=== PATIENT | female | born 1960 | race African-American/Black ===

== ENCOUNTER 2020-02-04 10:54 | Outpatient (CLI) | payer OTHER, SELFPAY ==
--- NOTE | ~2020-02-04 | XR_ITS ---
EXAMINATION: XR lumbar spine 2-3V, XR sacroiliac joints min 3V EXAM DATE: 02/04/2020 11:22 INDICATION: Left lower quadrant pain. TECHNIQUE: Lumber spine frontal, lateral, lateral L5-S1 projections for interpretation. Additional o blique projections of the sacroiliac joints. Frontal projection sacroiliac joints. Comparison is made to prior examination from 08/08/2010. FINDINGS: There is left hip arthroplasty and there are cholecystectomy clips. Moderate to severe dis c disease L5-S1. There is mild to moderate disc disease L3-4 and L4-5, mild upper lumbar and lower th oracic disc disease. There is moderate to severe lumbar facet arthropathy. There is 2-3 mm anterolist hesis L3 on L4. Sacrum, sacroiliac joints, sacral arcuate lines are intact. There is mild to moderate primary osteoarthritis. There is mild bilateral hip primary osteoarthritis. IMPRESSION: 1. Moderate to severe lumbar arthropathy and L5-S1 disc disease. 2. 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 Reviewed, dictated and finalized at location A. IMPRESSION: 1. Moderate to severe lumbar arthropathy and L5-S1 disc disease. 2. 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
[2020-02-04 11:27] LABS: Add Urine Microscopic? YES; Appearance Urine Clear (Clear); Bacteria Urine Trace /hpf; Bilirubin Urine Negative (Negative); Blood Urine 1+ (Negative); Color Urine Straw (Yellow); Glucose Urine UA Negative (Negative); Ketones Urine Negative (Negative); Leukocyte Esterase Ur Negative LEU/UL (Negative); Nitrate Urine Negative (Negative); Protein Urine Negative (Negative); Specific Grav Ur 1.011 (1.001-1.035); Squamous Epithelial Cell Urine Moderate /hpf (Few); Urobilinogen Urine Negative mg/dL (<2.0); WBC Urine 0-3 /hpf
== END 2020-02-04 10:55 | disposition home or self-care (01) ==
PROVIDERS: PCP Family Medicine Sports Medicine; Visit Provider Surgery
DX: R10.32 Left lower quadrant pain (principal); M12.88 Other specific arthropathies, not elsewhere classified, other specified site; M47.898 Other spondylosis, sacral and sacrococcygeal region
CPT/HCPCS: 72100; 72202; 81001

== ENCOUNTER 2022-01-14 11:19 | Outpatient (CLI) | payer OTHER, SELFPAY ==
--- NOTE | ~2022-01-14 | MM_ITS ---
EXAMINATION: MM screening jose luis BI w dg HISTORY: Screening mammogram TECHNIQUE: Craniocaudal and mediolateral oblique 3-D tomosynthesis images were obtained and synthetic 2-D images were generated. CAD analysis was submitted and interpreted. COMPARISON: 10/11/2018 diagnostic left mammogram and limited left breast ultrasound 09/12/2018, 12/28/2016 bilateral screening mammogram examinations BREAST PARENCHYMAL COMPOSITION: There are scattered areas of fibroglandular density. FINDINGS: There is no evidence of suspicious mass, calcification, or architectural distortion to sugg est malignancy in either breast. There has been no suspicious interval change. IMPRESSION: 1. No mammographic evidence of malignancy. 2. Recommend routine screening mammography in one year. BI-RADS Category 1: Negative Reviewed, dictated and finalized at location A.
== END 2022-01-14 11:20 | disposition home or self-care (01) ==
PROVIDERS: PCP Family Medicine Sports Medicine; Visit Provider Family Medicine Sports Medicine
DX: Z12.31 Encounter for screening mammogram for malignant neoplasm of breast (principal)
CPT/HCPCS: 77063; 77067

== ENCOUNTER 2022-02-09 21:24 | Emergency (ER) | payer OTHER, SELFPAY ==
--- NOTE | ~2022-02-09 | XR_ITS ---
EXAMINATION: XR chest 2V DATE: 02/09/2022 23:39 INDICATION: Cough TECHNIQUE: PA and lateral views of the chest are obtained. COMPARISON: 07/20/2017 FINDINGS: The lungs are free of acute opacities. There is no pleural effusion or pneumothorax. The ca rdiomediastinal silhouette is normal. There is mild thoracic spondylosis. Suture anchors are noted in the humeral heads. Surgical clips in the right upper quadrant are likely from prior cholecystectomy. IMPRESSION: 1. No acute cardiopulmonary abnormality. Reviewed, dictated and finalized at location A.
[2022-02-09 21:29] VITALS: BP 163/71; PULSE 89; RESP 18; TEMP 36.7; O2SAT 100
[2022-02-09 23:00] VITALS: BP 136/72; PULSE 100; PULSE 88; RESP 14; O2SAT 97
--- NOTE | 2022-02-09 23:08 | ED.GENADULT ---
HPI - General Adult General Chief complaint: Weakness Stated complaint: cough heavy chest bodyaches Time Seen by Provider: 02/09/22 22:33 Source: patient Mode of arrival: ambulatory Limitations: no limitations History of Present Illness HPI narrative: Patient is a 62-year-old female who presents the ED with report of flu-like symptoms. Patient reports she began feeling unwell on Sunday night. She reports having a persistent cough, diarrhea, muscle aches, chills, sweats, congestion, rhinorrhea, headache. She has had rib pain and abdominal pain associated with coughing. Denies any documented fever, nausea, vomiting. No blood in the stool. Patient states she just feels weak overall. She reports having occasional stress incontinence with coughing, but denies dysuria or hematuria. Patient is vaccinated for flu and COVID. Related Data Home Medications Medication Instructions Recorded Confirmed calcium carbonate 600 mg calcium 600 mg PO DAILY 08/01/19 (1,500 mg) tablet albuterol sulfate 90 mcg/actuation 2 puff INHALATION Q4H PRN gm 08/14/19 aerosol inhaler aspirin 81 mg tablet,delayed 81 mg PO DAILY 08/14/19 release dicyclomine 10 mg capsule 20 mg PO BID cap 08/14/19 fluticasone propionate 230 2 puff INHALATION Q12H 08/14/19 mcg-salmeterol 21 mcg/actuation HFA inhaler omeprazole 20 mg capsule,delayed 20 mg PO DAILY 08/14/19 release pravastatin 10 mg tablet 10 mg PO DAILY 08/14/19 biotin 800 mcg tablet 800 mcg PO DAILY 02/04/20 omega-3 900 mg-dha 360 mg-epa 455 cap PO 02/04/20 mg-fish oil 1,000 mg capsule Allergies Allergy/AdvReac Type Severity Reaction Status Date / Time No Known Allergies Allergy Unknown Verified 02/04/20 09:47 Review of Systems Review of Systems: CONSTITUTIONAL: Reports chills, sweats. Denies fever. ENT: Reports rhinorrhea, congestion. CARDIOVASCULAR: Denies chest pain. RESPIRATORY: Reports cough. Denies dyspnea. GASTROINTESTINAL: Reports abdominal pain associated with coughing, diarrhea. Denies nausea, vomiting, rectal bleeding. GENITOURINARY: Reports stress incontinence. Denies dysuria or hematuria. MUSCULOSKELETAL: Reports diffuse myalgias, rib pain associated w/ coughing. NEUROLOGIC: Reports headache, weakness. All systems reviewed & are unremarkable except as noted in HPI and below PMFSH Past Medical History Medical History Anemia Chronic depression Renal and ureteric calculus UTI (urinary tract infection) Yeast vaginitis Surgical History Surgical History History of bilateral carpal tunnel release both in 2007 History of colonoscopy 2016 2019 History of endoscopy 2014 History of hysterectomy total 2005 History of laparoscopic cholecystectomy 2011 History of left hip replacement 2019 History of rotator cuff surgery right in 2016 left in 2014 Family History Family History (Updated 04/08/19 @ 13:26 by DOCTOR UNKNOWN) Father Family history of diabetes mellitus in first degree relative Diabetes mellitus Family history of cardiovascular disease Family history of Alzheimer's disease Family history of congestive heart failure Family history of heart disease in male family member before age 55 Hypertension Family history of elevated blood lipids Family history of coronary artery disease Sibling Diabetes mellitus Family history of cardiovascular disease Hypertension Family history of malignant neoplasm of cervix Family history of malignant neoplasm of ovary Mother Hypertension Family history of cardiovascular disease Family history of malignant neoplasm of cervix Family history of glaucoma Grandparent Diabetes mellitus Family history of cardiovascular disease, Onset Age: 82 Other Cerebrovascular accident Family history of arthritis Family history of gout Family history of malignant neoplasm
[2022-02-09] MEDS: KETOROLAC 30 MG/ML VIAL (*BKC) IV PUSH (23:25)
[2022-02-09] MEDS: SODIUM CHLORIDE 0.9% IV 1,000 ML 999 ML IV CONT (23:25)
[2022-02-09 23:34] LABS: Basophils Percent Auto 0.5 % (0.2-1.2); Eosinophils Percent Auto 0.5 % (0-4.4); Hematocrit 38.7 % (37.0-47.0); Immature Granulocyte Absolute 0.02 K/mm3 (0.00-0.031); Immature Granulocyte Percent A 0.3 % (0-0.5); Lymphocytes Absolute Auto 1.78 K/mm3 (0.9-3.2); Lymphocytes Percent Auto 30.1 % (18.3-44.2); Mean Corpuscular Hemoglobin 26.7 pg (26-34); Mean Corpuscular Volume 86.2 fl (80-100); Mean Platelet Volume 9.5 fl (7.4-10.4); Monocytes Absolute Auto 0.8 K/mm3 (0.1-0.6); Monocytes Percent Auto 13.9 % (2.6-8.5); Neutrophils Absolute Auto 3.2 K/mm3 (1.3-6.7); Neutrophils Percent Auto 54.7 % (45.5-73.1); Platelet Count Result 220 k/mm3 (150-375); Red Blood Count 4.49 M/mm3 (4.2-5.4); Red Cell Distribution Width 15.9 % (11.5-14.5); White Blood Count 5.9 K/mm3 (4.5-10.0)
[2022-02-09 23:36] LABS: Appearance Urine Clear (Clear); Bilirubin Urine Negative (Negative); Blood Urine 1+ (Negative); Color Urine Yellow (Yellow); Glucose Urine UA Negative (Negative); Ketones Urine Negative (Negative); Leukocyte Esterase Ur Negative LEU/UL (Negative); Nitrate Urine Negative (Negative); Protein Urine Negative (Negative); Specific Grav Ur >= 1.030 (1.001-1.035); Urobilinogen Urine 0.2 mg/dL (<2.0); pH Urine 5.5 (5.0-9.0)
[2022-02-09 23:39] LABS: Alanine Aminotransferase 58 U/L (6-35); Alkaline Phosphatase 84 U/L (38-126); Anion Gap 4 mmol/L (8-16); Aspartate Amino Transferase 71 U/L (14-36); Bilirubin,Total 0.2 mg/dL (0.2-1.3); Blood Urea Nitrogen 12 mg/dL (7-17); Calcium 8.8 mg/dL (8.4-10.2); Carbon Dioxide 31 mmol/L (22-30); Chloride 102 mmol/L (98-107); Estimated CRCL calculation 56 ml/min; Estimated Glomerular Filt Rate > 60; Glucose 126 mg/dL (65-110); Mucus Urine Rare /lpf; Potassium 4.2 mmol/L (3.4-5.0); Sodium 137 mmol/L (137-145); Squamous Epithelial Cell Urine Few /hpf (Few); WBC Urine 0-3 /hpf
[2022-02-09 23:44] LABS: Add Urine Microscopic? YES
[2022-02-10 00:07] LABS: Influenza A QL RT-PCR Negative (Negative); Influenza B QL RT-PCR Negative (Negative); SARS-CoV-2 RNA PCR Positive
--- NOTE | 2022-02-10 00:27 | PC.NURSE ---
Updated pt. family leann at [phone]. requesting to be called for updates
[2022-02-10 00:42] VITALS: BP 138/76; PULSE 89; RESP 18; O2SAT 98; O2SAT 99
[2022-02-10 00:43] VITALS: O2SAT 97
== END 2022-02-10 00:44 | disposition home or self-care (01) ==
PROVIDERS: Physician Assistant; Emergency Provider Emergency Medicine; PCP Family Medicine Sports Medicine
DX: U07.1 COVID-19 (principal)
CPT/HCPCS: 36415; 71046; 80053; 81001; 85025; 87502; 96361; 96374; 99284; C9803; J1885; J7030; U0003; U0005

== ENCOUNTER 2022-12-18 13:53 | Outpatient (CLI) | payer BC, SELFPAY ==
--- NOTE | ~2022-12-18 | XR_ITS ---
XR chest 2V DATE: 12/18/2022 14:11 INDICATION: Shortness of breath TECHNIQUE: 2 views COMPARISON: 02/09/2022 2 view chest FINDINGS: Normal heart size. No hilar or mediastinal enlargement. No pulmonary infiltrate or consolid ation, pleural effusion or pulmonary vascular congestion or pneumothorax. Degenerative spurring of the thoracic and lumbar spine. [place] devices are noted at both humeral head s. Status post cholecystectomy. IMPRESSION: No active cardiopulmonary disease or significant change since 02/09/2022 Reviewed, dictated and finalized at location B. IMPRESSION: No active cardiopulmonary disease or significant change since 2021
== END 2022-12-18 13:54 | disposition home or self-care (01) ==
PROVIDERS: PCP Family Medicine Sports Medicine; Visit Provider Physician Assistant
DX: R06.02 Shortness of breath (principal)
CPT/HCPCS: 71046

== ENCOUNTER 2023-01-09 08:36 | Outpatient (CLI) | payer BC, SELFPAY ==
--- NOTE | 2023-01-09 | ECHO_ITS ---
Patient Info Name: Little Sarmiento Age: 63 years : 1960 Gender: Female Ht: 65 in Wt: 228 lbs BSA: 2.23 m2 HR: 81 bpm BP: 160 / 85 mmHg Heart Rhythm: Sinus Rhythm Technical Quality: Good Exam Date: 01/09/2023 9:09 AM Exam Location: [facility] Patient Status: Outpatient Admit Date: 01/09/2023 Staff Ordering Physician: Sagrario, John GONZALEZ Delivery Table Feeder: Soniya Cintron RDCS Attending Provider: Sagrario, John GONZALEZ Referring Physician: Sagrario HERNANDEZ; Exam Type: CA echo doppler color flow Study Info Indications R06.02 - Shortness of breath Complete two-dimensional, color flow and Doppler transthoracic echocardiogram is performed. Summary 1. Complete two-dimensional, color flow and Doppler transthoracic echocardiogram is performed. 2. Left ventricular chamber dimension is normal. 3. Left ventricular systolic function is normal, estimated at 65-70%. 4. There is mildly increased left ventricular wall thickness. 5. The left ventricular diastolic function is grade I diastolic dysfunction. 6. Right ventricular systolic function is normal. 7. There is trace mitral valve regurgitation. 8. There is trace tricuspid valve regurgitation. Left Ventricle Left ventricular chamber dimension is normal. Left ventricular systolic function is normal, estimated at 65-70%. There is mildly increased left ventricular wall thickness. The left ventricular diastolic function is grade I diastolic dysfunction. Global longitudinal strain is abnormal at -17 %. Right Ventricle Right ventricular chamber dimension is normal. Right ventricular systolic function is normal. Left Atria Left atrial chamber dimension is normal. Right Atria Right atrial chamber dimension is normal. Atrial Septum Intact interatrial septum visualized by color flow imaging. Aortic Valve The aortic valve is trileaflet. There is no aortic valve stenosis. There is no aortic valve regurgitation. Pulmonic Valve The pulmonic valve is not well visualized. Mitral Valve The mitral valve has normal leaflets. There is no mitral valve stenosis. There is trace mitral valve regurgitation. Tricuspid Valve There is no significant tricuspid valve stenosis. There is trace tricuspid valve regurgitation. Pericardium/Pleural There is trivial pericardial effusion. Aorta The aortic root size at the sinus of Valsalva is normal. Left Ventricular Outflow Tract Name Value Normal LVOT 2D LVOT Diameter 1.9 cm LVOT Doppler LVOT Peak Gradient 5 mmHg LVOT Mean Gradient 3 mmHg LVOT VTI 25 cm LVOT VTI/AV VTI Ratio 0.9 LVOT Stroke Volume 71 ml LVOT CO 5.4 l/min LVOT CI 2.4 l/min/m2 Pulmonic Valve Name Value Normal RVOT Doppler ----
--- NOTE | 2023-01-09 14:06 | WPDPFTINT ---
PFT Procedure Performed PFT Procedure Performed Plethysmography (Lung Vol) Diffusing Cap (DLCO) Flow Vol Loop Spirometry w/o Bronchodil PFT Interpretation DOS: 01/09/2023 REQUESTING: LISA Quiros REASON FOR TESTING: Shortness of breath PULMONARY FUNCTION TESTS Results are reliable and reproducible. Spirometry: FEV1 is 1.26 L, 57% predicted, mildly decreased. FVC is 1.61 L, 58%, mildly decreased. FEV1/FVC ratio is 79%, normal. No bronchodilator was administered. Lung volumes: Total lung capacity is 3.29 L, 72%, mildly reduced. Residual volume is 1.68 L, 88%, normal. RV/TLC is 51%, increased. Airway resistance is 2.2 cmH20/L/sec, 127%, normal. Diffusion: DLCO 15.8, 72%, normal. DLCO/VA is 5.66, 129%, normal. Flow volume loop: Flow volume loop is consistent with a restrictive impairment. IMPRESSION: This spirometry shows a normal FEV1/FVC ratio with mild decrease in the FEV1 and FVC which may reflect elevated body mass index. There is mild restriction evidence by the decreased total lung capacity. Air trapping is present which is new. Diffusion is normal. Compared to a prior study 08/20/2019, values are similar. Spirometry was the same although no bronchodilator was given on this test. Total lung capacity was 77% now 72% predicted. Air trapping is present with an increased RV/TLC ratio. Diffusion is similar. Oly Pierre MD
== END 2023-01-09 08:37 | disposition home or self-care (01) ==
PROVIDERS: PCP Family Medicine Sports Medicine; Visit Provider Physician Assistant
DX: R06.02 Shortness of breath (principal)
CPT/HCPCS: 93306; 94375; 94726; 94729

== ENCOUNTER 2023-01-25 11:47 | Emergency (ER) | payer BC, SELFPAY ==
[2023-01-25] VITALS (39 sets, daily range): BP systolic 131–160; BP diastolic 65–92; PULSE 73–96; RESP 14–26; TEMP 36.8; O2SAT 97–100
--- NOTE | ~2023-01-25 | XR_ITS ---
EXAMINATION: XR chest 2V DATE: 01/25/2023 13:20 INDICATION: Shortness of breath TECHNIQUE: PA and lateral views of the chest are obtained. COMPARISON: 12/18/2022 FINDINGS: The lungs are free of acute opacities. No pleural effusion or pneumothorax. The cardiomedia stinal silhouette is normal. There are bridging osteophytes at multiple levels in the spine, consiste nt with diffuse idiopathic skeletal hyperostosis (DISH). Suture anchors are noted in the humeral head s. Surgical clips in the right upper quadrant are likely from prior cholecystectomy. IMPRESSION: 1. No acute cardiopulmonary abnormality. Reviewed, dictated and finalized at location L.
--- NOTE | 2023-01-25 11:56 | ECG_ITS ---
Measurements Intervals [place] Rate: 73 P: 54 NE: 160 QRS: 63 QRSD: 83 T: 86 QT: 382 QTc: 422 Interpretive Statements SINUS RHYTHM WITH SINUS ARRHYTHMIA POSSIBLE LEFT ATRIAL ENLARGEMENT [-0.1mV P WAVE IN V1/V2] NONSPECIFIC T-WAVE ABNORMALITY NO PREVIOUS ECG AVAILABLE FOR COMPARISON Electronically Signed On 01-25-2023 12:06:35 CDT by Mitali Waller M.D.
[2023-01-25 12:15] LABS: Basophils Percent Auto 0.6 % (0.2-1.2); Eosinophils Absolute Auto 0.2 K/mm3 (0-0.3); Eosinophils Percent Auto 4.1 % (0-4.4); Hematocrit 38.5 % (37.0-47.0); Hemoglobin 12.1 g/dL (12.0-15.0); Immature Granulocyte Absolute 0.01 K/mm3 (0.00-0.031); Immature Granulocyte Percent A 0.2 % (0-0.5); Lymphocytes Absolute Auto 1.88 K/mm3 (0.9-3.2); Mean Corpuscular HGB Conc 31.4 g/dl (32-36); Mean Corpuscular Hemoglobin 26.1 pg (26-34); Mean Corpuscular Volume 83.2 fl (80-100); Mean Platelet Volume 9.6 fl (7.4-10.4); Monocytes Absolute Auto 0.5 K/mm3 (0.1-0.6); Monocytes Percent Auto 10.6 % (2.6-8.5); Neutrophils Absolute Auto 2.2 K/mm3 (1.3-6.7); Neutrophils Percent Auto 45.5 % (45.5-73.1); Platelet Count Result 265 k/mm3 (150-375); Red Blood Count 4.63 M/mm3 (4.2-5.4); Red Cell Distribution Width 16.8 % (11.5-14.5); White Blood Count 4.8 K/mm3 (4.5-10.0)
[2023-01-25 12:24] LABS: Alanine Aminotransferase 43 U/L (6-35); Albumin Level 4.1 g/dL (3.5-5.1); Alkaline Phosphatase 102 U/L (38-126); Anion Gap 6 mmol/L (8-16); Aspartate Amino Transferase 45 U/L (14-36); Bilirubin,Total 0.5 mg/dL (0.2-1.3); Blood Urea Nitrogen 10 mg/dL (7-17); Calcium 8.7 mg/dL (8.4-10.2); Carbon Dioxide 29 mmol/L (22-30); Chloride 104 mmol/L (98-107); Estimated CRCL calculation 69 ml/min; Estimated Glomerular Filt Rate > 60; Glucose 119 mg/dL (65-110); Lipase 71 U/L (23-300); Sodium 139 mmol/L (137-145)
[2023-01-25 12:28] LABS: Prothrombin Time 13.1 Seconds (11.1-14.7)
[2023-01-25 12:29] LABS: Partial Thromboplastin Time 29.4 SECONDS (22.3-36.8)
[2023-01-25 12:34] LABS: NT Pro B Type Natriuretic Pept < 20 pg/mL (19.9-100)
[2023-01-25 12:36] LABS: Troponin I < 0.012 ng/mL (0.000-0.034)
--- NOTE | 2023-01-25 14:56 | ED.SOB ---
HPI - SOB/Dyspnea General Chief Complaint: Shortness of Breath/Dyspnea Stated Complaint: sob Time Seen by Provider: 01/25/23 13:33 History of Present Illness HPI Narrative: Patient is a 63-year-old female with a history of rheumatoid arthritis presenting with chest pain. Patient states that she has been having dyspnea and intermittent cough for the last several weeks. States that her rn progressive care and her PCP are currently working this up. States that for the last days she has had left-sided chest pain that is worse with movements. She called her PCP who advised that she come into the ER. She states that the muscles on the left side of her neck and left chest feel tight. She denies worsening of her dyspnea. No fevers or chills, headache, numbness or weakness, palpitations, lightheadedness, abdominal pain, nausea or vomiting, diarrhea, dysuria, leg swelling Related Data Home Medications Medication Instructions Recorded Confirmed calcium carbonate 600 mg calcium 600 mg PO DAILY 08/01/19 (1,500 mg) tablet (Calcium) albuterol sulfate 90 mcg/actuation 2 puff inhalation Q4H PRN 08/14/19 aerosol inhaler (ProAir HFA) aspirin 81 mg tablet,delayed 81 mg PO DAILY 08/14/19 release (Adult Low Dose Aspirin) dicyclomine 10 mg capsule 20 mg PO BID 08/14/19 fluticasone propionate 230 2 puff inhalation Q12H 08/14/19 mcg-salmeterol 21 mcg/actuation HFA inhaler (Advair HFA) omeprazole 20 mg capsule,delayed 20 mg PO DAILY 08/14/19 release pravastatin 10 mg tablet 10 mg PO DAILY 08/14/19 biotin 800 mcg tablet 800 mcg PO DAILY 02/04/20 omega-3 900 mg-dha 360 mg-epa 455 cap PO 02/04/20 mg-fish oil 1,000 mg capsule (Fish Oil) Allergies Allergy/AdvReac Type Severity Reaction Status Date / Time No Known Allergies Allergy Unknown Verified 01/25/23 13:05 Review of Systems Review of Systems: All systems reviewed & are unremarkable except as noted in HPI and below PMFSH Past Medical History Medical History Anemia Chronic depression Renal and ureteric calculus UTI (urinary tract infection) Yeast vaginitis Surgical History Surgical History History of bilateral carpal tunnel release both in 2008 History of colonoscopy 2016 2019 History of endoscopy 2015 History of hysterectomy total 2006 History of laparoscopic cholecystectomy 2012 History of left hip replacement 2019 History of rotator cuff surgery right in 2016 left in 2015 Family History Family History Father Family history of diabetes mellitus in first degree relative Diabetes mellitus Family history of cardiovascular disease Family history of Alzheimer's disease Family history of congestive heart failure Family history of heart disease in male family member before age 55 Hypertension Family history of elevated blood lipids Family history of coronary artery disease Sibling Diabetes mellitus Family history of cardiovascular disease Hypertension Family history of malignant neoplasm of cervix Family history of malignant neoplasm of ovary Mother Hypertension Family history of cardiovascular disease Family history of malignant neoplasm of cervix Family history of glaucoma Grandparent Diabetes mellitus Family history of cardiovascular disease, Onset Age: 82 Other Cerebrovascular accident Family history of arthritis Family history of gout Family history of malignant neoplasm Social History Social History Smoking status: Never smoker Alcohol intake: current Occupation/Education: occupation 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 HEAD: Normocephalic, atraumatic.
[2023-01-25] MEDS: SODIUM CHLORIDE 0.9% IV 1,000 ML 999 ML IV CONT (15:14)
[2023-01-25] MEDS: KETOROLAC 15 MG/ML VIAL (*BKC) IV PUSH (15:16)
[2023-01-25] MEDS: methocarbamoL 500 MG TABLET PO (15:16)
[2023-01-25 15:31] LABS: Troponin I 0.012 ng/mL (0.000-0.034)
[2023-01-25 19:32] LABS: Troponin I < 0.012 ng/mL (0.000-0.034)
== END 2023-01-25 20:07 | disposition home or self-care (01) ==
PROVIDERS: Emergency Medicine; Emergency Provider Emergency Medicine; PCP Family Medicine Sports Medicine
DX: R07.89 Other chest pain (principal); R05.9 Cough, unspecified; R06.00 Dyspnea, unspecified; M06.9 Rheumatoid arthritis, unspecified; Z86.2 Personal history of diseases of the blood and blood-forming organs and certain disorders involving the immune mechanism; Z87.442 Personal history of urinary calculi; Z87.440 Personal history of urinary (tract) infections; Z90.710 Acquired absence of both cervix and uterus; Z96.642 Presence of left artificial hip joint; R94.31 Abnormal electrocardiogram [ECG] [EKG]
CPT/HCPCS: 36415; 71046; 80053; 83690; 83880; 84484; 85025; 85610; 85730; 93005; 96365; 96375; 99284; A9270; J0131; J1885; J7030

== ENCOUNTER 2023-07-10 10:25 | Outpatient (CLI) | payer BC, SELFPAY ==
--- NOTE | ~2023-07-10 | MM_ITS ---
EXAMINATION: MM screening jose luis BI w dg HISTORY: Screening mammogram TECHNIQUE: Craniocaudal and mediolateral oblique 3-D tomosynthesis images were obtained and synthetic 2-D images were generated. CAD analysis was submitted and interpreted. COMPARISON: 01/14/2022 bilateral screening mammogram 10/11/2018 diagnostic left mammogram and limited left breast ultrasound 09/12/2018 bilateral screening mammogram BREAST PARENCHYMAL COMPOSITION: There are scattered areas of fibroglandular density. FINDINGS: There is no evidence of suspicious mass, calcification, or architectural distortion to sugg est malignancy in either breast. There has been no suspicious interval change. IMPRESSION: 1. No mammographic evidence of malignancy. 2. Recommend routine screening mammography in one year. BI-RADS Category 1: Negative Reviewed, dictated and finalized at location A.
== END 2023-07-10 10:26 | disposition home or self-care (01) ==
PROVIDERS: PCP Family Medicine Sports Medicine; Visit Provider Family Medicine Sports Medicine
DX: Z12.31 Encounter for screening mammogram for malignant neoplasm of breast (principal)
CPT/HCPCS: 77063; 77067

== ENCOUNTER 2024-07-14 10:12 | Outpatient (CLI) | payer BC, MEDICAID, SELFPAY ==
--- NOTE | ~2024-07-14 | MM_ITS ---
EXAMINATION: MM screening jose luis BI w dg HISTORY: Screening TECHNIQUE: Craniocaudal and mediolateral oblique 3-D tomosynthesis images were obtained and synthetic 2-D images were generated. CAD analysis was submitted and interpreted. COMPARISON: Comparison to multiple prior studies sequentially, with oldest reviewed study dated 06/18. BREAST PARENCHYMAL COMPOSITION: Not dense: There are scattered areas of fibroglandular density. FINDINGS: There is no evidence of suspicious mass, calcification, or architectural distortion to sugg est malignancy in either breast. There has been no suspicious interval change. IMPRESSION: 1. No mammographic evidence of malignancy. 2. Recommend routine screening mammography in one year. BI-RADS Category 1: Negative Reviewed, dictated and finalized at location B.
== END 2024-07-14 10:13 | disposition home or self-care (01) ==
LOC: ANHIMG 10:16
PROVIDERS: PCP Internal Medicine; Visit Provider Internal Medicine
DX: Z12.31 Encounter for screening mammogram for malignant neoplasm of breast (principal)
CPT/HCPCS: 77063; 77067

== ENCOUNTER 2024-08-17 00:19 | Emergency (ER) | payer BC, MEDICAID, SELFPAY ==
[2024-08-17 00:32] VITALS: BP 156/66; PULSE 86; RESP 20; TEMP 36.7; O2SAT 100
--- NOTE | 2024-08-17 00:47 | PC.NURSE ---
pt visitor approached triage desk stating patient was gushing blood everywhere . uponn assessment patient was bleeding around nasal clamp. this rn replaced nasal clamp and continued to hold pressure. pt continued to have excessive thin bleeding around nasal clamp.
--- NOTE | 2024-08-17 02:09 | ED_ITS ---
HPI - General Adult General Chief complaint: Epistaxis Stated complaint: epitaxis Time Seen by Provider: 08/17/24 00:59 History of Present Illness HPI narrative: patient is a 64-year-old female presents emergency department with chief complaint of epistaxis patient reports that started having bruising from her nose this evening probably from both the hospital but worse on the right. Patient reports he is not on any blood thinners reports she has had problems with nosebleeds in the past Related Data Home Medications Medication Instructions Recorded Confirmed calcium carbonate (Calcium 600) 600 mg PO DAILY 08/01/19 albuterol sulfate 90 mcg/actuation 2 puff inhalation Q4H PRN 08/14/19 aerosol inhaler (ProAir HFA) aspirin 81 mg tablet,delayed 81 mg PO DAILY 08/14/19 release (Adult Low Dose Aspirin) dicyclomine 10 mg capsule 20 mg PO BID 08/14/19 fluticasone propionate 230 2 puff inhalation Q12H 08/14/19 mcg-salmeterol 21 mcg/actuation HFA inhaler (Advair HFA) omeprazole 20 mg capsule,delayed 20 mg PO DAILY 08/14/19 release pravastatin 10 mg tablet 10 mg PO DAILY 08/14/19 biotin 800 mcg tablet 800 mcg PO DAILY 02/04/20 omega-3 900 mg-dha 360 mg-epa 455 cap PO 02/04/20 mg-fish oil 1,000 mg capsule (Fish Oil) Allergies Allergy/AdvReac Type Severity Reaction Status Date / Time No Known Allergies Allergy Unknown Verified 01/25/23 13:05 Review of Systems Review of Systems: A 10 system review of systems was completed on the patient and is negative except for what is stated in the HPI. Nursing and ancillary documentation was reviewed. [facility], LAT[facility] Past Medical History Medical History Anemia Chronic depression Renal and ureteric calculus UTI (urinary tract infection) Yeast vaginitis Surgical History Surgical History History of bilateral carpal tunnel release both in 2007 History of colonoscopy 2016 2019 History of endoscopy 2014 History of hysterectomy total 2006 History of laparoscopic cholecystectomy 2011 History of left hip replacement 2019 History of rotator cuff surgery right in 2016 left in 2014 Family History Family History Father Family history of diabetes mellitus in first degree relative Diabetes mellitus Family history of cardiovascular disease Family history of Alzheimer's disease Family history of congestive heart failure Family history of heart disease in male family member before age 55 Hypertension Family history of elevated blood lipids Family history of coronary artery disease Sibling Diabetes mellitus Family history of cardiovascular disease Hypertension Family history of malignant neoplasm of cervix Family history of malignant neoplasm of ovary Mother Hypertension Family history of cardiovascular disease Family history of malignant neoplasm of cervix Family history of glaucoma Grandparent Diabetes mellitus Family history of cardiovascular disease, Onset Age: 82 Other Cerebrovascular accident Family history of arthritis Family history of gout Family history of malignant neoplasm Social History Social History Smoking status: Never smoker Alcohol intake: current Occupation/Education: occupation 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 HEAD: Normocephalic, atraumatic. EYES: PERRLA and EOMI. ENT: Nares clear, no rhinorrhea or epistaxis. Mucous membranes moist. active bleeding from the right nostril NECK: Supple. CHEST: Clear to auscultation. No respiratory distress. HEART: Regular rate and rhythm. No murmur heard. Normal peripheral pulses. ABDOMEN: Soft, nontender, nondistended, normal active bowel sounds. EXTREMITIES: Normal range of motion. No edema. SKIN: Warm, dry, no rash. NEURO: No focal deficits. Alert and oriented x3. PSYCH: Normal mood and affect. Course Vital Signs Vital signs: Vital Signs Temperature 36.7 C 08/17/24 00:32 Pulse Rate 86 08/17/24 00:32 Respiratory Rate 20 08/17/24 00:32 Blood Pressure 156/66 H 08/17/24 00:32 Pulse Oximetry 100 08/17/24 00:32 Temperature 36.7 C 08/17/24 00:32 Pulse Rate 86 08/17/24 00:32 Respiratory Rate 20 08/17/24 00:32 Blood Pressure 156/66 H 08/17/24 00:32 Pulse Oximetry 100 08/17/24 00:32 Procedures Epistaxis Control right: Epistaxis Control Date: 08/17/24 Epistaxis Control Time: 02:10 Time Out Performed: Yes Nose Prepped With: lidocaine Direct Inspection: yes Clots Removed by: blowing nose Cautery Used: none Device Inserted: hemostatic balloon Device Size: 75 Patient Tolerated Procedure: well Medical Decision Making MDM Narrative Medical decision making narrative: Differential diagnosis includes epistaxis, electrolyte abnormality, anemia The patient's epistaxis was controlled using a Rapid rhino. Blood work showed nose is significant abnormality. Patient discharged home to follow-up with ENT patient had the packing removed and 48 hours Vital Signs Vital Signs: Vital Signs Temperature 36.7 C 08/17/24 00:32 Pulse Rate 86 08/17/24 00:32 Respiratory Rate 20 08/17/24 00:32 Blood Pressure 156/66 H 08/17/24 00:32 Pulse Oximetry 100 08/17/24 00:32 Temperature 36.7 C 08/17/24 00:32 Pulse Rate 86 08/17/24 00:32 Respiratory Rate 20 08/17/24 00:32 Blood Pressure 156/66 H 08/17/24 00:32 Pulse Oximetry 100 08/17/24 00:32 Lab Data 08/17/24 03:12 08/17/24 03:12 Labs: Lab Results 08/17/24 Range/Units 03:12 WBC 8.6 (4.5-10.0) K/mm3 RBC 3.90 L (4.2-5.4) M/mm3 Hgb 10.7 L (12.0-15.0) g/dL Hct 33.0 L (37.0-47.0) % MCV 84.6 (80-100) fl MCH 27.4 (26-34) pg MCHC 32.4 (32-36) g/dl RDW 15.2 H (11.5-14.5) % Plt Count 231 (150-375) k/mm3 MPV 9.6 (7.4-10.4) fl Immature Gran % (Auto) 0.2 (0-0.5) % Neut % (Auto) 61.6 (45.5-73.1) % Lymph % (Auto) 27.7 (18.3-44.2) % Day % (Auto) 8.3 (2.6-8.5) % Eos % (Auto) 1.8 (0-4.4) % Baso % (Auto) 0.4 (0.2-1.2) % Lymph # (Auto) 2.37 (0.9-3.2) K/mm3 Day # (Auto) 0.7 H (0.1-0.6) K/mm3 Eos # (Auto) 0.2 (0-0.3) K/mm3 Baso # (Auto) 0.0 (0.0-0.1) K/mm3 Abs Immat Gran (auto) 0.02 (0.00-0.031) K/mm3 Absolute Neuts (auto) 5.3 (1.3-6.7) K/mm3 Absolute Nucleated RBC 0.000 (0.0-0.012) K/mm3 Nucleated RBC % 0.0 (0.0-0.2) % PT 14.0 (11.1-14.7) Seconds INR 1.0 APTT 32.4 (22.3-36.8) Seconds Sodium 136 L (137-145) mmol/L Potassium 3.6 (3.4-5.0) mmol/L Chloride 100 (98-107) mmol/L Carbon Dioxide 29 (22-30) mmol/L Anion Gap 7 (4-12) mmol/L BUN 21 H D (7-17) mg/dL Creatinine 0.80 (0.7-1.0) mg/dL Estim Creat Clear Calc 74 ml/min Estimated GFR > 60 (59 - ) Glucose 167 H (65-110) mg/dL Calcium 9.2 (8.4-10.2) mg/dL Total Bilirubin 0.6 (0.2-1.3) mg/dL AST 42 H (14-36) U/L ALT 37 H (6-35) U/L Alkaline Phosphatase 96 (38-126) U/L Total Protein 7.0 (6.3-8.2) g/dL Albumin 3.9 (3.5-5.1) g/dL Discharge Plan Discharge Clinical Impression: Epistaxis Patient Disposition: Home, Self-Care Condition: Stable Instructions: Antibiotic Form, Nosebleed (ED) Additional Instructions: Please follow-up with ENT or be re-evaluated in the emergency department for by her primary care provider in 48 hours you will need to have the packing removed Prescriptions: No Action biotin 800 mcg tablet 800 mcg PO DAILY Fish Oil 900 mg-360 mg- 455 mg-1,000 mg capsule PO benzonatate 200 mg capsule 200 mg PO TID PRN (Reason: cough) Qty: 20 0RF methocarbamol 750 mg tablet 750 mg PO QID Qty: 20 0RF benzonatate 100 mg capsule 100 mg PO TID PRN (Reason: cough) Qty: 20 0RF calcium carbonate [Calcium 600] 600 mg calcium (1,500 mg) tablet 600 mg PO DAILY omeprazole 20 mg capsule,delayed release(DR/EC) 20 mg PO DAILY dicyclomine 10 mg capsule 20 mg PO BID pravastatin 10 mg tablet 10 mg PO DAILY aspirin [Adult Low Dose Aspirin] 81 mg tablet,delayed release (DR/EC) 81 mg PO DAILY Advair HFA 230-21 mcg/actuation HFA aerosol inhaler 2 puff INHALATION Q12H albuterol sulfate [ProAir HFA] 90 mcg/actuation HFA aerosol inhaler 2 puff INHALATION Q4H PRN gabapentin 300 mg capsule 300 mg PO DAILY Qty: 30 11RF amlodipine-benazepril 5-10 mg capsule 1 cap PO DAILY Qty: 30 3RF Rx Instructions: pt must have an appointment for further refills 10/20/20 cholecalciferol (vitamin D3) 1,250 mcg (50,000 unit) capsule See Rx Instructions .ROUTE .COMPLEX Qty: 4 3RF Dose Instruction: TAKE 1 CAPSULE BY MOUTH WEEKLY Rx Instructions: TAKE 1 CAPSULE BY MOUTH WEEKLY Follow-up/Referrals: Leonardo,MD Christo [Primary Care Provider] - Lavelle Worthy MD [Physician] - Time of Disposition: 04:06
[2024-08-17 03:22] LABS: Basophils Percent Auto 0.4 % (0.2-1.2); Eosinophils Absolute Auto 0.2 K/mm3 (0-0.3); Eosinophils Percent Auto 1.8 % (0-4.4); Hemoglobin 10.7 g/dL (12.0-15.0); Immature Granulocyte Absolute 0.02 K/mm3 (0.00-0.031); Immature Granulocyte Percent A 0.2 % (0-0.5); Lymphocytes Absolute Auto 2.37 K/mm3 (0.9-3.2); Lymphocytes Percent Auto 27.7 % (18.3-44.2); Mean Corpuscular HGB Conc 32.4 g/dl (32-36); Mean Corpuscular Hemoglobin 27.4 pg (26-34); Mean Corpuscular Volume 84.6 fl (80-100); Mean Platelet Volume 9.6 fl (7.4-10.4); Monocytes Absolute Auto 0.7 K/mm3 (0.1-0.6); Monocytes Percent Auto 8.3 % (2.6-8.5); Neutrophils Absolute Auto 5.3 K/mm3 (1.3-6.7); Neutrophils Percent Auto 61.6 % (45.5-73.1); Platelet Count Result 231 k/mm3 (150-375); Red Cell Distribution Width 15.2 % (11.5-14.5); White Blood Count 8.6 K/mm3 (4.5-10.0)
[2024-08-17 03:32] LABS: Alanine Aminotransferase 37 U/L (6-35); Albumin Level 3.9 g/dL (3.5-5.1); Alkaline Phosphatase 96 U/L (38-126); Anion Gap 7 mmol/L (4-12); Aspartate Amino Transferase 42 U/L (14-36); Bilirubin,Total 0.6 mg/dL (0.2-1.3); Blood Urea Nitrogen 21 mg/dL (7-17); Calcium 9.2 mg/dL (8.4-10.2); Carbon Dioxide 29 mmol/L (22-30); Chloride 100 mmol/L (98-107); Estimated CRCL calculation 74 ml/min; Estimated Glomerular Filt Rate > 60; Glucose 167 mg/dL (65-110); Potassium 3.6 mmol/L (3.4-5.0); Sodium 136 mmol/L (137-145)
[2024-08-17 03:37] LABS: Partial Thromboplastin Time 32.4 Seconds (22.3-36.8)
== END 2024-08-17 04:10 | disposition home or self-care (01) ==
PROVIDERS: Emergency Provider Emergency Medicine; PCP Internal Medicine
DX: R04.0 Epistaxis (principal)
CPT/HCPCS: 30901; 36415; 80053; 85025; 85610; 85730; 99283; J2004

== ENCOUNTER 2024-08-24 13:25 | Emergency (ER) | payer BC, MEDICAID, SELFPAY ==
[2024-08-24] VITALS (7 sets, daily range): BP systolic 125–176; BP diastolic 55–91; PULSE 88–102; RESP 14–21; TEMP 36.4; O2SAT 95–100
[2024-08-24] MEDS: HYDROcodone/acetaminophen (*CRX) 5-325 MG TABLET 1 TAB PO (15:21)
--- NOTE | 2024-08-24 15:51 | PC.NURSE ---
Bleeding has increased from L. nare since rhino rocket placed. Bleeding from R. nare has decreased, but still continues to drip blood through rhino rocket. MD notified. See MAR for additional interventions.
[2024-08-24] MEDS: TRANEXAMIC ACID 1,000MG/ISO100 1,000 MG/100 ML BAG 200 MG IVPB (15:58)
--- NOTE | 2024-08-24 17:15 | ED.EPISTAXIS ---
HPI - Epistaxis General Chief complaint: Epistaxis <Paul Mcduffie MD - Last Filed: 08/24/24 18:58> Stated complaint: nose bleed <Paul Mcduffie MD - Last Filed: 08/24/24 18:58> Time Seen by Provider: 08/24/24 13:38 <Paul Mcduffie MD - Last Filed: 08/24/24 18:58> History of Present Illness HPI Narrative: 64-year-old female presenting to the emergency department for epistaxis. She previously had epistaxis and was seen here in the emergency department several days prior. She was discharged home after treatment here and sent to an nuclear instructor on outpatient basis. Patient's saw this provider who performed several outpatient procedures during a visit and her bleeding had stopped and she was sent home. The took the packing out and bleeding stopped on the . Patient presents to the emergency room today with bleeding out of her right naris. Does not take any blood thinner medications aside from a baby aspirin. She endorses a minor headache. She is able to tolerate his secretions and does feel some blood in the back of her throat but no endorse nauseousness or vomiting. For this she was otherwise in her normal state of health and denies any injuries and does endorse that she had a remote history of a surgery through her nasal passages to remove a potential pituitary mass but this was in the remote past not recent. She is denying any fever or chills. No chest pain or difficulty in breathing. <Reza La MD - Last Filed: 08/25/24 08:29> Related Data Home medications: Home Medications Medication Instructions Recorded Confirmed calcium carbonate (Calcium 600) 600 mg PO DAILY 08/01/19 albuterol sulfate 90 mcg/actuation 2 puff inhalation Q4H PRN 08/14/19 aerosol inhaler (ProAir HFA) aspirin 81 mg tablet,delayed 81 mg PO DAILY 08/14/19 release (Adult Low Dose Aspirin) dicyclomine 10 mg capsule 20 mg PO BID 08/14/19 fluticasone propionate 230 2 puff inhalation Q12H 08/14/19 mcg-salmeterol 21 mcg/actuation HFA inhaler (Advair HFA) omeprazole 20 mg capsule,delayed 20 mg PO DAILY 11/14/19 release pravastatin 10 mg tablet 10 mg PO DAILY 08/14/19 biotin 800 mcg tablet 800 mcg PO DAILY 02/04/20 omega-3 900 mg-dha 360 mg-epa 455 cap PO 02/04/20 mg-fish oil 1,000 mg capsule (Fish Oil) <Paul Mcduffie MD - Last Filed: 08/24/24 18:58> Allergies/adverse reactions: Allergies Allergy/AdvReac Type Severity Reaction Status Date / Time No Known Allergies Allergy Unknown Verified 08/24/24 13:26 <Paul Mcduffie MD - Last Filed: 08/24/24 18:58> Review of Systems Review of Systems: As reviewed above in HPI <Reza La MD - Last Filed: 08/25/24 08:29> All systems reviewed & are unremarkable except as noted in HPI and below <Paul Mcduffie MD - Last Filed: 08/24/24 18:58> Constitutional: Constitutional: Reports no additional constitutional complaints <Paul Mcduffie MD - Last Filed: 08/24/24 18:58> Eyes: Eyes: Reports no additional eye complaints <Paul Mcduffie MD - Last Filed: 08/24/24 18:58> ENT: Reports as per HPI <Paul Mcduffie MD - Last Filed: 08/24/24 18:58> Cardiovascular: Cardiovascular: Reports no additional cardiovascular complaints <Paul Mcduffie MD - Last Filed: 08/24/24 18:58> Respiratory: Respiratory: Reports no additional respiratory complaints <Paul Mcduffie MD - Last Filed: 08/24/24 18:58> Musculoskeletal: Musculoskeletal: Reports no additional musculoskeletal complaints <Paul Mcduffie MD - Last Filed: 08/24/24 18:58> Psychiatric: Psychiatric: Reports no additional psychiatric complaints <Paul Mcduffie MD - Last Filed: 08/24/24 18:58> Hematologic/Lymphatic: Hematologic/Lymphatic: Reports no additional hematologic/lymphatic complaints <Paul Mcduffie MD - Last Filed: 08/24/24 18:58> Allergic/Immunologic: Allergic/Immunologic: Reports no additional allergic/immunologic complaints <Paul Mcduffie MD - Last Filed: 08/24/24 18:58> PMFSH Past Medical History Medical History: Medical History Anemia Chronic depression Renal and ureteric calculus UTI (urinary tract infection) Yeast vaginitis <Paul Mcduffie MD - Last Filed: 08/24/24 18:58> Surgical History Surgical History: Surgical History History of bilateral carpal tunnel release both in 2007 History of colonoscopy 2016 2019 History of endoscopy 2014 History of hysterectomy total 2006 History of laparoscopic cholecystectomy 2012 History of left hip replacement 2019 History of rotator cuff surgery right in 2016 left in 2014 <Paul Mcduffie MD - Last Filed: 08/24/24 18:58> Family History Family History: Family History Father Family history of diabetes mellitus in first degree relative Diabetes mellitus Family history of cardiovascular disease Family history of Alzheimer's disease Family history of congestive heart failure Family history of heart disease in male family member before age 55 Hypertension Family history of elevated blood lipids Family history of coronary artery disease Sibling Diabetes mellitus Family history of cardiovascular disease Hypertension Family history of malignant neoplasm of cervix Family history of malignant neoplasm of ovary Mother Hypertension Family history of cardiovascular disease Family history of malignant neoplasm of cervix Family history of glaucoma Grandparent Diabetes mellitus Family history of cardiovascular disease, Onset Age: 82 Other Cerebrovascular accident Family history of arthritis Family history of gout Family history of malignant neoplasm <Paul Mcduffie MD - Last Filed: 08/24/24 18:58> Social History Social History: Social History Smoking status: Never smoker Alcohol intake: current Occupation/Education: occupation 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 HEAD: Normocephalic, atraumatic. EYES: PERRLA and EOMI. ENT:bleeding from both nares more so on the right . NECK: Supple. CHEST: Clear to auscultation. No respiratory distress. HEART: Regular rate and rhythm. No murmur heard. Normal peripheral pulses. ABDOMEN: Soft, nontender, nondistended, normal active bowel sounds. EXTREMITIES: Normal range of motion. No edema. SKIN: Warm, dry, no rash. NEURO: No focal deficits. Alert and oriented x3. PSYCH: Normal mood and affect. <Paul Mcduffie MD - Last Filed: 08/24/24 18:58> GENERAL: [Well-appearing, well-nourished, and in no acute distress.] HEAD: [Normocephalic, atraumatic.] EYES: [PERRLA and EOMI.] ENT: epistaxis visualized of the right naris, active bleeding with difficult to visualize source, bleeding also seen in the posterior oropharynx but scant droplets and some visualized muscles axis coming of the posterior left naris likely secondary to the right-sided bleeding. NECK: Supple. CHEST: [Clear to auscultation. No respiratory distress.] HEART: [Regular rate and rhythm]. No murmur heard. [Normal peripheral pulses.] ABDOMEN: [Soft, nondistended], [nontender], [No rigidity or guarding] EXTREMITIES: Normal range of motion. [No edema.] SKIN: Warm, dry, no rash. NEURO: [No focal deficits]. Alert and oriented [x3.] PSYCH: [Normal mood and affect.] <Reza La MD - Last Filed: 08/25/24 08:29> Course Course Emergency Course: patient continued to bleed from the right nares he I did place 5.5 rapid rhino on the right , bleed has much slowed down and has mild bleeding on the left , i did give her a 1 grm of TXA . she still has mild bleeding , family wants her to be transferred to [place] , i did discuss with Dr Filipe Mauricio will see the pt.in the ED , i discuss with Dr. Rachna ADRIAN at [facility] will accept however will not transfer at this time as they are in [place] . I did inform the pt and her family , they would like to wait till the beds are open <Paul Mcduffie MD - Last Filed: 08/24/24 18:58> Vital Signs Vital signs: Vital Signs Temperature 36.4 C L 08/24/24 13:26 Pulse Rate 96 08/24/24 13:26 Respiratory Rate 15 08/24/24 13:26 Blood Pressure 140/55 L 08/24/24 13:26 Pulse Oximetry 98 08/24/24 13:26 Oxygen Delivery Room Air 08/24/24 13:26 Temperature 36.4 C L 08/24/24 13:26 Pulse Rate 96 08/24/24 23:41 Respiratory Rate 21 H 08/24/24 23:41 Blood Pressure 125/91 H 08/24/24 23:12 Pulse Oximetry 100 08/24/24 23:41 Oxygen Delivery Room Air 08/24/24 13:26 <Paul Mcduffie MD - Last Filed: 08/24/24 18:58> Vital Signs Temperature 36.4 C L 08/24/24 13:26 Pulse Rate 96 08/24/24 13:26 Respiratory Rate 15 08/24/24 13:26 Blood Pressure 140/55 L 08/24/24 13:26 Pulse Oximetry 98 08/24/24 13:26 Oxygen Delivery Room Air 08/24/24 13:26 Temperature 36.4 C L 08/24/24 13:26 Pulse Rate 96 08/24/24 23:41 Respiratory Rate 21 H 08/24/24 23:41 Blood Pressure 125/91 H 08/24/24 23:12 Pulse Oximetry 100 08/24/24 23:41 Oxygen Delivery Room Air 08/24/24 13:26 <Reza La MD - Last Filed: 08/25/24 08:29> Procedures Epistaxis Control bilateral: Epistaxis Control Date: 08/24/24 <Reza La MD - Last Filed: 08/25/24 08:29> Epistaxis Control Time: 21:30 <Reza La MD - Last Filed: 08/25/24 08:29> Time Out Performed: Yes <Reza La MD - Last Filed: 08/25/24 08:29> Nose Prepped With: oxymetazoline <Reza La MD - Last Filed: 08/25/24 08:29> Direct Inspection: yes and posterior source indentified <Reza La MD - Last Filed: 08/25/24 08:29> Clots Removed by: blowing nose and suction <Reza La MD - Last Filed: 08/25/24:29> Cautery Used: silver nitrate <Reza La MD - Last Filed: 08/25/24 08:29> Device Inserted: hemostatic balloon <Reza La MD - Last Filed: 08/25/24:29> Device Size: 7 <Reza La MD - Last Filed: 08/25/24 08:29> Patient Tolerated Procedure: well <Reza La MD - Last Filed: 08/25/24:29> Complications: continued epistaxis (slowed to minor bleeding) <Reza La MD - Last Filed: 08/25/24 08:29> Epistaxis Control Narrative: patient was provided 50 mcg of fentanyl and 1 mg of intravenous Versed for both its anxiolysis and pain control well with the procedure was performed. Right anterior rhino rocket was removed successfully and her nasal passages were cleared after blowing her nose several times with passage of thick red clots and some active oozing of blood. TXA he has used to soak a 7.5 cm posterior rhino rocket in place successfully into the right naris. Bleeding at the right naris slowed to a stop but started bleeding and of the left naris and down the throat. A 2nd 7.5 cm posterior rhino rocket was placed successfully into the left naris at this time with bleeding being controlled into a small trickle. Patient tolerated the procedure well and was still feeling some droplets of blood down her throat but was able to tolerate breathing through her mouth. She was on telemetry monitoring at this time and did not have any kind of Pablo dysrhythmias or issues with oxygenation she is saturating 100% at this time. <Reza La MD - Last Filed: 08/25/24 08:29> MDM - Epistaxis MDM Narrative Medical decision making narrative: 64-year-old female presenting for epistaxis. She was seen by the previous ER provider and received several therapies including an anterior rhino rocket into the right naris after failing treatment with Afrin and silver cauterization. She had a 5.5 cm rhino rocket into the right naris which did slow the bleeding down. Initial plan by previous provider was to transfer her to a facility like [facility] for ENT evaluation. [facility] ER is currently on code [place] and not able to accept transfer at this time. Patient was signed out to me at shift change at 7:00 p.m. pending bed availability as patient's family and patient wanted her transferred to [facility]. I went and re-evaluated the patient at the start of my shift and she had persistent bleeding around the right naris despite the rhino rocket in place and starting to bleed out of her left naris and down her posterior oropharynx. I spoke to them about plan of care going forward and need to replace her anterior nasal packing with posterior nasal packings and to get her transferred to facility where the nose and throat potential interventional Radiology came lives with her ongoing bleeding. I ordered IV and laboratory studies at this time including coagulation panel, CBC and hemoglobin, CMP and type and screens. Patient remained hemodynamically stable here in the emergency department. Ultimately family was agreeable to trying transfer to a different facility. [facility] in the [facility] was contacted for transfer at this time wall I was preparing supplies and additional your nose and throat instruments for the posterior packing that is warranted at this time. patient was provided 50 mcg of fentanyl and 1 mg of intravenous Versed for both its anxiolysis and pain control well with the procedure was performed. Right anterior rhino rocket was removed successfully and her nasal passages were cleared after blowing her nose several times with passage of thick red clots and some active oozing of blood. TXA he has used to soak a 7.5 cm posterior rhino rocket in place successfully into the right naris. Bleeding at the right naris slowed to a stop but started bleeding and of the left naris and down the throat. A 2nd 7.5 cm posterior rhino rocket was placed successfully into the left naris at this time with bleeding being controlled into a small trickle. Patient tolerated the procedure well and was still feeling some droplets of blood down her throat but was able to tolerate breathing through her mouth. She was on telemetry monitoring at this time and did not have any kind of Pablo dysrhythmias or issues with oxygenation she is saturating 100% at this time. I did have discussions about potential need for intubation based on her continued oozing of blood down the throat but she is currently tolerating her secretions, saturating well on room air and mentating appropriately without any emergent need for airway protection given the slowed bleeding. She still has some oozing of blood around the right naris posterior packing. I spoke to the transfer center and patient was accepted as a direct admission to the [facility] to a step-down unit with your nose and throat on consult. I discussed the case with Dr. Quintana over the phone who accepted the patient as the hospitalist. Patient and family were made aware of the transfer to [facility] and [facility] ambulance rig was arranged. I discussed with both the hospitalist at the receiving facility as well as the ambulance crew regarding airway monitoring and decided to hold off on intubation given her improved bleeding and her exam and vitals at this time. Her laboratory studies started to return and she does have a new anemia and has lost significant amounts of blood compared to her baseline hemoglobin of 12 she is currently at 8.7. Platelets within normal limits in coagulation studies unremarkable. Patient has been transported to outside facility successfully at this time without further intervention here. <Reza La MD - Last Filed: 08/25/24 08:29> Differential Diagnosis Differential diagnosis: Likely nasal bone fracture, anterior epistaxis and posterior epistaxis <Reza La MD - Last Filed: 08/25/24 08:29> Medical Records Attestation: I reviewed the patient's medical records. <Reza La MD - Last Filed: 08/25/24 08:29> Lab Data Attestation: I reviewed the patient's lab results. <Reza La MD - Last Filed: 08/25/24 08:29> Result diagrams: 08/24/24 21:40 08/24/24 21:40 <Paul Mcduffie MD - Last Filed: 08/24/24 18:58> Labs: Lab Results 08/24/24 Range/Units 21:40 WBC 9.2 (4.5-10.0) K/mm3 RBC 3.20 L (4.2-5.4) M/mm3 Hgb 8.7 L (12.0-15.0) g/dL Hct 27.4 L (37.0-47.0) % MCV 85.6 (80-100) fl MCH 27.2 (26-34) pg MCHC 31.8 L (32-36) g/dl RDW 15.5 H (11.5-14.5) % Plt Count 294 (150-375) k/mm3 MPV 9.4 (7.4-10.4) fl Immature Gran % (Auto) 0.3 (0-0.5) % Neut % (Auto) 70.8 (45.5-73.1) % Lymph % (Auto) 21.6 (18.3-44.2) % [place] % (Auto) 6.3 (2.6-8.5) % Eos % (Auto) 0.7 (0-4.4) % Baso % (Auto) 0.3 (0.2-1.2) % Lymph # (Auto) 1.99 (0.9-3.2) K/mm3 [place] # (Auto) 0.6 (0.1-0.6) K/mm3 Eos # (Auto) 0.1 (0-0.3) K/mm3 Baso # (Auto) 0.0 (0.0-0.1) K/mm3 Abs Immat Gran (auto) 0.03 (0.00-0.031) K/mm3 Absolute Neuts (auto) 6.5 (1.3-6.7) K/mm3 Absolute Nucleated RBC 0.000 (0.0-0.012) K/mm3 Nucleated RBC % 0.0 (0.0-0.2) % PT 14.6 (11.1-14.7) Seconds INR 1.1 APTT 28.3 (22.3-36.8) Seconds Sodium 139 (137-145) mmol/L Potassium 4.1 (3.4-5.0) mmol/L Chloride 104 (98-107) mmol/L Carbon Dioxide 30 (22-30) mmol/L Anion Gap 5 (4-12) mmol/L BUN 22 H (7-17) mg/dL Creatinine 0.90 (0.7-1.0) mg/dL Estim Creat Clear Calc 66 ml/min Estimated GFR > 60 (59 - ) Glucose 132 H (65-110) mg/dL Calcium 8.7 (8.4-10.2) mg/dL Total Bilirubin 0.7 (0.2-1.3) mg/dL AST 42 H (14-36) U/L ALT 37 H (6-35) U/L Alkaline Phosphatase 90 (38-126) U/L Total Protein 7.0 (6.3-8.2) g/dL Albumin 3.9 (3.5-5.1) g/dL Blood Type O Positive Antibody Screen Negative <Paul Mcduffie MD - Last Filed: 08/24/24 18:58> Lab Results 08/24/24 Range/Units 21:40 WBC 9.2 (4.5-10.0) K/mm3 RBC 3.20 L (4.2-5.4) M/mm3 Hgb 8.7 L (12.0-15.0) g/dL Hct 27.4 L (37.0-47.0) % MCV 85.6 (80-100) fl MCH 27.2 (26-34) pg MCHC 31.8 L (32-36) g/dl RDW 15.5 H (11.5-14.5) % Plt Count 294 (150-375) k/mm3 MPV 9.4 (7.4-10.4) fl Immature Gran % (Auto) 0.3 (0-0.5) % Neut % (Auto) 70.8 (45.5-73.1) % Lymph % (Auto) 21.6 (18.3-44.2) % [place] % (Auto) 6.3 (2.6-8.5) % Eos % (Auto) 0.7 (0-4.4) % Baso % (Auto) 0.3 (0.2-1.2) % Lymph # (Auto) 1.99 (0.9-3.2) K/mm3 [place] # (Auto) 0.6 (0.1-0.6) K/mm3 Eos # (Auto) 0.1 (0-0.3) K/mm3 Baso # (Auto) 0.0 (0.0-0.1) K/mm3 Abs Immat Gran (auto) 0.03 (0.00-0.031) K/mm3 Absolute Neuts (auto) 6.5 (1.3-6.7) K/mm3 Absolute Nucleated RBC 0.000 (0.0-0.012) K/mm3 Nucleated RBC % 0.0 (0.0-0.2) % PT 14.6 (11.1-14.7) Seconds INR 1.1 APTT 28.3 (22.3-36.8) Seconds Sodium 139 (137-145) mmol/L Potassium 4.1 (3.4-5.0) mmol/L Chloride 104 (98-107) mmol/L Carbon Dioxide 30 (22-30) mmol/L Anion Gap 5 (4-12) mmol/L BUN 22 H (7-17) mg/dL Creatinine 0.90 (0.7-1.0) mg/dL Estim Creat Clear Calc 66 ml/min Estimated GFR > 60 (59 - ) Glucose 132 H (65-110) mg/dL Calcium 8.7 (8.4-10.2) mg/dL Total Bilirubin 0.7 (0.2-1.3) mg/dL AST 42 H (14-36) U/L ALT 37 H (6-35) U/L Alkaline Phosphatase 90 (38-126) U/L Total Protein 7.0 (6.3-8.2) g/dL Albumin 3.9 (3.5-5.1) g/dL Blood Type O Positive Antibody Screen Negative <Reza La MD - Last Filed: 08/25/24 08:29> Critical Care Time Critical Care Time Critical Care Time: Yes <Reza La MD - Last Filed: 08/25/24 08:29> Total Critical Care Time: 60 <Reza La MD - Last Filed: 08/25/24 08:29> Discharge Plan Discharge Clinical Impression: Acute posterior epistaxis, Severe epistaxis, ABLA (acute blood loss anemia) <Paul Mcduffie MD - Last Filed: 08/24/24 18:58> Patient Disposition: Acute Care Hospital <Paul Mcduffie MD - Last Filed: 08/24/24 18:58> Condition: Serious <Palu Mcduffie MD - Last Filed: 08/24/24 18:58> Prescriptions: No Action biotin 800 mcg tablet 800 mcg PO DAILY Fish Oil 900 mg-360 mg- 455 mg-1,000 mg capsule PO benzonatate 200 mg capsule 200 mg PO TID PRN (Reason: cough) Qty: 20 0RF methocarbamol 750 mg tablet 750 mg PO QID Qty: 20 0RF benzonatate 100 mg capsule 100 mg PO TID PRN (Reason: cough) Qty: 20 0RF calcium carbonate [Calcium 600] 600 mg calcium (1,500 mg) tablet 600 mg PO DAILY omeprazole 20 mg capsule,delayed release(DR/EC) 20 mg PO DAILY dicyclomine 10 mg capsule 20 mg PO BID pravastatin 10 mg tablet 10 mg PO DAILY aspirin [Adult Low Dose Aspirin] 81 mg tablet,delayed release (DR/EC) 81 mg PO DAILY Advair HFA 230-21 mcg/actuation HFA aerosol inhaler 2 puff INHALATION Q12H albuterol sulfate [ProAir HFA] 90 mcg/actuation HFA aerosol inhaler 2 puff INHALATION Q4H PRN gabapentin 300 mg capsule 300 mg PO DAILY Qty: 30 11RF amlodipine-benazepril 5-10 mg capsule 1 cap PO DAILY Qty: 30 3RF Rx Instructions: pt must have an appointment for further refills 10/20/20 cholecalciferol (vitamin D3) 1,250 mcg (50,000 unit) capsule See Rx Instructions .ROUTE .COMPLEX Qty: 4 3RF Dose Instruction: TAKE 1 CAPSULE BY MOUTH WEEKLY Rx Instructions: TAKE 1 CAPSULE BY MOUTH WEEKLY <Paul Mcduffie MD - Last Filed: 08/24/24 18:58> Follow-up/Referrals: Leonardo,MD Christo [Primary Care Provider] - <Paul Mcduffie MD - Last Filed: 08/24/24 18:58> Time of Disposition: 23:41 <Paul Mcduffie MD - Last Filed: 08/24/24 18:58> 23:41 <Reza La MD - Last Filed: 08/25/24 08:29>
--- NOTE | 2024-08-24 20:55 | PC.NURSE ---
Pt. states that she is willing to go to any facility with ENT. Dr. Taina agee. Small amount of bleeding from bilateral nares with 5.[address] in R[address] nare.
[2024-08-24] MEDS: fentaNYL CITRATE INJ (*CRX) 100 MCG/2 ML VIAL 50 MCG IV PUSH (21:18)
[2024-08-24] MEDS: MIDAZOLAM HCL (*CRX) 2 MG/2 ML VIAL 1 MG IV PUSH (21:19)
--- NOTE | 2024-08-24 21:30 | PC.NURSE ---
Dr. Her removed rhinorocket from right nare. Rhinorockets reapplied by in right and left nare. Bleeding controlled in L. nare and minimal bleeding from R. nare at this time. Pt. instructed to spit as needed. Pt. maintaining oral airway with no difficulty at this time.
[2024-08-24 21:48] LABS: Basophils Percent Auto 0.3 % (0.2-1.2); Eosinophils Absolute Auto 0.1 K/mm3 (0-0.3); Eosinophils Percent Auto 0.7 % (0-4.4); Hematocrit 27.4 % (37.0-47.0); Hemoglobin 8.7 g/dL (12.0-15.0); Immature Granulocyte Absolute 0.03 K/mm3 (0.00-0.031); Immature Granulocyte Percent A 0.3 % (0-0.5); Lymphocytes Absolute Auto 1.99 K/mm3 (0.9-3.2); Lymphocytes Percent Auto 21.6 % (18.3-44.2); Mean Corpuscular HGB Conc 31.8 g/dl (32-36); Mean Corpuscular Hemoglobin 27.2 pg (26-34); Mean Corpuscular Volume 85.6 fl (80-100); Mean Platelet Volume 9.4 fl (7.4-10.4); Monocytes Absolute Auto 0.6 K/mm3 (0.1-0.6); Monocytes Percent Auto 6.3 % (2.6-8.5); Neutrophils Absolute Auto 6.5 K/mm3 (1.3-6.7); Neutrophils Percent Auto 70.8 % (45.5-73.1); Platelet Count Result 294 k/mm3 (150-375); Red Cell Distribution Width 15.5 % (11.5-14.5); White Blood Count 9.2 K/mm3 (4.5-10.0)
[2024-08-24 22:02] LABS: INR 1.1; Prothrombin Time 14.6 Seconds (11.1-14.7)
[2024-08-24 22:03] LABS: Partial Thromboplastin Time 28.3 Seconds (22.3-36.8)
[2024-08-24 22:04] LABS: Alanine Aminotransferase 37 U/L (6-35); Albumin Level 3.9 g/dL (3.5-5.1); Alkaline Phosphatase 90 U/L (38-126); Anion Gap 5 mmol/L (4-12); Aspartate Amino Transferase 42 U/L (14-36); Bilirubin,Total 0.7 mg/dL (0.2-1.3); Blood Urea Nitrogen 22 mg/dL (7-17); Calcium 8.7 mg/dL (8.4-10.2); Carbon Dioxide 30 mmol/L (22-30); Chloride 104 mmol/L (98-107); Estimated CRCL calculation 66 ml/min; Estimated Glomerular Filt Rate > 60; Glucose 132 mg/dL (65-110); Potassium 4.1 mmol/L (3.4-5.0); Sodium 139 mmol/L (137-145)
--- NOTE | 2024-08-24 22:20 | PC.NURSE ---
Report called to PRANAV Funez at [facility]. All questions answered at this time.
--- NOTE | 2024-08-24 23:30 | PC.NURSE ---
this rn assumed care of patient. this rn took patient report from PRANAV Turpin
== END 2024-08-24 23:43 | disposition short-term general hospital (02) ==
PROVIDERS: Student in an Organized Health Care Education/Training Program; Emergency Provider Family Medicine; PCP Internal Medicine
DX: R04.0 Epistaxis (principal); D62 Acute posthemorrhagic anemia; D64.9 Anemia, unspecified; Z96.642 Presence of left artificial hip joint; Z87.440 Personal history of urinary (tract) infections; Z90.710 Acquired absence of both cervix and uterus; Z90.49 Acquired absence of other specified parts of digestive tract; Z79.82 Long term (current) use of aspirin
CPT/HCPCS: 30905; 36415; 80053; 85025; 85610; 85730; 86850; 86900; 86901; 96365; 96375; 99285; A9270; J2250; J3010

== ENCOUNTER 2025-03-12 15:29 | Outpatient (CLI) | payer MEDICARE, MEDICAID, SELFPAY ==
[2025-03-12 15:46] LABS: Basophils Percent Auto 0.4 % (0.2-1.2); Eosinophils Absolute Auto 0.2 K/mm3 (0-0.3); Eosinophils Percent Auto 4.2 % (0-4.4); Hematocrit 36.9 % (37.0-47.0); Hemoglobin 11.5 g/dL (12.0-15.0); Immature Granulocyte Absolute 0.01 K/mm3 (0.00-0.031); Immature Granulocyte Percent A 0.2 % (0-0.5); Lymphocytes Absolute Auto 2.36 K/mm3 (0.9-3.2); Lymphocytes Percent Auto 43.5 % (18.3-44.2); Mean Corpuscular HGB Conc 31.2 g/dl (32-36); Mean Corpuscular Hemoglobin 25.8 pg (26-34); Mean Corpuscular Volume 82.7 fl (80-100); Mean Platelet Volume 8.7 fl (7.4-10.4); Monocytes Absolute Auto 0.5 K/mm3 (0.1-0.6); Monocytes Percent Auto 8.7 % (2.6-8.5); Neutrophils Absolute Auto 2.3 K/mm3 (1.3-6.7); Platelet Count Result 255 k/mm3 (150-375); Red Blood Count 4.46 M/mm3 (4.2-5.4); Red Cell Distribution Width 18.5 % (11.5-14.5); White Blood Count 5.4 K/mm3 (4.5-10.0)
--- OUTSIDE RECORDS SUMMARY | 2025-03-12 15:54 | XMS_ITS | Clinical Summary ---
Author Organization [facility] Address [address] [place] [address] Phone Care Team Providers Care Collections Attorney Name Role Phone Christo Patterson MD Primary Care Provider Allergies No known active allergies Medications aspirin (ECOTRIN EC) 81 mg Tablet, Delayed Release (E.C.) Take 81 mg by mouth daily. Active amLODIPine-isaiah zepril (LOTREL) 5-10 mg capsule Take 1 Capsule by mouth daily. Active albuterol sulfate HFA 90 mcg/actuation aerosol inhaler INHALE 2 PUFFS BY MOUTH EVERY 4 HOURS NEEDED FOR ASTHMA 2 Active atorvastatin (LIPITOR) 40 mg tablet Take 1 Tablet by mouth daily. Active DULoxetine (CYMBALTA) 30 mg Capsule, Delayed Release(E.C.) Take 30 mg by mouth daily. 4 Active calcium as CARBONATE (CALTRATE) 1,500 mg (600 mg elemental) Tablet Take 1 Tablet by mouth daily. Active cetirizine (ZyrTEC) 10 mg tablet Take 10 mg by mouth daily. Active cholecalciferol 1,250 mcg (50,000 unit) Capsule Take 50,000 Units by mouth every 7 days. Active Biotin 800 mcg Tablet Take 1 Tablet by mouth daily. Active ferrous sulfate 325 mg (65 mg iron) tablet Take 325 mg by mouth every other day. Active folic acid (FOLVITE) 1 mg tablet Take 1 mg by mouth daily. Active gabapentin (NEURONTIN) 300 mg capsule Take 300 mg by mouth 2 times daily. 3 Active golimumab (Simponi) 50 mg/0.5 mL injection Inject 0.5 mL every 2 months by subcutaneous route. Active magnesium OXIDE 250 mg magnesium Tablet Take 500 mg by mouth. 3 Active omeprazole (PriLOSEC) 20 mg Capsule, Delayed Release(E.C.) Take 20 mg by mouth daily. 2 Active sulfaSALAzine (AZULFIDINE EN-TAB) 500 mg Tablet, Delayed Release (E.C.) Take 500 mg by mouth. Active vitamin E, dl, acetate, 90 mg (200 unit) Capsule Take 400 Units by mouth daily. Active omega-3 fatty acids-fish oil 300-1,000 mg Capsule Take 950 mg by mouth daily. Active fluticasone furoate-vilante roL (BREO ELLIPTA) 100-25 mcg/dose Disk with Device INHALE 1 PUFF BY MOUTH DAILY FAST BREATH INHALE QUICKLY AND DEEPLY 3 Active pyridoxine (VITAMIN B6) 100 mg Tablet Take 50 mg by mouth daily. Active Active Problems Problem Noted Date Diagnosed Date Gastroesophageal reflux disease without esophagi tis 08/26/2024 Polyarthritis 08/26/2024 Acute posterior epistaxis 08/25/2024 Acute blood loss anemia 08/25/2024 Benign hypertension 08/25/2024 Hypercholesterolemia 08/25/2024 Mild intermittent asthma without complication Encounters Date Type Department Care Team Description 03/12/2025 3:00 PM CDT Office Visit [facility] [address] [place] [address] [address] [place] [address] Joselo Keller MD Chronic anemia (Primary Dx) from Last 3 Months Family History Medical History Relation Name Comments Heart Disease Brother 1 Diabetes Brother 2 Heart Disease Brother 2 Heart Disease Father Hypertension Father Cancer - Other Mother Diabetes Sister 1 Heart Disease Sister 1 Diabetes Sister 2 Heart Disease Sister 2 Diabetes Sister 3 Heart Disease Sister 3 No Known Problems Sister 4 Relation Name Status Comments Brother 1 Alive Brother 2 Alive Father Mother Alive Sister 1 Sister 2 Alive Sister 3 Alive Sister 4 Alive Social History Tobacco Use Types Packs/Day Years Used Date Smoking Tobacco: Never Smokeless Tobacco: Never Tobacco Cessation:Counseling Given: Not Answered Alcohol Use Standard Drinks/Week Comments Yes 0 (1 standard drink = 0.6 oz pur e alcohol) socially Feeling Safe Answer Date Recorded Are you in a relationship wi th someone who hurts you emotionally and/or physically? No 08/25/2024 Food Insecurity Answer Date Recorded Patient needs follow up regardin 02/01/2025 Transportation Needs Answer Date Record ed Patient needs follow up regardin 02/01/2025 Housing Stability Answer Date Recorded Social/Environmental Concerns No concerns Utility Needs Answer Date Recorded Patient needs follow up regardin 02/01/2025 Comments Unknown Sex and Gender Information Value Date Recorded Sex Assigned at Not on file Legal Sex Female 3:44 PM CDT Gender Identity Not on file Sexual Orientation Not on file Last Filed Vital Signs Vital Sign Reading Time Taken Comments Blood Pressure 135/72 03/12/2025 2:58 PM CDT Pulse 76 03/12/2025 2:54 PM CDT Temperature 36.5 C (97.7 F) 03/12/2025 2:54 PM CDT Respiratory Rate 15 03/12/2025 2:54 PM CDT Oxygen Saturation 95% 03/12/2025 2:54 PM CDT Inhaled Oxygen Concentration - - Weight 104.7 kg (230 lb 12.8 oz) 03/12/2025 2:54 PM CDT Height 162.6 cm (5' 4) 03/12/2025 2:54 PM CDT Body Mass Index 39.62 03/12/2025 2:54 PM CDT Plan of Treatment Upcoming Encounters Date Type Department Care Team (Late st Contact Info) Description 03/26/2025 4:30 PM CDT Telephone Check Up [facility] - Jorge [address] [facility] [address] [place] [address] Joselo Keller MD [address] [facility] [address] [place] [address] Health Maintenance Due Date Last Done Comments DIABETES ANNUAL FOOT EXAM 01/10/1980 DIABETES ANNUAL RETINAL EXAM 01/10/1980 DIABETES MICROALBUMIN ANNUAL SCREEN 01/10/1980 LDL CHOLESTEROL ANNUAL 01/10/1980 DTAP/TDAP/TD VACCINES (1 - Tdap) 1981 ZOSTER VACCINE (1 of 2) 1981 FIT-DNA Q 3 years 2007 FIT/FOBT Q 1 year 2007 Flex Sig/CT Colonography Q 5 years 2007 BREAST CANCER SCREENING 12/19/2013 12/19/2012 RSV VACCINE (60+ or ) (1 - Risk 60-74 years 1-dose series) 2022 DIABETES HBA1C Q 6 MONTHS 01/18/2022 07/20/2021 COVID-19 Vaccine (4 - 2023-2 5 season) 2024 08/05/2021, 11/30/2020, 11/02/2020 [place] Preventative Visit/Annual Wellness Visit 10/01/2024 COLORECTAL SCREENING 03/27/2027 03/27/2017 Colorectal Cancer Screening 03/27/2027 INFLUENZA VACCINE Completed 07/23/2024, , 07/11/2020, Additional history exists Insurance [place] Directives For more information, please contact: [phone] * Full Code (Latest Code Status on File) Date Activated Date Inactivated Comments 08/25/2024 2:00 AM 08/27/2024 7:33 PM Care Teams Collections Attorney Relationship Specialty Start Date End Date Christo Patterson MD [address] [address] PCP - General Internal Medicine 08/25/24
--- OUTSIDE RECORDS SUMMARY | 2025-03-12 15:54 | XMS_ITS ---
Author Organization [facility] Address [address] [place] [address] [place] [address] Care Team Providers Care Wearing Apparel Folder Name Role Phone MD ISABELLE, GRISEL Primary Care Provider U lori WhitleyamberCristi yip Unavailable [phone] REASON FOR VISIT Left > Right Low Back Pain, Right = Left Lower Extremity Pain MEDICATIONS Medication SIG (Take, Route, Frequency, Duration) Notes Start Date End Date Status Hydroxychloroquine Sulfate 200 MG as directed Oral Active Vitamin D3 1.25 MG (14447 UT) 1 capsule Oral Once a day [...] HCl 10 MG TAKE 1 TABLET BY [facility] EVERY DAY Oral for 30 Active Neurontin [...] for 30 day(s) Active Cholecalciferol 1.25 MG (23949 UT) 1 capsule Orally Once a day [...] Location Date Provider Diagnosis [facility] [address] [place] [id number] 08/04/2024 Cristi Cecilia Sacroiliitis, not elsewhere classified [...] discharged home in good condition with a feedmobile driver. X-ray time: 17 seconds Progress Notes [...] patient's typical axial low back pain. Silver's, Hartsdale's and Gaenslen's are positive on the left. [...]
--- OUTSIDE RECORDS SUMMARY | 2025-03-12 15:54 | XMS_ITS | Encounter Summary ---
Author Organization [facility] Address [address] [place] [address] Care Team Providers Care Relays Draftsperson Name Role Phone Christo Patterson MD Primary Care Provider Reason for Visit * Reason Comments Establish Care Encounter Details Date Type Department Care Team (Late st Contact Info) Description 03/12/2025 3:00 PM CDT Office Visit [facility] Oncology and Hematology - Jorge [address] [facility] [address] [place] [address] Joselo Keller MD [address] [facility] [address] [place] [address] Chronic anemia (Primary Dx) Social History Tobacco Use Types Packs/Day Years [...] on file Sexual Orientation Not on file documented as of this encounter Last Filed Vital Signs Vital Sign Reading [...] Mass Index 39.62 03/12/2025 2:54 PM CDT documented in this encounter Progress Notes * Joselo Keller MD - 03/12/2025 3:27 PM CDT Hematology-oncology consult Note Requesting Physician Christo Patterson MD Primary Care Physician Christo Patterson MD Problem list Patient Active Problem List Diagnosis Code Acute posterior epistaxis R04.0 Acute blood loss anemia D62 Benign hypertension I10 Hypercholesterolemia E78.00 Mild intermittent asthma without complication J45.20 Gastroesophageal reflux disease without esophagitis K21.9 Polyarthritis M13.0 Previous TREATMENT ? Measurable Disease ? Reason for Visit Little Sarmiento is a 65 y.o. female who was referred for consultation for chronic anemia. History of present illness This is a pleasant 65-year-old -[place] female with history of rheumatoid arthritis, hyperlipidemia, hypertension and elevated liver enzymes referred to me for anemia for at least more than 1year duration. She has been complaining of tiredness and fatigue. She has been getting intermittentnosebleed on almost every 6-month basis and last nosebleed was in August of last year. She complain of intermittent lightheadedness and dizziness. Denies any melena hematochezia. Denies any hematuria. Her last colonoscopy was in November 2019 that showed hemorrhoids and diverticulosis. She is scheduled to have EGD done in May of this year. She has been complaining of arthritis pretty much in all the joints. Denies being a vegetarian. Denies having any stomach surgeries in the past. She is having some neuropathy especially in the legs. She is taking oral iron 65 mg every other day basis. Denies any other new complaints. Past Medical History Past Medical History: Diagnosis Date Asthma Depression Hyperlipidemia Hypertension Seizure disorder (CMS/HCC) Stroke (CMS/HCC) Surgical History Past Surgical History: Procedure Laterality Date HX CARPAL TUNNEL RELEASE Right 2007 HX CARPAL TUNNEL RELEASE Left 2007 HX CATARACT REMOVAL HX CHOLECYSTECTOMY HX HIP REPLACEMENT 2019 HX HYSTERECTOMY HX PITUITARY SURGERY Tumor removed 1981 HX ROTATOR CUFF REPAIR Left 2019 HX ROTATOR CUFF REPAIR Right 2016 LITHOTRIPSY 2019 Medications Current Outpatient Medications Medication Sig Dispense Refill gabapentin (NEURONTIN) 300 mg capsule Take 300 mg by mouth 2 times daily. magnesium OXIDE 250 mg magnesium Tablet Take 500 mg by mouth. omeprazole (PriLOSEC) 20 mg Capsule, Delayed Release(E.C.) Take 20 mg by mouth daily. fluticasone furoate-vilanteroL (BREO ELLIPTA) 100-25 mcg/dose Disk with Device INHALE 1 PUFF BY MOUTH DAILY FAST BREATH INHALE QUICKLY AND DEEPLY pyridoxine (VITAMIN B6) 100 mg Tablet Take 50 mg by mouth daily. calcium as CARBONATE (CALTRATE) 1,500 mg (600 mg elemental) Tablet Take 1 Tablet by mouth daily. cetirizine (ZyrTEC) 10 mg tablet Take 10 mg by mouth daily. cholecalciferol 1,250 mcg (50,000 unit) Capsule Take 50,000 Units by mouth every 7 days. Biotin 800 mcg Tablet Take 1 Tablet by mouth daily. ferrous sulfate 325 mg (65 mg iron) tablet Take 325 mg by mouth every other day. folic acid (FOLVITE) 1 mg tablet Take 1 mg by mouth daily. golimumab (Simponi) 50 mg/0.5 mL injection Inject 0.5 mL every 2 months by subcutaneous route. sulfaSALAzine (AZULFIDINE EN-TAB) 500 mg Tablet, Delayed Release (E.C.) Take 500 mg by mouth. vitamin E, dl, acetate, 90 mg (200 unit) Capsule Take 400 Units by mouth daily. omega-3 fatty acids-fish oil 300-1,000 mg Capsule Take 950 mg by mouth daily. aspirin (ECOTRIN EC) 81 mg Tablet, Delayed Release (E.C.) Take 81 mg by mouth daily. amLODIPine-benazepril (LOTREL) 5-10 mg capsule Take 1 Capsule by mouth daily. albuterol sulfate HFA 90 mcg/actuation aerosol inhaler INHALE 2 PUFFS BY MOUTH EVERY 4 HOURS NEEDED FOR ASTHMA atorvastatin (LIPITOR) 40 mg tablet Take 1 Tablet by mouth daily. DULoxetine (CYMBALTA) 30 mg Capsule, Delayed Release(E.C.) Take 30 mg by mouth daily. No current facility-administered medications for this visit. Allergies No Known Allergies Immunizations: Immunization History Administered Date(s) Administered (SPIKEVAX) (12 YRS UP PRIMARY SERIES) COVID-19 VACCINE - MRNA-1273(PF) 100 MCG/0.5 ML IM SUSP 11/02/2020, 11/30/2020, 08/05/2021 Family History Family History Problem Relation Name Age of Onset Heart Disease Father Hypertension Father Cancer - Other Mother Heart Disease Brother Heart Disease Brother Diabetes Brother Heart Disease Sister Diabetes Sister Heart Disease Sister Diabetes Sister Heart Disease Sister Diabetes Sister No Known Problems Sister Social History Social History Tobacco Use Smoking status: Never Smokeless tobacco: Never Substance Use Topics Alcohol use: Yes Comment: socially Review of Systems Constitutional: Patient did not mention fever; no night sweats; no anorexia; no weight loss; complain of tiredness and fatigue NEENT: Patient did not mention headache; no change in vision; no change in hearing; no sore throat;no dysphagia Respiratory: Patient did not mention shortness of breath; no pleuritic chest pain; no cough; no hemoptysis Cardiac: Patient did not mention cardiac-like chest pain; no palpitations; no orthopnea; no PND; noDOE Breasts: Patient did not mention tenderness; no masses GI: Patient did not mention abdominal pain; no nausea; no vomiting; no diarrhea; no hematochezia; no melena : Patient did not mention dysuria; no frequency; no hesitancy; no hematuria COMPUTER SYSTEMS SECURITY ANALYST: Musculosketetal: Patient did not mention bone pain; no arthralgia; no joint swelling; no myalgia; Skin: Patient did not mention pruritis; no rash; no petechiae; no ecchymoses Endocrine: Patient did not mention polydipsia; no polyuria; no unusual weight gain Neuro: Patient did not mention headache; no change in vision; no sensory changes; no muscle weakness; no confusion; no seizures Psych: Patient did not mention anxiety; no depression; Physical Exam Vitals: As per nursing note Constitutional: Well developed, well nourished, no acute distress, non-toxic appearance Teeth and gum. No signs of infection or swelling. Eyes: PERRL, conjunctiva normal HEENT: Atraumatic, external ears normal, nose normal, oropharynx moist, no pharyngeal exudates. no sinus tenderness Neck- normal range of motion, no tenderness, supple Respiratory: No respiratory distress, normal breath sounds, no rales, no wheezing Cardiovascular: Normal rate, normal rhythm, no murmurs, no gallops, no rubs GI: Soft, nondistended, normal bowel sounds, nontender, no splenomegaly, no hepatomegaly, no mass, no rebound, no guarding : No costovertebral angle tenderness Musculoskeletal: No edema, no tenderness, no deformities. Back- no tenderness Integument: Well hydrated, no rash, Digits and nails inspection normal Lymphatic: No lymphadenopathy noted Neurologic: Alert & oriented x 3, CN 2-12 normal, normal motor function, normal sensory function, no focal deficits noted Psychiatric: Speech and behavior appropriate ? labs No results found for this or any previous visit (from the past 24 hours). Labs from August 2024 showed creatinine 0.9 WBC 9.2 hemoglobin 8.7 MCV 85.6 platelet 294,070% neutrophils 21% lymphocytes Pathology ? Imaging & Other Studies Performance Status? Assessment / Plan: ? Normocytic anemia. Patient is a 65-year-old obese -[place] female with history of rheumatoid arthritis, hyperlipidemia, hypertension and elevated liver enzymes referred to me for anemia. She has been complaining of tiredness and fatigue. Denies any melena hematochezia. She has intermittent nosebleed and the last nosebleed was about 6 months ago. She is taking oral iron 65 mg every other day basis. I will order the comprehensive workup for anemia that will include CBC with differential, CMP, iron profile, soluble transferrin receptor, vitamin B12 level, methylmalonic acid level and CBC. She will continue oral iron but we will increase to 65 mg on a daily basis. I will contact her in 1 week to discuss the labs and further recommendations. No need for bone marrow biopsy testing. Patient is scheduled to see gastroenterology and will have EGD done on May 2025. I have answered all the questions to patient satisfaction. Rheumatoid arthritis. Patient is on sulfasalazine and Simponi Aria. Peripheral neuropathy. She is on gabapentin. Hypertension. Patient is on Lotrel. Hyperlipidemia. Patient is on Lipitor. Thank you very much for allowing me to participate in Little Sarmiento's evaluation and management. Please feel free to contact if I can be of any further assistance in your patient???s care requiring hematology or oncology evaluation. Sincerely, ? ? Joselo Keller M.D. cell TOBACCO COUNSELING She is not a tobacco/nicotine user. Joselo Keller MD ,03/12/2025 3:27 PM ? Total time spent 60 minutes, two third of the total time spent counseling patient [id number]. CC:?Christo Patterson MD documented in this encounter Plan of Treatment Upcoming Encounters Date Type Department Care Team (Late st Contact Info) Description 03/26/2025 4:30 PM CDT Telephone Check Up [facility] Oncology and Hematology - [place] [address] [place] [address] [address] Joselo Keller MD [address] [facility] [address] [place] [address] Scheduled Orders Name Type Priority Associated Diagnoses Orde r Schedule CBC WITH DIFFERENTIAL Lab Stat Chronic anemia Expected: 03/12/2025, Expires: 03/12/2026 COMPREHENSIVE METABOLIC PANEL Lab Stat Chronic anemia Expected: 03/12/2025, Expires: 03/12/2026 FERRITIN Lab Routine Chronic anemia Expected: 03/12/2025, Expires: 03/12/2026 IRON, TIBC, AND PERCENT SATURATION Lab Routine Chronic anemia Expected: 03/12/2025, Expires: 03/12/2026 LACTATE DEHYDROGENASE Lab Routine Chronic anemia Expected: 03/12/2025, Expires: 03/12/2026 METHYLMALONIC ACID Lab Routine Chronic anemia Expected: 03/12/2025, Expires: 03/12/2026 TRANSFERRIN RECEPTOR TFR SOLUBLE Lab Routine Chronic anemia Expected: 03/12/2025, Expires: 03/12/2026 VITAMIN B12 AND FOLATE Lab Routine Chronic anemia Expected: 03/12/2025, Expires: 03/12/2026 documented as of this encounter Visit Diagnoses Diagnosis Chronic anemia- Primary Anemia, unspecified documented in this encounter Care Teams Relays Draftsperson Relationship Specialty Start Date End Date Christo Patterson MD [address] [place] [address] PCP - General Internal Medicine 08/25/24 documented as of this encounter
--- OUTSIDE RECORDS SUMMARY | 2025-03-12 15:54 | XMS_ITS | Clinical Summary ---
Author Organization [facility] Address [address] [place] [address] Care Team Providers Care Hog Cutter Name Role Phone Adryan Martinez Taina DO Unavailable [phone] Christo Patterson MD Primary Care Provider Allergies No known active allergies Medications Aspirin 81 MG Tablet Take 81 mg by mouth daily. Active amLODIPine-benaz epril (LOTREL) 5-10 MG Capsule Take 1 Cap by mouth daily. Active gabapentin (NEURONTIN) 300 MG Capsule Take 300 mg by mouth 3 times daily. Active albuterol 108 (90 Base) MCG/ACT Aerosol Solution albuterol sulfate HFA 90 mcg/actuation aerosol inhaler Active Calcium Carbonate 1500 (600 Ca) MG Tablet 9 Active Cay[place]-3 Fatty Acids (FISH OIL PO) Take by mouth. Activ e Cholecalciferol (VITAMIN D3 PO) Take 50,000 Capsules by mouth. Active FOLIC ACID PO Take by mouth. A ctive BIOTIN FORTE PO Take by mouth. Active methotrexate 2.5 MG Tablet TAKE 8 TABLETS BY MOUTH ONCE A WEEKY 1 Active omeprazole (PriLOSEC) 20 MG CAPSULE DELAYED RELEASEIndicatio ns:Gastroesophag eal reflux disease without esophagitis Take 1 Capsule by mouth 2 times daily. 180 Capsule 1 2 Active Active Problems Problem Noted Date Diagnosed Date NAFLD (nonalcoholic fatty liver disease) 021 Diverticulosis 07/14/2021 Gastroesophageal reflux disease without esophagi tis 07/13/2020 Irritable bowel syndrome wit h both constipation and diarrhea 07/13/2020 Immunizations Immunization Administration Dates Next Due Covid-19, Mrna, Lnp-s, PF, 1 00 mcg/0.5 mL Dose (Moderna) 11/30/2020,11/02/2020 Hepatitis B Vaccine 03/27/2001,11/27/2000,2000 Influenza Vaccine 07/04/2016 Influenza Vaccine greater than 3 yrs 06/16/2016, 06/09/2015 Influenza Vaccine, Quadrivalent, PF 07/11/2020,1 Influenza, Injectable, Mdck,quadrivalent,with Preservative 07/18/2019 Influenza, Seasonal, Injectable, Undefined 06/16,06/09/2015,07/15/2014 Family History Medical History Relation Name Comments Diabetes Father Heart Disease Father High Cholesterol Father Hypertension Father Diabetes Maternal Grandfather High Cholesterol Mother Hypertension Mother Diabetes Sister Heart Disease Sister High Cholesterol Sister Hypertension Sister Relation Name Status Comments Father Alive Maternal Grandfather Mother Alive Sister Alive Social History Tobacco Use Types Packs/Day Years Used Date Smoking Tobacco: Never Smokeless Tobacco: Never Tobacco Cessation:Counseling Given: No Alcohol Use Standard Drinks/Week Comments Yes 2 (1 standard drink = 0.6 oz pur e alcohol) 2 glasses on sunday Sexually Active Control Partners Comments Not Currently Comments No Sex and Gender Information Value Date Recorded Sex Assigned at Not on file Legal Sex Female 10:44 PM CDT Gender Identity Not on file Sexual Orientation Not on file 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 Not on file Not on file Not on file Last Filed Vital Signs Vital Sign Reading Time Taken Comments Blood Pressure 134/72 07/14/2021 8:21 AM CDT Pulse 80 07/14/2021 8:21 AM CDT Temperature 36.3 C (97.3 F) 07/14/2021 8:21 AM CDT Respiratory Rate 20 07/14/2021 8:21 AM CDT Oxygen Saturation 99% 07/14/2021 8:21 AM CDT Inhaled Oxygen Concentration - - Weight 99.3 kg (219 lb) 07/14/2021 8:21 AM CDT Height 165.1 cm (5' 5) 07/14/2021 8:21 AM CDT Body Mass Index 36.44 07/14/2021 8:21 AM CDT Plan of Treatment Health Maintenance Due Date Last Done Comments Hepatitis C Virus (HCV) Screening 1962 Mammogram 1962 TdaP Immunization 1962 Zoster Immunization (1 of 2) 1981 Cologuard 2007 Immunochemical Fecal Occult Blood 2007 Pneumococcal Immunization (50+ years) (1 of 1 - PCV) 01/10/2012 Respiratory Syncytial Virus (RSV) Immunization (Adult) (1 - Risk 60-74 years 1-dose series) 2022 SARS-COV-2 Immunization ( - season) 2024 08/05/2021, 11/30/2020, 11/02/2020 Influenza Immunization (Season Ended) 2025 07/20/2021, 07/11/2020, 07/10/2020, Additional history exists Colonoscopy 03/27/2027 03/27/2017 Colorectal Cancer Screening 03/27/2027 Hepatitis B Immunization Completed 001, 11/27/2000, 10/30/2000 Human Papillomavirus (HPV) Immunization Aged Out No longer eligible based on patient's age to complete this topic Meningococcal Immunization (ACWY) Aged Out No longer eligible based on patient's age to complete this topic Rotavirus Immunization Aged Out No lo nger eligible based on patient's age to complete this topic Insurance [employer] [place]ICAID [place] Care Teams Hog Cutter Relationship Specialty Start Date End Date Christo Patterson MD [address] [place] [address] PCP - General Internal Medicine 07/30/24 Adryan Martinez DO Gastroenterology 12/08/15
--- OUTSIDE RECORDS SUMMARY | 2025-03-12 15:54 | XMS_ITS | Patient Health Record ---
Author Organization [facility] Address [address] [facility] [address] [place] [address] Care Team Providers Care Wastewater Analyst Name Role Phone Chadwick Schwartz MD Primary Care Provider UnavailSteve Vieira Unavailable [phone] Yesy Dillard Unavailable [phone] Allergies No Known Allergies Reason For Referral No Information Medications Medication SIG (Take, Route, Frequency, Duration) Notes Start Date End Date Status Albuterol Active sulfaSALAzine Active Omeprazole 20 MG 1 capsule 30 minutes before morning meal Orally daily for 90 days 01/02/2022 Active Golimumab Active OTC/Vitamins Vit D3, Calcium, ASA, Methow 3, Folic Acid, Biotin, Vit E, Magnesium Active amLODIPine Besylate Active Gabapentin Active Social History Tobacco Use: Social History Observation Description Date Details (start date - stop date) Never Smoker NA - NA Tobacco Use/Smoking Question Answer Notes Are you a nonsmoker Section Notes: 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, 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, 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, 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, 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 It is of note she was diagnosed with h. pylori 11/2021 and treated with erradication. Her last EGD was in 2014 however no report is available for review today. She has some associated nausea without vomiting but denies weight loss or fevers. Differentials include gastritis, PUD, food or medication intolerance, and others. Problem 527670853 GERD (gastroesophagea l reflux disease) (K21.9) Active confirmed Problem 771725964 Family history of colon cancer (Z80.0) Active confirmed This is in patient's father. Problem 998419542 History of colon polyps (Z86.010) Active confirmed Last colono scopy in 11/2019 revealed diverticulosis and hemorrhoids. It recommended to repeat in 2024. Patient lacks alarm symptoms. Problem 051200104 Diverticulosis (K57.90) Active confirmed She was found t o have sigmoid diverticulosis on her last colonoscopy. She is asymptomatic with negative exam findings today. She continues to use Metamucil. Problem 3744282 Diverticulosis large intestine w/o perforation or abscess w/bleeding (K57.31) Active confirmed Problem 470220163 Nonalcoholic fatty liver disease (K76.0) Active confirmed Found on ultrasound in 11/2021. Liver enzymes mildly elevated. Discussed diet, exercise and weight loss. Problem 775055735 H. pylori infection (A04.8) Active confirmed Patient was found to be H. pylori positive on labs. She was treated with Biaxin, amoxicillin and pantoprazole with a mild improvement. We discussed continuing omeprazole at a higher dose. We will check for eradication Problem 351397871 Malabsorption (K90.9) Active confirmed Problem 936477204 Alternating constipation and diarrhea (R19.8) Active confirmed Problem 10644883 Esophageal dysphagia (R13.19) Active confirmed She reports intermittent esophageal dysphagia with gradual worsening in the last three months. Exacerbated with consumption of dense meats. Described as stuck feeling in lower esophagus. This occurs on a weekly basis. She has had some regurgitation of food items but denies weight loss. Her last EGD she reports was in 2014. Differentials include esophageal stricture avoiding or web, peptic esophagitis, eosinophilic esophagitis, esophageal motility disorder, achalasia, and others. Vital Signs Height 64 in 04/10/2024 Weight 231 lbs 04/10/2024 BMI 39.65 kg/m2 04/10/2024 Encounters Encounter Location Date Provider Diagnosis [facility] [place] [address] 04/10/2024 Yesy Dillard GERD (gastroesophage al reflux disease) K21.9 ; Alternating constipation and diarrhea R19.8 and History of colon polyps Z86.010 [facility] [address] [facility] [place] [address] 03/21/2024 Steve Sol [facility] [address] [facility] [place] [address] 04/10/2024 Steve Sol Assessments Encounter Date Diagnosis (ICD Code) Assessment Notes Treatment Notes Treatment Clinical Notes Section Notes 04/10/2024 GERD (gastroesophage al reflux disease) (ICD-10 - K21.9) GERD: Her upper endoscopy last year showed nonsevere esophagitis in the lower third of the esophagus, 1 benign-appearing intrinsic mild stenosis at the GE junction, which was dilated, and patchy moderately erythematous mucosa without bleeding in the gastric antrum. Biopsies were negative. Her reflux has been generally well-controlled on omeprazole 20 mg daily. ALTERNATING CONSTIPATION AND DIARRHEA: Her bowel movements fluctuate between constipation and diarrhea depending on what she eats. She typically is able to move her bowels daily, but often times her stools are hard and she has to strain. She takes MiraLAX as needed. She is status postcholecystectomy and will sometimes experience diarrhea immediately after eating. HISTORY OF COLON POLYPS: Her last colonoscopy in November 2019 revealed diverticulosis and hemorrhoids. She has a history of polyps and was advised to follow-up in 5 years. 04/10/2024 Alternating constipation and diarrhea (ICD-10 - R19.8) GERD: Her upper endoscopy last year showed nonsevere esophagitis in the lower third of the esophagus, 1 benign-appearing intrinsic mild stenosis at the GE junction, which was dilated, and patchy moderately erythematous mucosa without bleeding in the gastric antrum. Biopsies were negative. Her reflux has been generally well-controlled on omeprazole 20 mg daily. ALTERNATING CONSTIPATION AND DIARRHEA: Her bowel movements fluctuate between constipation and diarrhea depending on what she eats. She typically is able to move her bowels daily, but often times her stools are hard and she has to strain. She takes MiraLAX as needed. She is status postcholecystectomy and will sometimes experience diarrhea immediately after eating. HISTORY OF COLON POLYPS: Her last colonoscopy in November 2019 revealed diverticulosis and hemorrhoids. She has a history of polyps and was advised to follow-up in 5 years. 04/10/2024 History of colon polyps (ICD-10 - Z86.010) GERD: Her upper endoscopy last year showed nonsevere esophagitis in the lower third of the esophagus, 1 benign-appearing intrinsic mild stenosis at the GE junction, which was dilated, and patchy moderately erythematous mucosa without bleeding in the gastric antrum. Biopsies were negative. Her reflux has been generally well-controlled on omeprazole 20 mg daily. ALTERNATING CONSTIPATION AND DIARRHEA: Her bowel movements fluctuate between constipation and diarrhea depending on what she eats. She typically is able to move her bowels daily, but often times her stools are hard and she has to strain. She takes MiraLAX as needed. She is status postcholecystectomy and will sometimes experience diarrhea immediately after eating. HISTORY OF COLON POLYPS: Her last colonoscopy in November 2019 revealed diverticulosis and hemorrhoids. She has a history of polyps and was advised to follow-up in 5 years. 04/10/2024 Other After my visit with Ms. Sarmiento, I recommend the followin. She will continue omeprazole 20 mg daily for management of GERD. 2. She was encouraged to start Metamucil daily to help with bowel regularity. She may adjust the dose as needed. She may use MiraLAX as needed for constipation. 3. She is aware she will be due for colonoscopy in November 2024. 4. She will continue to get routine labs drawn by her PCP. 5. She will follow-up in the office in 1 year. GERD: Her upper endoscopy last year showed nonsevere esophagitis in the lower third of the esophagus, 1 benign-appearing intrinsic mild stenosis at the GE junction, which was dilated, and patchy moderately erythematous mucosa without bleeding in the gastric antrum. Biopsies were negative. Her reflux has been generally well-controlled on omeprazole 20 mg daily. ALTERNATING CONSTIPATION AND DIARRHEA: Her bowel movements fluctuate between constipation and diarrhea depending on what she eats. She typically is able to move her bowels daily, but often times her stools are hard and she has to strain. She takes MiraLAX as needed. She is status postcholecystectomy and will sometimes experience diarrhea immediately after eating. HISTORY OF COLON POLYPS: Her last colonoscopy in November 2019 revealed diverticulosis and hemorrhoids. She has a history of polyps and was advised to follow-up in 5 years. Plan Of Treatment Pending Test Test Name Order Date Upper Endoscopy 10/03/2022 Colonoscopy 11/21/2019 Insurance Providers Payer Name Payer Address Payer Phone Subscriber Number Group Number Insured Name Patient Relationship to Insured Coverage Start Date Coverage End Date Blue Access PPO E2 [address] [place] [address] [id number] Little Sarmiento Self - patient is the insured Medical (General) History Medical History History ICD Code GERD Colon Polyps Hemorrhoids Diverticulitis Esophageal Obstruction Ulcers H Pylori Nonalcoholic Fatty Liver Disease Anemia Hypertension Sleep Apnea Hyperlipidemia Osteoarthritis Vitamin D Deficiency Nephrolithiasis Meningococcal Meningitis Surgical History Surgery Date(Month/Year) Endoscopy:Non severe reflux esophagitis.Benign appearing esophageal stenosis.Erythematous mucosa in the gastric antrum.Otherwise normal exam. 11/2022 Colonoscopy:Examined portion of ileum was normal.Diverticulosis in the sigmoid colon.Hemorrhoids. 11/2019 Cholecystectomy 12/2011 Cystoscopy, stent placement, laser litho tripsy 08/2019 Total hip replacement, left 03/2019 Hysterectomy 05/2006 Pituitary tumor removed 1981 Bilateral Rotator Cuff Carpal tunnel release x2 Hospitalization History Reason Date(Month/Year) Pituitary Tumor 1987 Meningitis 1970 Nose bleed Stomach pain Shortness of breath
--- OUTSIDE RECORDS SUMMARY | 2025-03-12 15:54 | XMS_ITS ---
Author Organization [facility] [employer] Address [address] [place] [address] Dr. Phan [address] [place] [address] Care Team Providers Care Bed Machine Operator Name Role Phone Chadwick Schwartz MD Primary Care Provider UnavailSteve Vieira Unavailable [phone] Any Bui Unavailable [phone] REASON FOR VISIT Annual f/u Encounters Encounter Location Date Provider Diagnosis [facility] [address] [place] [address] Dr. Phan [address] [place] [address] 02/08/2024 Any Bui Plan Of Treatment No Information Progress Notes * Little SARMIENTO EDOB:1959 (65 yo F)Acc No.[id number]:02/08/2024 Patient: Zack MEYERaine Janet Provider: MAXIM Culver :1960 A ge:64 Y S ex:Female Date:02/08/2024 Address:[facility] [address] [place], [place] [id number] Pcp:Chadwick Schwartz MD Subjective: * Chief Complaints: * 1 . Annual f/u. * Medical History: Objective: * Vitals: Assessment: Plan: * Treatment: * Images: * Electronic signature of MAXIM Thurston on 03/12/2025 at 02:52 PM CDT Sign off status: Pending * Provider: MAXIM Culver Date: 0 02/08/2024 Generated for Macy jacome/Ernestine/Maryitting on: 0 03/12/2025 02:52 PM CDT
--- OUTSIDE RECORDS SUMMARY | 2025-03-12 15:54 | XMS_ITS | Encounter Summary ---
Author Organization [facility] Address [address] [place] [address] Phone Care Team Providers Care Fusing Machine Feeder Name Role Phone Gal Decker MD Unavailable Jennifer Angel Unavailable [phone] Ethan Graves MD Unavailable [phone] Clem Ramos MD Unavailable [phone] Wilber Patterson MD Primary Care Provide r Encounter Details Date Type Department Care Team (Latest Contact Info) Description 03/06/2025 Results Follow-Up [facility] [address] [place] [address] John Zabala PA [address] [place] [address] Erythrocyte sedimentation rate, CRP (acute phase), Comprehensive metabolic panel, Additional followed-up results: 6 Social History Tobacco Use Types Packs/Day Years Used Date Smoking Tobacco: Never Smokeless Tobacco: Never Alcohol Use Standard Drinks/Week Comments Yes 5 (1 standard drink = 0.6 oz pur e alcohol) AUDIT-C Answer Date Recorded Q1: How often do you have a drink containing alc ohol? 2-4 times a month 07/20/2021 Q2: How many drinks containi ng alcohol do you have on a typical day when you are drinking? 1 or 2 07/20/2021 Q3: How often do you have si x or more drinks on one occasion? Less than monthly 07/20/2021 Personal Safety Answer Date Recorded Have you ever been in or are you currently in a harmful physical or emotional relationship or is someone making you feel afraid or unsafe? Denies 10/02/2024 Comments No Sex and Gender Information Value Date Recorded Sex Assigned at Not on file Legal Sex Female 12:27 AM CAR CHASER Gender Identity Not on file Sexual Orientation Not on file documented as of this encounter Plan of Treatment Not on file documented as of this encounter Visit Diagnoses Not on filedocumented in this encounter Care Teams Fusing Machine Feeder Relationship Specialty Start Date End Date Wilber Patterson MD [address] [place] [address] PCP - General Internal Medicine 06/16/24 Gal Decker MD [address] [facility] [address] [place] [address] Referring Physician Neurology 03/23/21 Jennifer Angel PA [address] [place] [address] Physician Hemp Fiber Taker Off Physician Hemp Fiber Taker Off 03/01/22 Ethan Graves MD [address] [place] [address] Consulting Physician Rheumatology 08/31/23 Clem Ramos MD [address] [place] [address] Referring Physician General Surgery 09/12/23 documented as of this encounter
--- OUTSIDE RECORDS SUMMARY | 2025-03-12 15:54 | XMS_ITS | Clinical Summary ---
Author Organization [facility] [address] Address [address] [place] [address] Care Team Providers Care Checker Cashier Name Role Phone Gal West MD Unavailable Jennifer Angel Unavailable Ethan Graves MD Unavailable [phone] Clem Ramos MD Unavailable [phone] Wilber Patterson MD Primary Care Provide r Allergies No known active allergies Medications omeprazole (PriLOSEC) 20 mg capsule take 1 capsule by oral route every day 30 minutes to 1 hour before a meal 0 0 6 Active calcium carbonate (CALCIUM 600) 1,500 mg (600 mg of elemental calcium) tabletIndicati ons:Hypocalcem ia Prevention,Ost eoporosis Take 1 tablet (1,500 mg total) by mouth daily 30 tablet 3 9 Active cholecalcifero l (VITAMIN D-3) 50,000 unit capsule TK 1 C PO ONCE WEEKLY 0 Active aspirin (Aspirin Low Dose) 81 mg enteric coated tablet Take 1 tablet (81 mg total) by mouth daily Active omega-3 fatty acids-fish oil 300-1,000 mg capsule Take 950 mg by mouth daily Active biotin 800 mcg tablet Take 1 tablet by mouth daily Active vitamin E (vitamin E) 200 unit capsule Take 2 capsules (400 Units total) by mouth daily Active acidophilus-pe ctin, citrus 100 million cell-10 mg capsule Take 1 capsule by mouth daily Active folic acid (FOLVITE) 1 mg tablet TAKE 1 TABLET(1 MG) BY MOUTH DAILY 30 tablet 11 2 Active cetirizine (ZyrTEC) 10 mg tablet Take 1 tablet (10 mg total) by mouth daily Active fluticasone furoate-vilant Taylor (Breo Ellipta) 100-25 mcg/dose diskus inhaler INHALE 1 PUFF BY MOUTH DAILY FAST BREATH INHALE QUICKLY AND DEEPLY Inhalation for 30 3 Active amLODIPine (NORVASC) 5 mg tablet daily Active albuterol HFA (PROVENTIL HFA,VENTOLIN HFA,PROAIR HFA) 90 mcg/actuation inhaler 3 Active atorvastatin (LIPITOR) 40 mg tablet Take 1 tablet (40 mg total) by mouth daily 4 Active magnesium oxide (MAG-OX) 250 mg (150.8 mg elemental) tablet mg, tablet(s), 0 3 Active ferrous sulfate 325 mg (65 mg of elemental iron) tabletIndicati ons:Iron Deficiency Anemia Take 1 tablet (325 mg total) by mouth every other day 90 tablet 5 Active golimumab (Simponi) 50 mg/0.5 mL syringe Inject 0.5 mL every 2 months by subcutaneous route. Active gabapentin (NEURONTIN) 300 mg capsule Take 2 capsules (600 mg total) by mouth 2 (two) times a day 120 capsule [address] (CYMBALTA) 30 mg capsuleIndicat ions:Neuropath ic Pain Take 1 capsule (30 mg total) by mouth daily 30 capsule 11 5 026 Active sulfaSALAzine EN (AZULFIDINE EN) 500 mg EC tablet TAKE 3 TABLETS BY MOUTH TWICE DAILY 180 tablet 5 Active sulfaSALAzine EN (AZULFIDINE EN) 500 mg EC tablet TAKE 3 TABLETS BY MOUTH TWICE DAILY 180 tablet 5 025 Discontin ued(Reord er) Active Problems Problem Noted Date Diagnosed Date Syncope and collapse 10/02/2024 Polyarthritis 08/26/2024 Acute blood loss anemia 08/25/2024 Mild intermittent asthma without complication Acute posterior epistaxis 08/25/2024 Abnormal electrocardiogram 07/16/2024 Carpal tunnel syndrome 07/16/2024 Malignant neoplasm 07/16/2024 Palpitations 07/16/2024 Gastro-esophageal reflux disease without esophag itis 07/16/2024 Elevated liver enzymes 06/27/2024 Hyperbilirubinemia 06/27/2024 Hyperlipidemia 06/27/2024 Bilateral cataracts 06/11/2024 Gastroesophageal reflux disease without esophagi tis 06/11/2024 Low serum vitamin B12 06/11/2024 Neuropathy 06/11/2024 Rheumatoid arthritis 06/11/2024 Chronic pain 06/10/2024 Benign hypertension 06/10/2024 Rib pain 05/08/2024 Assessment & Plan (06/05/2024 2:44 PM CDT): Left rib x-ray 05/26/2024: WNL Pain and tenderness over the left flank /left lower ribcage discussed at last visit has improved. Minimal complaints today. Assessment & Plan (05/08/2024 12:28 PM CDT): Primary complaint at today's visit is pain and tenderness over the left flank/left lower ribcage with tenderness to palpation on exam. No recent injury and/or fall. Suspect likely muscle strain. Recommended physical therapy. Given order for rib x-ray to proceed with if symptoms persist or worsen. No urinary symptoms. Paresthesia 04/11/2024 Assessment & Plan (04/11/2024 12:40 PM CDT): At today's visit, has been some paresthesias in the left hand in an ulnar nerve distribution. It is certainly possible that her small fiber neuropathy is contributing to this. With that said, recommended a trial of an ulnar nerve brace at night. LLQ pain 07/13/2022 Assessment & Plan (09/07/2022 11:38 AM HOUSING MANAGER): Continues to have chronic left lower quadrant discomfort. She did present to the ER after last visit with extensive workup that was unrevealing, including CT abdomen, per her report. Denies constipation, diarrhea, melena, hematochezia. Was advised to follow up with GI, which she has yet to schedule. I did rediscuss this with her today. Assessment & Plan (07/13/2022 10:24 AM CDT): Has has fairly significant left lower quadrant pain today with significant tenderness palpation with guarding. Had previous colonoscopy and notes a history of diverticulitis was previously on antibiotics for this. Denies any blood and or dark tarry stools. Denies constipation and/or diarrhea. Will send to the emergency department for further evaluation. Seen with Dr. Crisostomo. Dizziness 06/09/2022 Assessment & Plan (07/13/2022 10:21 AM CDT): Continues to report sensation of dizziness and feeling that she will pass out if she is up walking around - this will occur randomly. She will sit down and after several minutes the symptoms resolve. Has not had a recent cardiac stress test. This could be an autonomic dysfunction issue given her small fiber neuropathy. Gabapentin reduced to 100 mg q.p.m. with no significant change. Would also recommend discussing with Dr. West - may consider reducing gabapentin or switching to lyrica. Have discussed potential discuss with PCP about a cardiac workup. Did have recent sleep study. Assessment & Plan (06/09/2022 9:11 AM CDT): Reports sensations of dizziness/warmth and feeling that she will pass out if she is up walking around - this will occur randomly. She will sit down and after several minutes the symptoms resolve. Has not had a recent cardiac stress test nor discussed current symptoms with her PCP. This could be an autonomic dysfunction issue given her small fiber neuropathy. Would suggest discussing more with PCP for possible cardiac work up. Would also recommend discussing with Dr. West - may consider reducing gabapentin or switching to lyrica. Seen with Dr. Crisostomo. Abdominal pain 12/02/2021 Assessment & Plan (12/30/2021 10:28 AM CDT): Is scheduled to complete antibiotics today for H pylori infection and is scheduled to see GI on Sunday of next week. Has noted improvement in her abdominal complaints, although do persist to a degree. Assessment & Plan (12/02/2021 11:01 AM HOUSING MANAGER): At today's visit, describes pain in the left lower quadrant and right lower quadrant with radiation of pain into the lower thoracic region. Pain worsened with bending over. Denies any concerning symptoms diarrhea, constipation, melena, hematochezia, nausea, vomiting. Has mild tenderness to palpation over the right upper quadrant, right lower quadrant, left lower quadrant without guarding and/or rebound tenderness. It is noted that she also has rather diffuse tenderness on exam. At this time, suspect more likely musculoskeletal issue. Nonetheless, she does follow with GI and have recommended follow-up with her GI. Has had previous colonoscopy. Fibromyalgia 12/02/2021 Assessment & Plan (03/05/2025 9:34 AM CDT): Continue to suspect that several factors are contributing to her chronic pain complaints, including degenerative arthritis, spondyloarthritis, small fiber neuropathy, fibromyalgia. Is currently on gabapentin 200 mg b.i.d. Encourage routine exercise, including [employer] today. Could still consider switching gabapentin to Lyrica. On Cymbalta 30 mg daily. Encourage routine exercise, including [employer]. Previous dizziness on higher gabapenting doses. Assessment & Plan (09/05/2024 4:09 PM HOUSING MANAGER): Continue to suspect that several factors are contributing to her chronic pain complaints, including degenerative arthritis, spondyloarthritis, small fiber neuropathy, fibromyalgia. Is currently on gabapentin 200 mg b.i.d. Encourage routine exercise, including [employer] today. Could still consider switching gabapentin to Lyrica. On Cymbalta 30 mg daily. Encourage routine exercise, including [employer]. Will monitor at present given mild arthralgias/myalgias. Assessment & Plan (06/05/2024 2:42 PM CDT): Continue to suspect that several factors are contributing to her chronic pain complaints, including degenerative arthritis, spondyloarthritis, small fiber neuropathy, fibromyalgia. Is currently on gabapentin 200 mg b.i.d. Encourage routine exercise, including [employer] today. May still consider switching gabapentin to Lyrica and/or addition of Cymbalta. Primary complaint today is fatigue, which I suspect that fibromyalgia contributes to. Encourage routine exercise, including [employer]. Will monitor at present given mild arthralgias/myalgias. Assessment & Plan (05/08/2024 12:26 PM CDT): Continue to suspect that several factors are contributing to her chronic pain complaints, including degenerative arthritis, spondyloarthritis, small fiber neuropathy, fibromyalgia. Is currently on gabapentin 200 mg b.i.d. Encourage routine exercise, including [employer] today. Could consider switching gabapentin to Lyrica and/or addition of Cymbalta. Primary complaint today is fatigue, which I suspect that fibromyalgia contributes to. Encourage routine exercise, including [employer]. Will check thyroid studies. Assessment & Plan (04/11/2024 12:39 PM CDT): Continue to suspect that several factors are contributing to her chronic pain complaints, including degenerative arthritis, spondyloarthritis, small fiber neuropathy, fibromyalgia. Is currently on gabapentin 200 mg b.i.d. Encourage routine exercise, including [employer] today. Could consider switching gabapentin to Lyrica and/or addition of Cymbalta. Avoiding multiple medication changes. Assessment & Plan (01/11/2024 1:44 PM CDT): Continue to suspect that several factors are contributing to her chronic pain complaints, including degenerative arthritis, spondyloarthritis, small fiber neuropathy, fibromyalgia. Is currently on gabapentin 200 mg b.i.d.. Does continue to experience dizziness. Recommended discussing with Neurology, as likely will need to decrease or stop gabapentin at this point. Encourage routine exercise, including [employer] today. Could consider switching gabapentin to Lyrica and/or addition of Cymbalta, if joint symptoms exacerbate. Assessment & Plan (11/30/2023 1:41 PM HOUSING MANAGER): Continue to suspect that several factors are contributing to her chronic pain complaints, including degenerative arthritis, spondyloarthritis, small fiber neuropathy, fibromyalgia. Is currently on gabapentin 200 mg b.i.d.. Dizziness improved with reducing the dose. Encourage routine exercise, including [employer] today. Could consider switching gabapentin to Lyrica and/or addition of Cymbalta. Avoiding multiple medication changes at one time. Assessment & Plan (10/02/2023 4:10 PM HOUSING MANAGER): Continue to suspect that several factors are contributing to her chronic pain complaints, including degenerative arthritis, spondyloarthritis, small fiber neuropathy, fibromyalgia. Is currently on gabapentin 200 mg b.i.d. dizziness improve with reducing the dose. Encourage routine exercise, including [employer] today. Could consider switching gabapentin to Lyrica and or addition of Cymbalta Assessment & Plan (08/20/2023 2:07 PM HOUSING MANAGER): Continue to suspect that several factors are contributing to her chronic pain complaints, including degenerative arthritis, spondyloarthritis, small fiber neuropathy, fibromyalgia. Is currently on gabapentin 200 mg b.i.d. dizziness improve with reducing the dose. Encourage routine exercise, including [employer] today. Assessment & Plan (07/05/2023 2:59 PM CDT): Continue to suspect that several factors are contributing to her chronic pain complaints, including degenerative arthritis, spondyloarthritis, small fiber neuropathy, fibromyalgia. Is currently on gabapentin 200 mg b.i.d. .. Has experienced dizziness. Recommend reducing/stopping, although she is to discuss with neuromuscular also. Encourage routine exercise, including [employer] today. Assessment & Plan (06/07/2023 3:25 PM CDT): Continue to suspect that several factors are contributing to her chronic pain complaints, including degenerative arthritis, spondyloarthritis, small fiber neuropathy, fibromyalgia. Is currently on gabapentin 200 mg b.i.d. and tolerating this fairly well. Had previous side effects with higher gabapentin dose. Encourage routine exercise, including [employer] today. Assessment & Plan (03/08/2023 1:41 PM CDT): Continue to suspect that several factors are contributing to her chronic pain complaints, including degenerative arthritis, spondyloarthritis, small fiber neuropathy, fibromyalgia. Saw Dr. West on 12/18/2021 and he recommended increasing gabapentin to 300 mg b.i.d. at that visit. This was eventually reduced back to 100 mg q.p.m. due to side effects, including dizziness. Is currently on gabapentin 200 mg b.i.d. and tolerating this fairly well. She defers further increase gabapentin due to concerns for side effects. Encourage routine exercise, including [employer] today. Assessment & Plan (12/07/2022 12:48 PM HOUSING MANAGER): Do suspect that several factors are contributing to her chronic pain complaints, including degenerative arthritis, spondyloarthritis, small fiber neuropathy, fibromyalgia. Saw Dr. West on 12/18/2021 and he recommended increasing gabapentin to 300 mg b.i.d. at that visit. This was eventually reduced back to 100 mg q.p.m. due to side effects, including dizziness. Is currently on gabapentin 200 mg b.i.d. and tolerating this fairly well. She defers further increase gabapentin due to concerns for side effects. Encourage routine exercise, including [employer] today. Assessment & Plan (09/07/2022 11:37 AM HOUSING MANAGER): Stable from last visit. Do suspect that several factors are contributing to her chronic pain complaints, including degenerative arthritis, spondyloarthritis, small fiber neuropathy, fibromyalgia. Saw Dr. West on 12/18/2021 and he recommended increasing gabapentin to 300 mg b.i.d. at that visit. This was eventually reduced back to 100 mg q.p.m. due to side effects, including dizziness. Could consider increasing if the symptoms resolved. Will continue gabapentin 100 mg q.p.m.. Assessment & Plan (07/13/2022 10:22 AM CDT): Generalized pain complaints with several fibromyalgia tender points on exam today. Do suspect that several factors are contributing to her chronic pain complaints, including degenerative arthritis, spondyloarthritis, small fiber neuropathy, fibromyalgia. Saw Dr. West on 12/18/2021 and he recommended increasing gabapentin to 300 mg b.i.d. at that visit. This was eventually reduced back to 100 mg q.p.m. due to symptoms discussed above. Could consider increasing if the symptoms resolved Assessment & Plan (05/25/2022 4:18 PM CDT): Generalized pain complaints with several fibromyalgia tender points on exam today. Do suspect that several factors are contributing to her chronic pain complaints, including degenerative arthritis, spondyloarthritis, small fiber neuropathy, fibromyalgia. Saw Dr. West on 12/18/2021 and he recommended increasing gabapentin to 300 mg b.i.d. at that visit. This was eventually reduced back to 300 mg q.p.m. due to symptoms discussed above. Could consider increasing if the symptoms resolved Assessment & Plan (04/21/2022 3:07 PM CDT): Generalized pain complaints with several fibromyalgia tender points on exam today. Do suspect that several factors are contributing to her chronic pain complaints, including degenerative arthritis, spondyloarthritis, small fiber neuropathy, fibromyalgia. Saw Dr. West on 12/18/2021 and he recommended increasing gabapentin to 300 mg b.i.d. at that visit. She increased nahed 01/2022 and remains on 300mg BID at this time without any significant benefit. Assessment & Plan (02/28/2022 2:13 PM CDT): Has generalized pain complaints with several fibromyalgia tender points on exam today. Do suspect that several factors are contributing to her chronic pain complaints, including degenerative arthritis, spondyloarthritis, small fiber neuropathy, fibromyalgia. Saw Dr. West on 12/18/2021 and he recommended increasing gabapentin to 300 mg b.i.d. at that visit. She has remained on 300 mg once daily due to confusion with dosing. Will increase gabapentin to 300 mg b.i.d. at this time. Assessment & Plan (12/30/2021 10:25 AM CDT): Has rather diffuse pain complaints, including fibromyalgia tender points on exam. I do suspect that there are several factors contributing to her chronic pain complaints, including degenerative arthritis, spondyloarthritis, small fiber neuropathy, as well as possible fibromyalgia. She did see Dr. West neuro, this Sunday and he did increased nahed to 300 mg bid Assessment & Plan (12/02/2021 12:37 PM HOUSING MANAGER): Has rather diffuse pain complaints, including fibromyalgia tender points on exam. I do suspect that there are several factors contributing to her chronic pain complaints, including degenerative arthritis, spondyloarthritis, small fiber neuropathy, as well as possible fibromyalgia. Will begin gabapentin 100 mg q.p.m. to see if this can offer benefit. Discussed potential side effects of the medication, including but not limited to somnolence, dizziness. Small fiber neuropathy 09/19/2021 Assessment & Plan (03/05/2025 9:33 AM CDT): Follows with venkata Ruiz. Suspect that this is contributing to her numbness and tingling in the bilateral hands. 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 Reduced gabapentin from 300 mg b.i.d. to 200 mg b.i.d. with previous improvement in her dizziness symptoms. Will continue gabapentin 200 mg b.i.d.. Will avoid further increase on gabapentin given previous side effects discussed. Assessment & Plan (09/05/2024 4:07 PM HOUSING MANAGER): Follows with venkata Ruiz. Suspect that this is contributing to her numbness and tingling in the bilateral hands. 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 Reduced gabapentin from 300 mg b.i.d. to 200 mg b.i.d. with previous improvement in her dizziness symptoms. Will continue gabapentin 200 mg b.i.d.. Will avoid further increase on gabapentin given previous side effects discussed Assessment & Plan (06/05/2024 2:41 PM CDT): Follows with venkata Ruiz. Suspect that this is contributing to her numbness and tingling in the bilateral hands. 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 Reduced gabapentin from 300 mg b.i.d. to 200 mg b.i.d. with previous improvement in her dizziness symptoms. Will continue gabapentin 200 mg b.i.d.. Will avoid further increase on gabapentin given previous side effects discussed Assessment & Plan (05/08/2024 12:25 PM CDT): Follows with venkata Ruiz. Suspect that this is contributing to her numbness and tingling in the bilateral hands. 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 Reduced gabapentin from 300 mg b.i.d. to 200 mg b.i.d. with previous improvement in her dizziness symptoms. Will continue gabapentin 200 mg b.i.d.. Assessment & Plan (04/11/2024 12:38 PM CDT): Follows with venkata Ruiz. Suspect that this is contributing to her numbness and tingling in the bilateral hands. 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 Reduced gabapentin from 300 mg b.i.d. to 200 mg b.i.d. with previous improvement in her dizziness symptoms. Assessment & Plan (01/11/2024 1:45 PM CDT): Follows with venkata Ruiz. Suspect that this is contributing to her numbness and tingling in the bilateral hands. 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 Reduced gabapentin from 300 mg b.i.d. to 200 mg b.i.d. with previous improvement in her dizziness symptoms. Unfortunately, at today's visit, she continues to note dizziness symptoms. Have recommended discussion with Neurology about further decrease and/or stopping gabapentin. Assessment & Plan (11/30/2023 1:42 PM HOUSING MANAGER): Follows with venkata Ruiz. Suspect that this is contributing to her numbness and tingling in the bilateral hands. 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 Reduced gabapentin from 300 mg b.i.d. to 200 mg b.i.d. with improvement in her dizziness symptoms. Have previously recommended follow up with Neurology given persistent symptoms. Assessment & Plan (10/02/2023 4:10 PM HOUSING MANAGER): Follows with venkata Ruiz. Suspect that this is contributing to her numbness and tingling in the bilateral hands. 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 Reduced gabapentin from 300 mg b.i.d. to 200 mg b.i.d. since last visit with improvement in her dizziness symptoms. Have recommended follow up with Neurology given persistent symptoms. Assessment & Plan (08/20/2023 2:06 PM HOUSING MANAGER): Follows with venkata Ruiz. Suspect that this is contributing to her numbness and tingling in the bilateral hands. 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 Reduced gabapentin from 300 mg b.i.d. to 200 mg b.i.d. since last visit with improvement in her dizziness symptoms. Recommended discussion and follow-up with Neurology Assessment & Plan (07/05/2023 2:56 PM CDT): Follows with venkata Ruiz. Since last visit, her gabapentin was increased from 200 mg b.i.d. to 300 mg b.i.d.. Unfortunately, she has recently experienced dizziness symptoms, which I suspect gabapentin may be contributing to. She did self reduced gabapentin to 200 mg b.i.d. several days ago, although symptoms do persist. Recommended discussing with neuromuscular about reducing gabapentin further and/or stopping. Suspect that this is contributing to her numbness and tingling in the bilateral hands. 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 Assessment & Plan (06/07/2023 3:26 PM CDT): Follows with venkata Ruiz. On nahed 200 mg bid. Reduced dose from 300 mg b.i.d. due to side effects. Suspect that this is contributing to her numbness and tingling in the bilateral hands. 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 Is scheduled to follow up with venkata Ruiz, next week. Assessment & Plan (03/08/2023 1:40 PM CDT): Follows with venkata Ruiz. On nahed 200 mg bid. Reduced dose from 300 mg b.i.d. due to side effects. Suspect that this is contributing to her numbness and tingling in the bilateral hands. 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 Recommended follow up with venkata Ruiz. Assessment & Plan (12/07/2022 12:51 PM HOUSING MANAGER): Follows with venkata Ruiz. On nahed 200 mg bid. Reduced dose from 300 mg b.i.d. due to side effects. Assessment & Plan (09/07/2022 11:37 AM HOUSING MANAGER): Follows with venkata Ruiz. On nahed 100 mg qpm. Reduced dose from 300 mg b.i.d. due to side effects. Assessment & Plan (07/13/2022 10:24 AM CDT): Follows with venkata Ruiz. On nahed 100 mg qpm. Reduced dose from 300 mg b.i.d. due to symptoms discussed above. Consider increasing in the future if symptoms resolved Assessment & Plan (05/25/2022 4:16 PM CDT): Follows with venkata Ruiz. On nahed 300 mg qpm. Reduced dose from 300 mg b.i.d. due to symptoms discussed above. Consider increasing in the future if symptoms resolved Assessment & Plan (04/21/2022 3:08 PM CDT): Follows with venkata Ruiz. On nahed 300 mg BID. Assessment & Plan (02/28/2022 2:17 PM CDT): Follows with evnkata Ruiz. On nahed 300 mg daily. Was advised to increase to 300 mg bid at her most recent visit with Dr. West, although has not proceeded with this. Have recommended increasing nahed to 300 bid at this time. Long-term use of high-risk medication 09/09/2021 Assessment & Plan (03/05/2025 9:34 AM CDT): Negative QuantiFERON 07/2021 Negative hepatitis panel 11/2020 Will check few additional labs for pcp Assessment & Plan (06/05/2024 2:41 PM CDT): Negative QuantiFERON 07/2021 Negative hepatitis panel 11/2020 Assessment & Plan (04/11/2024 12:38 PM CDT): Negative QuantiFERON 07/2021 Negative hepatitis panel 11/2020 Assessment & Plan (10/02/2023 4:10 PM HOUSING MANAGER): Negative QuantiFERON 07/2021 Negative hepatitis panel 11/2020 Assessment & Plan (08/20/2023 2:06 PM HOUSING MANAGER): Negative QuantiFERON 07/2021 Negative hepatitis panel 11/2020 Assessment & Plan (07/05/2023 2:58 PM CDT): Negative QuantiFERON 07/2021 Negative hepatitis panel 11/2020 Assessment & Plan (03/08/2023 1:40 PM CDT): Negative QuantiFERON 07/2021 Negative hepatitis panel 11/2020 Assessment & Plan (12/07/2022 12:48 PM HOUSING MANAGER): Negative QuantiFERON 07/2021 Negative hepatitis panel 11/2020 Assessment & Plan (09/07/2022 11:36 AM HOUSING MANAGER): Negative QuantiFERON 07/2021 Negative hepatitis panel 11/2020 Assessment & Plan (07/13/2022 10:22 AM CDT): Negative QuantiFERON 07/2021 Negative hepatitis panel 11/2020 Assessment & Plan (05/25/2022 4:17 PM CDT): Negative QuantiFERON 07/2021 Negative hepatitis panel 11/2020 Assessment & Plan (04/21/2022 3:07 PM CDT): Negative QuantiFERON 07/2021 Negative hepatitis panel 11/2020 Assessment & Plan (02/28/2022 2:14 PM CDT): Negative QuantiFERON 07/2021 Negative hepatitis panel 11/2020 Assessment & Plan (12/30/2021 10:25 AM CDT): Negative QuantiFERON 07/2021 Negative hepatitis panel 11/2020 Assessment & Plan (12/02/2021 10:58 AM HOUSING MANAGER): Negative QuantiFERON 07/2021 Negative hepatitis panel 11/2020 Assessment & Plan (10/21/2021 9:41 AM HOUSING MANAGER): Negative QuantiFERON 07/2021 Negative hepatitis panel 11/2020 Assessment & Plan (09/09/2021 11:24 AM HOUSING MANAGER): Negative QuantiFERON 07/2021 Negative hepatitis panel 11/2020 Chest heaviness 07/19/2021 Thyroid nodule 07/19/2021 NAFLD (nonalcoholic fatty liver disease) 021 Overview (09/13/2023): Right upper quadrant ultrasound 09/06/2023: Hepatic steatosis and hepatomegaly Diverticulosis 07/14/2021 Capsulitis of metatarsophalangeal (MTP) joint of right foot 05/13/2021 Pain in right foot 05/13/2021 Fatigue 03/22/2021 Assessment & Plan (03/05/2025 9:34 AM CDT): Suspect fibromyalgia contributing to her chronic fatigue. She is a snorer. Had sleep study 2+ years prior. Has a CPAP, although does not use this. Encouraged use of CPAP machine. Encourage routine exercise. Assessment & Plan (06/05/2024 2:43 PM CDT): Suspect fibromyalgia contributing to her chronic fatigue. She is a snorer. Had sleep study 2+ years prior. Has a CPAP, although does not use this. Encouraged use of CPAP machine. Encourage routine exercise. Assessment & Plan (05/08/2024 12:26 PM CDT): Suspect fibromyalgia contributing to her chronic fatigue. She is a snorer. Have previously discussed sleep study. Will check thyroid studies. Encourage routine exercise. Assessment & Plan (03/22/2021 12:38 PM CDT): This is a primary complaint today. She is a snorer. Recommended further discussion about potential sleep study with PCP. Recommended minimum 8 hours sleep per night. Will check thyroid studies. Greater trochanteric pain syndrome of left lower extremity 01/20/2021 Assessment & Plan (02/22/2021 3:12 PM CDT): Continues to note persistent pain over the left IT bands greater trochanter. Has begun PT with mild improvement in symptoms. Will continue physical therapy at this time. Assessment & Plan (01/20/2021 12:56 PM CDT): Primary complaint today is significant sharp pains over the left greater trochanter/IT band. Given exercise sheet today and will refer to PT. Muscle cramps 01/20/2021 Assessment & Plan (06/09/2022 8:35 AM CDT): Moderate muscle cramps affecting her lower extremities, occurring mostly in the evenings but can occur during the day. Thighs and posterior calf muscle beds feel contracted on exam with slight ttp of the left calf. There is a 1cm difference between L and R calves. Discussed reduction of soda intake, increase water to 70-80oz daily and include electrolytes. Encouraged routine muscle massages, stretching and heat application. Will avoid muscle relaxers at this time given her dizziness/lightheaded complaints. Assessment & Plan (12/30/2021 10:27 AM CDT): Negative myositis. Prior recent labs 07/2021 revealed CK of 636 and aldolase WNL. Recheck CK 12/28/[address] West revealed elevated CK at 4:40 a.m. Strength testing 5/5 UE/LE on exam. Suspect that her weakness may be coming from her chronic lower back pain. EMG per Dr. Goncalves was negative. She notes she did have skin biopsy displaying evidence for small fiber neuropathy. Continue to follow with Dr. West neuro. Was started on magnesium this week. Assessment & Plan (12/02/2021 12:34 PM HOUSING MANAGER): Negative myositis. Most recent labs 07/2021 revealed CK of 636 and aldolase WNL. Strength testing 5/5 UE/LE on exam. Suspect that her weakness is likely coming from her chronic lower back pain. With that said, given her persistent CK elevations, she has been evaluated by Dr. West neuromuscular. EMG per Dr. Goncalves was negative. She notes she did have skin biopsy displaying evidence for small fiber neuropathy. Assessment & Plan (10/21/2021 9:44 AM HOUSING MANAGER): Negative myositis. Most recent labs 07/2021 revealed CK of 636 and aldolase WNL. Strength testing 5/5 UE/LE on exam. Suspect that her weakness is likely coming from her chronic lower back pain. With that said, given her persistent CK elevations, she has been evaluated by Dr. West neuromuscular. EMG per Dr. Goncalves was negative. She notes she did have skin biopsy displaying evidence for small fiber neuropathy. Assessment & Plan (09/09/2021 11:22 AM HOUSING MANAGER): Negative myositis. Most recent labs 03/09/2021 revealed CK of 636 and aldolase WNL. Strength testing 5/5 UE/LE on exam. Suspect that her weakness is likely coming from her chronic lower back pain. With that said, given her persistent CK elevations, she has been evaluated by Dr. West neuromuscular. He is scheduling for EMG to evaluate her neuropathic symptoms further. Per his office visit note that was reviewed, does not appear to be concerned regarding her elevated CK given prior negative myositis panel and normal aldolase. Assessment & Plan (07/27/2021 8:48 PM CDT): Prior labs 01/2021 revealed CK 536 and 03/2020: Revealed CK of 491. Negative myositis. Most recent labs 03/09/2021 revealed CK of 671 and aldolase WNL. Strength testing revealed 3/5 R hip flexion, 1/5 L hip flexion; 3/5 marleny knee extension/flexion. Suspect that her weakness is likely coming from her chronic lower back pain. With that said, given her persistent CK elevations, we did recommend further evaluation with Dr. West neuromuscular, with appointment scheduled for 08/28. Assessment & Plan (06/22/2021 12:55 PM CDT): Prior labs 01/2021 revealed CK 536 and 03/2020: Revealed CK of 491. Aldolase WNL. Negative myositis. Strength testing revealed 3/5 R hip flexion, 1/5 L hip flexion; 3/5 marleny knee extension/flexion. Suspect that her weakness is likely coming from her chronic lower back pain. With that said, given her persistent CK elevations, we did recommend further evaluation with Dr. West neuromuscular, with appointment scheduled for 08/29. Assessment & Plan (03/22/2021 12:35 PM CDT): Most recent labs 01/2021 revealed CK at 536, aldolase wnl. Negative Myositis. A primary complaint continues to be muscle cramps in the bilateral legs. Strength testing revealed 3/5 R hip flexion, 1/5 L hip flexion; 3/5 marleny knee extension/flexion. Given her elevated ck along with reduced strength, will refer to Dr. West. I do suspect that her weakness may be coming from her chronic lower back pain. It is noted that americans are more likely to have higher CK levels. Assessment & Plan (02/22/2021 3:13 PM CDT): Most recent labs 12/2220 displayed CK 521, follow Daryl WNL, magnesium WNL. Continues to note intermittent muscle cramps of the bilateral lower extremities. Denies significant muscle weakness. 5/5 strength upper/lower extremity on exam. Will recheck muscle enzymes and myositis panel. Depending on workup, could consider referral to Dr. west, neuromuscular. Assessment & Plan (01/20/2021 12:57 PM CDT): Notes intermittent muscle cramps of the bilateral lower extremities. Discussed increased fluids, potassium/magnesium. 5/5 strength UE/LE on exam. Will check muscle enzymes. Numbness and tingling in both hands 01/20/2021 Assessment & Plan (07/05/2023 2:58 PM CDT): Continues to note intermittent numbness and tingling in the right hand. No benefit with wrist bracing at night. She has had prior bilateral carpal tunnel release surgery. Had recent EMG that was unrevealing. Had skin biopsy that was consistent with small fiber neuropathy, per her report. Continue to follow with Dr. West, neuromuscular. Recommended discussion with neuromuscular about reducing gabapentin given her recent dizziness Assessment & Plan (06/07/2023 3:25 PM CDT): Continues to note intermittent numbness and tingling in the right hand. No benefit with wrist bracing at night. She has had prior bilateral carpal tunnel release surgery. Had recent EMG that was unrevealing. Had skin biopsy that was consistent with small fiber neuropathy, per her report. She is scheduled to follow up with neuromuscular next week Assessment & Plan (03/08/2023 1:40 PM CDT): Continues to note intermittent numbness and tingling in the right hand. No benefit with wrist bracing at night. She has had prior bilateral carpal tunnel release surgery. Had recent EMG that was unrevealing. Had skin biopsy that was consistent with small fiber neuropathy, per her report. Recommended follow-up with Neurology. Assessment & Plan (12/07/2022 12:50 PM HOUSING MANAGER): Continues to note intermittent numbness and tingling in the right hand. No benefit with wrist bracing at night. She has had prior bilateral carpal tunnel release surgery. Had recent EMG that was unrevealing. Had skin biopsy that was consistent with small fiber neuropathy, per her report. Recommended cock-up wrist splint and follow-up with Neurology. Assessment & Plan (10/21/2021 9:44 AM HOUSING MANAGER): Continues to note intermittent numbness and tingling in the right hand. No benefit with wrist bracing at night. She has had prior bilateral carpal tunnel release surgery. Had recent EMG that was unrevealing. Had skin biopsy that was consistent with small fiber neuropathy, per her report. Assessment & Plan (09/09/2021 11:23 AM HOUSING MANAGER): Continues to note intermittent numbness and tingling in the right hand. No benefit with wrist bracing at night. She has had prior bilateral carpal tunnel release surgery. Recommended fu with hand ortho given her persistent paresthesias. Dr. West, neuromuscular, is evaluating her paresthesias symptoms further, as is scheduled for EMG. Assessment & Plan (07/27/2021 8:49 PM CDT): Continues to note intermittent numbness and tingling in the right hand. No benefit with wrist bracing at night. She has had prior bilateral carpal tunnel release surgery. Recommended fu with hand ortho given her persistent paresthesias. Assessment & Plan (06/22/2021 12:53 PM CDT): Continues to note intermittent numbness and tingling in the right hand. We did again discuss wrist bracing at night, which has offered some benefit. She has had prior bilateral carpal tunnel release surgery. Consider follow-up with Hand Ortho if symptoms persist. Assessment & Plan (03/22/2021 12:38 PM CDT): Intermittent numbness and tingling in the right hand. Prior bilateral CTS. Again, recommended wrist bracing. Assessment & Plan (01/20/2021 12:57 PM CDT): Intermittent numbness and tingling in the right hand. Prior bilateral CTS. Discussed wrist bracing. SOB (shortness of breath) 01/20/2021 Overview (03/08/2023): TTE 2023: Left ventricular ejection fraction 5-70%. Mildly increased left ventricular wall thickness. Grade 1 diastolic left ventricular dysfunction. Trace mitral and tricuspid regurgitation PFT 2023: FEV1 57% predicted, FVC 58% predicted, FEV1/FVC 79% normal; TLC 72% mildly reduced; DLCO 129% normal - normal Chest x-ray 12/18/2022: Degenerative spurring of the thoracic and lumbar spine. Encourage devices noted a both humeral heads. Status post cholecystectomy. No acute cardiopulmonary disease or change from 02/09/2022 Assessment & Plan (06/05/2024 2:41 PM CDT): TTE 2023: Left ventricular ejection fraction 5-70%. Mildly increased left ventricular wall thickness. Grade 1 diastolic left ventricular dysfunction. Trace mitral and tricuspid regurgitation PFT 2023: FEV1 57% predicted, FVC 58% predicted, FEV1/FVC 79% normal; TLC 72% mildly reduced; DLCO 129% normal - normal Chest x-ray 12/18/2022: Degenerative spurring of the thoracic and lumbar spine. Status post cholecystectomy. No acute cardiopulmonary disease or change from 02/09/2022 Has history of asthma and continues to follow with PCP and pulmonology Assessment & Plan (05/08/2024 12:25 PM CDT): TTE 2023: Left ventricular ejection fraction 5-70%. Mildly increased left ventricular wall thickness. Grade 1 diastolic left ventricular dysfunction. Trace mitral and tricuspid regurgitation PFT 2023: FEV1 57% predicted, FVC 58% predicted, FEV1/FVC 79% normal; TLC 72% mildly reduced; DLCO 129% normal - normal Chest x-ray 12/18/2022: Degenerative spurring of the thoracic and lumbar spine. Status post cholecystectomy. No acute cardiopulmonary disease or change from 02/09/2022 Has history of asthma and continues to follow with PCP and pulmonology Assessment & Plan (04/11/2024 12:37 PM CDT): TTE 2023: Left ventricular ejection fraction 5-70%. Mildly increased left ventricular wall thickness. Grade 1 diastolic left ventricular dysfunction. Trace mitral and tricuspid regurgitation PFT 2023: FEV1 57% predicted, FVC 58% predicted, FEV1/FVC 79% normal; TLC 72% mildly reduced; DLCO 129% normal - normal Chest x-ray 12/18/2022: Degenerative spurring of the thoracic and lumbar spine. Status post cholecystectomy. No acute cardiopulmonary disease or change from 02/09/2022 Has history of asthma and continues to follow with PCP and pulmonology Assessment & Plan (10/02/2023 4:10 PM HOUSING MANAGER): TTE 2023: Left ventricular ejection fraction 5-70%. Mildly increased left ventricular wall thickness. Grade 1 diastolic left ventricular dysfunction. Trace mitral and tricuspid regurgitation PFT 2023: FEV1 57% predicted, FVC 58% predicted, FEV1/FVC 79% normal; TLC 72% mildly reduced; DLCO 129% normal - normal Chest x-ray 12/18/2022: Degenerative spurring of the thoracic and lumbar spine. Status post cholecystectomy. No acute cardiopulmonary disease or change from 02/09/2022 Has history of asthma, so continue to follow with PCP and pulmonology Assessment & Plan (08/20/2023 2:06 PM HOUSING MANAGER): TTE 2023: Left ventricular ejection fraction 5-70%. Mildly increased left ventricular wall thickness. Grade 1 diastolic left ventricular dysfunction. Trace mitral and tricuspid regurgitation PFT 2023: FEV1 57% predicted, FVC 58% predicted, FEV1/FVC 79% normal; TLC 72% mildly reduced; DLCO 129% normal - normal Chest x-ray 12/18/2022: Degenerative spurring of the thoracic and lumbar spine. Status post cholecystectomy. No acute cardiopulmonary disease or change from 02/09/2022 Shortness of breath symptoms remains improved. Has history of asthma, so continue to follow with PCP and pulmonology Assessment & Plan (07/05/2023 2:55 PM CDT): TTE 2023: Left ventricular ejection fraction 5-70%. Mildly increased left ventricular wall thickness. Grade 1 diastolic left ventricular dysfunction. Trace mitral and tricuspid regurgitation PFT 2023: FEV1 57% predicted, FVC 58% predicted, FEV1/FVC 79% normal; TLC 72% mildly reduced; DLCO 129% normal - normal Chest x-ray 12/18/2022: Degenerative spurring of the thoracic and lumbar spine. Status post cholecystectomy. No acute cardiopulmonary disease or change from 02/09/2022 Shortness breath symptoms remains improved, although does persist Has history of asthma, so continue to follow with PCP and pulmonology Assessment & Plan (06/07/2023 3:24 PM CDT): TTE 2023: Left ventricular ejection fraction 5-70%. Mildly increased left ventricular wall thickness. Grade 1 diastolic left ventricular dysfunction. Trace mitral and tricuspid regurgitation PFT 2023: FEV1 57% predicted, FVC 58% predicted, FEV1/FVC 79% normal; TLC 72% mildly reduced; DLCO 129% normal - normal Chest x-ray 12/18/2022: Degenerative spurring of the thoracic and lumbar spine. Status post cholecystectomy. No acute cardiopulmonary disease or change from 02/09/2022 Shortness breath symptoms are improved from last visit. Has history of asthma, so would recommend follow-up with PCP and/or pulmonology, if symptoms worsened again. Assessment & Plan (03/08/2023 1:59 PM CDT): TTE 2023: Left ventricular ejection fraction 5-70%. Mildly increased left ventricular wall thickness. Grade 1 diastolic left ventricular dysfunction. Trace mitral and tricuspid regurgitation PFT 2023: FEV1 57% predicted, FVC 58% predicted, FEV1/FVC 79% normal; TLC 72% mildly reduced; DLCO 129% normal - normal Chest x-ray 12/18/2022: Degenerative spurring of the thoracic and lumbar spine. Encourage devices noted a both humeral heads. Status post cholecystectomy. No acute cardiopulmonary disease or change from 02/09/2022 Will track down chest x-ray results. Shortness breath symptoms are improved from last visit. Has history of asthma, so would recommend follow-up with PCP and/or pulmonology, if symptoms worsened again. Assessment & Plan (12/07/2022 12:51 PM HOUSING MANAGER): History of asthma. Given worsened shortness of breath, obtain chest x-ray, PFT, TTE. Consider pulmonary evaluation, if symptoms persist. Assessment & Plan (01/20/2021 12:58 PM CDT): History of asthma. Recommended follow-up with [facility]. Osteoarthritis of multiple joints 12/16/2020 Assessment & Plan (03/05/2025 9:32 AM CDT): Hx of OA that is contributing to her chronic pain complaints. Have recommended OTC Voltaren gel applied to the affected knees p.r.n.. She has previously completed physical therapy for the knees. Received ultrasound-guided left knee intra- articular steroid injection on 11/2023 with significant benefit. Do suspect that osteoarthritis contributing to some of her chronic residual pain complaints. Assessment & Plan (09/05/2024 4:08 PM HOUSING MANAGER): Hx of OA that is contributing to her chronic pain complaints. Have recommended OTC Voltaren gel applied to the affected knees p.r.n.. She has previously completed physical therapy for the knees. Received ultrasound-guided left knee intra- articular steroid injection on 11/2023 with significant benefit. Discussed repeat left knee intra-articular steroid injection, which was amenable to. Placed order for this. Discussed risks and benefits of the injection. Assessment & Plan (06/05/2024 2:41 PM CDT): Hx of OA that is contributing to her chronic pain complaints. Have recommended OTC Voltaren gel applied to the affected knees p.r.n.. She has previously completed physical therapy for the knees. Received ultrasound-guided left knee intra- articular steroid injection on 11/2023. No significant knee complaints at today's visit. Assessment & Plan (05/08/2024 12:24 PM CDT): Hx of OA that is contributing to her chronic pain complaints. Have recommended OTC Voltaren gel applied to the affected knees p.r.n.. She has previously completed physical therapy for the knees. Received ultrasound-guided left knee intra- articular steroid injection on 11/2023. No significant knee complaints at today's visit. Assessment & Plan (04/11/2024 12:37 PM CDT): Hx of OA that is contributing to her chronic pain complaints. Have recommended OTC Voltaren gel applied to the affected knees p.r.n.. She has previously completed physical therapy for the knees. Received ultrasound-guided left knee intra- articular steroid injection after last visit on 11/2023. Assessment & Plan (01/11/2024 1:43 PM CDT): Hx of OA that is contributing to her chronic pain complaints. Have recommended OTC Voltaren gel applied to the affected knees p.r.n.. She has previously completed physical therapy for the knees. Received ultrasound-guided left knee intra- articular steroid injection after last visit on 11/2023. Assessment & Plan (11/30/2023 1:41 PM HOUSING MANAGER): Hx of OA that is contributing to her chronic pain complaints. Have recommended OTC Voltaren gel applied to the affected knees p.r.n.. Primary complaint today is chronic left knee pain. Will obtain updated imaging in order an ultrasound-guided left knee intra-articular steroid injection. Discussed risks and benefits of the injection. She has previously completed physical therapy for the knees and defers at this time. Assessment & Plan (10/02/2023 4:11 PM HOUSING MANAGER): Hx of OA that is contributing to her chronic pain complaints. Have recommended OTC Voltaren gel applied to the affected knees p.r.n. Assessment & Plan (08/20/2023 2:05 PM HOUSING MANAGER): Hx of OA that is contributing to her chronic pain complaints. Have recommended OTC Voltaren gel applied to the affected knees p.r.n. Assessment & Plan (07/05/2023 2:54 PM CDT): Hx of OA that is contributing to her chronic pain complaints. Have recommended OTC Voltaren gel applied to the affected knees p.r.n. Assessment & Plan (06/07/2023 3:14 PM CDT): Hx of OA that is contributing to her chronic pain complaints. Have recommended OTC Voltaren gel applied to the affected knees p.r.n. Assessment & Plan (03/08/2023 1:39 PM CDT): Hx of OA that is contributing to her chronic pain complaints. Have recommended OTC Voltaren gel applied to the affected knees p.r.n. Assessment & Plan (12/07/2022 12:47 PM HOUSING MANAGER): Hx of OA that is contributing to her chronic pain complaints. Have recommended OTC Voltaren gel applied to the affected knees p.r.n. Assessment & Plan (09/07/2022 11:36 AM HOUSING MANAGER): Hx of OA that is contributing to her chronic pain complaints. Have recommended OTC Voltaren gel applied to the affected knees p.r.n. Assessment & Plan (07/13/2022 10:20 AM CDT): Hx of OA that is contributing to her chronic pain complaints. Assessment & Plan (05/25/2022 4:16 PM CDT): Hx of OA that is contributing to her chronic pain complaints. Assessment & Plan (04/21/2022 3:03 PM CDT): Hx of OA that is contributing to her chronic pain complaints. Assessment & Plan (02/28/2022 2:11 PM CDT): Do suspect that osteoarthritis is contributing to her chronic pain complaints., as discussed above. Assessment & Plan (12/30/2021 10:24 AM CDT): Do suspect that osteoarthritis is contributing to her chronic pain complaints. Assessment & Plan (12/02/2021 10:57 AM HOUSING MANAGER): Do suspect that osteoarthritis is contributing to her chronic pain complaints, which is most notable in her lower back. Assessment & Plan (10/21/2021 9:41 AM HOUSING MANAGER): Do suspect that osteoarthritis is contributing to her chronic pain complaints. Previously noted that she was scheduled to see Podiatry to discuss feet complaints further. Assessment & Plan (09/09/2021 11:19 AM HOUSING MANAGER): Do suspect that osteoarthritis is contributing to her chronic pain complaints. She is scheduling to see Podiatry to discuss feet complaints further. Assessment & Plan (07/27/2021 8:45 PM CDT): Osteoarthritis is likely contributing to her chronic pain complaints. Do think that she would benefit from follow up with Podiatry given her feet complaints. Assessment & Plan (06/22/2021 12:51 PM CDT): Do suspect that osteoarthritis is contributing to some of her chronic pain complaints. Assessment & Plan (03/22/2021 12:33 PM CDT): Do suspect that osteoarthritis is contributing to some of her chronic pain complaints, which was again discussed today. Assessment & Plan (02/22/2021 3:11 PM CDT): Continue to suspect that osteoarthritis is contributing to some of her chronic pain complaints, which was again discussed today. Assessment & Plan (01/20/2021 12:56 PM CDT): As above, suspect this is contributing to some of her chronic pain complaints. Assessment & Plan (12/16/2020 5:13 PM CDT): As above, suspect this is contributing to some of her chronic pain complaints. 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 Prior left replacement. positive CLAUDIO. Negative dsDNA, negative Shannon/[employer] INST[employer]ER, negative chromatin, negative [facility]CP [facility] 12/10/2020: Positive CLAUDIO 1:160 speckled, high C3 complement 163 high C4 42 Labs 12/03/2019:14.3.3 ETA protein WNL, hep panel WNL, CK 458, aldolase 4.6, ESR 41, CRP 20.3, Right hand/wrist ultrasound 11/2020: 2nd MCP erosion with grade 2 power Doppler. Mild/moderate synovial thickening at the wrist. Moderate 2nd and 3rd MCP synovial thickening with power Doppler of 2nd and mild/moderate 5th MCP synovial thickening. Moderate/marked 2nd PIP synovial thickening with grade 1 power Doppler and marked 3rd PIP synovial thickening on examination which will have to be correlated clinically. US right hand/wrist (04/29/24): 1) Radial scaphoid joint: Grade 1 power doppler. 2) 2nd MCP joint: Grade 2 effusion with erosive changes in metacarpal head. 3) Volar wrist: Grade 1 power doppler. 4) 2nd PIP joint: Grade 1 effusion and grade 1 power doppler with marked synovial thickening. 5) 3rd PIP joint: Marked synovial thickening. 6) In comparison to previous US of the right hand/wrist from November 2020, there is an unchanged erosion in the 2nd metacarpal head with decreased power doppler and new effusion in the 2nd MCP joint. There is new power doppler in the radial scaphoid joint. X-ray 12/03/2020: Mild degenerative changes noted throughout the hands, feet, knees, hips. Bilateral hands: Mild IP OA, which is most significant in the right 5th PIP and left 1st CMC Bilateral feet: Bilateral calcaneal spurs in Achilles enthesophytes. Osteophytes on the dorsal surface of the ankles at the tarsal metatarsal and metatarsophalangeal joints. Tricompartmental OA in the bilateral knees with medial patellofemoral OA Left hip: Left hip arthroplasty in place. Right hip WNL enthesopathic changes are noted in the bilateral ischial tuberosities CXR WNL 60 yoF with recent pos claudio presents with multiple joint complaints. Notes chronic lower back pain with radicular symptoms, marleny hip pain (prior L MANDA), marleny knee pain, and pain/stiffness in the marleny hands. Swelling in the R 2nd and 3rd mcp joint on exam without any other obvious synovitis. B/H nodes. R hip/groin pain elicited with internal/external rotation. Several FM tenderpoints. Do suspect that many of her pain complaints may be due to degenerative causes. FMS may be contributing to her chronic pain, as well. Given her peripheral joint complaints and swelling on exam, does raise concern for possible inflammatory arthritis. Sjogren's syndrome remains on the differential for her sicca symptoms, as well. Assessment & Plan (03/05/2025 9:30 AM CDT): CDAI 26. Little was last seen 08/1024, as was lost to follow up. Last Simponi Aria infusion in August 2024. Since being off Simponi Aria, has noted significant increased arthralgias for which is most notable throughout the entirety of the left hand with lesser degree of discomfort in the right hand. She also notes chronic stiffness in the bilateral ankles. Interestingly, her symptoms are worsened with use without prolonged a.m. stiffness. With that said, most recent right hand/wrist ultrasound 03/1024 did display Doppler activity and effusions with persistent erosive change in the 2nd MCP joints suggestive of active inflammation. Will resume Simponi Aria infusions at this time. Otherwise, will continue sulfasalazine 1500 mg b.i.d.. Could consider addition of leflunomide, symptoms persist. Previously had concerns given prior elevated LFTs, although these have normalized. Routine labs today. Follow-up 2 months. Sooner if needed. Assessment & Plan (09/05/2024 4:06 PM HOUSING MANAGER): CDAI 18. Overall, joint symptoms have remained stable and improved from last visit, although does continue to have chronic discomfort and reduced chief digital media officer strength in the bilateral hands. She also notes chronic pain in bilateral knees. Tenderness continues to significantly inflate her CDAI suspect that fibromyalgia contributes to her general tenderness. Do feel that her inflammatory arthritis is fairly well managed. Will continue sulfasalazine 1500 mg b.i.d. with Simponi Aria infusions. Have had hesitations with the addition of leflunomide given previous elevated LFTs. Routine labs today. Follow-up 3 months. Sooner if needed. Seen with Dr. Graves. Assessment & Plan (06/05/2024 2:40 PM CDT): CDAI 11. Since last visit, has increase sulfasalazine to 1500 mg b.I.d.. Denies significant peripheral joint complaints at today's visit with a.m. stiffness for less than 30 minutes. Most recent right hand/ wrist ultrasound on 04/29/2020 40 display Doppler and effusion across few joints, as above. Symptoms do appear improved since increasing sulfasalazine. Will continue sulfasalazine 1500 mg b.I.d. with Simponi Aria infusions. Have had hesitations with adding leflunomide given previous elevated LFTs, although could be reconsidered. Routine labs today. Follow-up 3 months. Sooner if needed. Assessment & Plan (05/08/2024 12:24 PM CDT): CDAI 13. Since last visit, has increased sulfasalazine 1000 mg b.i.d. with some improvement in her previous joint complaints in the bilateral hands. Primary complaint at this time is persistent chronic fatigue along with paresthesias affecting the left hand and pain over the left flank/lower ribcage. Has fairly minimal peripheral joint complaints. With that said, did obtain a repeat hand ultrasound 04/29/2024 that displayed Doppler in effusions across few joints, as above. This was improved from previous. Given some of her residual swelling and symptoms in the hands, did discuss increase on sulfasalazine to 1500 mg b.i.d., which was amenable to. Otherwise, will continue Simponi Aria infusions. Have hesitations on adding leflunomide given previous elevated LFTs, although could be reconsidered in the future. Routine labs today. Follow-up 4 weeks. Sooner if needed. Assessment & Plan (04/11/2024 12:37 PM CDT): CDAI 25. Since last visit, Little has noted aching pain and intermittent swelling affecting the bilateral feet and hands, as discussed above. A.m. stiffness for 20 minutes. Does have scattered swollen and tender joints, as above. Will increase sulfasalazine to 1000 mg b.i.d. and continue Simponi Aria infusions. Would like to recheck a right hand/wrist ultrasound prior to next visit. Routine labs today. Follow-up 4 weeks. Sooner if needed. Assessment & Plan (01/11/2024 1:40 PM CDT): CDAI 13. Since last visit, has begun sulfasalazine 500 mg b.i.d. and tolerated this well. Has noted improvement in joint discomfort although does have some mild residual discomfort throughout the hands. Denies prolonged a.m. stiffness. Few swollen and tender joints, as above. Suspect that fibromyalgia is small fiber neuropathy are contributing significantly to her chronic pain. Will allow sulfasalazine more time to take effect. Will continue sulfasalazine 500 mg b.i.d.. Continue Simponi Aria infusions. Routine labs today. Follow-up 3 months. Sooner if needed. If joint symptoms worsen, would consider increase on sulfasalazine at next visit. Assessment & Plan (11/30/2023 1:40 PM HOUSING MANAGER): CDAI 23. After last visit, Little begin hydroxychloroquine, although stopped shortly thereafter due to concerns for side effects. She continues to note chronic aching pain in the bilateral hands with symptoms that are most notable in the morning, although do persist throughout the day. Denies prolonged a.m. stiffness. Scattered swelling and tenderness, as above. Continue to suspect that fibromyalgia and small fiber neuropathy are contributing significantly to her chronic pain. Nonetheless, inflammatory arthritis does appear active. For this reason, will begin treatment with sulfasalazine 500 mg b.i.d.. Discussed the potential side effects of the medication, including but not limited to rash, blood count abnormalities, and upset stomach. Otherwise, will continue Simponi Aria infusions. Routine labs today follow-up 4 weeks. Sooner if needed. Assessment & Plan (10/02/2023 4:12 PM HOUSING MANAGER): CDAI 14. After last visit, Little discontinued azathioprine due to concerns for side effects. He does continue to note some chronic discomfort in the bilateral hand with difficulty grasping. She does continue to have a difficult clinical picture, she describes paresthesias is the primary cause for her discomfort in the hands. She does note episodic swelling of the hands, as well. Denies prolonged a.m. stiffness. I do suspect small fiber neuropathy and fibromyalgia contributing significantly to her chronic pain, which was again discussed today. Will begin treatment with hydroxychloroquine 200 mg b.i.d.. Risks of retinal toxicity were discussed with the patient. They are aware that they should get at least yearly eye exams, unless otherwise specified. Otherwise, will continue Simponi Aria infusions. Routine labs today. Follow-up 2 months. Sooner if needed. Seen with Dr. Graves. Assessment & Plan (08/20/2023 2:05 PM HOUSING MANAGER): CDAI 17. At today's visit, she denies significant joint complaints, although does rate her pain at a 5 to 6/10. She describes occasional achiness in the hands without prolonged a.m. stiffness. Otherwise, has been going to physical therapy for hip, lower back, and knee discomfort, which is offering benefit. Suspect that mechanical/degenerative causes and fibromyalgia contributing to some of her residual pain complaints. Has minimal swelling in the right 2nd MCP with scattered tender joints, as above. Overall, do feel that her inflammatory arthritis is fairly well managed. Will evaluate with a repeat right hand/wrist ultrasound to assess for inflammation. At present, will maintain on azathioprine 50 mg b.i.d. and Simponi Aria infusions. Routine labs today. Follow-up 3 months. Sooner if needed. Assessment & Plan (07/05/2023 2:54 PM CDT): CDAI 13. Since last visit, has increase azathioprine tolerated this well. Overall, she notes that joints are doing fairly well with some residual discomfort predominantly in the right hand 5th digit and left hand 4th digit. Symptoms are most bothersome in the morning, although denies prolonged a.m. stiffness. Scattered swollen and tender joints, as above. Continue to suspect that fibromyalgia and small fiber neuropathy or contributing to her chronic pain. Given some of her persistent arthralgias, could consider increase on azathioprine for her spondyloarthritis. Would like resolution of her current dizziness symptoms prior to considering this. At present, will maintain on azathioprine 50 mg b.i.d. and Simponi Aria infusions. Routine labs today. Follow-up 6 weeks. Sooner if needed. Assessment & Plan (06/07/2023 3:13 PM CDT): CDAI 22. Since last visit, has noted some discomfort and difficulty grasping with the hands along with increased swelling across few joints. Denies prolonged a.m. stiffness. Does have few more swollen and tender joints, as above. Do continue to suspect that small fiber neuropathy and fibromyalgia are contributing to some of her chronic pain complaints. Nonetheless, inflammatory arthritis does not appear adequately managed will increase azathioprine to 50 mg b.i.d. and continue Simponi Aria infusions. Routine labs today. Follow-up 4 weeks. Sooner needed. Assessment & Plan (03/08/2023 1:39 PM CDT): CDAI 17. Her primary complaints at this time involve numbness/tingling in the bilateral hands, which I suspect is related to her underlying small fiber neuropathy and fibromyalgia. Describes fairly mild and manageable joint complaints, although does rate her pain at a 7/10. Has far more tender than swollen joints. Do feel that her inflammatory arthritis is well managed. She did have concerns for hair thinning and potential side effects with medications. Did discuss potentially holding azathioprine to see if this improves. She defers at this time. Will continue azathioprine 50 mg daily and Simponi Aria infusions. Routine labs today follow- up 3 months. Sooner if needed. Assessment & Plan (12/07/2022 12:47 PM HOUSING MANAGER): CDAI 17. Since last visit, has remained on azathioprine 50 mg daily with Simponi Aria infusions. Symptoms remained fairly stable from last visit. Does continue to describe generalized arthralgias/myalgias, which I suspect is related to her underlying fibromyalgia/small fiber neuropathy. Minimal swelling on exam with scattered tenderness, as above. Does appear well managed. Will continue azathioprine 50 mg daily and Simponi Aria infusions. Routine labs today. Follow-up 3 months. Sooner if needed. Assessment & Plan (09/07/2022 11:35 AM HOUSING MANAGER): CDAI 11. Since last visit, has remained on azathioprine 50 mg daily with Simponi Aria infusions. Overall, peripheral joints have done fairly well with mild residual discomfort over her PIP joints without inflammatory symptoms. Overall, do feel that her inflammatory arthritis stable and fairly well managed from last visit. Do suspect that degenerative arthritis/fibromyalgia may be contributing to residual pain complaints. Will continue azathioprine 50 mg daily and Simponi Aria infusions. Routine labs today. Follow-up 3 months. Sooner if needed. Assessment & Plan (07/13/2022 10:19 AM CDT): CDAI 11. Since last visit, has resumed azathioprine at 50 mg daily and Simponi Aria infusions. Does describe persistent joint discomfort in the left hand and lower back predominantly with some stiffness for 30-40 minutes in the morning, but otherwise denies inflammatory symptoms. Has no active synovitis on exam. Overall, do feel that her inflammatory arthritis is doing fairly well on suspect that degenerative arthritis/fibromyalgia may be contributing to much of her residual pain complaints. Will continue azathioprine 50 mg daily and Simponi Aria infusions. Follow-up 4 weeks. Sooner if needed. Seen with Dr. Crisostomo. Assessment & Plan (06/09/2022 9:13 AM CDT): Has remained off MTX due to previously elevated LFTs. Has also remained off azathioprine and held her Simponi Aria infusions due to reported dizziness/lightheadedness symptoms of which do not appear to be related to her medications. At this time will have her restart azathioprine 50 mg once daily and schedule Simponi Aria infusions. Return in 4 weeks. Assessment & Plan (05/25/2022 4:16 PM CDT): CDAI 24. Has remained off methotrexate due to previously elevated LFTs. She presented for an infusion on 05/17/2022 and was noting a 3 week history of dizziness, shortness of breath, lightheadedness with headaches and a sensation that she was going to faint. For this reason, she was advised to hold azathioprine and did not receive per infusion at that time. Does continue to experience symptoms, although feels that these are improved. Is currently undergoing further evaluation with PCP given the symptoms, which I suspect is less likely related to aza and/or simponi aria medications Continues to have chronic pain in the hands, feet, and left knee. Joint symptoms are fairly nonspecific. Do suspect that osteoarthritis, fibromyalgia, small fiber neuropathy are contributing to her chronic pain complaints. Does have active swelling in the bilateral hands. Will continue to hold aza and Simponi Aria IV for the time being. Will prescribe prednisone 10 mg daily x 7 days, 5 mg daily x 7 days and monitor her response. Routine labs today. Follow-up 2 weeks. Sooner if needed. Seen with Dr. Crisostomo. Assessment & Plan (04/21/2022 3:08 PM CDT): CDAI 21. Has remained off methotrexate due to previously elevated LFTs. Continues to have chronic pain in the hands, feet, and left knee. Joint symptoms are fairly nonspecific. Do suspect that osteoarthritis, fibromyalgia, small fiber neuropathy are contributing to her chronic pain complaints. Does have active swelling in the bilateral hands. Started Azathioprine 02/28/22 but denies any benefit of joint pain yet. Will increase azathioprine 50mg BID. Continue Simponi Aria IV [id number]. Routine labs today. Follow-up 4 weeks. Sooner if needed. Seen with Dr. Crisostomo. Due to burden of disease, will administer kenalog 100 mg IM injection, in office, today. Assessment & Plan (02/28/2022 2:11 PM CDT): Ultrasound right foot/ankle 06/29/2021: 5th MTP erosion. Large posterior enthesophyte. Power Doppler present in the navicular cuneiform joint with spurring evident in the midfoot CDAI 18. Has remained off methotrexate due to previous elevated LFTs. Continues to have chronic pain in the hands, feet, left knee predominantly. Joint symptoms are fairly nonspecific. Do suspect that osteoarthritis, fibromyalgia, small fiber neuropathy are contributing to her chronic pain complaints. Does active swelling in the right hand, as above. Given moderate CDAI, will begin aza 50 mg daily for an alternative DMARD. Discussed the potential side effects of the medication, including but not limited to GI upset, blood count abnormalities, increased infection, and/or allergic reaction. Otherwise, will continue Simponi Aria infusions. Routine labs today. Follow-up 4 weeks. Sooner if needed. Seen with Dr. Crisostomo. Assessment & Plan (12/30/2021 10:28 AM CDT): Ultrasound right foot/ankle 06/29/2021: 5th MTP erosion. Large posterior enthesophyte. Power Doppler present in the navicular cuneiform joint with spurring evident in the midfoot CDAI 18. In October, Little did begin Simponi Aria infusion x1 dose. Unfortunately, has not continue this medication, as was on antibiotics for an H pylori infection it is now scheduled to begin antibiotics for a UTI. She continues to have a difficult clinical picture, as has numerous different pain complaints, so which I suspect is currently unrelated to her underlying inflammatory arthritis. Does continue to have some active synovitis in hands on exam. Given moderate CDAI, will have her resume Simponi Aria infusions upon completion of antibiotics for UTI. Otherwise, will continue methotrexate 20 mg weekly, FA 1 mg daily. Continue OTC Tylenol. Routine labs today. Follow-up 4 weeks. Sooner if needed. Seen with Dr. Crisostomo. Assessment & Plan (12/02/2021 12:38 PM HOUSING MANAGER): Ultrasound right foot/ankle 06/29/2021: 5th MTP erosion. Large posterior enthesophyte. Power Doppler present in the navicular cuneiform joint with spurring evident in the midfoot Cdai 24. Since last visit, Little has begun Simponi Aria infusions x1 infusion. She does have a typical clinical picture, as has numerous different pain complaints, some of which I suspect is certainly unrelated to her spondyloarthritis. In regards to her spondyloarthritis, does continue to have persistent pain in the bilateral hands and feet with reduced chief digital media officer strength. Synovitis does persist on exam. Would like to allow the simponi aria more time to take effect. Will continue methotrexate 20 mg weekly, FA 1 mg daily, Simponi Aria infusions. Recommend otc tylenol. Routine labs today. Follow-up 4 weeks. Sooner if needed. Assessment & Plan (10/21/2021 9:41 AM HOUSING MANAGER): Ultrasound right foot/ankle 06/29/2021: 5th MTP erosion. Large posterior enthesophyte. Power Doppler present in the navicular cuneiform joint with spurring evident in the midfoot CDAI 19. At last visit, we did again discuss additional treatment with Simponi Aria infusions, which was amenable to at that time. She eventually canceled her infusion appointment due to concerns for omicron. Continues to have joint pain in the hands, feet, L knee, lower back. Synovitis does persist on exam. She is willing to proceed with infusion time. Will have her reschedule Simponi Aria infusions. Otherwise, will continue methotrexate 20 mg weekly, FA 1 mg daily. Previously discussed OTC Voltaren gel. Routine labs today. Follow-up 6 weeks. Sooner if needed. Assessment & Plan (09/09/2021 11:18 AM HOUSING MANAGER): Ultrasound right foot/ankle 06/29/2021: 5th MTP erosion. Large posterior enthesophyte. Power Doppler present in the navicular cuneiform joint with spurring evident in the midfoot CDAI 23. At last visit, we did discuss additional treatment with Simponi Aria infusions. This was approved, but she did not proceed with, as had some concerns about the potential side effects. Continues to have chronic joint pain in the bilateral hands and feet. Synovitis does persist on exam. Does not appear adequately controlled. Discussed potential side effects of Simponi Aria infusions with her today and she is amenable to begin at this time. Will proceed with Simponi Aria infusions. Otherwise, continue methotrexate 20 mg weekly, FA 1 mg daily. Have previously discussed use of OTC Voltaren gel to be applied to the affected joints, as well. Obtain routine labs today. Follow-up 6 weeks. Sooner if needed. Assessment & Plan (07/27/2021 8:44 PM CDT): Ultrasound right foot/ankle 06/29/2021: 5th MTP erosion. Large posterior enthesophyte. Power Doppler present in the navicular cuneiform joint with spurring evident in the midfoot Cdai 17. She has persistent peripheral joint complaints with reduced chief digital media officer strength. Synovitis does persist on exam. Did discuss Simponi Aria infusions at last visit, which she was amenable to. Have not heard back regarding approval for this, so look into this, as would like to proceed with these infusions. Patient advised of the side effects of the medication, including but not limited to increase risk of infection, rash, injection site reaction. Otherwise, will continue methotrexate 20 mg weekly, FA 1 mg daily. Again, did discuss OTC Voltaren gel for right foot bunion pain, which she did not proceed with and was discussed at last visit also. Routine labs today. Follow-up 6 weeks. Sooner if needed. Assessment & Plan (06/22/2021 12:50 PM CDT): CDAI 21. Has persistent peripheral joint complaints with reduced chief digital media officer strength. Some synovitis persist on exam. Again discussed Simponi Aria infusions, which was amenable to. Will begin approval for simponi aria. Patient advised of the side effects of the medication, including but not limited to increase risk of infection, rash, injection site reaction. Otherwise, will continue methotrexate 20 mg weekly, FA 1 mg daily. Previously discussed use of OTC Voltaren gel for her right foot bunion pain. Will also obtain right foot/ankle ultrasound to assess this further. Routine labs today. Follow-up 6 weeks. Sooner if needed. Seen with Dr. Crisostomo. Assessment & Plan (03/22/2021 12:32 PM CDT): CDAI 11. Since last visit, she has noted some pain, stiffness in the right midfoot. Denies significant pain, stiffness in the hands, although does note intermittent paresthesias in the bilateral hands (1-5 digits). She does continue to have some swelling across few joints of the right hand. Given some of her persistent swelling along with a low moderate CDAI and erosions on prior imaging, I did discuss possible additional treatment with Simponi Aria infusions today. She defers at this time, as feel that she is managing well enough on current treatment regimen. Will continue methotrexate 20 mg weekly, FA 1 mg daily. Discussed use of OTC Voltaren gel for the right foot. Routine labs today. Follow-up 3 months. Sooner if needed. If symptoms do progress, would reconsider simponi aria at that point. Assessment & Plan (02/22/2021 3:17 PM CDT): CDAI 15. Since last visit, as increase methotrexate to 15 mg weekly. Continues to note persistent joint complaints in the bilateral hands. Synovitis does persist on exam. Would like to allow the methotrexate more time. Will increase methotrexate to 20 mg weekly, FA 1 mg daily. Routine labs today. Follow-up 4 weeks. Sooner if needed. Seen with Dr. Crisostomo. Assessment & Plan (01/20/2021 12:55 PM CDT): CDAI 15. Since last visit, patient has begun methotrexate x4 weeks without any side effects. Does continue notes some persistent joint pain in the right hand, which is mostly unchanged since last visit. Synovitis does persist on exam. Would like to allow the methotrexate medication more time to take effect. Will increase methotrexate to 15 mg weekly, FA 1 mg daily. Routine labs today. Follow-up 4 weeks. Sooner if needed. Assessment & Plan (12/16/2020 5:12 PM CDT): 60 yoF with recent pos claudio presents with multiple joint complaints. Notes chronic lower back pain with radicular symptoms, marleny hip pain (prior L MANDA), marleny knee pain, and pain/stiffness in the marleny hands. Swelling in the R 2nd and 3rd mcp joint on exam without any other obvious synovitis. B/H nodes. Few FM tenderpoints. Serologies, as above, displayed a positive CLAUDIO 1:160 in a speckled pattern without any other significant auto antibodies. ESR was 41 and CRP 20.3. Right hand/wrist ultrasound, as above, did display power Doppler across several joints with mild/moderate/marked synovial thickening across several joints and a 2nd MCP erosion. Enthesopathic changes were seen in the knees and hips on x-rays. Given her synovitis, ultrasound findings, and enthesopathic changes, supports a spondyloarthritis diagnosis. As previously discussed, do suspect osteoarthritis is contributing significantly to some of her chronic pain complaints, as well, which was discussed with her today. Will continue to monitor for possible fibromyalgia, which may be contributing to her symptoms also. This was also discussed today. Begin treatment with methotrexate 10 mg weekly, FA 1 mg daily. Patient advised of the side effects of the medication, including but not limited to increased risk of infection, GI upset, increased LFTs, mouth sores, rash, diarrhea, and/or blood count abnormalities. Follow-up 4 weeks. Sooner if needed. Seen with Dr. Crisostomo. Assessment & Plan (12/02/2020 2:08 PM HOUSING MANAGER): 60 yoF with recent pos claudio presents with multiple joint complaints. Notes chronic lower back pain with radicular symptoms, marleny hip pain (prior L MANDA), marleny knee pain, and pain/stiffness in the marleny hands. Swelling in the R 2nd and 3rd mcp joint on exam without any other obvious synovitis. B/H nodes. R hip/groin pain elicited with internal/external rotation. Several FM tenderpoints. Do suspect that many of her pain complaints may be due to degenerative causes. FMS may be contributing to her chronic pain, as well. Given her peripheral joint complaints and swelling on exam, does raise concern for possible inflammatory arthritis. Sjogren's syndrome remains on the differential for her sicca symptoms, as well. Will further evaluate with appropriate serologies, radiographs, R hand/wrist US. Fu 2 weeks. Sooner if needed. Seen with Dr. Crisostomo. Chronic migraine without aur a without status migrainosus, not intractable 09/10/2020 Enthesopathy of ankle and tarsus 10/09/2019 Exostosis 10/09/2019 Pain in soft tissues of limb 10/09/2019 Anterior epistaxis 07/21/2019 Assessment & Plan (09/05/2024 4:08 PM HOUSING MANAGER): ENT had apparently noted muscle nasal septum ulceration, although did not see this on exam today. Given this and recurrent bouts of epistaxis, will check ANCA, MPO, PR3. Abnormal diffusion capacity determined by pulmonary function test 04/23/2019 HTN (hypertension) 03/07/2019 Hypercholesterolemia 03/07/2019 Asthma 03/07/2019 JORGE on CPAP 03/07/2019 Diet-controlled diabetes mellitus (CMS/HCC) 03/2019 Class 2 obesity in adult 03/07/2019 Vitamin D deficiency 03/07/2019 Primary osteoarthritis of left hip 02/03/2019 Overview (02/03/2019): Added automatically from request for surgery [id number] Obstructive sleep apnea syndrome 09/09/2018 Joint pain, hip 02/15/2018 Disorder of rotator cuff 08/20/2015 Degeneration of intervertebral disc of lumbosacr al region 07/19/2015 Obesity with body mass index 30 or greater 07/19 Knee pain 06/30/2015 Lumbago 04/07/2015 Assessment & Plan (12/30/2021 10:25 AM CDT): L-spine x-ray 05/18/2021: Moderate to severe multilevel degenerative disc disease and facet osteoarthritis of the lumbar spine, most prominent at L3-S1. Has chronic lower back pain, in which she has received several prior epidural injections. Has also been to PT on several occasions with no benefit. Continue to suspect that her chronic back pain may be contributing to her muscle pain/spasms in the legs. Recommend fu with pain management and/or orthopedic spine evaluation previously, which she previously deferred. Recommended continuing at home PT exercises. Assessment & Plan (12/02/2021 10:59 AM HOUSING MANAGER): L-spine x-ray 05/18/2021: Moderate to severe multilevel degenerative disc disease and facet osteoarthritis of the lumbar spine, most prominent at L3-S1. Has chronic lower back pain, in which she has received several prior epidural injections. Has also been to PT on several occasions with no benefit. Continue to suspect that her chronic back pain may be contributing to her muscle pain/spasms in the legs. Recommend fu with pain management and/or orthopedic spine evaluation previously, which she continues to defer.Recommended continuing at home PT exercises. Assessment & Plan (10/21/2021 9:42 AM HOUSING MANAGER): L-spine x-ray 05/18/2021: Moderate to severe multilevel degenerative disc disease and facet osteoarthritis of the lumbar spine, most prominent at L3-S1. Has chronic lower back pain, in which she has received several prior epidural injections. Has also been to PT on several occasions with no benefit. Continue to suspect that her chronic back pain may be contributing to her muscle pain/spasms in the legs. Recommend fu with pain management and/or orthopedic spine evaluation previously. Has completed PT. Recommended continuing at home PT exercises. Assessment & Plan (09/09/2021 11:23 AM HOUSING MANAGER): L-spine x-ray 05/18/2021: Moderate to severe multilevel degenerative disc disease and facet osteoarthritis of the lumbar spine, most prominent at L3-S1. Has chronic lower back pain, in which she has received several prior epidural injections. Has also been to PT on several occasions with no benefit. Continue to suspect that her chronic back pain may be contributing to her muscle pain/spasms in the legs. Recommend fu with pain management and/or orthopedic spine evaluation previously. Is currently going to PT. Assessment & Plan (07/27/2021 8:46 PM CDT): L-spine x-ray 05/18/2021: Moderate to severe multilevel degenerative disc disease and facet osteoarthritis of the lumbar spine, most prominent at L3-S1. Has chronic lower back pain, in which she has received several prior epidural injections. Has also been to PT on several occasions with no benefit. Continue to suspect that her chronic back pain may be contributing to her muscle pain/spasms in the legs. Recommend fu with pain management and/or orthopedic spine evaluation. Assessment & Plan (06/22/2021 12:52 PM CDT): L-spine x-ray 05/18/2021: Moderate to severe multilevel degenerative disc disease and facet osteoarthritis of the lumbar spine, most prominent at L3-S1. Has chronic lower back pain, in which she has received several prior epidural injections. Has also been to PT and several occasions with no benefit. Suspect that her chronic back pain may be contributing to her muscle pain/spasms in the legs. Assessment & Plan (03/22/2021 12:37 PM CDT): Has chronic lower back pain, in which she has received several prior epidural injections. Has also been to PT and several occasions with no benefit. Obtain baseline L-spine x-ray. Arthralgia of shoulder 01/05/2015 Dietary counseling and surveillance 12/04/2014 Acute chest pain Encounters Date Type Department Care Team Description 03/06/2025 Results Follow-Up [facility] [address] [place] [phone] John Zabala PA Erythrocyte sedimentation rate, CRP (acute phase), Comprehensive metabolic panel, Additional followed-up results: 6 03/05/2025 9:00 AM CDT Office Visit [facility] [address] [place] [phone] John Zabala PA Spondyloarthritis (Primary Dx); Osteoarthritis of multiple joints, unspecified osteoarthritis type; Fibromyalgia; Small fiber neuropathy; Chronic fatigue; Long-term use of high-risk medication; Vitamin D deficiency; Screening for hyperlipidemia 12/10/2024 11:00 AM CDT Office Visit [facility] [address] [place] [phone] Dillan Marshall MD Lumbosacral radiculopathy at L4 (Primary Dx); Hereditary and idiopathic neuropathy; Cerebral aneurysm from Last 3 Months Immunizations Immunization Administration Dates Next Due Hep B Vaccine 03/27/2001,11/27/2000,10/30/2000 Influenza, Quadrivalent, Beverley l Culture-based MDCK, Antibiotic Free, Intramuscular 07/17/2019 Influenza, Quadrivalent, Spl it, Preservative Free, Intramuscular 07/20/2021,07/11/2020,07/10/2020 Influenza, Trivalent, IM (MDV) 06/16/2016,2014,07/15/2014 Influenza, Trivalent, Preser vative Free, Intramuscular 07/04/2016,08/31/2014 PPD TEST 06/16/2016,06/09/2015,07/15/2014 Surgical History Surgery Date Site/Laterality Comments HYSTERECTOMY Total Hysterectomy - (Added by TW Conv) [place] TRNSRAL SKULL BSE/BR STEM /CORD BX/DCOMPR/EXC LES Transsphenoidal Tumor Removal - (Added by TW Conv) [place] CHOLECYSTECTOMY Cholecystectomy - (Added by TW Conv) [place] FLUORO GUIDED INJECTION HIP LEFT 03/08/2018 Left SHOULDER ARTHROSCOPY W/ ROTA TOR CUFF REPAIR 08/2015 - left; 11/2015 - right PITUITARY SURGERY 10/01/1980 - 09/30/1981 NEUROPLASTY / TRANSPOSITION MEDIAN NERVE AT CARPAL TUNNEL 10/01/2007 - 09/30/2008 Bilateral ESOPHAGOGASTRODUODENOSCOPY COLONOSCOPY 03/27/2017 HIP SURGERY Medical History Medical History Date Comments Hypertension Hypertension Depression Depression Hx Other Medical Gastric Reflux; Comments: [facility] 03/24/2014 - Hx Other Medical Back Pain; Comm ents: [facility] 03/24/2014 - Hx Other Medical Diabetes, gesta tional 2009; Comments: [facility] 03/24/2014 - Hx Other Medical Poor Circulatio n; Comments: [facility] 03/24/2014 - Hx Other Medical Hysterectomy 20 06; Comments: [facility] 03/24/2014 - Hx Other Medical Gall Bladder; C omments: [facility] 03/24/2014 - Hx Other Medical Brain tumer 198 6; Comments: [facility] 03/24/2014 - Hx Other Medical Left leg cut me ningitus; Comments: [facility] 03/24/2014 - Personal history of other en docrine, nutritional and metabolic disease History of diabetes mellitus - (Added by TW Conv) Personal history of other di seases of the circulatory system History of hypertension - (A dded by TW Conv) Personal history of other di seases of the digestive system History of esophageal reflux - (Added by Conv) Pure hypercholesterolemia High c holesterol - (Added by Conv) 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 Sleep apnea Asthma GERD (gastroesophageal reflux disease) Obesity Kidney stone Numbness Family History Medical History Relation Name Comments Heart disease Brother 1 Family history of cardiac disorder - (Added by Conv) Arthritis Brother 2 Family history of arthritis - (Added by Conv) Hypertension Brother 3 Family history of hypertension - (Added by TW Conv) Gout Brother 4 Family history of gout - (Added by Conv) Diabetes Brother 5 Family history of diabetes mellitus - (Added by Conv) Stroke Brother 6 Family history of cerebrovascular accident (CVA) - (Added by Conv) Arthritis Father Family history of arthritis - (Added by Conv) Diabetes Father Family history of diabetes mellitus - (Added by Conv) Gout Father Family history of gout - (Added by Conv) Heart disease Father Family history of cardiac disorder - (Added by Conv) Heart failure Father Family history of congestive heart failure - (Added by Conv) Hypertension Father Family history of hypertension - (Added by TW Conv) Ovarian cancer Father Ovarian cance r - (Added by Conv) Arthritis Mother Family history of arthritis - (Added by Conv) Cancer Mother Family history of malignant neoplasm - (Added by Conv) Diabetes Mother Family history of diabetes mellitus - (Added by Conv) Heart failure Mother Family history of congestive heart failure - (Added by TW Conv) Hypertension Mother Family history of hypertension - (Added by TW Conv) Ovarian cancer Mother Ovarian cance r - (Added by Conv) Diabetes Other 1 Family history of Diabetes mellitus; Arthritis Other 2 Family history of Arthritis; Gout Other 3 Family history of Gout; Cancer Other 4 Family history of Cancer, unknown; Hypertension Other 5 Family history of Hypertension; Stroke Other 6 Family history of Stroke; Kidney disease Other 7 Family histor y of kidney disease - (Added by TW Conv) Heart disease Other 8 Family history of cardiac disorder - (Added by Conv) Arthritis Other 9 Family history of arthritis - (Added by TW Conv) Hypertension Other 10 Family history of hypertension - (Added by TW Conv) Diabetes Other 11 Family history of diabetes mellitus - (Added by TW Conv) Cancer Other 12 Family history of malignant neoplasm - (Added by TW Conv) Heart failure Sister 1 Family history of congestive heart failure - (Added by TW Conv) Ovarian cancer Sister 2 Ovarian cance r - (Added by TW Conv) Heart disease Sister 3 Family history of cardiac disorder - (Added by TW Conv) Arthritis Sister 4 Family history of arthritis - (Added by TW Conv) Hypertension Sister 5 Family history of hypertension - (Added by TW Conv) Diabetes Sister 6 Family history of diabetes mellitus - (Added by TW Conv) Cancer Sister 7 Family history of malignant neoplasm - (Added by TW Conv) Anesthesia problems Neg Hx Relation Name Status Comments Brother 1 Brother 2 Brother 3 Brother 4 Brother 5 Brother 6 Father Mother Other 1 Other 2 Other 3 Other 4 Other 5 Other 6 Other 7 Other 8 Other 9 Other 10 Other 11 Other 12 Sister 1 Sister 2 Sister 3 Sister 4 Sister 5 Sister 6 Sister 7 Social History Tobacco Use Types Packs/Day Years [...] on file Legal Sex Female 12:27 AM HOUSING MANAGER Gender Identity Not on file Sexual Orientation Not on file Obstetrics History Last Filed Vital Signs Vital Sign Reading Time Taken Comments Blood Pressure 154/80 03/05/2025 9:01 AM CDT Pulse 86 03/05/2025 9:01 AM CDT Temperature 36.3 C (97.3 F) 10/04/2024 12:40 PM HOUSING MANAGER Respiratory Rate 16 10/04/2024 12:4 0 PM HOUSING MANAGER Oxygen Saturation 94% 03/05/2025 9:01 AM CDT Inhaled Oxygen Concentration - - Weight 105.3 kg (232 lb 3.2 oz) 03/05/2025 9:01 AM CDT Height 162.6 cm (5' 4) 03/05/2025 9:01 AM CDT Body Mass Index 39.86 03/05/2025 9:01 AM CDT Plan of Treatment Health Maintenance Due Date Last Done Comments Albumin Creatinine Ratio, Urine 1962 Colon Cancer Screening-Colonoscopy 1962 Depression Screening 1962 Hepatitis C Screening 1962 Dilated Eye Exam 1962 Foot Exam 1962 DTaP/Tdap/Td Vaccine (1 - Tdap) 1973 Regular Well Visit/Exam 18-64 01/10/1980 Pneumococcal vaccine <65 (1 of 2 - PCV) 1981 Zoster Vaccine (1 of 2) 01/10/2012 Breast Cancer Screening-Mammogram 12/19/2013 013 Hemoglobin A1C 01/18/2022 07/20/2021, 02/18/2019 Covid-19 Vaccine (2023-2 5 season) 2024 08/05/2021, 11/30/2020, 11/02/2020 Lipid Panel 03/05/2026 03/05/2025, 07/02, 03/18/2019 eGFR 03/05/2026 03/05/2025, 11/2024, 10/02/2024, Additional history exists Influenza Vaccine Completed 07/23/2024, , 07/11/2020, Additional history exists Medical Devices Implanted Type Area Air Export Agent Device Identifier Shelf Expiration Date Model / Serial / Lot [employer] [id number] [place] 6.5mm 40mm Acetabular Cancellous Screw Bone Sterile - [id number] Implanted:Qty: 1 on 03/18/2019 by Lavelle Jacobson MD at [facility] Left: Hip [employer] [id number] / / [employer] [id number] [place] 52mm Sector Hip Shell Acetabular Gription Sterile Latex Free - [id number] Implanted:Qty: 1 on 03/18/2019 by Lavelle Jacobson MD at [facility] Left: Hip [employer] [id number] / / [employer] [id number] [place] 52mm 36mm Hip Neutral Liner Acetabular Altrx Sterile Latex Free - [id number] Implanted:Qty: 1 on 03/18/2019 by Lavelle Jacobson MD at [facility] Left: Hip [employer] [id number] / / [employer] [id number] Actis 105mm Collar Hip 5 High Offset Stem Femoral - [id number] Implanted:Qty: 1 on 03/18/2019 by Lavelle Jacobson MD at [facility] Left: Hip [employer] [id number] / / [employer] [id number] Articul/[place] 36mm Cementless Hip +1.5mm 12/14 Taper Head Femoral Latex Free - [id number] Implanted:Qty: 1 on 03/18/2019 by Lavelle Jacobson MD at [facility] Left: Hip [employer] 11/26/2023 [id number] / / Procedures Procedure Name Priority Date/Time Associated Diagnosis Comments VITAMIN D 25 HYDROXY Routine 03/05/2025 9:43 AM CDT VITAMIN B12 Routine 03/05/2025 9:43 AM CDT FOLATE Routine 03/05/2025 9:43 AM CDT LIPID PANEL Routine 03/05/2025 9:43 AM CDT THYROID FUNCTION CASCADE Routine 03/05/2025 9:43 AM CDT Chronic fatigue CBC WITH AUTO DIFFERENTIAL Routine 03/05/2025 9:43 AM CDT Spondyloarthritis Long-term use of high-risk medication COMPREHENSIVE METABOLIC PANEL Routine 03/05/2025 9:43 AM CDT Spondyloarthritis Long-term use of high-risk medication CRP (ACUTE PHASE) Routine 03/05/2025 9:4 3 AM CDT Spondyloarthritis Long-term use of high-risk medication ERYTHROCYTE SEDIMENTATION RATE Routine 03/05/2025 9:43 AM CDT Spondyloarthritis Long-term use of high-risk medication HEMOGLOBIN A1C Routine 07/20/2021 7:47 AM CDT SCREENING MAMMOGRAM 2D BILATERAL Routine 12/19/2012 1:37 PM CDT from Last 3 Months or Most Recently Relevant to Health Maintenance Results * Thyroid Function [place] (03/05/2025 9:43 AM CDT) TSH 1.28 0.40 - 4.50 mIU/L [facility] Blood 03/05/2025 9:43 AM CDT 03/05/2025 9:43 AM CDT Narrative [facility] - 03/06/2025 4:20 AM CDT FASTING:YES FASTING: YES John GONZALEZ LAB BLOOD ORDERABLES Fi nal Result [facility] [address] [place] [phone] * (ABNORMAL) CBC with auto differential (03/05/2025 9:43 AM CDT) WBC 4.7 3.8 - 10.8 Thousand/u L [facility] RBC, POC 4.33 3.80 - 5.10 Million/uL [facility] Hgb 11.0(L) 11.7 - 15.5 g/dL [facility] Hct 36.2 35.0 - 45.0 % [facility] MCV 83.6 80.0 - 100.0 fL [facility] MCH 25.4(L) 27.0 - 33.0 pg [facility] MCHC 30.4(L) 32.0 - 36.0 g/dL [facility] Comment: For adults, a slight decrease in the calculated MCHC value (in the range of 30 to 32 g/dL) is most likely not clinically significant; however, it should be interpreted with caution in correlation with other red cell parameters and the patient's clinical condition. Rdw 17.1(H) 11.0 - 15.0 % [facility] Platelets 263 140 - 400 Thousand/u L [facility] MPV 9.8 7.5 - 12.5 fL [facility] Neutrophils, abs 2,251 1,500 - 7,800 cells/uL [facility] Lymphocytes, abs 1,842 850 - 3,900 cells/uL [facility] Monocyte abs 404 200 - 950 cells/uL [facility] Eosinophils, abs 150 15 - 500 cells/uL [facility] Basophils, abs 52 0 - 200 cells/uL [facility] Neutrophils 47.9 % [facility] Lymphocyte pct 39.2 % [facility] Monocytes 8.6 % [facility] Eosinophils 3.2 % [facility] Basophils 1.1 % [facility] Blood 03/05/2025 9:43 AM CDT 03/05/2025 9:43 AM CDT Narrative [facility] - 03/06/2025 4:20 AM CDT FASTING:YES FASTING: YES John GONZALEZ LAB BLOOD ORDERABLES Fi nal Result [facility] [address] [place] [phone] * Vitamin D 25 hydroxy (03/05/2025 9:43 AM CDT) Pathologist [facility] Vitamin D 25-OH 59 30 - 100 ng/mL [facility] Comment: Vitamin D Status 25-OH Vitamin D: Deficiency: <20 ng/mL Insufficiency: 20 - 29 ng/mL Optimal: > or = 30 ng/mL For 25-OH Vitamin D testing on patients on D2-supplementation and patients for whom quantitation of D2 and D3 fractions is required, the [facility](TM) 25-OH VIT D, (D2,D3), LC/MS/MS is recommended: order code 18977 (patients >2yrs). See Note 1 Note 1 For additional information, please refer to http://education.Kanbanize/faq/HJX061 (This link is being provided for informational/ educational purposes only.) 03/05/2025 9:43 AM CDT 03/05/2025 9:43 AM CDT Narrative [facility] - 03/06/2025 4:20 AM CDT FASTING:YES FASTING: YES John GONZALEZ LAB BLOOD ORDERABLES Fi nal Result Performing Organization Address [facility] Co de Phone Number [facility] [address] [place] [address] * (ABNORMAL) Erythrocyte sedimentation rate (03/05/2025 9:43 AM CDT) Erythrocyte sedimentation rate 36(H) < OR = 30 mm/h [facility] Blood 03/05/2025 9:43 AM CDT 03/05/2025 9:43 AM CDT Narrative [facility] - 03/06/2025 4:20 AM CDT FASTING:YES FASTING: YES John GONZALEZ LAB BLOOD ORDERABLES Fi nal Result Performing Organization Address [facility] de Phone Number [facility] [address] [place] [address] * CRP (acute phase) (03/05/2025 9:43 AM CDT) C-RP 3.9 <8.0 mg/L [facility] Blood 03/05/2025 9:43 AM CDT 03/05/2025 9:43 AM CDT Narrative [facility] - 03/06/2025 4:20 AM CDT FASTING:YES FASTING: YES John GONZALEZ LAB BLOOD ORDERABLES Fi nal Result Performing Organization Address [facility] Co de Phone Number [facility] [address] [place] [address] * Folate (03/05/2025 9:43 AM CDT) [facility] Folate, Serum >24.0 ng/mL [facility] Comment: Reference Range Low: <3.4 Borderline: 3.4-5.4 Normal: >5.4 03/05/2025 9:43 AM CDT 03/05/2025 9:43 AM CDT Narrative [facility] - 03/06/2025 4:20 AM CDT FASTING:YES FASTING: YES John GONZALEZ LAB BLOOD ORDERABLES Fi nal Result Performing Organization Address [facility]/ZIP Co de Phone Number [facility] [address] [place] [address] * Vitamin B12 (03/05/2025 9:43 AM CDT) [facility] Vitamin B12 460 200 - 1,100 pg/mL [facility] 03/05/2025 9:43 AM CDT 03/05/2025 9:43 AM CDT Narrative [facility] - 03/06/2025 4:20 AM CDT FASTING:YES FASTING: YES John GONZALEZ LAB BLOOD ORDERABLES Fi nal Result Performing Organization Address [facility] Co de Phone Number [facility] [id number] [place] [phone] * Lipid panel (03/05/2025 9:43 AM CDT) [facility] Cholesterol 137 <200 mg/dL [facility] HDL 55 > OR = 50 mg/dL [facility] Triglycerides 91 <150 mg/dL [facility] LDL 65 mg/dL (calc) [facility] Comment: Reference range: <100 Desirable range <100 mg/dL for primary prevention; <70 mg/dL for patients with CHD or diabetic patients with > or = 2 CHD risk factors. LDL-C is now calculated using the Librado-Ham calculation, which is a validated novel method providing better accuracy than the Friedewald equation in the estimation of LDL-C. Librado ROTH et al. THIAGO. 2013;310(19): 7112-7415 (http://education.Kanbanize/faq/PZH856) Chol/HDL ratio 2.5 <5.0 (calc) [facility] Non-HDL, (LDL+VLDL) 82 <130 mg/dL (calc) [facility] Comment: For patients with diabetes plus 1 major ASCVD risk factor, treating to a non-HDL-C goal of <100 mg/dL (LDL-C of <70 mg/dL) is considered a therapeutic option. 03/05/2025 9:43 AM CDT 03/05/2025 9:43 AM CDT Narrative [facility] - 03/06/2025 4:20 AM CDT FASTING:YES FASTING: YES John GONZALEZ LAB BLOOD ORDERABLES Fi nal Result [facility] [address] [place] [address] * (ABNORMAL) Comprehensive metabolic panel (03/05/2025 9:43 AM CDT) Pathologist [facility] Glucose 128(H) 65 - 99 mg/dL [facility] Comment: Fasting reference interval For someone without known diabetes, a glucose value >125 mg/dL indicates that they may have diabetes and this should be confirmed with a follow-up test. BUN 15 7 - 25 mg/dL [facility] Creatinine 0.98 0.50 - 1.05 mg/dL [facility] eGFR 65 > OR = 60 mL/min/1.7 3m2 [facility] BUN/creat ratio SEE NOTE: 6 - 22 (calc) [facility] Comment: Not Reported: BUN and Creatinine are within reference range. Sodium 141 135 - 146 mmol/L [facility] Potassium, pl 4.3 3.5 - 5.3 mmol/L [facility] Chloride 103 98 - 110 mmol/L [facility] CO2 29 20 - 32 mmol/L [facility] Calcium 9.5 8.6 - 10.4 mg/dL [facility] Protein, sr 7.0 6.1 - 8.1 g/dL [facility] Albumin 4.0 3.6 - 5.1 g/dL [facility] GLOBULIN 3.0 1.9 - 3.7 g/dL (calc) [facility] Alb/glob ratio 1.3 1.0 - 2.5 (calc) [facility] Bilirubin, total 0.5 0.2 - 1.2 mg/dL [facility] Alk phos 87 37 - 153 U/L [facility] AST 37(H) 10 - 35 U/L [facility] ALT (SGPT) 32(H) 6 - 29 U/L [facility] Blood 03/05/2025 9:43 AM CDT 03/05/2025 9:43 AM CDT Narrative [facility] - 03/06/2025 4:20 AM CDT FASTING:YES FASTING: YES John GONZALEZ LAB BLOOD ORDERABLES nal Result [facility] [address] [place] [address] * (ABNORMAL) Hemoglobin A1c (07/20/2021 7:47 AM CDT) Hgb A1C 6.4(H) 4.0 - 5.6 % [facility] Estimated Average Glucose 137 mg/dL [facility] Comment: The ADA recommends reporting an estimated Average Glucose (eAG) with all Hemoglobin A1c results using the equation derived from a study of 507 normal and diabetic adults. Minority populations were underrepresented and children were not included. (Diabetes Care 31:5519-1681, 2008). The eAG is not equivalent to a fasting glucose. Blood 07/20/2021 7:47 AM CDT 07/20/2021 7:50 AM CDT us Zoltan Wick MD LAB BLOOD ORDERABLES F inal Result [facility] [address] [place] [address] * Screening Mammogram 2D Bilateral (12/19/2012 1:37 PM CDT) Anatomical Region Laterality Modality Breast Bilateral Mammography 12/19/2012 1:37 PM CDT Impressions 12/26/2012 2:05 PM CDT No mammographic evidence of malignancy. Recommend routine annual screening mammography. ASSESSMENT: BIRADS: 1 - Negative THIS IS AN ELECTRONICALLY VERIFIED REPORT 12/26/2012 2:01 PM: Ying Good M.D. Ying Good M.D. KL:judy 02:01 PM 02:01 PM [EOD] Narrative 12/26/2012 2:05 PM CDT EXAMINATION: Bilateral screening mammography HISTORY: Routine screening mammogram. COMPARISON: Prior outside mammograms dated 11/08/10 and 12/15/09. TECHNIQUE: Bilateral digital full field of view mammography was performed, with the aid of computer aided detection (CAD). FINDINGS: The breasts are composed of scattered fatty and fibroglandular tissue. No significant mass, microcalcifications, architectural distortion or skin thickening are seen. There has been no significant interval change relative to the prior studies. Procedure Note Provider, MD Precious - 02/15/2021 EXAMINATION: Bilateral screening mammography HISTORY: Routine screening mammogram. COMPARISON: Prior outside mammograms dated 11/08/10 and 12/15/09. TECHNIQUE: Bilateral digital full field of view mammography wasperformed, with the aid of computer aided detection (CAD). FINDINGS: The breasts are composed of scattered fatty and fibroglandular tissue. No significant mass, microcalcifications, architectural distortionor skin thickening are seen. There has been no significant interval change relative to the prior studies. IMPRESSION: No mammographic evidence of malignancy. Recommend routine annualscreening mammography. ASSESSMENT: BIRADS: 1 - Negative THIS IS AN ELECTRONICALLY VERIFIED REPORT 12/26/2012 2:01 PM: Ying Good M.D. Ying Good M.D. KL:judy 02:01 PM 02:01 PM [EOD] Hemalatha Whyte MD IMG MAMMO PROCEDURES Fin al Result from Last 3 Months or Most Recently Relevant to Health Maintenance Insurance [employer] [facility] Address: [address] [address] [place] [address] Advance Directives For more information, please contact: [phone] * Full Code (Latest Code Status on File) Date Activated Date Inactivated Comments 10/02/2024 6:05 PM 10/04/2024 9:43 PM * Full Code Date Activated Date Inactivated Comments 07/20/2021 3:57 AM 07/20/2021 4:57 PM * Full Code Date Activated Date Inactivated Comments 03/18/2019 3:50 PM 03/19/2019 8:30 PM Care Teams Checker Cashier Relationship Specialty Start Date End Date Wilber Patterson MD [address] [place] [address] PCP - General Internal Medicine 06/16/24 Gal West MD [address] [facility] [address] [address] [place] [address] Referring Physician Neurology 03/23/21 Jennifer Angel PA [address] [place] [address] Physician Renderer Physician Renderer 03/01/22 Ethan Graves MD [address] [facility] [address] [place] [address] Consulting Physician Rheumatology 08/31/23 Clem Ramos MD [address] [facility] [address] [place] [address] Referring Physician General Surgery 09/12/23
--- OUTSIDE RECORDS SUMMARY | 2025-03-12 15:54 | XMS_ITS ---
Author Organization [facility] [address] Address [address] [place] [address] Care Team Providers Care Crushing Mill Operator Name Role Phone Gal Decker MD Unavailable Jennifer Angel Unavailable [phone] Ethan Graves MD Unavailable [phone] Clem Ramos MD Unavailable [phone] Wilber Patterson MD Primary Care Provide r Active Problems Problem Noted Date Diagnosed Date [...] 07/13/2022 Assessment & Plan (09/07/2022 11:38 AM WEB DESIGN INSTRUCTOR): Continues to have chronic left lower quadrant [...] change. Would also recommend discussing with Dr. Decker - may consider reducing gabapentin or switching [...] up. Would also recommend discussing with Dr. Decker - may consider reducing gabapentin or switching to lyrica. Seen with Dr. Crisostomo. Abdominal pain 12/02/2021 Assessment & Plan (12/30/2021 10:28 AM CDT): Is scheduled to complete antibiotics today for H pylori infection and is scheduled to see GI on Sunday of next week. Has noted improvement in her abdominal complaints, although do persist to a degree. Assessment & Plan (12/02/2021 11:01 AM WEB DESIGN INSTRUCTOR): At today's visit, describes pain in the [...] doses. Assessment & Plan (09/05/2024 4:09 PM WEB DESIGN INSTRUCTOR): Continue to suspect that several factors are [...] Encourage routine exercise, including [employer]. Will check thyroid studies. Assessment & [...] exacerbate. Assessment & Plan (11/30/2023 1:41 PM WEB DESIGN INSTRUCTOR): Continue to suspect that several factors are [...] time. Assessment & Plan (10/02/2023 4:10 PM WEB DESIGN INSTRUCTOR): Continue to suspect that several factors are contributing to her chronic pain complaints, including degenerative arthritis, spondyloarthritis, small fiber neuropathy, fibromyalgia. Is currently on gabapentin 200 mg b.i.d. dizziness improve with reducing the dose. Encourage routine exercise, including [employer] today. Could consider switching gabapentin to Lyrica and or addition of Cymbalta Assessment & Plan (08/20/2023 2:07 PM WEB DESIGN INSTRUCTOR): Continue to suspect that several factors are [...] spondyloarthritis, small fiber neuropathy, fibromyalgia. Saw Dr. Decker on 12/18/2021 and he recommended increasing gabapentin [...] today. Assessment & Plan (12/07/2022 12:48 PM WEB DESIGN INSTRUCTOR): Do suspect that several factors are contributing to her chronic pain complaints, including degenerative arthritis, spondyloarthritis, small fiber neuropathy, fibromyalgia. Saw Dr. Decker on 12/18/2021 and he recommended increasing gabapentin [...] today. Assessment & Plan (09/07/2022 11:37 AM WEB DESIGN INSTRUCTOR): Stable from last visit. Do suspect that several factors are contributing to her chronic pain complaints, including degenerative arthritis, spondyloarthritis, small fiber neuropathy, fibromyalgia. Saw Dr. Decker on 12/18/2021 and he recommended increasing gabapentin [...] spondyloarthritis, small fiber neuropathy, fibromyalgia. Saw Dr. Decker on 12/18/2021 and he recommended increasing gabapentin [...] spondyloarthritis, small fiber neuropathy, fibromyalgia. Saw Dr. Decker on 12/18/2021 and he recommended increasing gabapentin [...] spondyloarthritis, small fiber neuropathy, fibromyalgia. Saw Dr. Decker on 12/18/2021 and he recommended increasing gabapentin [...] spondyloarthritis, small fiber neuropathy, fibromyalgia. Saw Dr. Decker on 12/18/2021 and he recommended increasing gabapentin [...] as possible fibromyalgia. She did see Dr. Decker neuro, this Sunday and he did increased nahed to 300 mg bid Assessment & Plan (12/02/2021 12:37 PM WEB DESIGN INSTRUCTOR): Has rather diffuse pain complaints, including fibromyalgia [...] Plan (03/05/2025 9:33 AM CDT): Follows with Dr. Decker, neuromuscular. Suspect that this is contributing to her [...] discussed. Assessment & Plan (09/05/2024 4:07 PM WEB DESIGN INSTRUCTOR): Follows with venkata Barkley. Suspect that this is contributing to her [...] (06/05/2024 2:41 PM CDT): Follows with venkata Barkley. Suspect that this is contributing to her [...] (05/08/2024 12:25 PM CDT): Follows with venkata Barkley. Suspect that this is contributing to her [...] (04/11/2024 12:38 PM CDT): Follows with venkata Barkley. Suspect that this is contributing to her numbness and tingling in the bilateral hands. 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 Reduced gabapentin from 300 mg b.i.d. to 200 mg b.i.d. with previous improvement in her dizziness symptoms. Assessment & Plan (01/11/2024 1:45 PM CDT): Follows with Dr. Decker neuromuscular. Suspect that this is contributing to her [...] gabapentin. Assessment & Plan (11/30/2023 1:42 PM WEB DESIGN INSTRUCTOR): Follows with Dr. Decker neuromuscular. Suspect that this is contributing to her [...] symptoms. Assessment & Plan (10/02/2023 4:10 PM WEB DESIGN INSTRUCTOR): Follows with Dr. Decker neuromuscular. Suspect that this is contributing to her [...] symptoms. Assessment & Plan (08/20/2023 2:06 PM WEB DESIGN INSTRUCTOR): Follows with Dr. Decker neuromuscular. Suspect that this is contributing to her [...] (07/05/2023 2:56 PM CDT): Follows with venkata Barkley. Since last visit, her gabapentin was increased [...] (06/07/2023 3:26 PM CDT): Follows with venkata Barkley. On nahed 200 mg bid. Reduced dose from 300 mg b.i.d. due to side effects. Suspect that this is contributing to her numbness and tingling in the bilateral hands. 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 Is scheduled to follow up with venkata Barkley, next week. Assessment & Plan (03/08/2023 1:40 PM CDT): Follows with venkata Barkley. On nahed 200 mg bid. Reduced dose from 300 mg b.i.d. due to side effects. Suspect that this is contributing to her numbness and tingling in the bilateral hands. 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 Recommended follow up with venkata Barkley. Assessment & Plan (12/07/2022 12:51 PM WEB DESIGN INSTRUCTOR): Follows with venkata Barkley. On nahed 200 mg bid. Reduced dose from 300 mg b.i.d. due to side effects. Assessment & Plan (09/07/2022 11:37 AM WEB DESIGN INSTRUCTOR): Follows with venkata Barkley. On nahed 100 mg qpm. Reduced dose from 300 mg b.i.d. due to side effects. Assessment & Plan (07/13/2022 10:24 AM CDT): Follows with venkata Barkley. On nahed 100 mg qpm. Reduced dose from 300 mg b.i.d. due to symptoms discussed above. Consider increasing in the future if symptoms resolved Assessment & Plan (05/25/2022 4:16 PM CDT): Follows with venkata Barkley. On nahed 300 mg qpm. Reduced dose from 300 mg b.i.d. due to symptoms discussed above. Consider increasing in the future if symptoms resolved Assessment & Plan (04/21/2022 3:08 PM CDT): Follows with venkata Barkley. On nahed 300 mg BID. Assessment & Plan (02/28/2022 2:17 PM CDT): Follows with venkata Barkley. On nahed 300 mg daily. Was advised to increase to 300 mg bid at her most recent visit with Dr. Decker, although has not proceeded with this. Have [...] 11/2020 Assessment & Plan (10/02/2023 4:10 PM WEB DESIGN INSTRUCTOR): Negative QuantiFERON 07/2021 Negative hepatitis panel 11/2020 Assessment & Plan (08/20/2023 2:06 PM WEB DESIGN INSTRUCTOR): Negative QuantiFERON 07/2021 Negative hepatitis panel 11/2020 Assessment & Plan (07/05/2023 2:58 PM CDT): Negative QuantiFERON 07/2021 Negative hepatitis panel 11/2020 Assessment & Plan (03/08/2023 1:40 PM CDT): Negative QuantiFERON 07/2021 Negative hepatitis panel 11/2020 Assessment & Plan (12/07/2022 12:48 PM WEB DESIGN INSTRUCTOR): Negative QuantiFERON 07/2021 Negative hepatitis panel 11/2020 Assessment & Plan (09/07/2022 11:36 AM WEB DESIGN INSTRUCTOR): Negative QuantiFERON 07/2021 Negative hepatitis panel 11/2020 [...] 11/2020 Assessment & Plan (12/02/2021 10:58 AM WEB DESIGN INSTRUCTOR): Negative QuantiFERON 07/2021 Negative hepatitis panel 11/2020 Assessment & Plan (10/21/2021 9:41 AM WEB DESIGN INSTRUCTOR): Negative QuantiFERON 07/2021 Negative hepatitis panel 11/2020 Assessment & Plan (09/09/2021 11:24 AM WEB DESIGN INSTRUCTOR): Negative QuantiFERON 07/2021 Negative hepatitis panel 11/2020 [...] aldolase WNL. Recheck CK 12/28/[address] Decker revealed elevated CK at 4:40 a.m. Strength testing 5/5 UE/LE on exam. Suspect that her weakness may be coming from her chronic lower back pain. EMG per Dr. Goncalves was negative. She notes she did have skin biopsy displaying evidence for small fiber neuropathy. Continue to follow with Dr. Decekr, neuro. Was started on magnesium this week. Assessment & Plan (12/02/2021 12:34 PM WEB DESIGN INSTRUCTOR): Negative myositis. Most recent labs 07/2021 revealed CK of 636 and aldolase WNL. Strength testing 5/5 UE/LE on exam. Suspect that her weakness is likely coming from her chronic lower back pain. With that said, given her persistent CK elevations, she has been evaluated by Dr. Decker, neuromuscular. EMG per Dr. Goncalves was negative. She notes she did have skin biopsy displaying evidence for small fiber neuropathy. Assessment & Plan (10/21/2021 9:44 AM WEB DESIGN INSTRUCTOR): Negative myositis. Most recent labs 07/2021 revealed CK of 636 and aldolase WNL. Strength testing 5/5 UE/LE on exam. Suspect that her weakness is likely coming from her chronic lower back pain. With that said, given her persistent CK elevations, she has been evaluated by Dr. Decker neuromuscular. EMG per Dr. Goncalves was negative. She notes she did have skin biopsy displaying evidence for small fiber neuropathy. Assessment & Plan (09/09/2021 11:22 AM WEB DESIGN INSTRUCTOR): Negative myositis. Most recent labs 03/09/2021 revealed CK of 636 and aldolase WNL. Strength testing 5/5 UE/LE on exam. Suspect that her weakness is likely coming from her chronic lower back pain. With that said, given her persistent CK elevations, she has been evaluated by venkata Barkley. He is scheduling for EMG to evaluate [...] elevations, we did recommend further evaluation with venkata Barkley, with appointment scheduled for 08/28. Assessment & [...] elevations, we did recommend further evaluation with venkata Barkley, with appointment scheduled for 08/29. Assessment & Plan (03/22/2021 12:35 PM CDT): Most recent labs 01/2021 revealed CK at 536, aldolase wnl. Negative Myositis. A primary complaint continues to be muscle cramps in the bilateral legs. Strength testing revealed 3/5 R hip flexion, 1/5 L hip flexion; 3/5 marleny knee extension/flexion. Given her elevated ck along with reduced strength, will refer to Dr. Decker. I do suspect that her weakness may [...] Depending on workup, could consider referral to venkata Barkley. Assessment & Plan (01/20/2021 12:57 PM CDT): [...] per her report. Continue to follow with venkata Barkley. Recommended discussion with neuromuscular about reducing gabapentin [...] Neurology. Assessment & Plan (12/07/2022 12:50 PM WEB DESIGN INSTRUCTOR): Continues to note intermittent numbness and tingling in the right hand. No benefit with wrist bracing at night. She has had prior bilateral carpal tunnel release surgery. Had recent EMG that was unrevealing. Had skin biopsy that was consistent with small fiber neuropathy, per her report. Recommended cock-up wrist splint and follow-up with Neurology. Assessment & Plan (10/21/2021 9:44 AM WEB DESIGN INSTRUCTOR): Continues to note intermittent numbness and tingling in the right hand. No benefit with wrist bracing at night. She has had prior bilateral carpal tunnel release surgery. Had recent EMG that was unrevealing. Had skin biopsy that was consistent with small fiber neuropathy, per her report. Assessment & Plan (09/09/2021 11:23 AM WEB DESIGN INSTRUCTOR): Continues to note intermittent numbness and tingling in the right hand. No benefit with wrist bracing at night. She has had prior bilateral carpal tunnel release surgery. Recommended fu with hand ortho given her persistent paresthesias. Dr. Decker, neuromuscular, is evaluating her paresthesias symptoms further, [...] pulmonology Assessment & Plan (10/02/2023 4:10 PM WEB DESIGN INSTRUCTOR): TTE 2023: Left ventricular ejection fraction 5-70%. [...] pulmonology Assessment & Plan (08/20/2023 2:06 PM WEB DESIGN INSTRUCTOR): TTE 2023: Left ventricular ejection fraction 5-70%. [...] again. Assessment & Plan (12/07/2022 12:51 PM WEB DESIGN INSTRUCTOR): History of asthma. Given worsened shortness of breath, obtain chest x-ray, PFT, TTE. Consider pulmonary evaluation, if symptoms persist. Assessment & Plan (01/20/2021 12:58 PM CDT): History of asthma. Recommended follow-up with doctor chiropractic. Osteoarthritis of multiple joints 12/16/2020 Assessment & [...] complaints. Assessment & Plan (09/05/2024 4:08 PM WEB DESIGN INSTRUCTOR): Hx of OA that is contributing to [...] 11/2023. Assessment & Plan (11/30/2023 1:41 PM WEB DESIGN INSTRUCTOR): Hx of OA that is contributing to [...] time. Assessment & Plan (10/02/2023 4:11 PM WEB DESIGN INSTRUCTOR): Hx of OA that is contributing to her chronic pain complaints. Have recommended OTC Voltaren gel applied to the affected knees p.r.n. Assessment & Plan (08/20/2023 2:05 PM WEB DESIGN INSTRUCTOR): Hx of OA that is contributing to [...] p.r.n. Assessment & Plan (12/07/2022 12:47 PM WEB DESIGN INSTRUCTOR): Hx of OA that is contributing to her chronic pain complaints. Have recommended OTC Voltaren gel applied to the affected knees p.r.n. Assessment & Plan (09/07/2022 11:36 AM WEB DESIGN INSTRUCTOR): Hx of OA that is contributing to [...] complaints. Assessment & Plan (12/02/2021 10:57 AM WEB DESIGN INSTRUCTOR): Do suspect that osteoarthritis is contributing to her chronic pain complaints, which is most notable in her lower back. Assessment & Plan (10/21/2021 9:41 AM WEB DESIGN INSTRUCTOR): Do suspect that osteoarthritis is contributing to her chronic pain complaints. Previously noted that she was scheduled to see Podiatry to discuss feet complaints further. Assessment & Plan (09/09/2021 11:19 AM WEB DESIGN INSTRUCTOR): Do suspect that osteoarthritis is contributing to [...] left replacement. positive CLAUDIO. Negative dsDNA, negative Shannon/WORD PROCESSING SUPERVISOR, negative chromatin, negative CCP Avise 12/10/2020: Positive [...] needed. Assessment & Plan (09/05/2024 4:06 PM WEB DESIGN INSTRUCTOR): CDAI 18. 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 She also [...] visit. Assessment & Plan (11/30/2023 1:40 PM WEB DESIGN INSTRUCTOR): CDAI 23. After last visit, Little begin [...] needed. Assessment & Plan (10/02/2023 4:12 PM WEB DESIGN INSTRUCTOR): CDAI 14. After last visit, Little discontinued [...] Graves. Assessment & Plan (08/20/2023 2:05 PM WEB DESIGN INSTRUCTOR): CDAI 17. At today's visit, she denies [...] needed. Assessment & Plan (12/07/2022 12:47 PM WEB DESIGN INSTRUCTOR): CDAI 17. Since last visit, has remained [...] needed. Assessment & Plan (09/07/2022 11:35 AM WEB DESIGN INSTRUCTOR): CDAI 11. Since last visit, has remained [...] azathioprine 50mg BID. Continue Simponi Aria IV [id number]. Routine labs today. Follow-up 4 weeks. Sooner [...] Crisostomo. Assessment & Plan (12/02/2021 12:38 PM WEB DESIGN INSTRUCTOR): Ultrasound right foot/ankle 06/29/2021: 5th MTP erosion. [...] the bilateral hands and feet with reduced geothermal heat pump machinist strength. Synovitis does persist on exam. Would like to allow the simponi aria more time to take effect. Will continue methotrexate 20 mg weekly, FA 1 mg daily, Simponi Aria infusions. Recommend otc tylenol. Routine labs today. Follow-up 4 weeks. Sooner if needed. Assessment & Plan (10/21/2021 9:41 AM WEB DESIGN INSTRUCTOR): Ultrasound right foot/ankle 06/29/2021: 5th MTP erosion. [...] needed. Assessment & Plan (09/09/2021 11:18 AM WEB DESIGN INSTRUCTOR): Ultrasound right foot/ankle 06/29/2021: 5th MTP erosion. [...] has persistent peripheral joint complaints with reduced geothermal heat pump machinist strength. Synovitis does persist on exam. Did [...] Has persistent peripheral joint complaints with reduced geothermal heat pump machinist strength. Some synovitis persist on exam. Again [...] Crisostomo. Assessment & Plan (12/02/2020 2:08 PM WEB DESIGN INSTRUCTOR): 60 yoF with recent pos claudio presents [...] 07/21/2019 Assessment & Plan (09/05/2024 4:08 PM WEB DESIGN INSTRUCTOR): ENT had apparently noted muscle nasal septum [...] (02/03/2019): Added automatically from request for surgery [id number] Obstructive sleep apnea syndrome 09/09/2018 Joint pain, [...] exercises. Assessment & Plan (12/02/2021 10:59 AM WEB DESIGN INSTRUCTOR): L-spine x-ray 05/18/2021: Moderate to severe multilevel [...] exercises. Assessment & Plan (10/21/2021 9:42 AM WEB DESIGN INSTRUCTOR): L-spine x-ray 05/18/2021: Moderate to severe multilevel [...] exercises. Assessment & Plan (09/09/2021 11:23 AM WEB DESIGN INSTRUCTOR): L-spine x-ray 05/18/2021: Moderate to severe multilevel [...] counseling and surveillance 12/04/2014 Acute chest pain Current Treatment and Therapy Plans No current plan information found. Past Treatment and Therapy Plans No past plan information found. Lifetime Dose Tracking * Chemical Lifetime Dose Automatic Entry Manual Entr y Fluoro Time 0.22 minutes 0.22 minutes 0 minutes DLP 3,861 mGycm 3,861 mGycm 0 mGycm
--- OUTSIDE RECORDS SUMMARY | 2025-03-12 15:54 | XMS_ITS | Referral Summary ---
Author Organization [facility] [address] Address [address] [place] [address] Care Team Providers Care Rehanger Name Role Phone Gal West MD Unavailable Jennifer Angel Unavailable [phone] Ethan Graves MD Unavailable [phone] Clem Ramos MD Unavailable [phone] Wilber Patterson MD Primary Care Provide r Encounters Date Type Department Care Team Description 03/06/2025 Results Follow-Up [facility] [address] [place] [address] John Zabala PA Erythrocyte sedimentation rate, CRP (acute phase), Comprehensive metabolic panel, Additional followed-up results: 6 03/05/2025 9:00 AM CDT Office Visit [facility] [address] [place] [address] John Zabala PA Spondyloarthritis (Primary Dx); Osteoarthritis of multiple joints, unspecified osteoarthritis type; Fibromyalgia; Small fiber neuropathy; Chronic fatigue; Long-term use of high-risk medication; Vitamin D deficiency; Screening for hyperlipidemia 12/10/2024 11:00 AM CDT Office Visit [facility] [address] [place] [phone] Dillan Marshall MD Lumbosacral radiculopathy at L4 (Primary Dx); Hereditary and idiopathic neuropathy; Cerebral aneurysm from Last 3 Months Allergies No known active allergies Medications omeprazole [...] 07/13/2022 Assessment & Plan (09/07/2022 11:38 AM CLAIMS AGENT RIGHT OF WAY): Continues to have chronic left lower quadrant [...] degree. Assessment & Plan (12/02/2021 11:01 AM CLAIMS AGENT RIGHT OF WAY): At today's visit, describes pain in the [...] doses. Assessment & Plan (09/05/2024 4:09 PM CLAIMS AGENT RIGHT OF WAY): Continue to suspect that several factors are [...] exacerbate. Assessment & Plan (11/30/2023 1:41 PM CLAIMS AGENT RIGHT OF WAY): Continue to suspect that several factors are [...] time. Assessment & Plan (10/02/2023 4:10 PM CLAIMS AGENT RIGHT OF WAY): Continue to suspect that several factors are contributing to her chronic pain complaints, including degenerative arthritis, spondyloarthritis, small fiber neuropathy, fibromyalgia. Is currently on gabapentin 200 mg b.i.d. dizziness improve with reducing the dose. Encourage routine exercise, including [employer] today. Could consider switching gabapentin to Lyrica and or addition of Cymbalta Assessment & Plan (08/20/2023 2:07 PM CLAIMS AGENT RIGHT OF WAY): Continue to suspect that several factors are [...] today. Assessment & Plan (12/07/2022 12:48 PM CLAIMS AGENT RIGHT OF WAY): Do suspect that several factors are contributing [...] today. Assessment & Plan (09/07/2022 11:37 AM CLAIMS AGENT RIGHT OF WAY): Stable from last visit. Do suspect that [...] bid Assessment & Plan (12/02/2021 12:37 PM CLAIMS AGENT RIGHT OF WAY): Has rather diffuse pain complaints, including fibromyalgia [...] (03/05/2025 9:33 AM CDT): Follows with Dr. West, neuromuscular. Suspect that this is contributing to [...] discussed. Assessment & Plan (09/05/2024 4:07 PM CLAIMS AGENT RIGHT OF WAY): Follows with Dr. West, neuromuscular. Suspect that this is contributing to [...] Plan (05/08/2024 12:25 PM CDT): Follows with Dr. West neuromuscular. Suspect that this is contributing to [...] gabapentin. Assessment & Plan (11/30/2023 1:42 PM CLAIMS AGENT RIGHT OF WAY): Follows with venkata Ruiz. Suspect that this [...] symptoms. Assessment & Plan (10/02/2023 4:10 PM CLAIMS AGENT RIGHT OF WAY): Follows with venkata Ruiz. Suspect that this [...] symptoms. Assessment & Plan (08/20/2023 2:06 PM CLAIMS AGENT RIGHT OF WAY): Follows with venkata Ruiz. Suspect that this [...] although symptoms do persist. Recommended discussing with venkata about reducing gabapentin further and/or stopping. Suspect [...] Ruiz. Assessment & Plan (12/07/2022 12:51 PM CLAIMS AGENT RIGHT OF WAY): Follows with venkata Ruiz. On nahed 200 mg bid. Reduced dose from 300 mg b.i.d. due to side effects. Assessment & Plan (09/07/2022 11:37 AM CLAIMS AGENT RIGHT OF WAY): Follows with venkata Ruiz. On nahed 100 [...] (02/28/2022 2:17 PM CDT): Follows with venkata Ruiz. On nahed 300 mg daily. Was [...] 11/2020 Assessment & Plan (10/02/2023 4:10 PM CLAIMS AGENT RIGHT OF WAY): Negative QuantiFERON 07/2021 Negative hepatitis panel 11/2020 Assessment & Plan (08/20/2023 2:06 PM CLAIMS AGENT RIGHT OF WAY): Negative QuantiFERON 07/2021 Negative hepatitis panel 11/2020 Assessment & Plan (07/05/2023 2:58 PM CDT): Negative QuantiFERON 07/2021 Negative hepatitis panel 11/2020 Assessment & Plan (03/08/2023 1:40 PM CDT): Negative QuantiFERON 07/2021 Negative hepatitis panel 11/2020 Assessment & Plan (12/07/2022 12:48 PM CLAIMS AGENT RIGHT OF WAY): Negative QuantiFERON 07/2021 Negative hepatitis panel 11/2020 Assessment & Plan (09/07/2022 11:36 AM CLAIMS AGENT RIGHT OF WAY): Negative QuantiFERON 07/2021 Negative hepatitis panel 11/2020 [...] 11/2020 Assessment & Plan (12/02/2021 10:58 AM CLAIMS AGENT RIGHT OF WAY): Negative QuantiFERON 07/2021 Negative hepatitis panel 11/2020 Assessment & Plan (10/21/2021 9:41 AM CLAIMS AGENT RIGHT OF WAY): Negative QuantiFERON 07/2021 Negative hepatitis panel 11/2020 Assessment & Plan (09/09/2021 11:24 AM CLAIMS AGENT RIGHT OF WAY): Negative QuantiFERON 07/2021 Negative hepatitis panel 11/2020 [...] fiber neuropathy. Continue to follow with Dr. West, neuro. Was started on magnesium this week. Assessment & Plan (12/02/2021 12:34 PM CLAIMS AGENT RIGHT OF WAY): Negative myositis. Most recent labs 07/2021 revealed CK of 636 and aldolase WNL. Strength testing 5/5 UE/LE on exam. Suspect that her weakness is likely coming from her chronic lower back pain. With that said, given her persistent CK elevations, she has been evaluated by Dr. West, neuromuscular. EMG per Dr. Goncalves was negative. She notes she did have skin biopsy displaying evidence for small fiber neuropathy. Assessment & Plan (10/21/2021 9:44 AM CLAIMS AGENT RIGHT OF WAY): Negative myositis. Most recent labs 07/2021 revealed [...] neuropathy. Assessment & Plan (09/09/2021 11:22 AM CLAIMS AGENT RIGHT OF WAY): Negative myositis. Most recent labs 03/09/2021 revealed CK of 636 and aldolase WNL. Strength testing 5/5 UE/LE on exam. Suspect that her weakness is likely coming from her chronic lower back pain. With that said, given her persistent CK elevations, she has been evaluated by venkata Ruiz. He is scheduling for EMG to evaluate [...] we did recommend further evaluation with venkata Ruiz, with appointment scheduled for 08/28. Assessment & [...] we did recommend further evaluation with venkata Ruiz, with appointment scheduled for 08/29. Assessment & [...] on workup, could consider referral to Dr. west neuromuscular. Assessment & Plan (01/20/2021 12:57 PM [...] her report. Continue to follow with Dr. West neuromuscular. Recommended discussion with neuromuscular about reducing [...] Neurology. Assessment & Plan (12/07/2022 12:50 PM CLAIMS AGENT RIGHT OF WAY): Continues to note intermittent numbness and tingling in the right hand. No benefit with wrist bracing at night. She has had prior bilateral carpal tunnel release surgery. Had recent EMG that was unrevealing. Had skin biopsy that was consistent with small fiber neuropathy, per her report. Recommended cock-up wrist splint and follow-up with Neurology. Assessment & Plan (10/21/2021 9:44 AM CLAIMS AGENT RIGHT OF WAY): Continues to note intermittent numbness and tingling in the right hand. No benefit with wrist bracing at night. She has had prior bilateral carpal tunnel release surgery. Had recent EMG that was unrevealing. Had skin biopsy that was consistent with small fiber neuropathy, per her report. Assessment & Plan (09/09/2021 11:23 AM CLAIMS AGENT RIGHT OF WAY): Continues to note intermittent numbness and tingling [...] pulmonology Assessment & Plan (10/02/2023 4:10 PM CLAIMS AGENT RIGHT OF WAY): TTE 2023: Left ventricular ejection fraction 5-70%. [...] pulmonology Assessment & Plan (08/20/2023 2:06 PM CLAIMS AG[address] OF WAY): TTE 2023: Left ventricular ejection fraction 5-70%. [...] again. Assessment & Plan (12/07/2022 12:51 PM CLAIMS AGENT RIGHT OF WAY): History of asthma. Given worsened shortness of breath, obtain chest x-ray, PFT, TTE. Consider pulmonary evaluation, if symptoms persist. Assessment & Plan (01/20/2021 12:58 PM CDT): History of asthma. Recommended follow-up with senior facilities manager. Osteoarthritis of multiple joints 12/16/2020 Assessment & [...] complaints. Assessment & Plan (09/05/2024 4:08 PM CLAIMS AGENT RIGHT OF WAY): Hx of OA that is contributing to [...] 11/2023. Assessment & Plan (11/30/2023 1:41 PM CLAIMS AGENT RIGHT OF WAY): Hx of OA that is contributing to [...] time. Assessment & Plan (10/02/2023 4:11 PM CLAIMS AGENT RIGHT OF WAY): Hx of OA that is contributing to her chronic pain complaints. Have recommended OTC Voltaren gel applied to the affected knees p.r.n. Assessment & Plan (08/20/2023 2:05 PM CLAIMS AGENT RIGHT OF WAY): Hx of OA that is contributing to [...] p.r.n. Assessment & Plan (12/07/2022 12:47 PM CLAIMS AGENT RIGHT OF WAY): Hx of OA that is contributing to her chronic pain complaints. Have recommended OTC Voltaren gel applied to the affected knees p.r.n. Assessment & Plan (09/07/2022 11:36 AM CLAIMS AGENT RIGHT OF WAY): Hx of OA that is contributing to [...] complaints. Assessment & Plan (12/02/2021 10:57 AM CLAIMS AGENT RIGHT OF WAY): Do suspect that osteoarthritis is contributing to her chronic pain complaints, which is most notable in her lower back. Assessment & Plan (10/21/2021 9:41 AM CLAIMS AGENT RIGHT OF WAY): Do suspect that osteoarthritis is contributing to her chronic pain complaints. Previously noted that she was scheduled to see Podiatry to discuss feet complaints further. Assessment & Plan (09/09/2021 11:19 AM CLAIMS AGENT RIGHT OF WAY): Do suspect that osteoarthritis is contributing to [...] left replacement. positive CLAUDIO. Negative dsDNA, negative Shannon/PARADI TENDER, negative chromatin, negative CCP Avise 12/10/2020: Positive [...] needed. Assessment & Plan (09/05/2024 4:06 PM CLAIMS AGENT RIGHT OF WAY): CDAI 18. Overall, joint symptoms have remained stable and improved from last visit, although does continue to have chronic discomfort and reduced health tech strength in the bilateral hands. She also [...] visit. Assessment & Plan (11/30/2023 1:40 PM CLAIMS AGENT RIGHT OF WAY): CDAI 23. After last visit, Little begin [...] needed. Assessment & Plan (10/02/2023 4:12 PM CLAIMS AGENT RIGHT OF WAY): CDAI 14. After last visit, Little discontinued [...] Graves. Assessment & Plan (08/20/2023 2:05 PM CLAIMS AGENT RIGHT OF WAY): CDAI 17. At today's visit, she denies [...] needed. Assessment & Plan (12/07/2022 12:47 PM CLAIMS AGENT RIGHT OF WAY): CDAI 17. Since last visit, has remained [...] needed. Assessment & Plan (09/07/2022 11:35 AM CLAIMS AGENT RIGHT OF WAY): CDAI 11. Since last visit, has remained [...] azathioprine 50mg BID. Continue Simponi Aria IV [id number]. Routine labs today. Follow-up 4 weeks. Sooner [...] Crisostomo. Assessment & Plan (12/02/2021 12:38 PM CLAIMS AGENT RIGHT OF WAY): Ultrasound right foot/ankle 06/29/2021: 5th MTP erosion. [...] the bilateral hands and feet with reduced health tech strength. Synovitis does persist on exam. Would like to allow the simponi aria more time to take effect. Will continue methotrexate 20 mg weekly, FA 1 mg daily, Simponi Aria infusions. Recommend otc tylenol. Routine labs today. Follow-up 4 weeks. Sooner if needed. Assessment & Plan (10/21/2021 9:41 AM CLAIMS AGENT RIGHT OF WAY): Ultrasound right foot/ankle 06/29/2021: 5th MTP erosion. [...] needed. Assessment & Plan (09/09/2021 11:18 AM CLAIMS AGENT RIGHT OF WAY): Ultrasound right foot/ankle 06/29/2021: 5th MTP erosion. [...] has persistent peripheral joint complaints with reduced health tech strength. Synovitis does persist on exam. Did [...] Has persistent peripheral joint complaints with reduced health tech strength. Some synovitis persist on exam. Again [...] needed. If symptoms do progress, would reconsider [facility] [place] at that point. Assessment & Plan (02/22/2021 [...] Crisostomo. Assessment & Plan (12/02/2020 2:08 PM CLAIMS AGENT RIGHT OF WAY): 60 yoF with recent pos claudio presents [...] 07/21/2019 Assessment & Plan (09/05/2024 4:08 PM CLAIMS AGENT RIGHT OF WAY): ENT had apparently noted muscle nasal septum [...] (02/03/2019): Added automatically from request for surgery [id number] Obstructive sleep apnea syndrome 09/09/2018 Joint pain, [...] exercises. Assessment & Plan (12/02/2021 10:59 AM CLAIMS AGENT RIGHT OF WAY): L-spine x-ray 05/18/2021: Moderate to severe multilevel [...] exercises. Assessment & Plan (10/21/2021 9:42 AM CLAIMS AGENT RIGHT OF WAY): L-spine x-ray 05/18/2021: Moderate to severe multilevel [...] exercises. Assessment & Plan (09/09/2021 11:23 AM CLAIMS AGENT RIGHT OF WAY): L-spine x-ray 05/18/2021: Moderate to severe multilevel [...] counseling and surveillance 12/04/2014 Acute chest pain Immunizations Immunization Administration Dates Next Due Hep B Vaccine 03/27/2001,11/27/2000,10/30/2000 Influenza, Quadrivalent, Beverley l Culture-based MDCK, Antibiotic Free, Intramuscular 07/17/2019 Influenza, Quadrivalent, Spl it, Preservative Free, Intramuscular 07/20/2021,07/11/2020,07/10/2020 Influenza, Trivalent, IM (MDV) 06/16/2016,2014,07/15/2014 Influenza, Trivalent, Preser vative Free, Intramuscular 07/04/2016,08/31/2014 PPD TEST 06/16/2016,06/09/2015,07/15/2014 Social History Tobacco Use Types Packs/Day Years [...] on file Legal Sex Female 12:27 AM CLAIMS AGENT RIGHT OF WAY Gender Identity Not on file Sexual Orientation Not on file Last Filed Vital Signs Vital Sign Reading Time Taken Comments Blood Pressure 154/80 03/05/2025 9:01 AM CDT Pulse 86 03/05/2025 9:01 AM CDT Temperature 36.3 C (97.3 F) 10/04/2024 12:40 PM CLAIMS AGENT RIGHT OF WAY Respiratory Rate 16 10/04/2024 12:4 0 PM CLAIMS AGENT RIGHT OF WAY Oxygen Saturation 94% 03/05/2025 9:01 AM CDT Inhaled Oxygen Concentration - - Weight 105.3 kg (232 lb 3.2 oz) 03/05/2025 9:01 AM CDT Height 162.6 cm (5' 4) 03/05/2025 9:01 AM CDT Body Mass Index 39.86 03/05/2025 9:01 AM CDT Plan of Treatment Not on file Medical Devices Implanted Type Area Freight Booker Device Identifier Shelf Expiration Date Model / Serial / Lot [employer] [id number] [place] 6.5mm 40mm Acetabular Cancellous Screw Bone Sterile - [id number] Implanted:Qty: 1 on 03/18/2019 by Lavelle Jacobson MD at [facility] Left: Hip [employer] [id number] / / [employer] [id number] [place] 52mm Sector Hip Shell Acetabular Gription Sterile Latex Free - [id number] Implanted:Qty: 1 on 03/18/2019 by Lavelle Jacobson MD at [facility] Left: Hip [employer] [id number] / / [employer] [id number] [place] 52mm 36mm Hip Neutral Liner Acetabular Altrx Sterile Latex Free - [id number] Implanted:Qty: 1 on 03/18/2019 by Lavelle Jacobson MD at [facility] Left: Hip [employer] [id number] / / [employer] [id number] Actis 105mm Collar Hip 5 High Offset Stem Femoral - [id number] Implanted:Qty: 1 on 03/18/2019 by Lavelle Jacobson MD at [facility] Left: Hip [employer] [id number] / / [employer] [id number] Articul/Sachin 36mm Cementless Hip +1.5mm 12/14 Taper Head Femoral Latex Free - [id number] Implanted:Qty: 1 on 03/18/2019 by Lavelle Jacobson MD at [facility] Left: Hip [employer] 11/26/2023 [id number] / / Procedures Procedure Name Priority Date/Time [...] to Health Maintenance Results * Thyroid Function [place] (03/05/2025 9:43 AM CDT) TSH 1.28 0.40 - 4.50 mIU/L [facility] Blood 03/05/2025 9:43 AM CDT 03/05/2025 9:43 AM CDT Narrative [facility] - 03/06/2025 4:20 AM CDT FASTING:YES FASTING: YES us John GONZALEZ LAB BLOOD ORDERABLES Fi nal Result [facility] [address] [place] [address] * (ABNORMAL) CBC with auto differential (03/05/2025 9:43 AM CDT) [facility] WBC 4.7 3.8 - 10.8 Thousand/u L [...] ORDERABLES Fi nal Result Performing Organization Address [facility] Co de Phone Number [facility] [address] [place] [address] * Vitamin D 25 hydroxy (03/05/2025 9:43 AM CDT) Vitamin D 25-OH 59 30 - 100 ng/mL General Specific [facility] Comment: Vitamin D Status 25-OH Vitamin D: Deficiency: <20 ng/mL Insufficiency: 20 - 29 ng/mL Optimal: > or = 30 ng/mL For 25-OH Vitamin D testing on patients on D2-supplementation and patients for whom quantitation of D2 and D3 fractions is required, the QuestAssureD(TM) 25-OH VIT D, (D2,D3), LC/MS/MS is recommended: order code 61336 (patients >2yrs). See Note 1 Note 1 For additional information, please refer to http://education.Xeros/faq/UPE229 (This link is being provided for informational/ educational purposes only.) 03/05/2025 9:43 AM CDT 03/05/2025 9:43 AM CDT Narrative [facility] - 03/06/2025 4:20 AM CDT FASTING:YES FASTING: YES John GONZALEZ LAB BLOOD ORDERABLES Fi nal Result Performing Organization Address [facility] Co de Phone Number [facility] [address] [place] [address] * (ABNORMAL) Erythrocyte sedimentation rate (03/05/2025 9:43 AM CDT) Erythrocyte sedimentation rate 36(H) < OR = 30 mm/h [facility] Blood 03/05/2025 9:43 AM CDT 03/05/2025 9:43 AM CDT Narrative [facility] - 03/06/2025 4:20 AM CDT FASTING:YES FASTING: YES John GONZALEZ LAB BLOOD ORDERABLES Fi nal Result Performing Organization Address [facility] de Phone Number [facility] [address] [place] [address] * CRP (acute phase) (03/05/2025 9:43 AM CDT) [facility] C-RP 3.9 <8.0 mg/L [facility] Blood 03/05/2025 9:43 AM CDT 03/05/2025 9:43 AM CDT Narrative [facility] - 03/06/2025 4:20 AM CDT FASTING:YES FASTING: YES John GONZALEZ LAB BLOOD ORDERABLES Fi nal Result Performing Organization Address [facility] de Phone Number [facility] [address] [place] [address] * Folate (03/05/2025 9:43 AM CDT) [facility] Folate, Serum >24.0 ng/mL [facility] Comment: Reference Range Low: <3.4 Borderline: 3.4-5.4 Normal: >5.4 03/05/2025 9:43 AM CDT 03/05/2025 9:43 AM CDT Narrative [facility] - 03/06/2025 4:20 AM CDT FASTING:YES FASTING: YES John GONZALEZ LAB BLOOD ORDERABLES Fi nal Result Performing Organization Address [facility] de Phone Number [facility] [address] [place] [address] * Vitamin B12 (03/05/2025 9:43 AM CDT) [facility] Vitamin B12 460 200 - 1,100 pg/mL [facility] 03/05/2025 9:43 AM CDT 03/05/2025 9:43 AM CDT Narrative [facility] - 03/06/2025 4:20 AM CDT FASTING:YES FASTING: YES John GONZALEZ LAB BLOOD ORDERABLES Fi nal Result Performing Organization Address City/[facility]/ZIP Co de Phone Number [facility] [address] [place] [address] * Lipid panel (03/05/2025 9:43 AM CDT) Pathologist [facility] Cholesterol 137 <200 mg/dL [facility] [...] factors. LDL-C is now calculated using the Sven calculation, which is a validated novel method providing better accuracy than the Friedewald equation in the estimation of LDL-C. Librado ROTH et al. THIAGO. 2013;310(19): 6834-8161 (http://education.Xeros/faq/BZY474) Chol/HDL ratio 2.5 <5.0 (calc) [facility] [...] ORDERABLES Fi nal Result Performing Organization Address [facility]/ZIP Co de Phone Number SUJ[facility] [address] [place] [address] * (ABNORMAL) Comprehensive metabolic panel (03/05/2025 9:43 AM CDT) [facility] Glucose 128(H) 65 - 99 mg/dL [facility] [...] ORDERABLES Fi nal Result Performing Organization Address City/[facility] Co de Phone Number [facility] [address] [place] [address] * (ABNORMAL) Hemoglobin A1c (07/20/2021 7:47 AM CDT) Hgb A1C 6.4(H) 4.0 - 5.6 % [facility] Estimated Average Glucose 137 mg/dL [facility] Comment: The ADA recommends reporting an estimated Average Glucose (eAG) with all Hemoglobin A1c results using the equation derived from a study of 507 normal and diabetic adults. Minority populations were underrepresented and children were not included. (Diabetes Care 31:5916-6901, 2008). The eAG is not equivalent to a fasting glucose. Blood 07/20/2021 7:47 AM CDT 07/20/2021 7:50 AM CDT Zoltan Wick MD LAB BLOOD ORDERABLES F inal Result Performing Organization Address [facility] Co de Phone Number [facility] [address] [place] [address] * Screening Mammogram 2D Bilateral (12/19/2012 1:37 [...] Most Recently Relevant to Health Maintenance Insurance [facility] MEDICARE ADVANTAGE [facility] MEDIC[facility] Address: [address] [address] [place] [address] Advance Directives For more information, please contact: [phone] * Full Code (Latest Code Status on File) Date Activated Date Inactivated Comments 10/02/2024 6:05 PM 10/04/2024 9:43 PM * Full Code Date Activated Date Inactivated Comments 07/20/2021 3:57 AM 07/20/2021 4:57 PM * Full Code Date Activated Date Inactivated Comments 03/18/2019 3:50 PM 03/19/2019 8:30 PM Care Teams Rehanger Relationship Specialty Start Date End Date Wilber Patterson MD [address] [facility] [address] [place] [address] PCP - General Internal Medicine 06/16/24 Gal West MD [address] [facility] [address] [place] [address] Referring Physician Neurology 03/23/21 Jennifer Angel PA [address] [place] [address] Physician Sports Intern Physician Sports Intern 03/01/22 Ethan Graves MD [address] [place] [address] Consulting Physician Rheumatology 08/31/23 Clem Ramos MD [address] [facility] [address] [place] [address] Referring Physician General Surgery 09/12/23
--- OUTSIDE RECORDS SUMMARY | 2025-03-12 15:55 | XMS_ITS | Clinical Summary ---
Author Organization [facility] Address [address] [place] [address] Care Team Providers Care Tree Shear Operator Name Role Phone Artie Barron MD Primary Care Provider [phone] Source Comments [facility],non-owned Affiliates and Associated Physician Practices is amultiple site organization consisting of ambulatory clinics and hospital sitesin [place], [place], [place] and [place]. This disclosure is being madepursuant to the Care Everywhere program and may not contain all information available regarding this patient. Last updated 18.[facility] Allergies No known active allergies Medications * Be aware that medications may not be up to date on this document. Alwaysverify current medications with the patient. amLODIPine-isaiah zepril (LOTREL) 5-10 MG capsule Take 1 (one) capsule by mouth once daily Active aspirin buffered (BUFFERIN LOW DOSE) 81 MG tablet Take 1 (one) tablet by mouth once daily Active calcium carbonate (CALTRATE) 600 MG tablet Take 1 (one) tablet by mouth once daily Active fish oil/omega-3 fatty acids (PROMEGA;CARDI- OMEGA 3) 1000 MG capsule Take 950 mg by mouth once daily Active folic acid (FOLVITE) 1 MG tablet Take 1 (one) tablet by mouth once daily Active omeprazole (PRILOSEC) 20 MG capsule Take 1 (one) capsule by mouth once daily 0 Active Biotin 800 MCG Take 1 tablet by mouth once daily Active vitamin E (TOCOPHERYL) 200 UNIT capsule Take 1 (one) capsule by mouth once daily Active Cholecalciferol (VITAMIN D3) 1.25 MG (52921 UT) capsule Take 1 (one) capsule by mouth every 7 days 1 Active diclofenac sodium (VOLTAREN) 1 % gel 2 times daily 2 Active magnesium 250 MG tablet Take 1 (one) tablet by mouth at bedtime 2 Active albuterol HFA (PROVENTIL; VENTOLIN; PROAIR) 108 (90 Base) MCG/ACT inhaler Inhale 2 (two) puffs by mouth every 6 hours as needed 2 Active azaTHIOprine (IMURAN) 50 MG tablet Take 1 (one) tablet by mouth 2 times daily 2 Active Breo Ellipta 100-25 MCG/ACT inhaler 3 Active gabapentin (Neurontin) 300 MG capsule Take 3 (three) capsules by mouth 2 times daily 540 capsule 3 3 Active Additional Information Patient taking differently: 600 mgOral 2 TIMES DAILY, Reported on 09/03/2023 Active Problems Problem Noted Date Diagnosed Date Small fiber neuropathy 09/19/2021 Family History Medical History Relation Name Comments Other - Cardiac Brother 1 Gareth uknown heart problems None Known Brother 2 Mo Diabetes - Type 2 Father Other - Cardiac Father uknown heart problems Other - Cardiac Mother uknown heart problems Diabetes - Type 2 Sister 1 Sri High Cholesterol Sister 1 Sri Other - Cardiac Sister 1 Sri uknown heart problems Aneurysm, Brain Sister 2 Sruthi multiple Diabetes - Type 2 Sister 3 Jennifer High Cholesterol Sister 3 Jennifer Other - Cardiac Sister 3 Jennifer uknown heart problems None Known Sister 4 Camryn Relation Name Status Comments Brother 1 Gareth Alive Brother 2 Mo Alive Father Mother Alive Sister 1 Sri Alive Sister 2 Sruthi Alive Sister 3 Jennifer Alive Sister 4 Camryn Alive Social History Tobacco Use Types Packs/Day Years Used Date Smoking Tobacco: Never Smokeless Tobacco: Never Tobacco Cessation:Counseling Given: No Alcohol Use Standard Drinks/Week Comments Not Currently 2 (1 standard drink = 0.6 oz pur e alcohol) weekends usually Comments No Sex and Gender Information Value Date Recorded Sex Assigned at Not on file 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 Gender Identity Not on file Sexual Orientation Not on file 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 Not on file Not on file Not on file Last Filed Vital Signs Vital Sign Reading Time Taken Comments Blood Pressure 138/70 06/13/2023 11:15 AM CDT Pulse 74 06/13/2023 11:15 AM CDT Temperature - - Respiratory Rate - - Oxygen Saturation - - Inhaled Oxygen Concentration - - Weight 104.3 kg (230 lb) 06/13/2023 11:15 AM CDT Height 162.6 cm (5' 4) 06/13/2023 11:15 AM CDT Body Mass Index 39.48 06/13/2023 11:15 AM CDT Plan of Treatment Health Maintenance Due Date Last Done Comments COLOGUARD (AGES 45-75) - COLON CA SCREENING 1962 COLON MONITORING 1962 COLONOSCOPY - COLON CA SCREENING 1962 CT COLONOGRAPHY - COLON CA SCREENING 1962 Colorectal Cancer Screening 1962 FIT - COLON CA SCREENING 1962 FLEX SIG - COLON CA SCREENING 1962 LIPID TESTING 1962 MAMMOGRAM 1962 PAP SMEAR 1962 HIV SCREENING 1977 HEPATITIS C SCREENING 01/05/1980 DTAP/TDAP/TD VACCINES (1 - Tdap) 1981 PNEUMOCOCCAL VACCINE 50+ (1 of 2 - PCV) 1981 ZOSTER VACCINE (1 of 2) 1981 COVID-19 VACCINE (3 - Moderna risk series) 12/28/2020 11/30/2020, 11/02/2020 Respiratory Syncytial Virus (RSV) Vaccine Pt: or over 60 yrs (1 - Risk 60-74 years 1-dose series) 2022 DEPRESSION SCREENING 10/01/2024 INFLUENZA VACCINE (Season Ended) 2025 07/20/2021, 07/11/2020, 07/10/2020, Additional history exists SCREENING FOR DIABETES 07/13/2025 , 07/13/2022, 07/20/2021, Additional history exists HEPATITIS B VACCINE Aged Out No longe r eligible based on patient's age to complete this topic HIB VACCINE Aged Out No longer eligi ble based on patient's age to complete this topic HPV VACCINE Aged Out No longer eligi ble based on patient's age to complete this topic MENINGOCOCCAL (Group B) VACCINE SHARED DECISION-MAKING Aged Out No longer eligible based on patient's age to complete this topic MENINGOCOCCAL GROUPS A/C/Y/W VACCINE Aged Out No longer eligible based on patient's age to complete this topic Insurance [employer] Care Teams Tree Shear Operator Relationship Specialty Start Date End Date Artie Barron MD [address] [place] [address] PCP - General Family Medicine 09/14/21
--- OUTSIDE RECORDS SUMMARY | 2025-03-12 15:55 | XMS_ITS ---
Author Organization [facility] Address [address] [place] [address] [place] [address] Care Team Providers Care Digital Content Coordinator Name Role Phone MD ISABELLE, GRISEL Primary Care Provider U lori Whitleyamberphi Cristi Unavailable [phone] ALLERGIES No Known Allergies REASON FOR VISIT FOLLOW UP MEDICATIONS Medication SIG (Take, Route, Frequency, Duration) Notes Start Date End Date Status Cetirizine HCl 10 MG TAKE 1 TABLET BY [facility] EVERY DAY Oral for 30 Active amLODIPine [...] for 30 day(s) Active Cholecalciferol 1.25 MG (04522 UT) 1 capsule Orally Once a day [...] injection 07/10/2024 Active Vitamin D3 1.25 MG (63410 UT) 1 capsule Oral Once a day [...] a nonsmoker Section Notes: 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 She is with no children. She denies alcohol, tobacco, or illicit drug abuse. 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 Silver's, [place]'s and Gaenslen's are positive on the left. [...] and Follow-up: Follow-up Plan florence peres:: Yes [facility] Quality 2020: [facility] Documented:: Compliant
--- OUTSIDE RECORDS SUMMARY | 2025-03-12 15:55 | XMS_ITS ---
Author Organization [facility] Address [address] [place] [address] Loret[place] Woods [place] [address] Care Team Providers Care Panama Hat Blocker Name Role Phone MD ISABELLE, GRISEL Primary Care Provider U Cristi Vasquez Unavailable [phone] ALLERGIES No Known Allergies REASON FOR VISIT Follow Up, Left > Right Low Back Pain, Left Lower Extremity Pain MEDICATIONS Medication SIG (Take, Route, Frequency, Duration) Notes Start Date End Date Status sulfaSALAzine 500 MG 1 tablet Oral Once a day Active Hydroxychloroquine Sulfate 200 MG as directed Oral Active Vitamin D3 1.25 MG (99691 UT) 1 capsule Oral Once a day [...] HCl 10 MG TAKE 1 TABLET BY [facility] EVERY DAY Oral for 30 Active [...] for 30 day(s) Active Cholecalciferol 1.25 MG (45363 UT) 1 capsule Orally Once a day [...] Location Date Provider Diagnosis [facility] [address] [place] [id number] 07/10/2024 Cristi Brooks Radiculopathy, lumba r region M54.16 ; Sacroiliitis, not elsewhere classified M46.1 ; Spondylosis without myelopathy or radiculopathy, lumbar region M47.816 ; Spondylosis without myelopathy or radiculopathy, lumbosacral region M47.817 ; Radiculopathy, lumbosacral region M54.17 ; Fear of injections and transfusions F40.231 and 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 07/10/2024 exterminator termite (current) use of anticoagulants (ICD-10 - Z79.01) [...] they would need to come with a water tanker driver after taking this medication due to [...] patient's typical axial low back pain. Silver's, [place]'s and Gaenslen's are positive on the left. [...] and Follow-up: Follow-up Plan documen larisa:: Yes [facility] Quality 2020: [facility] Documented:: Compliant
--- OUTSIDE RECORDS SUMMARY | 2025-03-12 15:55 | XMS_ITS | Patient Health Record ---
Author Organization [facility] Address [address] [place] [address] [place] [address] Care Team Providers Care Public Relations Intern Name Role Phone MD ISABELLE, GRISEL Primary Care Provider U Cristi Vasquez Unavailable [phone] ALLERGIES No Known Allergies REASON FOR REFERRAL No Information MEDICATIONS Medication SIG (Take, Route, Frequency, Duration) Notes Start Date End Date Status Calcium Carbonate 1500 (600 Ca) MG 1 tablet with food Orally Twice a day for 30 day(s) Active sulfaSALAzine 500 MG 1 tablet Oral Once a day Active Fish Oil 1000 MG 1 capsule Orally Onc e a day for 30 day(s) Active Hydroxychloroquine Sulfate 200 MG as directed Oral Active azaTHIOprine 50 MG as directed Orally Active Xanax 0.25 MG 1-2 tablets Orally 3 0 minutes prior to injection 07/10/2024 Active Biotin 800 MCG 1 tablet Orally Once a day for 30 day(s) Active Vitamin E 400 UNIT 1 tablet Orally Once a day for 30 day(s) Active Vitamin D3 1.25 MG (71586 UT) 1 capsule Oral Once a day Active Breo Ellipta 100-25 MCG/ACT INHALE 1 PUF F BY MOUTH DAILY FAST BREATH INHALE QUICKLY AND DEEPLY Inhalation for 30 Active amLODIPine Besylate 5 MG 1 tablet Orally Once a day for 30 day(s) Active Cholecalciferol 1.25 MG (06012 UT) 1 capsule Orally Once a day Active Cetirizine HCl 10 MG TAKE 1 TABLET BY MO UTH EVERY DAY Oral for 30 Active Simponi 50 MG/0.5ML as directed Subcutaneous Active amLODIPine Besy-Benazepril HCl 5-10 MG as directed Orally Active Albuterol Sulfate HFA 108 (9 0 Base) MCG/ACT 1 puff as needed Inhalation every 4 hrs Active Omeprazole 20 MG 1 capsule 30 minutes before morning meal Orally Once a day Active Folic Acid 1 MG 1 tablet Orally Once a day for 30 day(s) Active Neurontin 300 MG 1 capsule Orally Onc e a day Active Magnesium 250 MG 1 tablet with a meal Orally Once a day for 30 day(s) Active Aspirin 81 81 MG 1 tablet Orally Once a day for 30 day(s) Active SOCIAL HISTORY Tobacco Use: Social History Observation Description Date Details (start date - stop date) Never Smoker NA - NA Sex Assigned At : Social History Observation Description Sex Assigned At Unknown Tobacco Use/Smoking Question Answer Notes Are you a nonsmoker Section Notes: 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 She is with no children. She denies alcohol, tobacco, or illicit drug abuse. 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 She is with no children. She denies alcohol, tobacco, or illicit drug abuse. 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 She is with no children. She denies alcohol, tobacco, or illicit drug abuse. 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 She is with no children. She denies alcohol, tobacco, or illicit drug abuse. 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 She is with no children. She denies alcohol, tobacco, or illicit drug abuse. 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 She is with no children. She denies alcohol, tobacco, or illicit drug abuse. 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 She is with no children. She denies alcohol, tobacco, or illicit drug abuse. 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 She is with no children. She denies alcohol, tobacco, or illicit drug abuse. 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 She is with no children. She denies alcohol, tobacco, or illicit drug abuse. 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 She is with no children. She denies alcohol, tobacco, or illicit drug abuse. 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 She is with no children. She denies alcohol, tobacco, or illicit drug abuse. 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 She is with no children. She denies alcohol, tobacco, or illicit drug abuse. 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 She is with no children. She denies alcohol, tobacco, or illicit drug abuse. 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 She is with no children. She denies alcohol, tobacco, or illicit drug abuse. 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 She is with no children. She denies alcohol, tobacco, or illicit drug abuse. 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 She is with no children. She denies alcohol, tobacco, or illicit drug abuse. 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 She is with no children. She denies alcohol, tobacco, or illicit drug abuse. 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 She is with no children. She denies alcohol, tobacco, or illicit drug abuse. 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 She is with no children. She denies alcohol, tobacco, or illicit drug abuse. 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 She is with no children. She denies alcohol, tobacco, or illicit drug abuse. 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 She is with no children. She denies alcohol, tobacco, or illicit drug abuse. 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 She is with no children. She denies alcohol, tobacco, or illicit drug abuse. 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 She is with no children. She denies alcohol, tobacco, or illicit drug abuse. 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 She is with no children. She denies alcohol, tobacco, or illicit drug abuse. 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 She is with no children. She denies alcohol, tobacco, or illicit drug abuse. 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 She is with no children. She denies alcohol, tobacco, or illicit drug abuse. 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 She is with no children. She denies alcohol, tobacco, or illicit drug abuse. 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 She is with no children. She denies alcohol, tobacco, or illicit drug abuse. 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 She is with no children. She denies alcohol, tobacco, or illicit drug abuse. 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 She is with no children. She denies alcohol, tobacco, or illicit drug abuse. 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 She is with no children. She denies alcohol, tobacco, or illicit drug abuse. 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 She is with no children. She denies alcohol, tobacco, or illicit drug abuse. 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 She is with no children. She denies alcohol, tobacco, or illicit drug abuse. 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) Active confirmed Fear of medical treatment (933932684) Problem Sacroiliitis, not elsewhere classified (M46.1) Active confirmed Solitary sacroiliitis (024709685) Problem Spondylosis without myelopathy or radiculopathy, lumbar region (M47.816) Active confirmed Lumbosacral spondylosis without myelopathy (20918957) Problem Spondylosis without myelopathy or radiculopathy, lumbosacral region (M47.817) Active confirmed Lumbosacral spondylosis without myelopathy (disorder) (02242029) Problem Intervertebral disc disorders with radiculopathy, 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) Active confirmed Lumbosacral radiculopathy (1299036) Problem Radiculopathy, lumbar region (M54.16) Active confirmed Lumbar radiculopathy (132814750) Problem Radiculopathy, lumbosacral region (M54.17) Active confirmed Lumbosacral radiculopathy (5644618) Problem Osseous stenosis of neural canal of lumbar region (M99.33) Active confirmed Spinal stenosis of lumbar region (52180945) Problem correction (current) use of anticoagulants (Z79.01) Active confirmed Long-term current use of anticoagulant (931362871) VITAL SIGNS Heart Rate 74 /min 08/04/2024 Respiratory Rate 16 /min 08/04/2024 Blood pressure diastolic 82 mm Hg 08/04/2024 Height 5 ft 7 in in 08/04/2024 Blood pressure systolic 181 mm Hg 08/04/2024 Weight 225 lbs 08/04/2024 BMI 35.24 kg/m2 08/04/2024 Encounters Encounter Location Date Provider Diagnosis [facility] [address] [place] [phone] 03/17/2024 Cristi Stynowick Radiculopathy, lumba r region M54.16 ; Spondylosis without myelopathy or radiculopathy, lumbar region M47.816 ; Sacroiliitis, not elsewhere classified M46.1 ; Spondylosis without myelopathy or radiculopathy, lumbosacral region M47.817 ; Radiculopathy, lumbosacral region M54.17 ; Fear of injections and transfusions F40.231 and parts counterman (current) use of anticoagulants Z79.01 [facility] [address] [place] [phone] 03/26/2024 Cristi Stynowick Radiculopathy, lumba r region M54.16 ; Spondylosis without myelopathy or radiculopathy, lumbar region M47.816 ; Sacroiliitis, not elsewhere classified M46.1 ; Spondylosis without myelopathy or radiculopathy, lumbosacral region M47.817 ; Radiculopathy, lumbosacral region M54.17 ; Fear of injections and transfusions F40.231 and correction (current) use of anticoagulants Z79.01 [facility] [address] [place] [phone] 04/23/2024 Cristi Stynowick Radiculopathy, lumba r region M54.16 ; Sacroiliitis, not elsewhere classified M46.1 ; Spondylosis without myelopathy or radiculopathy, lumbar region M47.816 ; Spondylosis without myelopathy or radiculopathy, lumbosacral region M47.817 ; Radiculopathy, lumbosacral region M54.17 ; Fear of injections and transfusions F40.231 and correction (current) use of anticoagulants Z79.01 [facility] [address] [place] [address] 05/02/2024 Cristi Stynowick Sacroiliitis, not elsewhere classified M46.1 [facility] [address] [place] [phone] 05/19/2024 Cristi Stynowick Radiculopathy, lumba r region M54.16 ; Sacroiliitis, not elsewhere classified M46.1 ; Spondylosis without myelopathy or radiculopathy, lumbar region M47.816 ; Spondylosis without myelopathy or radiculopathy, lumbosacral region M47.817 ; Radiculopathy, lumbosacral region M54.17 ; Fear of injections and transfusions F40.231 and parts counterman (current) use of anticoagulants Z79.01 [facility] [address] [place] [address] 05/26/2024 Cristi Stynowick Radiculopathy, lumba r region M54.16 ; Radiculopathy, lumbosacral region M54.17 and Osseous stenosis of neural canal of lumbar region M99.33 [facility] [address] [place] [phone] 06/10/2024 Cristi Stynowick Radiculopathy, lumba r region M54.16 ; Sacroiliitis, not elsewhere classified M46.1 ; Spondylosis without myelopathy or radiculopathy, lumbar region M47.816 ; Spondylosis without myelopathy or radiculopathy, lumbosacral region M47.817 ; Radiculopathy, lumbosacral region M54.17 ; Fear of injections and transfusions F40.231 and correction (current) use of anticoagulants Z79.01 [facility] [address] [place] [phone] 07/10/2024 Cristi Stynowick Radiculopathy, lumba r region M54.16 ; Sacroiliitis, not elsewhere classified M46.1 ; Spondylosis without myelopathy or radiculopathy, lumbar region M47.816 ; Spondylosis without myelopathy or radiculopathy, lumbosacral region M47.817 ; Radiculopathy, lumbosacral region M54.17 ; Fear of injections and transfusions F40.231 and parts counterman (current) use of anticoagulants Z79.01 [facility] [address] [place] [address] 08/04/2024 Cristi Brooks Sacroiliitis, not elsewhere classified M46.1 [facility] [address] [place] [address] 08/19/2024 Cristi Sttariowick Radiculopathy, lumba r region M54.16 ; Sacroiliitis, not elsewhere classified M46.1 ; Spondylosis without myelopathy or radiculopathy, lumbar region M47.816 ; Spondylosis without myelopathy or radiculopathy, lumbosacral region M47.817 ; Radiculopathy, lumbosacral region M54.17 ; Fear of injections and transfusions F40.231 and parts counterman (current) use of anticoagulants Z79.01 ASSESSMENTS Encounter Date Diagnosis Assessment Notes Treatment Notes Treatment Clinical Notes Section Notes 03/17/2024 Radiculopathy, lumbar region (ICD-10 - M54.16) 03/26/2024 [...] of her pain at that time. 03/26/2024 Radiculopathy, lumbar region (ICD-10 - M54.16) 04/23/2024 [...] agreeable to proceeding at this time. 04/23/2024 Radiculopathy, lumbar region (ICD-10 - M54.16) 05/02/2024 Sacroiliitis, not elsewhere classified (ICD-10 - M46.1) 05/19/2024 Sacroiliitis, not elsewhere classified (ICD-10 - M46.1) 05/19/2024 Radiculopathy, lumbar region (ICD-10 - M54.16) [...] is agreeable to proceeding at this time. 05/26/2024 Radiculopathy, lumbar region (ICD-10 - M54.16) 05/26/2024 Radiculopathy, lumbosacral region (ICD-10 - M54.17) 06/10/2024 Sacroiliitis, not elsewhere classified (ICD-10 - M46.1) 06/10/2024 Radiculopathy, lumbar region (ICD-10 - M54.16) [...] reevaluation of her pain at that time. 07/10/2024 Sacroiliitis, not elsewhere classified (ICD-10 - [...] agreeable to proceeding at this time. 07/10/2024 Radiculopathy, lumbar region (ICD-10 - M54.16) 08/04/2024 Sacroiliitis, not elsewhere classified (ICD-10 - M46.1) 08/19/2024 Radiculopathy, lumbar region (ICD-10 - M54.16) 08/19/2024 Sacroiliitis, not elsewhere classified (ICD-10 - M46.1) 07/10/2024 Spondylosis without myelopathy or radiculopathy, lumbar region (ICD-10 - M47.816) 06/10/2024 Spondylosis without myelopathy or radiculopathy, lumbar region (ICD-10 - M47.816) 05/26/2024 Osseous stenosis of neural canal of lumbar region (ICD-10 - M99.33) 05/19/2024 Spondylosis without myelopathy or radiculopathy, lumbar region (ICD-10 - M47.816) 04/23/2024 Spondylosis without myelopathy or radiculopathy, lumbar region (ICD-10 - M47.816) 03/26/2024 Sacroiliitis, not elsewhere classified (ICD-10 - M46.1) 03/17/2024 Spondylosis without myelopathy or radiculopathy, lumbar region (ICD-10 - M47.816) 03/17/2024 Sacroiliitis, not elsewhere classified (ICD-10 - M46.1) 03/26/2024 Spondylosis without myelopathy or radiculopathy, lumbosacral region (ICD-10 - M47.817) 04/23/2024 Spondylosis without myelopathy or radiculopathy, lumbosacral region (ICD-10 - M47.817) 05/19/2024 Spondylosis without myelopathy or radiculopathy, lumbosacral region (ICD-10 - M47.817) 06/10/2024 Spondylosis without myelopathy or radiculopathy, lumbosacral region (ICD-10 - M47.817) 07/10/2024 Spondylosis without myelopathy or radiculopathy, lumbosacral region (ICD-10 - M47.817) 08/19/2024 Spondylosis without myelopathy or radiculopathy, lumbar region (ICD-10 - M47.816) 08/19/2024 Spondylosis without myelopathy or radiculopathy, lumbosacral region (ICD-10 - M47.817) 07/10/2024 Radiculopathy, lumbosacral region (ICD-10 - M54.17) 06/10/2024 Radiculopathy, lumbosacral region (ICD-10 - M54.17) 05/19/2024 Radiculopathy, lumbosacral region (ICD-10 - M54.17) 03/26/2024 Radiculopathy, lumbosacral region (ICD-10 - M54.17) 04/23/2024 Radiculopathy, lumbosacral region (ICD-10 - M54.17) 03/17/2024 Spondylosis without myelopathy or radiculopathy, lumbosacral region (ICD-10 - M47.817) 03/17/2024 Radiculopathy, lumbosacral region (ICD-10 - M54.17) 03/26/2024 Fear of injections and transfusions (ICD-10 - F40.231) 05/19/2024 Fear of injections and transfusions (ICD-10 - F40.231) The patient was given written instructions explaining the above and was informed that they would need to come with a line haul truck driver after taking this medication due to the risk of impairment. 06/10/2024 Fear of injections and transfusions (ICD-10 - F40.231) 04/23/2024 Fear of injections and transfusions (ICD-10 - F40.231) The patient was given written instructions explaining the above and was informed that they would need to come with a line haul truck driver after taking this medication due to the risk of impairment. 07/10/2024 Fear of injections and transfusions (ICD-10 - F40.231) The patient was given written instructions explaining the above and was informed that they would need to come with a line haul truck driver after taking this medication due to the risk of impairment. 08/19/2024 Radiculopathy, lumbosacral region (ICD-10 - M54.17) 07/10/2024 correction (current) use of anticoagulants (ICD-10 - Z79.01) 08/19/2024 Fear of injections and transfusions (ICD-10 - F40.231) 06/10/2024 parts counterman (current) use of anticoagulants (ICD-10 - Z79.01) 05/19/2024 correction (current) use of anticoagulants (ICD-10 - Z79.01) The patient was instructed to discontinue aspirin for 6 days prior to the procedure. I made the patient aware that she will be at an increased risk for a thromboembolic event during this time and she is willing to accept this risk. The patient was instructed to notify her primary care physician and/or esthetician/skin therapist to obtain clearance prior to discontinuing this medication. 04/23/2024 correction (current) use of anticoagulants (ICD-10 - Z79.01) 03/26/2024 parts counterman (current) use of anticoagulants (ICD-10 - Z79.01) 03/17/2024 Fear of injections and transfusions (ICD-10 - F40.231) 03/17/2024 parts counterman (current) use of anticoagulants (ICD-10 - Z79.01) 08/19/2024 parts counterman (current) use of anticoagulants (ICD-10 - Z79.01) [...] This note was dictated by HAYDEN Brewster 04/23/2024 Other The above-named patient was evaluated [...] This note was dictated by HAYDEN Brewster 05/19/2024 Other The above-named patient was evaluated [...] This note was dictated by HAYDEN Brewster 05/26/2024 Other 06/10/2024 Other The above-named patient was evaluated [...] dictated by HAYDEN Brewster PLAN OF TREATMENT No Information Insurance Providers Payer Name Payer Address Payer Phone Subscriber Number Group Number Insured Name Patient Relationship to Insured Coverage Start Date Coverage End Date [facility] [address] [place] [address] [id number] TEETEE SON Self - patient is the insured [place] [address] [address] [place] [address] [id number] TEETEE SON Self - patient is the insured 4 MEDICAL (GENERAL) HISTORY Medical History History ICD Code Hypertension GERD Vertigo Anemia Sleep apnea Surgical History Surgery Date(Month/Year) Bilateral rotator cuff repair 2006 Cholecystectomy 2012 Left shoulder rotator cuff repair 2014 Right shoulder rotator cuff repair 016 Total left hip arthroplasty 03/18/2019
--- OUTSIDE RECORDS SUMMARY | 2025-03-12 15:55 | XMS_ITS ---
Author Organization [facility] Address [address] [place] [address] [address]. [address] [place] [address] Care Team Providers Care Fabric Sourcer Name Role Phone Chadwick Schwartz MD Primary Care Provider Steve Chavez Unavailable [phone] Allergies No Known Allergies REASON FOR VISIT Annual Medications Medication SIG (Take, Route, Frequency, Duration) Notes Start Date End Date Status Albuterol Active amLODIPine Besylate Active Gabapentin Active OTC/Vitamins Vit D3, Calcium, ASA, Mesilla 3, Folic Acid, Biotin, Vit E, Magnesium Active azaTHIOprine Active Golimumab Active Omeprazole 20 MG 1 capsule 30 minutes before morning meal Orally Twice a day for 90 days 01/02/2022 Active Social History Tobacco Use: Social History Observation Description Date Details (start date - stop date) Never Smoker NA - NA Tobacco Use/Smoking Question Answer Notes Are you a nonsmoker Section Notes: 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 [place] [address] 02/06/2024 Steve Sol Plan Of Treatment No Information Progress Notes * Little SARMIENTO EDOB:1959 (65 yo F)Acc No.[id number]:02/06/2024 Patient: Zack MEYERaine Janet Provider: Shant Sol M.D. :1960 A ge:64 Y S ex:Female Date:02/06/2024 [facility] [address] Pcp:Chadwick Schwartz MD Subjective: * Chief Complaints: * 1 . Annual. * ROS: G I Bleeding: Melena N o. H ematochezia N o. H ematemesis?No. A nemia N o. G I-Stomach: Nausea/Emesis N o. P ain N o. P UD N o.?Anorexia N o. G I-Esophageal: Dysphagia N o. O dynophagia N o. C hest Pain?No. G ER Sx Y es. G I-Liver/GB: Jaundice N o. H epatitis N o. G allstones N o. P ancreatitis N o. G I-Colon: Colitis/IBS N o. D iarrhea N o. C onstipation?No. H emorrhoids Y es. G eneral/Constitutional: Fever N o. C hills N o. W eight Loss N o.? S kin: Rash N o. P ruritus N o. I cterus N o. P hotosensitivity N o. E NT: Diplopia N o. V isual Loss N o. T innitus N o. V ertigo N o. D eafness N o. P oor Dentition N o. H ematology: Easy Bruising N o. H emophilia N o. H ematologic Malignancy N o. L ymphadenopathy N o. H istory of Petechia N o. A nemia?Yes. C ardiovascular: Palpitations N o. S yncope N o. P ND N o.?ROSE N o. O rthopnea N o. C hest Pain N o. R espiratory: Cough N o. S putum Production N o. H emoptysis?No. W heezing N o. T B N o. S OB N o. N eurologic: Stroke N o. S eizure Disorder N o. T remor N o. P aralysis N o. S yncope N o. G enitourinary: Dysuria N o. P olyuria N o. I ncontinence N o. R enal Failure N o. H ematuria N o. M usculoskeletal: Joint Pain N o. S welling N o. S tiffness N o. M uscle Weakness N o. M yalgia N o. E ndocrine: Thyroid Disease N o. D iabetes N o. P olyphagia?No. P olydipsia N o. P sychiatric: Delusions N o. H allucinations N o. S uicidal Ideations N o. A llergy/Immunology: Hives N o. C hronic Sinusitis N o. H istory of Anaphylaxis N o. * Medical History: G ERD, Colon Polyps, Hemorrhoids, Diverticulitis, Ulcers, H Pylori, Nonalcoholic Fatty Liver Disease, Anemia, Hypertension, Sleep Apnea, Hyperlipidemia, Osteoarthritis, Vitamin D Deficiency, Nephrolithiasis, Meningococcal Meningitis. * Surgical History: E ndoscopy:Non severe reflux esophagitis.Benign appearing esophageal stenosis.Erythematous mucosa in the gastric antrum.Otherwise normal exam. 11/2022, Colonoscopy:Examined portion of ileum was normal.Diverticulosis in the sigmoid colon.Hemorrhoids. 11/2019, Cholecystectomy 12/2011, Cystoscopy, stent placement, laser lithotripsy 08/2019, Total hip replacement, left 03/2019, Hysterectomy 05/2006, Pituitary tumor removed 1980, Bilateral Rotator Cuff , Carpal tunnel release x2 . * Hospitalization/Major Diagno stic Procedure: P ituitary Tumor 1986, Meningitis 1969, Nose bleed , Stomach pain , Shortness of breath . * Family History: M other: Possible Colon Cancer, patient is unsure, diagnosed with Colon polyp. F ather: diagnosed with Malignant neoplasm of colon, unspecified part of colon, Colon polyp. * Social History: T obacco Use: T obacco Use/Smoking A re you a n onsmoker D rugs/Alcohol: D o you Drink Alcohol?: yes, 2-3 on weekend. 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 * Medications: T aking Omeprazole 20 MG Capsule Delayed Release 1 capsule 30 minutes before morning meal Orally Twice a day , Taking Golimumab , Taking Albuterol , Taking azaTHIOprine , Taking amLODIPine Besylate , Taking Gabapentin , Taking OTC/Vitamins , Notes to Pharmacist: Vit D3, Calcium, ASA, Mesilla 3, Folic Acid, Biotin, Vit E, Magnesium, Medication List reviewed and reconciled with the patient * Allergies: N .K.D.A. Objective: * Vitals: * Examination: P hysical Examination: GENERAL: A ppears stated age, in no apparent distress. SKIN: N o rash, ecchymoses, petechial, or telangiectasia.? HEENT: Normocephalic, EOMI, Nasal & buccal mucosa clear. NECK: Supple without masses., Normal Range of Motion, No jugular venous distention. LYMPH NODES: No cervical, supraclavicular, or axillary lymphadenopathy. CARDIAC: RRR without murmur, gallop, or rub. PULMONARY: Clear to auscultation and percussion bilaterally. ABDOMEN: B S positive, soft, non-tender, No masses, organomegaly, rebound, or ascites. EXTREMITIES: N o cyanosis, clubbing, or edema. NEUROLOGIC: A lert and oriented x3, No asterixis, Nonfocal examination. C QM Exceptions: Influenza Vaccine not administered: Shant zhao: P atient Reason T ype of Patient Reason: M edication refused Pneumococcal Vaccine not administered: Shant zhao: M edical Reason T ype of Medical Reason: N ot indicated Assessment: Plan: * Treatment: * Images: * Electronic signature of Pasquale Sol MD on 03/12/2025 at 03:54 PM CDT Sign off status: Pending * Provider: Shant Sol M.D. Date: 0 02/06/2024 Generated for Macy jacome/Ernestine/Maryitting on: 0 03/12/2025 03:54 PM CDT
[2025-03-12 16:39] LABS: Iron 71 ug/dL (37-170)
[2025-03-12 16:49] LABS: Percent Iron Saturation 18 % (20-50)
[2025-03-12 16:52] LABS: Alanine Aminotransferase 42 U/L (6-35); Albumin Level 4.2 g/dL (3.5-5.1); Alkaline Phosphatase 107 U/L (38-126); Anion Gap 7 mmol/L (4-12); Aspartate Amino Transferase 72 U/L (14-36); Bilirubin,Total 0.5 mg/dL (0.2-1.3); Blood Urea Nitrogen 10 mg/dL (7-17); Calcium 9.6 mg/dL (8.4-10.2); Carbon Dioxide 32 mmol/L (22-30); Chloride 100 mmol/L (98-107); Estimated Glomerular Filt Rate 60; Glucose 86 mg/dL (65-110); Lactate Dehydrogenase 280 U/L (120-246); Potassium 3.7 mmol/L (3.4-5.0); Sodium 139 mmol/L (137-145); Total Protein 7.7 g/dL (6.3-8.2)
[2025-03-12 18:03] LABS: Folic Acid > 20.0 ng/mL (2.76->20)
[2025-03-17 02:24] LABS: Methylmalonic Acid 115 nmol/L (69-390)
[2025-03-17 13:29] LABS: Soluble Transferrin Receptor 2.41 mg/L (0.76-1.76)
== END 2025-03-12 15:30 | disposition home or self-care (01) ==
LOC: ANHLAB 15:30
PROVIDERS: PCP Internal Medicine; Visit Provider Internal Medicine Hematology & Oncology
DX: D64.9 Anemia, unspecified (principal)
CPT/HCPCS: 36415; 80053; 82607; 82728; 82746; 83540; 83550; 83615; 83921; 84238; 85025

== ENCOUNTER 2025-03-17 08:05 | Outpatient (CLI) | payer MEDICARE, MEDICAID, SELFPAY ==
--- OUTSIDE RECORDS SUMMARY | 2025-03-17 08:11 | XMS_ITS | CONTINUITY OF CARE DOCUMENT ---
Author Name nolan johnrenuka Address Unknown Organization [facility] Address [address] [address] [place] [address] Phone [phone] Care Team Providers Care Teller Vault Name Role Phone Danica ALMONTE, Venus Pickering Unavailable ISBAELLE ALMONTE, GRISEL Unavailable [phone] GRISEL WALTON MD Unavailable PROBLEMS Condition Status Date Provider Notes Rheumatoid Arthritis active Venus forbes MD Hyperlipidemia active Venus Mishra MD Hypertension active Venus Mishra MD G E R D active Venus Mishra MD Hx of pituitary tumor active Venus somers MD Preop cardiovasc. examination active Cristobal Mishra MD Cardiology examination active Venus nicole MD Cancer, gynecological active Venus somers MD Neuropathy active Venus Mishra MD Fibromyalgia active Venus Mishra MD Palpitations active Venus Mishra MD Abnormal electrocardiogram active Venus Mishra MD Carpal tunnel- bilateral s/p release active Venus Mishra MD ENCOUNTERS Date Type Provider Location Encounter Diag nosis 02/20 - 02/20 In-person encounter Office Visit Venus Mishra MD [facility] 08/06 - 08/13 In-person encounter Office Visit Venus Mishra MD [facility] 07/16 - 07/26 In-person encounter Office Visit Venus Mishra MD [facility] Rheumatoid ArthritisHyperlipidemiaHypert ensionG E R DHx of pituitary tumorPreop cardiovasc. examinationCardiology examinationCancer, gynecologicalNeuropathyFibromyalgiaPalpitationsAbnor mal electrocardiogramCarpal tunnel- bilateral s/p release VITAL SIGNS Date Observation Value Provider Body Mass Index (Ratio) 38.44 kg/m2 Herrera Mishra MD blood pressure, diastolic 88 mm[Hg] Violet weiss Joy blood pressure, systolic 162 mm[Hg] [facility] E&M 12 /min [facility] pulse rate 82 /min [facility] oxygen saturation, oximetry 97 % [facility] weight E&M 231 [lb_av] [facility] height E&M 65 [in_i] [facility] blood pressure, cuff size regular Violet weiss [place] Body Mass Index (Ratio) 37.60 kg/m2 Bao Crespo blood pressure, cuff size regular [facility] pressure, diastolic 92 mm[Hg] [facility] blood pressure, systolic 160 mm[Hg] [facility], oximetry 97 % [facility] pulse rate 64 /min [facility] respiratory rate E&M 12 /min [facility] weight E&M 226 [lb_av] [facility] height E&M 65 [in_i] [facility] Body Mass Index (Ratio) 37.44 kg/m2 Herrera Mishra MD blood pressure, diastolic 55 mm[Hg] Felicia Log blood pressure, systolic 145 mm[Hg] [facility] blood pressure, diastolic 55 mm[Hg] Felicia Log blood pressure, systolic 145 mm[Hg] [facility] blood pressure, cuff size regular Violet Joy blood pressure, diastolic 55 mm[Hg] Violet Joy blood pressure, systolic 145 mm[Hg] Teresa Joy oxygen saturation, oximetry 97 % Reba Joy respiratory rate E&M 14 /min Reba Joy pulse rate 84 /min Reba Joy weight E&M 225 [lb_av] Reba Joy height E&M 65 [in_i] Reba Joy ALLERGIES No Known Drug Allergies HISTORY OF MEDICATION USE Medication Status Instructions Dates Provider Indications Com ments albuterol sulfate 90 mcg/actuation HFA aerosol inhaler active INHALE 2 PUFFS BY MOUTH EVERY 4 HOURS NEEDED FOR ASTHMA Reba Joy duloxetine 30 mg capsule,delayed release(DR/EC) active Reba Joy folic acid 1 mg tablet active Reba Joy gabapentin 300 mg capsule active Reba Joy amlodipine 5 mg tablet active Reba Joy omeprazole 20 mg capsule,delayed release(DR/EC) active Reba Joy sulfasalazine 500 mg tablet,delayed release (DR/EC) active Reba Joy cetirizine 10 mg tablet active TAKE 1 TABLET BY MOUTH DAILY FOR 30 DAYS Reba Joy atorvastatin 40 mg tablet active Reba Joy INSURANCE PROVIDERS Payer name Policy type / Coverage type [place] red green party ID [facility] GR[facility] MEDICARE ADVANTAGE PLAN (PPO) Medicare [id number] ADVANCE DIRECTIVES Name Date DISCUSSED - NO DECISION MADE TREATMENT PLAN Date Name Performer Cardiology: H er updated medication list for this problem includes: Atorvastatin 40 Mg Tablet (Atorvastatin) Venus Mishra MD Cardiology:no new pa lps. H er updated medication list for this problem includes: Amlodipine 5 Mg Tablet (Amlodipine) Venus Mishra MD Cardiology: H er updated medication list for this problem includes: Amlodipine 5 Mg Tablet (Amlodipine) BP today: 162/88 P rior BP: 160/92 (08/06/2024) Venus Mishra MD Cardiology:CONCLUSIO NS: 1 . Normal left ventricular systolic function. Normal left ventricular size. Normal left ventricular wall thickness. There is E to A w ave reversal consistent with impaired LV relaxation. E/E': 7.9. Left ventricular ejection fraction is measured at 60 %. 2 . Mild enlargement of right ventricle. Normal right ventricular systolic function. 3 . The tricuspid valve is normal in appearance and function. There is mild tricuspid regurgitation. IVC is normal in size with n ormal respiratory response. The RA pressure is estimated at 5.0 mmHg. Estimated peak pulmonary artery systolic pressure i s 26.0 mmHg. E lectronically Signed By: Promise Mishra MD, [facility] 2 13:31:10 ENGINEERING TECHNICAL ANALYST CONCLUSIONS: 1 . Mild plaque with less than 50% stenosis of the internal carotid arteries bilaterally. 2 . Vertebral flow is antegrade bilaterally. E lectronically signed by Venus Mishra MD on 08/20/2024 at 1:18 AM C C: Venus Mishra MD, [facility] N UCLEAR stress 07/30/24 CONCLUSIONS: 1 . Normal sinus rhythm. Non-specific T wave abnormality. 2 . Normal Regadenoson ECG with no ischemic ST or T changes, following vasodilator stress. 3. Normal left ventricle size. 4 . Left Ventricular Ejection Fraction is 60 %. TID: 0.86. 5 . Normal myocardial perfusion imaging with no evidence of ischemia or scar. 6 . Breast attenuation artifact noted. Venus Mishra MD Cardiology: w ill repeat lipid panel H er updated medication list for this problem includes: Atorvastatin 40 Mg Tablet (Atorvastatin) Venus Mishra MD Cardiology: B P today: 160/92 P rior BP: 145/55 (07/16/2024) Her updated medication list for this problem includes: Amlodipine 5 Mg Tablet (Amlodipine) Venus Mishra MD Cardiology:NUCLEAR s tress 07/30/24 CONCLUSIONS: 1 . Normal sinus rhythm. Non-specific T wave abnormality. 2 . Normal Regadenoson ECG with no ischemic ST or T changes, following vasodilator stress. 3 . Normal left ventricle size. 4 . Left Ventricular Ejection Fraction is 60 %. TID: 0.86. 5 . Normal myocardial perfusion imaging with no evidence of ischemia or scar. 6 . Breast attenuation artifact noted. Venus Mishra MD Cardiology: Radha castellanos is candidate for cataract surgery E baljinder is pending she had nuc stress w/o ischemia will reviw echo T he patient denies episodes of chest pain nausea vomiting diaphoresis shortness of breath or ROSE or pounding/palpitations or loss of consciousness or presyncopal events. EKG demonstrated no significant change compared to prior. We reviewed patient's nuclear stress Upon review of invasive and noninvasive testing and recent exam the patient is an acceptable candidate for the planned cataract surgical procedure recommend to maintain his blood pressure range of 110 to 140 mmHg and a heart rate of 60-80 B p.m.. It is okay to use IV beta blockers calcium channel blockers nitrates and afterload reducing agents to maintain the aforementioned hemodynamics parameters. 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 Prior to providing risk assessment a nuclear stress test and echo will be performed. Venus Mishra MD Cardiology:will repe at lipid panel H er updated medication list for this problem includes: Atorvastatin 40 Mg Tablet (Atorvastatin) Venus Mishra MD Date Name EKG Complete Echo EKG Carotid Duplex Bilat eral Complete Echo Stress Regadenoson HISTORY OF PROCEDURES Procedure Date Procedure Name Provider Procedure Notes S tatus Complex e/m visit add on Venus Mishra MD completed EKG Venus Mishra MD compl eted Complex e/m visit add on Venus Mishra MD completed
--- OUTSIDE RECORDS SUMMARY | 2025-03-17 08:11 | XMS_ITS | Clinical Summary ---
Author Organization [facility] [address] Address [address] [place] [address] Care Team Providers Care Line Repairer Tower Name Role Phone Gal West MD Unavailable Jennifer Angel Unavailable Ethan Graves MD Unavailable Clem Ramos MD Unavailable [phone] Wilber Patterson MD Primary Care Provide [...] 07/13/2022 Assessment & Plan (09/07/2022 11:38 AM HOSPITAL ATTENDANT): Continues to have chronic left lower quadrant [...] degree. Assessment & Plan (12/02/2021 11:01 AM HOSPITAL ATTENDANT): At today's visit, describes pain in the [...] doses. Assessment & Plan (09/05/2024 4:09 PM HOSPITAL ATTENDANT): Continue to suspect that several factors are [...] exacerbate. Assessment & Plan (11/30/2023 1:41 PM HOSPITAL ATTENDANT): Continue to suspect that several factors are [...] time. Assessment & Plan (10/02/2023 4:10 PM HOSPITAL ATTENDANT): Continue to suspect that several factors are contributing to her chronic pain complaints, including degenerative arthritis, spondyloarthritis, small fiber neuropathy, fibromyalgia. Is currently on gabapentin 200 mg b.i.d. dizziness improve with reducing the dose. Encourage routine exercise, including [employer] today. Could consider switching gabapentin to Lyrica and or addition of Cymbalta Assessment & Plan (08/20/2023 2:07 PM HOSPITAL ATTENDANT): Continue to suspect that several factors are [...] today. Assessment & Plan (12/07/2022 12:48 PM HOSPITAL ATTENDANT): Do suspect that several factors are contributing [...] today. Assessment & Plan (09/07/2022 11:37 AM HOSPITAL ATTENDANT): Stable from last visit. Do suspect that [...] bid Assessment & Plan (12/02/2021 12:37 PM HOSPITAL ATTENDANT): Has rather diffuse pain complaints, including fibromyalgia [...] discussed. Assessment & Plan (09/05/2024 4:07 PM HOSPITAL ATTENDANT): Follows with venkata Ruiz. Suspect that this [...] gabapentin. Assessment & Plan (11/30/2023 1:42 PM HOSPITAL ATTENDANT): Follows with venkata Ruiz. Suspect that this [...] symptoms. Assessment & Plan (10/02/2023 4:10 PM HOSPITAL ATTENDANT): Follows with venkata Ruiz. Suspect that this [...] symptoms. Assessment & Plan (08/20/2023 2:06 PM HOSPITAL ATTENDANT): Follows with venkata Ruiz. Suspect that this [...] Ruiz. Assessment & Plan (12/07/2022 12:51 PM HOSPITAL ATTENDANT): Follows with venkata Ruiz. On nahed 200 mg bid. Reduced dose from 300 mg b.i.d. due to side effects. Assessment & Plan (09/07/2022 11:37 AM HOSPITAL ATTENDANT): Follows with venkata Ruiz. On nahed 100 [...] 11/2020 Assessment & Plan (10/02/2023 4:10 PM HOSPITAL ATTENDANT): Negative QuantiFERON 07/2021 Negative hepatitis panel 11/2020 Assessment & Plan (08/20/2023 2:06 PM HOSPITAL ATTENDANT): Negative QuantiFERON 07/2021 Negative hepatitis panel 11/2020 Assessment & Plan (07/05/2023 2:58 PM CDT): Negative QuantiFERON 07/2021 Negative hepatitis panel 11/2020 Assessment & Plan (03/08/2023 1:40 PM CDT): Negative QuantiFERON 07/2021 Negative hepatitis panel 11/2020 Assessment & Plan (12/07/2022 12:48 PM HOSPITAL ATTENDANT): Negative QuantiFERON 07/2021 Negative hepatitis panel 11/2020 Assessment & Plan (09/07/2022 11:36 AM HOSPITAL ATTENDANT): Negative QuantiFERON 07/2021 Negative hepatitis panel 11/2020 [...] 11/2020 Assessment & Plan (12/02/2021 10:58 AM HOSPITAL ATTENDANT): Negative QuantiFERON 07/2021 Negative hepatitis panel 11/2020 Assessment & Plan (10/21/2021 9:41 AM HOSPITAL ATTENDANT): Negative QuantiFERON 07/2021 Negative hepatitis panel 11/2020 Assessment & Plan (09/09/2021 11:24 AM HOSPITAL ATTENDANT): Negative QuantiFERON 07/2021 Negative hepatitis panel 11/2020 [...] week. Assessment & Plan (12/02/2021 12:34 PM HOSPITAL ATTENDANT): Negative myositis. Most recent labs 07/2021 revealed [...] neuropathy. Assessment & Plan (10/21/2021 9:44 AM HOSPITAL ATTENDANT): Negative myositis. Most recent labs 07/2021 revealed [...] neuropathy. Assessment & Plan (09/09/2021 11:22 AM HOSPITAL ATTENDANT): Negative myositis. Most recent labs 03/09/2021 revealed [...] hip flexion, 1/5 L hip flexion; 3/5 malreny knee extension/flexion. Suspect that her weakness is [...] Neurology. Assessment & Plan (12/07/2022 12:50 PM HOSPITAL ATTENDANT): Continues to note intermittent numbness and tingling in the right hand. No benefit with wrist bracing at night. She has had prior bilateral carpal tunnel release surgery. Had recent EMG that was unrevealing. Had skin biopsy that was consistent with small fiber neuropathy, per her report. Recommended cock-up wrist splint and follow-up with Neurology. Assessment & Plan (10/21/2021 9:44 AM HOSPITAL ATTENDANT): Continues to note intermittent numbness and tingling in the right hand. No benefit with wrist bracing at night. She has had prior bilateral carpal tunnel release surgery. Had recent EMG that was unrevealing. Had skin biopsy that was consistent with small fiber neuropathy, per her report. Assessment & Plan (09/09/2021 11:23 AM HOSPITAL ATTENDANT): Continues to note intermittent numbness and tingling [...] pulmonology Assessment & Plan (10/02/2023 4:10 PM HOSPITAL ATTENDANT): TTE 2023: Left ventricular ejection fraction 5-70%. [...] pulmonology Assessment & Plan (08/20/2023 2:06 PM HOSPITAL ATTENDANT): TTE 2023: Left ventricular ejection fraction 5-70%. [...] again. Assessment & Plan (12/07/2022 12:51 PM HOSPITAL ATTENDANT): History of asthma. Given worsened shortness of breath, obtain chest x-ray, PFT, TTE. Consider pulmonary evaluation, if symptoms persist. Assessment & Plan (01/20/2021 12:58 PM CDT): History of asthma. Recommended follow-up with c d still operator. Osteoarthritis of multiple joints 12/16/2020 Assessment & [...] complaints. Assessment & Plan (09/05/2024 4:08 PM HOSPITAL ATTENDANT): Hx of OA that is contributing to [...] 11/2023. Assessment & Plan (11/30/2023 1:41 PM HOSPITAL ATTENDANT): Hx of OA that is contributing to [...] time. Assessment & Plan (10/02/2023 4:11 PM HOSPITAL ATTENDANT): Hx of OA that is contributing to her chronic pain complaints. Have recommended OTC Voltaren gel applied to the affected knees p.r.n. Assessment & Plan (08/20/2023 2:05 PM HOSPITAL ATTENDANT): Hx of OA that is contributing to [...] p.r.n. Assessment & Plan (12/07/2022 12:47 PM HOSPITAL ATTENDANT): Hx of OA that is contributing to her chronic pain complaints. Have recommended OTC Voltaren gel applied to the affected knees p.r.n. Assessment & Plan (09/07/2022 11:36 AM HOSPITAL ATTENDANT): Hx of OA that is contributing to [...] complaints. Assessment & Plan (12/02/2021 10:57 AM HOSPITAL ATTENDANT): Do suspect that osteoarthritis is contributing to her chronic pain complaints, which is most notable in her lower back. Assessment & Plan (10/21/2021 9:41 AM HOSPITAL ATTENDANT): Do suspect that osteoarthritis is contributing to her chronic pain complaints. Previously noted that she was scheduled to see Podiatry to discuss feet complaints further. Assessment & Plan (09/09/2021 11:19 AM HOSPITAL ATTENDANT): Do suspect that osteoarthritis is contributing to [...] left replacement. positive CLAUDIO. Negative dsDNA, negative Shannon/INTERNAL COMMUNICATIONS SPECIALIST, negative chromatin, negative CCP Avise 12/10/2020: Positive [...] needed. Assessment & Plan (09/05/2024 4:06 PM HOSPITAL ATTENDANT): CDAI 18. Overall, joint symptoms have remained stable and improved from last visit, although does continue to have chronic discomfort and reduced casing operator strength in the bilateral hands. She also [...] visit. Assessment & Plan (11/30/2023 1:40 PM HOSPITAL ATTENDANT): CDAI 23. After last visit, Little begin [...] needed. Assessment & Plan (10/02/2023 4:12 PM HOSPITAL ATTENDANT): CDAI 14. After last visit, Little discontinued [...] Graves. Assessment & Plan (08/20/2023 2:05 PM HOSPITAL ATTENDANT): CDAI 17. At today's visit, she denies [...] needed. Assessment & Plan (12/07/2022 12:47 PM HOSPITAL ATTENDANT): CDAI 17. Since last visit, has remained [...] needed. Assessment & Plan (09/07/2022 11:35 AM HOSPITAL ATTENDANT): CDAI 11. Since last visit, has remained [...] azathioprine 50mg BID. Continue Simponi Aria IV [id number]. Routine labs today. Follow-up 4 weeks. Sooner [...] Crisostomo. Assessment & Plan (12/02/2021 12:38 PM HOSPITAL ATTENDANT): Ultrasound right foot/ankle 06/29/2021: 5th MTP erosion. [...] the bilateral hands and feet with reduced casing operator strength. Synovitis does persist on exam. Would like to allow the simponi aria more time to take effect. Will continue methotrexate 20 mg weekly, FA 1 mg daily, Simponi Aria infusions. Recommend otc tylenol. Routine labs today. Follow-up 4 weeks. Sooner if needed. Assessment & Plan (10/21/2021 9:41 AM HOSPITAL ATTENDANT): Ultrasound right foot/ankle 06/29/2021: 5th MTP erosion. [...] needed. Assessment & Plan (09/09/2021 11:18 AM HOSPITAL ATTENDANT): Ultrasound right foot/ankle 06/29/2021: 5th MTP erosion. [...] has persistent peripheral joint complaints with reduced casing operator strength. Synovitis does persist on exam. Did [...] Has persistent peripheral joint complaints with reduced casing operator strength. Some synovitis persist on exam. Again [...] Crisostomo. Assessment & Plan (12/02/2020 2:08 PM HOSPITAL ATTENDANT): 60 yoF with recent pos claudio presents [...] 07/21/2019 Assessment & Plan (09/05/2024 4:08 PM HOSPITAL ATTENDANT): ENT had apparently noted muscle nasal septum [...] (02/03/2019): Added automatically from request for surgery [id number] Obstructive sleep apnea syndrome 09/09/2018 Joint pain, [...] exercises. Assessment & Plan (12/02/2021 10:59 AM HOSPITAL ATTENDANT): L-spine x-ray 05/18/2021: Moderate to severe multilevel [...] exercises. Assessment & Plan (10/21/2021 9:42 AM HOSPITAL ATTENDANT): L-spine x-ray 05/18/2021: Moderate to severe multilevel [...] exercises. Assessment & Plan (09/09/2021 11:23 AM HOSPITAL ATTENDANT): L-spine x-ray 05/18/2021: Moderate to severe multilevel [...] Department Care Team Description 03/06/2025 Results Follow-Up [facility] [address] [place] [address] [phone] John Zabala PA Erythrocyte sedimentation rate, CRP (acute phase), Comprehensive metabolic panel, Additional followed-up results: 6 03/05/2025 9:00 AM CDT Office Visit [facility] [address] [place] [address] [phone] John Zabala PA Spondyloarthritis (Primary Dx); Osteoarthritis of multiple joints, unspecified osteoarthritis type; Fibromyalgia; Small fiber neuropathy; Chronic fatigue; Long-term use of high-risk medication; Vitamin D deficiency; Screening for hyperlipidemia from Last 3 Months Immunizations Immunization Administration Dates Next Due Hep B Vaccine 03/27/2001,11/27/2000,10/30/2000 Influenza, Quadrivalent, Beverley l Culture-based MDCK, Antibiotic Free, Intramuscular 07/17/2019 Influenza, Quadrivalent, Spl it, Preservative Free, Intramuscular 07/20/2021,07/11/2020,07/10/2020 Influenza, Trivalent, IM (MDV) 06/16/2016,2014,07/15/2014 Influenza, Trivalent, Preser vative Free, Intramuscular 07/04/2016,08/31/2014 PPD TEST 06/16/2016,06/09/2015,07/15/2014 Surgical History Surgery Date Site/Laterality Comments HYSTERECTOMY Total Hysterectomy - (Added by TW Conv) HI TRNSRAL SKULL BSE/BR STEM /CORD BX/DCOMPR/EXC LES Transsphenoidal Tumor Removal - (Added by TW Conv) HI CHOLECYSTECTOMY Cholecystectomy - (Added by TW Conv) [...] Depression Hx Other Medical Gastric Reflux; Comments: [facility] 03/24/2014 - Hx Other Medical Back Pain; Comm ents: [facility] 03/24/2014 - Hx Other Medical Diabetes, gesta tional 2009; Comments: [facility] 03/24/2014 - Hx Other Medical Poor Circulatio n; Comments: [facility] 03/24/2014 - Hx Other Medical Hysterectomy 20 06; Comments: [facility] 03/24/2014 - Hx Other Medical Gall Bladder; C omments: [facility] 03/24/2014 - Hx Other Medical Brain tumer 198 6; Comments: [facility] 03/24/2014 - Hx Other Medical Left leg cut me ningitus; Comments: [facility] 03/24/2014 - Personal history of other en docrine, nutritional and metabolic disease History of diabetes mellitus - (Added by TW Conv) Personal history of other di seases of the circulatory system History of hypertension - (A dded by TW Conv) Personal history of other di seases of the digestive system History of esophageal reflux - (Added by TW Conv) Pure hypercholesterolemia High c holesterol - (Added by TW Conv) 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 Sleep apnea Asthma GERD (gastroesophageal reflux disease) Obesity Kidney stone Numbness Family History Medical History Relation Name Comments Heart disease Brother 1 Family history of cardiac disorder - (Added by TW Conv) Arthritis Brother 2 Family history of arthritis - (Added by Conv) Hypertension Brother 3 Family history of hypertension - (Added by Conv) Gout Brother 4 Family history of gout - (Added by Conv) Diabetes Brother 5 Family history of diabetes mellitus - (Added by TW Conv) Stroke Brother 6 Family history of cerebrovascular accident (CVA) - (Added by Conv) Arthritis Father Family history of arthritis - (Added by Conv) Diabetes Father Family history of diabetes mellitus - (Added by TW Conv) Gout Father Family history of gout - (Added by TW Conv) Heart disease Father Family history of cardiac disorder - (Added by Conv) Heart failure Father Family history of congestive heart failure - (Added by Conv) Hypertension Father Family history of hypertension - (Added by Conv) Ovarian cancer Father Ovarian cance r - (Added by Conv) Arthritis Mother Family history of arthritis - (Added by Conv) Cancer Mother Family history of malignant neoplasm - (Added by Conv) Diabetes Mother Family history of diabetes mellitus - (Added by Conv) Heart failure Mother Family history of congestive heart failure - (Added by Conv) Hypertension Mother Family history of hypertension - (Added by Conv) Ovarian cancer Mother Ovarian cance r [...] y of kidney disease - (Added by Conv) Heart disease Other 8 Family history of cardiac disorder - (Added by Conv) Arthritis Other 9 Family history of arthritis - (Added by Conv) Hypertension Other 10 Family history of hypertension - (Added by Conv) Diabetes Other 11 Family history of diabetes mellitus - (Added by Conv) Cancer Other 12 Family history of malignant neoplasm - (Added by Conv) Heart failure Sister 1 Family history of congestive heart failure - (Added by Conv) Ovarian cancer Sister 2 Ovarian cance r - (Added by Conv) Heart disease Sister 3 Family history of cardiac disorder - (Added by Conv) Arthritis Sister 4 Family history of arthritis - (Added by Conv) Hypertension Sister 5 Family history of hypertension - (Added by Conv) Diabetes Sister 6 Family history of [...] on file Legal Sex Female 12:27 AM HOSPITAL ATTENDANT Gender Identity Not on file Sexual Orientation Not on file Obstetrics History Last Filed Vital Signs Vital Sign Reading Time Taken Comments Blood Pressure 154/80 03/05/2025 9:01 AM CDT Pulse 86 03/05/2025 9:01 AM CDT Temperature 36.3 C (97.3 F) 10/04/2024 12:40 PM HOSPITAL ATTENDANT Respiratory Rate 16 10/04/2024 12:4 0 PM HOSPITAL ATTENDANT Oxygen Saturation 94% 03/05/2025 9:01 AM CDT [...] Hemoglobin A1C 01/18/2022 07/20/2021, 02/18/2019 Covid-19 Vaccine (2023- 5 season) 2024 08/05/2021, 11/30/2020, 11/02/2020 Lipid Panel 03/05/2026 03/05/2025, 07/02, 03/18/2019 eGFR 03/05/2026 03/05/2025, 11/2024, 10/02/2024, Additional history exists Influenza Vaccine Completed 07/23/2024, , 07/11/2020, Additional history exists Medical Devices Implanted Type Area Shell Press Operator Device Identifier Shelf Expiration Date Model / Serial / Lot [employer] [id number] Springer 6.5mm 40mm Acetabular Cancellous Screw Bone Sterile - [id number] Implanted:Qty: 1 on 03/18/2019 by Lavelle Jacobson MD at [facility] Left: Hip [employer] [id number] / / [employer] [id number] Springer 52mm Sector Hip Shell Acetabular Gription Sterile Latex Free - [id number] Implanted:Qty: 1 on 03/18/2019 by Lavelle Jacobson MD at [facility] Left: Hip [employer] [id number] / / [employer] [id number] Springer 52mm 36mm Hip Neutral Liner Acetabular Altrx Sterile Latex Free - [id number] Implanted:Qty: 1 on 03/18/2019 by Lavelle Jacobson MD at [facility] Left: Hip [employer] [id number] / / [employer] [id number] Actis 105mm Collar Hip 5 High Offset Stem Femoral - [id number] Implanted:Qty: 1 on 03/18/2019 by Lavelle Jacobson MD at [facility] Left: Hip [employer] [id number] / / [employer] [id number] Articul/Sachin 36mm Cementless Hip +1.5mm 12/14 Taper Head Femoral Latex Free - [id number] Implanted:Qty: 1 on 03/18/2019 by Lavelle Jacobson MD at [facility] Left: Hip [employer] 11/26/2023 [id number] / / Procedures Procedure Name Priority Date/Time [...] to Health Maintenance Results * Thyroid Function [place] (03/05/2025 9:43 AM CDT) Pathologist [facility] TSH 1.28 0.40 - 4.50 mIU/L [facility] Blood 03/05/2025 9:43 AM CDT 03/05/2025 9:43 AM CDT Narrative [facility] - 03/06/2025 4:20 AM CDT FASTING:YES FASTING: YES us John GONZALEZ LAB BLOOD ORDERABLES [facility] Result [facility] [address] [facility] [place] [phone] * (ABNORMAL) CBC with auto differential (03/05/2025 9:43 AM CDT) Pathologist [facility] WBC 4.7 3.8 - 10.8 Thousand/u L [...] LAB BLOOD ORDERABLES nal Result [facility] [address] [place] [address] * Vitamin D 25 hydroxy (03/05/2025 9:43 AM CDT) Pathologist [facility] Vitamin D 25-OH 59 30 - 100 [...] D, (D2,D3), LC/MS/MS is recommended: order code 61808 (patients >2yrs). See Note 1 Note 1 For additional information, please refer to http://education.for; to (do).[facility]/faq/BPU130 (This link is being provided for informational/ educational purposes only.) 03/05/2025 9:43 AM CDT 03/05/2025 9:43 AM CDT Narrative [facility] - 03/06/2025 4:20 AM CDT FASTING:YES FASTING: YES John GONZALEZ LAB BLOOD ORDERABLES Fi nal Result Performing Organization Address [facility] de Phone Number [facility] [address] [place] [address] * (ABNORMAL) Erythrocyte sedimentation rate (03/05/2025 9:43 AM CDT) [facility] Erythrocyte sedimentation rate 36(H) < OR = 30 mm/h [facility] Blood 03/05/2025 9:43 AM CDT 03/05/2025 9:43 AM CDT Narrative [facility] - 03/06/2025 4:20 AM CDT FASTING:YES FASTING: YES John GONZALEZ LAB BLOOD ORDERABLES Fi nal Result Performing Organization Address [facility] de Phone Number [facility] [address] [place] [address] * CRP (acute phase) (03/05/2025 9:43 AM CDT) [facility] C-RP 3.9 <8.0 mg/L [facility] Blood 03/05/2025 9:43 AM CDT 03/05/2025 9:43 AM CDT Narrative [facility] - 03/06/2025 4:20 AM CDT FASTING:YES FASTING: YES John GONZALEZ LAB BLOOD ORDERABLES Fi nal Result Performing Organization Address [facility] de Phone Number [facility] [address] [place] [address] * Folate (03/05/2025 9:43 AM CDT) [facility] Folate, Serum >24.0 ng/mL [facility] Comment: Reference Range Low: <3.4 Borderline: 3.4-5.4 Normal: >5.4 03/05/2025 9:43 AM CDT 03/05/2025 9:43 AM CDT Narrative [facility] - 03/06/2025 4:20 AM CDT FASTING:YES FASTING: YES John GONZALEZ LAB BLOOD ORDERABLES Fi nal Result Performing Organization Address [facility] Co de Phone Number [facility] [address] [place] [address] * Vitamin B12 (03/05/2025 9:43 AM CDT) Pathologist [facility] Vitamin B12 460 200 - 1,100 pg/mL [facility] 03/05/2025 9:43 AM CDT 03/05/2025 9:43 AM CDT Narrative [facility] - 03/06/2025 4:20 AM CDT FASTING:YES FASTING: YES John GONZALEZ LAB BLOOD ORDERABLES Fi nal Result Performing Organization Address [facility] de Phone Number [facility] [address] [place] [address] * Lipid panel (03/05/2025 9:43 AM CDT) Cholesterol 137 <200 mg/dL [facility] [...] LDL-C. Librado ROTH et al. THIAGO. 2013;310(19): 3796-1479 (http://education.for; to (do).[facility]/faq/NIE626) Chol/HDL ratio 2.5 <5.0 (calc) [facility] [...] YES us John GONZALEZ LAB BLOOD ORDERABLES nal Result [facility] [address] [facility] [place] [address] * (ABNORMAL) Comprehensive metabolic panel (03/05/2025 9:43 AM CDT) Pathologist [facility] Glucose 128(H) 65 - 99 mg/dL [facility] [...] ORDERABLES Fi nal Result Performing Organization Address City/[facility]/ZIP Co de Phone Number [facility] [address] [place] [address] * (ABNORMAL) Hemoglobin A1c (07/20/2021 7:47 AM CDT) [facility] Hgb A1C 6.4(H) 4.0 - 5.6 % [facility] Estimated Average Glucose 137 mg/dL [facility] Comment: The ADA recommends reporting an estimated Average Glucose (eAG) with all Hemoglobin A1c results using the equation derived from a study of 507 normal and diabetic adults. Minority populations were underrepresented and children were not included. (Diabetes Care 31:9488-6288, 2008). The eAG is not equivalent to a fasting glucose. Blood 07/20/2021 7:47 AM CDT 07/20/2021 7:50 AM CDT Zoltan Wick MD LAB BLOOD ORDERABLES F inal Result [facility] [address] [address] [place] [address] * Screening Mammogram 2D Bilateral (12/19/2012 1:37 [...] Recently Relevant to Health Maintenance Insurance IDPA IDPA [facility] MEDICARE ADVANTAGE [facility] MEDICARE Address: [address] [address] [place] [address] Advance Directives For more information, please contact: [phone] * Full Code (Latest Code Status on File) Date Activated Date Inactivated Comments 10/02/2024 6:05 PM 10/04/2024 9:43 PM * Full Code Date Activated Date Inactivated Comments 07/20/2021 3:57 AM 07/20/2021 4:57 PM * Full Code Date Activated Date Inactivated Comments 03/18/2019 3:50 PM 03/19/2019 8:30 PM Care Teams Line Repairer Tower Relationship Specialty Start Date End Date Wilber Patterson MD [address] [facility] [address] [place] [address] PCP - General Internal Medicine 06/16/24 Gal West MD [address] [place] [address] Referring Physician Neurology 03/23/21 Jennifer Angel PA [address] [place] [address] Physician Wooden Furniture Polisher Physician Wooden Furniture Polisher 03/01/22 Ethan Graves MD [address] [place] [address] Consulting Physician Rheumatology 08/31/23 Clem Ramos MD [address] [place] [address] Referring Physician General Surgery 09/12/23
--- OUTSIDE RECORDS SUMMARY | 2025-03-17 08:11 | XMS_ITS | Clinical Summary ---
Author Organization [facility] Address [address] [place] [address] Phone Care Team Providers Care Rn Immunology Name Role Phone Christo Patterson MD Primary [...] Encounters Date Type Department Care Team Description 03/13/2025 Orders Only [facility] [address] [place] [address] Joselo Keller MD 03/12/2025 3:00 PM CDT Office Visit [facility] - [address] [place] [address] Joselo Keller MD Chronic anemia (Primary Dx) [...] 03/26/2025 4:30 PM CDT Telephone Check Up [facility] - [address] [facility] [address] [place] [address] Joselo Keller MD [address] [facility] [address] [place] [address] Health Maintenance Due Date Last Done Comments DIABETES ANNUAL FOOT EXAM 01/10/1980 DIABETES ANNUAL RETINAL EXAM 01/10/1980 DIABETES MICROALBUMIN ANNUAL SCREEN 01/10/1980 LDL CHOLESTEROL ANNUAL 01/10/1980 DTAP/TDAP/TD VACCINES (1 - Tdap) 1981 FIT-DNA Q 3 years 2007 FIT/FOBT Q 1 year 2007 Flex Sig/CT Colonography Q 5 years 2007 ZOSTER VACCINE (1 of 2) 01/10/2012 BREAST CANCER SCREENING 12/19/2013 12/19/2012 RSV VACCINE (60+ or ) (1 - Risk 60-74 years 1-dose series) 2022 DIABETES HBA1C Q 6 MONTHS 01/18/2022 07/20/2021 COVID-19 Vaccine (4 - 2023-2 5 season) 2024 08/05/2021, 11/30/2020, 11/02/2020 COLORECTAL SCREENING 03/27/2027 03/27/2017 Colorectal Cancer Screening 03/27/2027 INFLUENZA VACCINE Completed 07/23/2024, , 07/11/2020, Additional history exists Procedures Procedure Name Priority Date/Time Associated Diagnosis Comments COMPREHENSIVE METABOLIC PANEL Routine 03/12/2025 10:35 AM CDT COMPREHENSIVE METABOLIC PANEL Routine 03/12/2025 10:19 AM CDT CBC WITH AUTODIFFERENTIAL Routine 2024 10:05 AM CDT from Last 3 Months Results * COMPREHENSIVE METABOLIC PANEL (03/12/2025 10:35 AM CDT) Only the most recent of2 resultswithin the time period is included. Blood Joselo Keller MD CHEMISTRY ORDERABLES Final Resu lt * CBC WITH AUTODIFFERENTIAL (03/12/2025 10:05 AM CDT) Blood us Joselo Keller MD HEMATOLOGY ORDERABLES Final Res ult from Last 3 Months Insurance [place] Advance Directives For more information, please contact: [phone] * Full Code (Latest Code Status on File) Date Activated Date Inactivated Comments 08/25/2024 2:00 AM 08/27/2024 7:33 PM Care Teams Rn Immunology Relationship Specialty Start Date End Date Christo Patterson MD [address] [place] [address] PCP - General Internal Medicine 08/25/24
--- OUTSIDE RECORDS SUMMARY | 2025-03-17 08:11 | XMS_ITS | Encounter Summary ---
Author Organization [facility] Address [address] [place] [address] Phone Care Team Providers Care Bung Dropper Name Role Phone Gal Decker MD Unavailable Jennifer Angel Unavailable [phone] Ethan Graves MD Unavailable [phone] Clem Ramos MD Unavailable [phone] Wilber Patterson MD Primary Care Provide r Encounter Details Date Type Department Care Team (Latest Contact Info) Description 03/06/2025 Results Follow-Up [facility] [address] [place] [address] John Zabala PA [address] [place] [address] Erythrocyte sedimentation rate, CRP (acute [...] on file Legal Sex Female 12:27 AM GLUE COOK Gender Identity Not on file Sexual Orientation Not on file documented as of this encounter Plan of Treatment Not on file documented as of this encounter Visit Diagnoses Not on filedocumented in this encounter Care Teams Bung Dropper Relationship Specialty Start Date End Date Wilber Patterson MD [address] [place] [address] PCP - General Internal Medicine 06/16/24 Gal Decker MD [address] [facility] [address] [place] [address] Referring Physician Neurology 03/23/21 Jennifer Angel PA [address] [place] [address] Physician Student Services Representative Physician Student Services Representative 03/01/22 Ethan Graves MD [address] [facility] [address] [place] [address] Consulting Physician Rheumatology 08/31/23 Clem Ramos MD [address] [place] [address] Referring Physician General Surgery 09/12/23 documented as of this encounter
--- OUTSIDE RECORDS SUMMARY | 2025-03-17 08:11 | XMS_ITS | Patient Health Record ---
Author Organization [facility] Address [address] [facility] [address] [place] [address] Care Team Providers Care Director Personal Name Role Phone Chadwick Schwartz MD Primary Care Provider UnavailSteve Vieira Unavailable [phone] Yesy Dillard Unavailable [phone] Allergies No Known Allergies Reason For Referral No Information Medications Medication SIG (Take, Route, Frequency, Duration) Notes Start Date End Date Status Albuterol Active sulfaSALAzine Active Omeprazole 20 MG 1 capsule 30 minutes before morning meal Orally daily for 90 days 01/02/2022 Active Golimumab Active OTC/Vitamins Vit D3, Calcium, ASA, [place] 3, Folic Acid, Biotin, Vit E, Magnesium Active amLODIPine Besylate Active Gabapentin Active Social History Tobacco Use: Social History Observation Description Date Details (start date - stop date) Never Smoker NA - NA Tobacco Use/Smoking Question Answer Notes Are you a nonsmoker Section Notes: 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, 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, 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 Problem 108041671 GERD (gastroesophagea l reflux disease) (K21.9) Active confirmed Problem 882982575 Family history of colon cancer (Z80.0) Active confirmed This is in patient's father. Problem 670827400 History of colon polyps (Z86.010) Active confirmed Last colono scopy in 11/2019 revealed diverticulosis and hemorrhoids. It recommended to repeat in 2024. Patient lacks alarm symptoms. Problem 082643447 Diverticulosis (K57.90) Active confirmed She was found t o have sigmoid diverticulosis on her last colonoscopy. She is asymptomatic with negative exam findings today. She continues to use Metamucil. Problem 6367780 Diverticulosis large intestine w/o perforation or abscess w/bleeding (K57.31) Active confirmed Problem 742676380 Nonalcoholic fatty liver disease (K76.0) Active confirmed Found on ultrasound in 11/2021. Liver enzymes mildly elevated. Discussed diet, exercise and weight loss. Problem 100815425 H. pylori infection (A04.8) Active confirmed Patient was found to be H. pylori positive on labs. She was treated with Biaxin, amoxicillin and pantoprazole with a mild improvement. We discussed continuing omeprazole at a higher dose. We will check for eradication Problem 813177818 Malabsorption (K90.9) Active confirmed Problem 922277129 Alternating constipation and diarrhea (R19.8) Active confirmed Problem 99566902 Esophageal dysphagia (R13.19) Active confirmed She reports [...] 04/10/2024 Encounters Encounter Location Date Provider Diagnosis [facility] [place] [address] 04/10/2024 Yesy Dillard GERD (gastroesophage al reflux disease) K21.9 ; Alternating constipation and diarrhea R19.8 and History of colon polyps Z86.010 [facility] [address] [facility] [place] [address] 03/21/2024 [facility] [address] [facility] [place] [address] 04/10/2024 Steve Sol Assessments Encounter Date Diagnosis [...] Date [employer] PPO E2 [address] [place] [address] [id number] Little Sarmiento Self - patient is the [...]
--- OUTSIDE RECORDS SUMMARY | 2025-03-17 08:11 | XMS_ITS ---
Author Organization [facility] Address [address] [place] [address] [place] [address] Care Team Providers Care Eyelet Machine Operator Name Role Phone MD ISABELLE, GRISEL Primary Care Provider U lori WhitleyamberCristi yip Unavailable [phone] REASON FOR VISIT Left > Right Low Back Pain, Right = Left Lower Extremity Pain MEDICATIONS Medication SIG (Take, Route, Frequency, Duration) Notes Start Date End Date Status Hydroxychloroquine Sulfate 200 MG as directed Oral Active Vitamin D3 1.25 MG (44410 UT) 1 capsule Oral Once a day [...] HCl 10 MG TAKE 1 TABLET BY [facility] EVERY DAY Oral for 30 Active Neurontin [...] for 30 day(s) Active Cholecalciferol 1.25 MG (22210 UT) 1 capsule Orally Once a day [...] Location Date Provider Diagnosis [facility] [address] [place] [address] 08/04/2024 Cristi Cecilia Sacroiliitis, not elsewhere classified [...] discharged home in good condition with a six horse hitch driver. X-ray time: 17 seconds Progress Notes [...] patient's typical axial low back pain. Silver's, Calhan's and Gaenslen's are positive on the left. [...]
--- OUTSIDE RECORDS SUMMARY | 2025-03-17 08:11 | XMS_ITS | Clinical Summary ---
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
--- OUTSIDE RECORDS SUMMARY | 2025-03-17 08:11 | XMS_ITS ---
Author Organization [facility] Address [address] [place] [address] [address] [place] [address] Care Team Providers Care Stage Set Up Worker Name Role Phone Chadwick Schwartz MD Primary Care Provider UnavailSteve Vieira Unavailable [phone] Any Bui Unavailable [phone] REASON FOR VISIT Annual f/u Encounters Encounter Location Date Provider Diagnosis [facility] [address] [place] [address] [address] [place] [address] 02/08/2024 Any Bui Plan Of Treatment No Information Progress Notes * Little SARMIENTO EDOB:1959 (65 yo F)Acc No.[id number]:02/08/2024 Patient: Zack MEYERaine Janet Provider: MAXIM Culver :1960 A ge:64 Y S ex:Female Date:02/08/2024 Address:[facility] [address] [place], [place] [id number] Pcp:Chadwick Schwartz MD Subjective: * Chief Complaints: * 1 . Annual f/u. * Medical History: Objective: * Vitals: Assessment: Plan: * Treatment: * Images: * Electronic signature of MAXIM Thurston on 03/17/2025 at 08:11 AM CDT Sign off status: Pending * Provider: MAXIM Culver Date: 0 02/08/2024 Generated for Macy jacome/Ernestine/Maryitting on: 0 03/17/2025 08:11 AM CDT
--- OUTSIDE RECORDS SUMMARY | 2025-03-17 08:11 | XMS_ITS | Referral Summary ---
Author Organization [facility] [address] Address [address] [place] [address] Care Team Providers Care Social Worker Palliative Care Name Role Phone Gal West MD Unavailable Jennifer Angel Unavailable [phone] Ethan Graves MD Unavailable Clem Ramos MD Unavailable [phone] Wilber Patterson MD Primary Care Provide r Encounters Date Type Department Care Team Description 03/06/2025 Results Follow-Up [facility] [address] [place] [address] John Zabala PA Erythrocyte sedimentation rate, CRP (acute phase), Comprehensive metabolic panel, Additional followed-up results: 6 03/05/2025 9:00 AM CDT Office Visit [facility] [address] [place] [address] John Zabala PA Spondyloarthritis (Primary Dx); Osteoarthritis of multiple joints, unspecified osteoarthritis type; Fibromyalgia; Small fiber neuropathy; Chronic fatigue; Long-term use of high-risk medication; Vitamin D deficiency; Screening for hyperlipidemia from Last 3 Months Allergies No known [...] 07/13/2022 Assessment & Plan (09/07/2022 11:38 AM PORTRAIT PAINTER): Continues to have chronic left lower quadrant [...] degree. Assessment & Plan (12/02/2021 11:01 AM PORTRAIT PAINTER): At today's visit, describes pain in the [...] doses. Assessment & Plan (09/05/2024 4:09 PM PORTRAIT PAINTER): Continue to suspect that several factors are [...] exacerbate. Assessment & Plan (11/30/2023 1:41 PM PORTRAIT PAINTER): Continue to suspect that several factors are [...] time. Assessment & Plan (10/02/2023 4:10 PM PORTRAIT PAINTER): Continue to suspect that several factors are contributing to her chronic pain complaints, including degenerative arthritis, spondyloarthritis, small fiber neuropathy, fibromyalgia. Is currently on gabapentin 200 mg b.i.d. dizziness improve with reducing the dose. Encourage routine exercise, including [employer] today. Could consider switching gabapentin to Lyrica and or addition of Cymbalta Assessment & Plan (08/20/2023 2:07 PM PORTRAIT PAINTER): Continue to suspect that several factors are [...] today. Assessment & Plan (12/07/2022 12:48 PM PORTRAIT PAINTER): Do suspect that several factors are contributing [...] today. Assessment & Plan (09/07/2022 11:37 AM PORTRAIT PAINTER): Stable from last visit. Do suspect that [...] bid Assessment & Plan (12/02/2021 12:37 PM PORTRAIT PAINTER): Has rather diffuse pain complaints, including fibromyalgia [...] (03/05/2025 9:33 AM CDT): Follows with Dr. West neuromuscular. Suspect [...] discussed. Assessment & Plan (09/05/2024 4:07 PM PORTRAIT PAINTER): Follows with Dr. West neuromuscular. Suspect that [...] Plan (04/11/2024 12:38 PM CDT): Follows with Dr. West neuromuscular. [...] gabapentin. Assessment & Plan (11/30/2023 1:42 PM PORTRAIT PAINTER): Follows with venkata Ruiz. Suspect that this [...] symptoms. Assessment & Plan (10/02/2023 4:10 PM PORTRAIT PAINTER): Follows with venkata Ruiz. Suspect that this [...] symptoms. Assessment & Plan (08/20/2023 2:06 PM PORTRAIT PAINTER): Follows with venkata Ruiz. Suspect that this [...] Ruiz. Assessment & Plan (12/07/2022 12:51 PM PORTRAIT PAINTER): Follows with venkata Ruiz. On nahed 200 mg bid. Reduced dose from 300 mg b.i.d. due to side effects. Assessment & Plan (09/07/2022 11:37 AM PORTRAIT PAINTER): Follows with venkata Ruiz. On nahed 100 [...] Plan (04/21/2022 3:08 PM CDT): Follows with Dr. West neuromuscular. On nahed 300 mg BID. Assessment & [...] 11/2020 Assessment & Plan (10/02/2023 4:10 PM PORTRAIT PAINTER): Negative QuantiFERON 07/2021 Negative hepatitis panel 11/2020 Assessment & Plan (08/20/2023 2:06 PM PORTRAIT PAINTER): Negative QuantiFERON 07/2021 Negative hepatitis panel 11/2020 Assessment & Plan (07/05/2023 2:58 PM CDT): Negative QuantiFERON 07/2021 Negative hepatitis panel 11/2020 Assessment & Plan (03/08/2023 1:40 PM CDT): Negative QuantiFERON 07/2021 Negative hepatitis panel 11/2020 Assessment & Plan (12/07/2022 12:48 PM PORTRAIT PAINTER): Negative QuantiFERON 07/2021 Negative hepatitis panel 11/2020 Assessment & Plan (09/07/2022 11:36 AM PORTRAIT PAINTER): Negative QuantiFERON 07/2021 Negative hepatitis panel 11/2020 [...] 11/2020 Assessment & Plan (12/02/2021 10:58 AM PORTRAIT PAINTER): Negative QuantiFERON 07/2021 Negative hepatitis panel 11/2020 Assessment & Plan (10/21/2021 9:41 AM PORTRAIT PAINTER): Negative QuantiFERON 07/2021 Negative hepatitis panel 11/2020 Assessment & Plan (09/09/2021 11:24 AM PORTRAIT PAINTER): Negative QuantiFERON 07/2021 Negative hepatitis panel 11/2020 [...] week. Assessment & Plan (12/02/2021 12:34 PM PORTRAIT PAINTER): Negative myositis. Most recent labs 07/2021 revealed [...] neuropathy. Assessment & Plan (10/21/2021 9:44 AM PORTRAIT PAINTER): Negative myositis. Most recent labs 07/2021 revealed CK of 636 and aldolase WNL. Strength testing 5/5 UE/LE on exam. Suspect that her weakness is likely coming from her chronic lower back pain. With that said, given her persistent CK elevations, she has been evaluated by Dr. West, neuromuscular. EMG per Dr. Gnocalves was negative. She notes she did have skin biopsy displaying evidence for small fiber neuropathy. Assessment & Plan (09/09/2021 11:22 AM PORTRAIT PAINTER): Negative myositis. Most recent labs 03/09/2021 revealed [...] Neurology. Assessment & Plan (12/07/2022 12:50 PM PORTRAIT PAINTER): Continues to note intermittent numbness and tingling in the right hand. No benefit with wrist bracing at night. She has had prior bilateral carpal tunnel release surgery. Had recent EMG that was unrevealing. Had skin biopsy that was consistent with small fiber neuropathy, per her report. Recommended cock-up wrist splint and follow-up with Neurology. Assessment & Plan (10/21/2021 9:44 AM PORTRAIT PAINTER): Continues to note intermittent numbness and tingling in the right hand. No benefit with wrist bracing at night. She has had prior bilateral carpal tunnel release surgery. Had recent EMG that was unrevealing. Had skin biopsy that was consistent with small fiber neuropathy, per her report. Assessment & Plan (09/09/2021 11:23 AM PORTRAIT PAINTER): Continues to note intermittent numbness and tingling [...] pulmonology Assessment & Plan (10/02/2023 4:10 PM PORTRAIT PAINTER): TTE 2023: Left ventricular ejection fraction 5-70%. [...] pulmonology Assessment & Plan (08/20/2023 2:06 PM PORTRAIT PAINTER): TTE 2023: Left ventricular ejection fraction 5-70%. [...] again. Assessment & Plan (12/07/2022 12:51 PM PORTRAIT PAINTER): History of asthma. Given worsened shortness of breath, obtain chest x-ray, PFT, TTE. Consider pulmonary evaluation, if symptoms persist. Assessment & Plan (01/20/2021 12:58 PM CDT): History of asthma. Recommended follow-up with cardiac tech. Osteoarthritis of multiple joints 12/16/2020 Assessment & [...] complaints. Assessment & Plan (09/05/2024 4:08 PM PORTRAIT PAINTER): Hx of OA that is contributing to [...] 11/2023. Assessment & Plan (11/30/2023 1:41 PM PORTRAIT PAINTER): Hx of OA that is contributing to [...] time. Assessment & Plan (10/02/2023 4:11 PM PORTRAIT PAINTER): Hx of OA that is contributing to her chronic pain complaints. Have recommended OTC Voltaren gel applied to the affected knees p.r.n. Assessment & Plan (08/20/2023 2:05 PM PORTRAIT PAINTER): Hx of OA that is contributing to [...] p.r.n. Assessment & Plan (12/07/2022 12:47 PM PORTRAIT PAINTER): Hx of OA that is contributing to her chronic pain complaints. Have recommended OTC Voltaren gel applied to the affected knees p.r.n. Assessment & Plan (09/07/2022 11:36 AM PORTRAIT PAINTER): Hx of OA that is contributing to [...] complaints. Assessment & Plan (12/02/2021 10:57 AM PORTRAIT PAINTER): Do suspect that osteoarthritis is contributing to her chronic pain complaints, which is most notable in her lower back. Assessment & Plan (10/21/2021 9:41 AM PORTRAIT PAINTER): Do suspect that osteoarthritis is contributing to her chronic pain complaints. Previously noted that she was scheduled to see Podiatry to discuss feet complaints further. Assessment & Plan (09/09/2021 11:19 AM PORTRAIT PAINTER): Do suspect that osteoarthritis is contributing to [...] left replacement. positive CLAUDIO. Negative dsDNA, negative Shannon/SUPERVISOR REMELT, negative chromatin, negative CCP Avise 12/10/2020: Positive [...] needed. Assessment & Plan (09/05/2024 4:06 PM PORTRAIT PAINTER): CDAI 18. Overall, joint symptoms have remained stable and improved from last visit, although does continue to have chronic discomfort and reduced pull tab dealer strength in the bilateral hands. She also [...] visit. Assessment & Plan (11/30/2023 1:40 PM PORTRAIT PAINTER): CDAI 23. After last visit, Little begin [...] needed. Assessment & Plan (10/02/2023 4:12 PM PORTRAIT PAINTER): CDAI 14. After last visit, Little discontinued [...] Graves. Assessment & Plan (08/20/2023 2:05 PM PORTRAIT PAINTER): CDAI 17. At today's visit, she denies [...] needed. Assessment & Plan (12/07/2022 12:47 PM PORTRAIT PAINTER): CDAI 17. Since last visit, has remained [...] needed. Assessment & Plan (09/07/2022 11:35 AM PORTRAIT PAINTER): CDAI 11. Since last visit, has remained [...] azathioprine 50mg BID. Continue Simponi Aria IV [id number]. Routine labs today. Follow-up 4 weeks. Sooner [...] Crisostomo. Assessment & Plan (12/02/2021 12:38 PM PORTRAIT PAINTER): Ultrasound right foot/ankle 06/29/2021: 5th MTP erosion. [...] the bilateral hands and feet with reduced pull tab dealer strength. Synovitis does persist on exam. Would like to allow the simponi aria more time to take effect. Will continue methotrexate 20 mg weekly, FA 1 mg daily, Simponi Aria infusions. Recommend otc tylenol. Routine labs today. Follow-up 4 weeks. Sooner if needed. Assessment & Plan (10/21/2021 9:41 AM PORTRAIT PAINTER): Ultrasound right foot/ankle 06/29/2021: 5th MTP erosion. [...] needed. Assessment & Plan (09/09/2021 11:18 AM PORTRAIT PAINTER): Ultrasound right foot/ankle 06/29/2021: 5th MTP erosion. [...] has persistent peripheral joint complaints with reduced pull tab dealer strength. Synovitis does persist on exam. Did [...] Has persistent peripheral joint complaints with reduced pull tab dealer strength. Some synovitis persist on exam. Again [...] Crisostomo. Assessment & Plan (12/02/2020 2:08 PM PORTRAIT PAINTER): 60 yoF with recent pos claudio presents [...] 07/21/2019 Assessment & Plan (09/05/2024 4:08 PM PORTRAIT PAINTER): ENT had apparently noted muscle nasal septum [...] (02/03/2019): Added automatically from request for surgery [id number] Obstructive sleep apnea syndrome 09/09/2018 Joint pain, [...] exercises. Assessment & Plan (12/02/2021 10:59 AM PORTRAIT PAINTER): L-spine x-ray 05/18/2021: Moderate to severe multilevel [...] exercises. Assessment & Plan (10/21/2021 9:42 AM PORTRAIT PAINTER): L-spine x-ray 05/18/2021: Moderate to severe multilevel [...] exercises. Assessment & Plan (09/09/2021 11:23 AM PORTRAIT PAINTER): L-spine x-ray 05/18/2021: Moderate to severe multilevel [...] on file Legal Sex Female 12:27 AM PORTRAIT PAINTER Gender Identity Not on file Sexual Orientation Not on file Last Filed Vital Signs Vital Sign Reading Time Taken Comments Blood Pressure 154/80 03/05/2025 9:01 AM CDT Pulse 86 03/05/2025 9:01 AM CDT Temperature 36.3 C (97.3 F) 10/04/2024 12:40 PM PORTRAIT PAINTER Respiratory Rate 16 10/04/2024 12:4 0 PM PORTRAIT PAINTER Oxygen Saturation 94% 03/05/2025 9:01 AM CDT Inhaled Oxygen Concentration - - Weight 105.3 kg (232 lb 3.2 oz) 03/05/2025 9:01 AM CDT Height 162.6 cm (5' 4) 03/05/2025 9:01 AM CDT Body Mass Index 39.86 03/05/2025 9:01 AM CDT Plan of Treatment Not on file Medical Devices Implanted Type Area Barrel Assembler Device Identifier Shelf Expiration Date Model / Serial / Lot Dep [employer] [id number] [place] 6.5mm 40mm Acetabular Cancellous Screw Bone Sterile - [id number] Implanted:Qty: 1 on 03/18/2019 by Lavelle Jacobson MD at [facility] Left: Hip Depuy [employer] [id number] / / Depuy [employer] [id number] [place] 52mm Sector Hip Shell Acetabular Gription Sterile Latex Free - [id number] Implanted:Qty: 1 on 03/18/2019 by Lavelle Jacobson MD at [facility] Left: Hip Depuy [employer] [id number] / / Depuy [employer] [id number] [place] 52mm 36mm Hip Neutral Liner Acetabular Altrx Sterile Latex Free - [id number] Implanted:Qty: 1 on 03/18/2019 by Lavelle Jacobson MD at [facility] Left: Hip Depuy [employer] [id number] / / Depuy [employer] [id number] Actis 105mm Collar Hip 5 High Offset Stem Femoral - [id number] Implanted:Qty: 1 on 03/18/2019 by Lavelle Jacobson MD at [facility] Left: Hip Depuy [employer] [id number] / / Depuy [employer] [id number] Articul/S[place]in 36mm Cementless Hip +1.5mm 12/14 Taper Head Femoral Latex Free - [id number] Implanted:Qty: 1 on 03/18/2019 by Lavelle Jacobson MD at [facility] Left: Hip Depuy [employer] 11/26/2023 [id number] / / Procedures Procedure Name Priority Date/Time [...] to Health Maintenance Results * Thyroid Function [place] (03/05/2025 9:43 AM CDT) TSH 1.28 0.40 - 4.50 mIU/L [facility] Blood 03/05/2025 9:43 AM CDT 03/05/2025 9:43 AM CDT Narrative [facility] - 03/06/2025 4:20 AM CDT FASTING:YES FASTING: YES John GONZALEZ LAB BLOOD ORDERABLES Fi nal Result [facility] [address] [place] [address] * (ABNORMAL) CBC with auto differential (03/05/2025 [...] BLOOD ORDERABLES Fi nal Result [facility] [address] [address] [place] [address] * Vitamin D 25 hydroxy (03/05/2025 9:43 AM CDT) Pathologist [facility] Vitamin D 25-OH 59 30 - 100 ng/mL [facility] Comment: Vitamin D Status 25-OH Vitamin D: Deficiency: <20 ng/mL Insufficiency: 20 - 29 ng/mL Optimal: > or = 30 ng/mL For 25-OH Vitamin D testing on patients on D2-supplementation and patients for whom quantitation of D2 and D3 fractions is required, the QuestAssureD(TM) 25-OH VIT D, (D2,D3), LC/MS/MS is recommended: order code 76576 (patients >2yrs). See Note 1 Note 1 For additional information, please refer to http://education.Just around Us/faq/BNJ345 (This link is being provided for informational/ educational purposes only.) 03/05/2025 9:43 AM CDT 03/05/2025 9:43 AM CDT Narrative [facility] - 03/06/2025 4:20 AM CDT FASTING:YES FASTING: YES John GONZALEZ LAB BLOOD ORDERABLES Fi nal Result Performing Organization Address [facility] Co de Phone Number [facility] [address] [place] [address] * (ABNORMAL) Erythrocyte sedimentation rate (03/05/2025 9:43 AM CDT) [facility] Erythrocyte sedimentation rate 36(H) < OR = 30 mm/h [facility] Blood 03/05/2025 9:43 AM CDT 03/05/2025 9:43 AM CDT Narrative [facility] - 03/06/2025 4:20 AM CDT FASTING:YES FASTING: YES John GONZALEZ LAB BLOOD ORDERABLES Fi nal Result [facility] [address] [place] [address] * CRP (acute phase) (03/05/2025 9:43 AM CDT) Pathologist [facility] C-RP 3.9 <8.0 mg/L [facility] Blood 03/05/2025 9:43 AM CDT 03/05/2025 9:43 AM CDT Narrative [facility] - 03/06/2025 4:20 AM CDT FASTING:YES FASTING: YES John GONZALEZ LAB BLOOD ORDERABLES Fi nal Result Performing Organization Address [facility] de Phone Number [facility] [address] [place] [address] * Folate (03/05/2025 9:43 AM CDT) [facility] Folate, Serum >24.0 ng/mL [facility] Comment: Reference Range Low: <3.4 Borderline: 3.4-5.4 Normal: >5.4 03/05/2025 9:43 AM CDT 03/05/2025 9:43 AM CDT Narrative [facility] - 03/06/2025 4:20 AM CDT FASTING:YES FASTING: YES John GONZALEZ LAB BLOOD ORDERABLES Fi nal Result Performing Organization Address [facility] de Phone Number [facility] [address] [place] [phone] * Vitamin B12 (03/05/2025 9:43 AM CDT) [facility] Vitamin B12 460 200 - 1,100 pg/mL [facility] 03/05/2025 9:43 AM CDT 03/05/2025 9:43 AM CDT Narrative [facility] - 03/06/2025 4:20 AM CDT FASTING:YES FASTING: YES John GONZALEZ LAB BLOOD ORDERABLES Fi nal Result Performing Organization Address [facility] de Phone Number [facility] [address] [place] [address] * Lipid panel (03/05/2025 9:43 AM CDT) [...] equation in the estimation of LDL-C. Librado SS et al. THIAGO. 2013;310(82): 5059-1182 (http://education.Just around Us/faq/LFT536) Chol/HDL ratio 2.5 <5.0 (calc) [facility] Non-HDL, (LDL+VLDL) 82 <130 mg/dL (calc) [facility] Comment: For patients with diabetes plus 1 major ASCVD risk factor, treating to a non-HDL-C goal of <100 mg/dL (LDL-C of <70 mg/dL) is considered a therapeutic option. 03/05/2025 9:43 AM CDT 03/05/2025 9:43 AM CDT [facility] - 03/06/2025 4:20 AM CDT FASTING:YES FASTING: YES John GONZALEZ LAB BLOOD ORDERABLES Fi nal Result [facility] [address] [place] [address] * (ABNORMAL) Comprehensive metabolic panel (03/05/2025 9:43 AM CDT) Glucose 128(H) 65 - 99 mg/dL [facility] [...] BLOOD ORDERABLES Fi nal Result [facility] [address] [address] [place] [address] * (ABNORMAL) Hemoglobin A1c (07/20/2021 7:47 AM CDT) Hgb A1C 6.4(H) 4.0 - 5.6 % [facility] Estimated Average Glucose 137 mg/dL [facility] Comment: The ADA recommends reporting an estimated Average Glucose (eAG) with all Hemoglobin A1c results using the equation derived from a study of 507 normal and diabetic adults. Minority populations were underrepresented and children were not included. (Diabetes Care 31:6113-8204, 2008). The eAG is not equivalent to a fasting glucose. Blood 07/20/2021 7:47 AM CDT 07/20/2021 7:50 AM CDT us Zoltan Wick MD LAB BLOOD ORDERABLES F inal Result [facility] [address] [place] [address] * Screening Mammogram 2D Bilateral (12/19/2012 1:37 [...] Relevant to Health Maintenance Insurance IDPA IDPA [facility] MEDICARE ADVANTAGE Advance Directives For more information, please contact: [phone] * Full Code (Latest Code Status on File) Date Activated Date Inactivated Comments 10/02/2024 6:05 PM 10/04/2024 9:43 PM * Full Code Date Activated Date Inactivated Comments 07/20/2021 3:57 AM 07/20/2021 4:57 PM * Full Code Date Activated Date Inactivated Comments 03/18/2019 3:50 PM 03/19/2019 8:30 PM Care Teams Social Worker Palliative Care Relationship Specialty Start Date End Date Wilber Patterson MD [address] [place] [address] PCP - General Internal Medicine 06/16/24 Gal West MD [address] [facility] [address] [place] [address] Referring Physician Neurology 03/23/21 Jennifer Angel PA [address] [place] [address] Physician Brick Burner Head Physician Brick Burner Head 03/01/22 Ethan Graves MD [address] [place] [address] Consulting Physician Rheumatology 08/31/23 Clem Ramos MD [address] [place] [address] Referring Physician General Surgery 09/12/23
--- OUTSIDE RECORDS SUMMARY | 2025-03-17 08:11 | XMS_ITS ---
Author Organization [facility] [place] [address] Address [address] [place] [address] Care Team Providers Care Supply Chain Specialist Name Role Phone Gal Decker MD Unavailable Jennifer Angel Unavailable Ethan Graves MD Unavailable [phone] Clem Ramos MD Unavailable [phone] Wilber Patterson MD Primary Care Provide [...] 07/13/2022 Assessment & Plan (09/07/2022 11:38 AM CAN BANDER OPERATOR): Continues to have chronic left lower quadrant [...] degree. Assessment & Plan (12/02/2021 11:01 AM CAN BANDER OPERATOR): At today's visit, describes pain in the [...] doses. Assessment & Plan (09/05/2024 4:09 PM CAN BANDER OPERATOR): Continue to suspect that several factors are [...] exacerbate. Assessment & Plan (11/30/2023 1:41 PM CAN BANDER OPERATOR): Continue to suspect that several factors are [...] time. Assessment & Plan (10/02/2023 4:10 PM CAN BANDER OPERATOR): Continue to suspect that several factors are contributing to her chronic pain complaints, including degenerative arthritis, spondyloarthritis, small fiber neuropathy, fibromyalgia. Is currently on gabapentin 200 mg b.i.d. dizziness improve with reducing the dose. Encourage routine exercise, including [employer] today. Could consider switching gabapentin to Lyrica and or addition of Cymbalta Assessment & Plan (08/20/2023 2:07 PM CAN BANDER OPERATOR): Continue to suspect that several factors are [...] today. Assessment & Plan (12/07/2022 12:48 PM CAN BANDER OPERATOR): Do suspect that several factors are contributing [...] today. Assessment & Plan (09/07/2022 11:37 AM CAN BANDER OPERATOR): Stable from last visit. Do suspect that [...] bid Assessment & Plan (12/02/2021 12:37 PM CAN BANDER OPERATOR): Has rather diffuse pain complaints, including fibromyalgia [...] discussed. Assessment & Plan (09/05/2024 4:07 PM CAN BANDER OPERATOR): Follows with venkata Barkley. Suspect that this [...] gabapentin. Assessment & Plan (11/30/2023 1:42 PM CAN BANDER OPERATOR): Follows with Dr. Decker neuromuscular. Suspect that [...] symptoms. Assessment & Plan (10/02/2023 4:10 PM CAN BANDER OPERATOR): Follows with Dr. Decker neuromuscular. Suspect that [...] symptoms. Assessment & Plan (08/20/2023 2:06 PM CAN BANDER OPERATOR): Follows with Dr. Decker neuromuscular. Suspect that [...] Barkley. Assessment & Plan (12/07/2022 12:51 PM CAN BANDER OPERATOR): Follows with venkata Barkley. On nahed 200 mg bid. Reduced dose from 300 mg b.i.d. due to side effects. Assessment & Plan (09/07/2022 11:37 AM CAN BANDER OPERATOR): Follows with venkata Barkley. On nahed 100 [...] 11/2020 Assessment & Plan (10/02/2023 4:10 PM CAN BANDER OPERATOR): Negative QuantiFERON 07/2021 Negative hepatitis panel 11/2020 Assessment & Plan (08/20/2023 2:06 PM CAN BANDER OPERATOR): Negative QuantiFERON 07/2021 Negative hepatitis panel 11/2020 Assessment & Plan (07/05/2023 2:58 PM CDT): Negative QuantiFERON 07/2021 Negative hepatitis panel 11/2020 Assessment & Plan (03/08/2023 1:40 PM CDT): Negative QuantiFERON 07/2021 Negative hepatitis panel 11/2020 Assessment & Plan (12/07/2022 12:48 PM CAN BANDER OPERATOR): Negative QuantiFERON 07/2021 Negative hepatitis panel 11/2020 Assessment & Plan (09/07/2022 11:36 AM CAN BANDER OPERATOR): Negative QuantiFERON 07/2021 Negative hepatitis panel 11/2020 [...] 11/2020 Assessment & Plan (12/02/2021 10:58 AM CAN BANDER OPERATOR): Negative QuantiFERON 07/2021 Negative hepatitis panel 11/2020 Assessment & Plan (10/21/2021 9:41 AM CAN BANDER OPERATOR): Negative QuantiFERON 07/2021 Negative hepatitis panel 11/2020 Assessment & Plan (09/09/2021 11:24 AM CAN BANDER OPERATOR): Negative QuantiFERON 07/2021 Negative hepatitis panel 11/2020 [...] fiber neuropathy. Continue to follow with Dr. Decker, neuro. Was started on magnesium this week. Assessment & Plan (12/02/2021 12:34 PM CAN BANDER OPERATOR): Negative myositis. Most recent labs 07/2021 revealed [...] neuropathy. Assessment & Plan (10/21/2021 9:44 AM CAN BANDER OPERATOR): Negative myositis. Most recent labs 07/2021 revealed [...] neuropathy. Assessment & Plan (09/09/2021 11:22 AM CAN BANDER OPERATOR): Negative myositis. Most recent labs 03/09/2021 revealed [...] Neurology. Assessment & Plan (12/07/2022 12:50 PM CAN BANDER OPERATOR): Continues to note intermittent numbness and tingling in the right hand. No benefit with wrist bracing at night. She has had prior bilateral carpal tunnel release surgery. Had recent EMG that was unrevealing. Had skin biopsy that was consistent with small fiber neuropathy, per her report. Recommended cock-up wrist splint and follow-up with Neurology. Assessment & Plan (10/21/2021 9:44 AM CAN BANDER OPERATOR): Continues to note intermittent numbness and tingling in the right hand. No benefit with wrist bracing at night. She has had prior bilateral carpal tunnel release surgery. Had recent EMG that was unrevealing. Had skin biopsy that was consistent with small fiber neuropathy, per her report. Assessment & Plan (09/09/2021 11:23 AM CAN BANDER OPERATOR): Continues to note intermittent numbness and tingling [...] pulmonology Assessment & Plan (10/02/2023 4:10 PM CAN BANDER OPERATOR): TTE 2023: Left ventricular ejection fraction 5-70%. [...] pulmonology Assessment & Plan (08/20/2023 2:06 PM CAN BANDER OPERATOR): TTE 2023: Left ventricular ejection fraction 5-70%. [...] again. Assessment & Plan (12/07/2022 12:51 PM CAN BANDER OPERATOR): History of asthma. Given worsened shortness of breath, obtain chest x-ray, PFT, TTE. Consider pulmonary evaluation, if symptoms persist. Assessment & Plan (01/20/2021 12:58 PM CDT): History of asthma. Recommended follow-up with freezer machine operator. Osteoarthritis of multiple joints 12/16/2020 Assessment [...] complaints. Assessment & Plan (09/05/2024 4:08 PM CAN BANDER OPERATOR): Hx of OA that is contributing to [...] 11/2023. Assessment & Plan (11/30/2023 1:41 PM CAN BANDER OPERATOR): Hx of OA that is contributing to [...] time. Assessment & Plan (10/02/2023 4:11 PM CAN BANDER OPERATOR): Hx of OA that is contributing to her chronic pain complaints. Have recommended OTC Voltaren gel applied to the affected knees p.r.n. Assessment & Plan (08/20/2023 2:05 PM CAN BANDER OPERATOR): Hx of OA that is contributing to [...] p.r.n. Assessment & Plan (12/07/2022 12:47 PM CAN BANDER OPERATOR): Hx of OA that is contributing to her chronic pain complaints. Have recommended OTC Voltaren gel applied to the affected knees p.r.n. Assessment & Plan (09/07/2022 11:36 AM CAN BANDER OPERATOR): Hx of OA that is contributing to [...] complaints. Assessment & Plan (12/02/2021 10:57 AM CAN BANDER OPERATOR): Do suspect that osteoarthritis is contributing to her chronic pain complaints, which is most notable in her lower back. Assessment & Plan (10/21/2021 9:41 AM CAN BANDER OPERATOR): Do suspect that osteoarthritis is contributing to her chronic pain complaints. Previously noted that she was scheduled to see Podiatry to discuss feet complaints further. Assessment & Plan (09/09/2021 11:19 AM CAN BANDER OPERATOR): Do suspect that osteoarthritis is contributing to [...] left replacement. positive CLAUDIO. Negative dsDNA, negative Shannon/GEOMAGNETIST, negative chromatin, negative CCP Avise 12/10/2020: Positive [...] needed. Assessment & Plan (09/05/2024 4:06 PM CAN BANDER OPERATOR): CDAI 18. Overall, joint symptoms have remained stable and improved from last visit, although does continue to have chronic discomfort and reduced space control supervisor strength in the bilateral hands. She also [...] visit. Assessment & Plan (11/30/2023 1:40 PM CAN BANDER OPERATOR): CDAI 23. After last visit, Little begin [...] needed. Assessment & Plan (10/02/2023 4:12 PM CAN BANDER OPERATOR): CDAI 14. After last visit, Little discontinued [...] Graves. Assessment & Plan (08/20/2023 2:05 PM CAN BANDER OPERATOR): CDAI 17. At today's visit, she denies [...] needed. Assessment & Plan (12/07/2022 12:47 PM CAN BANDER OPERATOR): CDAI 17. Since last visit, has remained [...] needed. Assessment & Plan (09/07/2022 11:35 AM CAN BANDER OPERATOR): CDAI 11. Since last visit, has remained [...] azathioprine 50mg BID. Continue Simponi Aria IV [id number]. Routine labs today. Follow-up 4 weeks. Sooner [...] Crisostomo. Assessment & Plan (12/02/2021 12:38 PM CAN BANDER OPERATOR): Ultrasound right foot/ankle 06/29/2021: 5th MTP erosion. [...] the bilateral hands and feet with reduced space control supervisor strength. Synovitis does persist on exam. Would like to allow the simponi aria more time to take effect. Will continue methotrexate 20 mg weekly, FA 1 mg daily, Simponi Aria infusions. Recommend otc tylenol. Routine labs today. Follow-up 4 weeks. Sooner if needed. Assessment & Plan (10/21/2021 9:41 AM CAN BANDER OPERATOR): Ultrasound right foot/ankle 06/29/2021: 5th MTP erosion. [...] needed. Assessment & Plan (09/09/2021 11:18 AM CAN BANDER OPERATOR): Ultrasound right foot/ankle 06/29/2021: 5th MTP erosion. [...] has persistent peripheral joint complaints with reduced space control supervisor strength. Synovitis does persist on exam. Did [...] Has persistent peripheral joint complaints with reduced space control supervisor strength. Some synovitis persist on exam. Again [...] Crisostomo. Assessment & Plan (12/02/2020 2:08 PM CAN BANDER OPERATOR): 60 yoF with recent pos claudio presents [...] 07/21/2019 Assessment & Plan (09/05/2024 4:08 PM CAN BANDER OPERATOR): ENT had apparently noted muscle nasal septum [...] (02/03/2019): Added automatically from request for surgery [id number] Obstructive sleep apnea syndrome 09/09/2018 Joint pain, [...] exercises. Assessment & Plan (12/02/2021 10:59 AM CAN BANDER OPERATOR): L-spine x-ray 05/18/2021: Moderate to severe multilevel [...] exercises. Assessment & Plan (10/21/2021 9:42 AM CAN BANDER OPERATOR): L-spine x-ray 05/18/2021: Moderate to severe multilevel [...] exercises. Assessment & Plan (09/09/2021 11:23 AM CAN BANDER OPERATOR): L-spine x-ray 05/18/2021: Moderate to severe multilevel [...]
--- OUTSIDE RECORDS SUMMARY | 2025-03-17 08:12 | XMS_ITS ---
Author Organization [facility] Address [address] [place] [address] [place] [address] Care Team Providers Care Motor Vehicle Assembly Supervisor Name Role Phone MD ISABELLE, GRISEL Primary Care Provider U Cristi Vasquez Unavailable [phone] ALLERGIES No Known Allergies REASON FOR VISIT Follow Up, Left > Right Low Back Pain, Left Lower Extremity Pain MEDICATIONS Medication SIG (Take, Route, Frequency, Duration) Notes Start Date End Date Status sulfaSALAzine 500 MG 1 tablet Oral Once a day Active Hydroxychloroquine Sulfate 200 MG as directed Oral Active Vitamin D3 1.25 MG (02502 UT) 1 capsule Oral Once a day [...] HCl 10 MG TAKE 1 TABLET BY [place] UT EVERY DAY Oral for 30 Active [...] for 30 day(s) Active Cholecalciferol 1.25 MG (39317 UT) 1 capsule Orally Once a day [...] Location Date Provider Diagnosis [facility] [address] [place] [id number] 07/10/2024 Cristi Brooks Radiculopathy, lumba r region M54.16 ; Sacroiliitis, not elsewhere classified M46.1 ; Spondylosis without myelopathy or radiculopathy, lumbar region M47.816 ; Spondylosis without myelopathy or radiculopathy, lumbosacral region M47.817 ; Radiculopathy, lumbosacral region M54.17 ; Fear of injections and transfusions F40.231 and continuous churn buttermaker (current) use of anticoagulants Z79.01 ASSESSMENTS Encounter [...] they would need to come with a four horse hitch driver after taking this medication due to the risk of impairment. 07/10/2024 continuous churn buttermaker (current) use of anticoagulants (ICD-10 - Z79.01) [...] they would need to come with a four horse hitch driver after taking this medication due to [...] patient's typical axial low back pain. Silver's, [place]'s and Gaenslen's are positive on the left. [...] and Follow-up: Follow-up Plan documen larisa:: Yes [facility] Quality 2020: MIPS Documented:: Compliant
--- OUTSIDE RECORDS SUMMARY | 2025-03-17 08:12 | XMS_ITS | Data Portability ---
Author Organization [facility], Main Office Address [address] [place] [address] Care Team Providers Care Revising Clerk Name Role Phone ISH ARAIZA Ware Tester RADHA SCHNEIDER Curriculum Development Coordinator [phone] EDUARDO MADERA Director Fundraising BENNIE CASTANO Pain Management [phone] ELISSA VASQUEZ Neurologist LARRY MISHRA Auto Mechanic Apprentice Assessment Encounter Date Assessment Date Assessment LastModified by Organization Details LastModified Time 01/08/2025 01/08/2025 Time spent with patient included: preparing to see patient by reviewing tests, obtaining and reviewing history, medical examination and evaluation, counseling and educating the patient, ordering medications and tests, documenting clinical information in EHR, independently interpreting results and communicating results to the patient for a total of 38 minutes. Not available 01/08/2025 16:14:39 02/05/2025 02/05/2025 Time spent with patient included: preparing to see patient by reviewing tests, obtaining and reviewing history, medical examination and evaluation, counseling and educating the patient, ordering medications and tests, documenting clinical information in EHR, independently interpreting results and communicating results to the patient for a total of 28 minutes. Not available 02/05/2025 11:02:32 02/11/2025 02/11/2025 06/17/2024: Chol 222, LDL 143 Gluc 110, AST/ALT 45/32 09/08/2024: H/H 9.0/29.1 Gluc 126 02/05/2025: HGB 10.9 Gluc 103 GGT 68 Hep panel Neg [email or web address] Not available 02/11/2025 14:36:24 Plan of Treatment Reminders Order Date Submit Date Provider Last Modified By Organization Details Last Modified Time Details Appointments Follow Up 15 2024 02:30P M Christo ferrer MD Not available Not available Not available Any 15 2024 02:00P M Nona Frederick NP Not available Not available Not available Lab vitamin D, 25-hydrox y, total, serum 2024 025 [employer] [facility], [address], [address], [place], [address], 02/11/2025 14:58:42 CMP, serum or plasma 2024 025 [employer] [facility], [address], [address], [place], [address], 03/12/2025 19:22:08 lipid panel, serum 2024 025 [facility], [address], [address], [place], [address], 02/11/2025 14:58:42 CBC w/ auto diff 2024 025 [employer] [facility], [address], [address], [place], [address], 03/12/2025 18:15:58 TSH, serum or plasma 2024 [facility]25 [email or web address], [address], [address], [place], [address], 02/11/2025 14:58:42 vitamin B12 + folate, serum or blood 2024 025 [employer] [facility], [address], [address], [place], [address], 03/13/2025 05:33:40 Referral hematolog ist referral - Please call patient to schedule an appointme nt. Thank you. 2024 025 GENESIS Keller MD, [address], [place], [address], 02/12/2025 09:49:02 pulmonolo gist referral - Please call patient to schedule an appointme nt. Thank you. 2024 025 [email or web address] Cash Brasher MD, [address] [facility], [place], [address], 02/12/2025 09:33:19 cardiolog ist referral - Please call patient to schedule an appointme nt. Thank you. 2024 025 GENESIS Mishra MD, [address] [facility], [address], [place], [address], 02/12/2025 10:20:17 gastroent erologist referral - Please call patient to schedule an appointme nt. Thank you. 2024 025 GENESIS raymundo MD, [address], [address], [place], [address], 03/09/2025 18:05:[address] referral - Please call patient to schedule an appointme nt. Thank you. 2024 025 GENESIS Marshall MD, [address] [facility] , [address], [place], [address], 02/12/2025 10:02:04 rheumatol ogist referral - Please call patient to schedule an appointme nt. Thank you. 2024 025 GENESIS Araiza MD, [address], [address], [place], [address], 02/12/2025 09:49:05 Procedures colonosco py screening (PROC) - Please call patient to schedule an appointme nt. Thank you. 2024 025 GENESIS Hare MD, [address], [address], [place], [address], 02/12/2025 09:33:57 upper endoscopy procedure (EGD) (PROC) - Please call patient to schedule an appointme nt. Thank you. 2024 025 GENESIS Hare MD, [address], [address], [place], [address], 02/12/2025 09:27:16 polysomno graphy, split night (PROC) - will be on medicare 01/[address], [address] [facility], [place], [address], 01/15/2025 09:28:14 Surgeries None recorded. Imaging polysomno gram, titration study - Please call patient to schedule. 2024 025 [email or web address]), [address] [facility], [place], [address], 03/09/2025 17:44:17 Medication Orders thiamine HCl (vitamin B1) 100 mg tablet 2024 025 [employer] #[id number], [address], [place], [id number], 02/11/2025 15:01:46 folic acid 1 mg tablet 2024 025 [employer] #[id number], [address], [place], [id number], 02/11/2025 15:01:46 Patient TargetsNo targets recorded. Patient InstructionsNo instructions recorded. Reason for Referral Auto Mechanic Apprentice Referral for Es sential hypertension Please call patient to schedule an appointment. Thank you. Referring Physician: Christo Patterson, Internal Medicine, Encounter Date: 02/11/2025 Curriculum Development Coordinator Referral for A sthma Please call patient to schedule an appointment. Thank you. Referring Physician: Christo Patterson, Internal Medicine, Encounter Date: 02/11/2025 Ware Tester Referral for Rheumatoid arthritis Please call patient to schedule an appointment. Thank you. Referring Physician: Christo Patterson, Internal Medicine, Encounter Date: 02/11/2025 Please call patient to sched ule an appointment. Thank you. Referring Physician: Christo Patterson, Internal Medicine, Encounter Date: 02/11/2025 Neurologist Referral for Bran ropathy Please call patient to schedule an appointment. Thank you. Referring Physician: Christo Patterson, Internal Medicine, Encounter Date: 02/11/2025 Director Fundraising Referral for Liver enzymes level above reference range Please call patient to schedule an appointment. Thank you. Referring Physician: Christo Patterson, Internal Medicine, Encounter Date: 02/11/2025 Results Created Date Observation Date Name Description Value Unit Range Abnormal Flag Note LastModifiedBy Organization Detail LastModifiedTime 12/16/1912/19/2024 IMMUN OGLOB ULIN G SUBCL ASSES PANEL immunoglobul in g subclass 1 733 mg/dL 382-92 9 Not Available [address], [address], 12/19/2024 14:44:00 12/16/19 25 12/19/2024 IMMUN OGLOB ULIN G SUBCL ASSES PANEL immunoglobul in g subclass 2 248 mg/dL 241-70 0 Not Available [facility] [address], [address], 12/19/2024 14:44:00 12/16/19 25 12/19/2024 IMMUN OGLOB ULIN G SUBCL ASSES PANEL immunoglobul in g subclass 3 85 mg/dL 22-178 Not Available [facility] [address], [address], 12/19/2024 14:44:00 12/16/19 25 12/19/2024 IMMUN OGLOB ULIN G SUBCL ASSES PANEL immunoglobul in g subclass 4 10.9 mg/dL 4.0-86 .0 Not Available [address], [address], 12/19/2024 14:44:00 12/16/19 25 12/19/2024 IMMUN OGLOB ULIN G SUBCL ASSES PANEL immunoglobul in g, serum 1140 mg/dL 600-15 40 Not Available [address], [address], 12/19/2024 14:44:00 12/16/19 25 12/19/2024 EOSIN OPHIL COUNT (B) white blood cell count 5.5 thous and/u L 3.8-10 .8 normal Not Available [address], [address], 12/19/2024 14:44:02 12/16/19 25 12/19/2024 EOSIN OPHIL COUNT (B) absolute eosinophils 171 cells /uL 15-500 normal Not Available [address], [address], 12/19/2024 14:44:02 12/16/19 25 12/19/2024 EOSIN OPHIL COUNT (B) eosinophils 3.1 % normal Not Available [address], [address], 12/19/2024 14:44:02 12/16/19 25 12/19/2024 ALPHA -1-AN TITRY PSIN (AAT) PHENO TYPE dvcaz-1-amlz trypsin (aat) phenotype SEE NOTE THIS PATIE NT'S ALPHA -1-AN TITRY PSIN PHENO TYPE IS PI*MM . 90% of tarik l indiv idual s have the MM pheno type, with tarik l quant itati ve AAT level s. Many pheno typic patte rns have been descr ibed, inclu ding defic iency state s with F, S, Z, or other allel es. As a gener al estim ation , rashi red to M allel e of 100% of tarik l A-1-A ntitr ypsin prote in, the S allel e produ larry appro ximat avani 60% and the Z allel e 20%. For examp le, an MS pheno type would have about 80% of tarik l A-1-A ntitr ypsin prote in level , a 50% contr ibuti on from the M allel e and 30% from the S allel e. A ZZ pheno type would have about 20% of tarik l level s, a 10% contr ibuti on from each Z gene. The F allel e has tarik l A-1-A ntitr ypsin level s, but the kinet ics of elast ase inhib ition is not as effic ient as an M allel e produ ct; F allel es shoul d be consi dered funct ional ly mildl y defic ient. Other varia nts are ident ifiab le by pheno typic luciana sis. These inclu de CM, DP, EM, GM, IS, LM, M1M2, M3M3, MP, MT, XX, MY, and M1N. I, P, T and null allel es are consi dered delet eriou s. C, D, E, G, L, M1, M2, M3, X and Y allel es are gener ally consi dered tarik l varia nts. The MZ-Pr att pheno type is a tarik l varia nt; care shoul d be taken to avoid confu ashley with the defic ient MZ pheno type. Not Available [facility] [address] , [place], [address], 12/19/2024 14:44:02 12/16/19 25 12/19/2024 B TYPE NATRI URETI C PEPTI DE (BNP) B type natriuretic peptide (BNP) 15 pg/mL <100 normal BNP level s incre ase with age in the gener al popul ation with the highe st value s seen in indiv idual s great er than 75 years of age. Refer ence: J. Am. Elena. Cardi ol. 2002; 40:97 6-982 . Not Available [address], [address], 12/19/2024 14:44:04 12/16/19 25 12/19/2024 QUANT IFERO N(R)- TB GOLD PLUS, 1 TUBE quantiferon( R)-TB gold plus, 1 tube NEGATI VE negati ve normal Negat orquidea test resul t. M. tuber culos is compl ex infec tion unlik avani. Not Available [address], [address], 12/19/2024 14:44:05 12/16/19 25 12/19/2024 QUANT IFERO N(R)- TB GOLD PLUS, 1 TUBE nil 0.02 IU/mL normal Not Available [address], [address], 12/19/2024 14:44:05 12/16/19 25 12/19/2024 QUANT IFERO N(R)- TB GOLD PLUS, 1 TUBE mitogen-nil 8.86 IU/mL normal Not Available [address], [address], 12/19/2024 14:44:05 12/16/19 25 12/19/2024 QUANT IFERO N(R)- TB GOLD PLUS, 1 TUBE TB1-nil 0.00 IU/mL normal Not Available [address], [address], 12/19/2024 14:44:05 12/16/19 25 12/19/2024 QUANT IFERO N(R)- TB GOLD PLUS, 1 TUBE TB2-nil 0.00 IU/mL normal The Nil tube value refle cts the backg round inter feron gamma immun e respo nse of the patie nt's blood sampl e. This value has been subtr acted from the patie nt's displ ayed TB and Mitog en resul ts. Lower than expec larisa resul ts with the Mitog en tube preve nt false -nega tive Quant ifero n readi ngs by detec edward a patie nt with a poten tial immun e suppr essiv e condi tion and/o r subop timal pre-a nalyt ical speci men handl ing. The TB1 Antig en tube is coate d with the M. vannesa yarbroughos is-sp ecifi c antig ens desig castillo to elici t respo nses from TB antig en prime d CD4+ helpe r T-lym phocy christian. The TB2 Antig en tube is coate d with the M. tuber culos is-sp ecifi c antig ens desig castillo to elici t respo nses from TB antig en prime d CD4+ helpe r and CD8+ cytot oxic T-lym phocy christian. For addit ional infor manny galan e refer to https ://ed ati on.qu remedios Absio. com/f aq/FA Q204 (This link is being provi ded for infor raymond haney/ educa janusz l purpo ses only. ) Not Available [facility] [id number] [place] [address], [address], 12/19/2024 14:44:05 11/26/19 25 10/07/2019 CT, chest , w/o contr ast No observ ation record ed. BARCODE Not Available 2024 11:18:29 11/26/19 25 08/20/2019 6 minut e walk test* No observ ation record ed. BARCODE Not Available 2024 11:52:09 11/26/19 25 08/20/2019 compl ete PFT w/ post [facility] hodil ator lorrie metry * No observ ation record ed. [email or web address] Not Available 2024 13:08:38 11/26/19 25 11/22/2018 compl ete PFT w/ post [facility] hodil ator lorrie metry * No observ ation record ed. [email or web address] Not Available 2024 13:09:29 01/06/20 25 12/17/2024 compl ete PFT w/ post [facility] hodil ator lorrie metry * No observ ation record ed. [address] ([employer]) [address] [place], [address], 01/06/2025 19:10:20 01/09/20 25 02/09/2022 XR, chest , 2 view No observ ation record ed. BARCODE Not Available 2024 15:13:12 01/09/20 25 12/18/2022 XR, chest , 2 view No observ ation record ed. BARCODE Not Available 2024 15:13:14 01/09/20 25 01/25/2023 XR, chest , 2 view No observ ation record ed. BARCODE Not Available 2024 15:13:14 01/30/20 25 01/28/2025 polys omnog kaiden, diagn ostic , 6 yrs or older No observ ation record ed. [address] ([employer]) [address] [place], [address], 02/03/2025 10:45:22 Result Notes None recorded. Problems Name Problem SNOMED Code Status Onset Date Resolution Date Notes Provider Name and Address Organization Details Recorded Time Body mass index 30+ - obesity 391971837 Active 2017 Csah Brasher MD [address] [place], [address], [employer] 13:22:08 Obstructive sleep apnea syndrome 43206372 Active 2017 Cash Brasher MD [address], [place], [address], [employer] 13:22:32 Essential hypertensio n 09657346 Active 2023 Cash Brasher MD [address] [employer], [place], [address], [employer] 13:22:10 Vitamin D deficiency 96496976 Active 2023 Cash Brasher MD [address], [address], [place], [address], [employer] [place] [facility] 5 13:22:40 Gastroesoph ageal reflux disease without esophagitis 455314160 Active 2023 Cash Brasher MD [address], [address], [place], [address], [employer] [place] [facility] 5 13:22:12 Asthma 911126288 Active 2023 Christo ferrer MD [address], [address], [place], [address], [employer] [place] [facility] [employer] 4 15:57:18 Rheumatoid arthritis 90818437 Active 2023 Cash Brasher MD [address], [address], [place], [address], [employer] [place] [facility] 5 13:22:38 Neuropathy 887128992 Active 2023 Cash Brasher MD [address], [address], [place], [address], [employer] [place] [employer] [facility] [employer] 5 13:22:26 Bilateral cataracts 77243946 Active 2023 Cash Brasher MD [address], [address], [place], [address], [employer] [facility] [employer] 5 13:22:05 Hyperlipide amado 08490610 Active 2023 Cash Brasher MD [address], [address], [place], [address], [employer] [place] [facility] 5 13:22:22 Anemia 397060035 Active 2024 Cash Brasher MD [address], [address], [place], [address], [employer] [place] [facility] 5 13:22:03 Obstructive sleep apnea of adult 2695146135687 Active 2024 Cash Brasher MD [address], [address], [place], [address], [employer] [place] [facility] [place] [facility] 5 12:59:49 Sleep apnea 36526246 Active 2024 Nona Frederick NP [address], [address] [facility], [place], [address], [facility] [place] [facility] 5 10:35:51 Liver enzymes level above reference range 098043950 Active 2024 Christo ferrer MD [address], [facility] [address], [place], [address], [facility] 14:01:30 Pain in left foot 4791719077292 07 Active 2024 Christo ferrer MD [address], [facility] [address], [place], [address], [facility] 5 14:01:30 Serum vitamin B12 below reference range 964953178 Active 2024 Christo ferrer MD [address], [place] [address], [place], [address], [facility] 14:01:30 Alcohol dependence 32968777 Active 2024 Christo ferrer MD [address] [place] [address], [place], [address], [facility] 14:59:49 Notes:[facility] home sleep study 04/28/21 AHI = 10 [facility] diagnostic sleep study 01/27/25 sleep onset = 9 minutes, REM onset = 76.5 minutes, AHI = 9, REM AHI = 34, PLMI = 0.0 PFT 12/17/24 nl FEV1/FVC, FEV1 1.43 L (73%), BD 20 mL = 1%, TLC 2.76 L (57%), RV 0.93 L (50%), DLCO 50%, DLCO/VA 127% Medical History: Bilateral cataracts Rhinitis Eosinophils 171/uL AAT PiMM Early REM onset Obesity with mild OSAHS, AHI = 9, 01/27/25 PASP 26 mmHg Mild TR Mild RVE Hypertension EF 60% Hyperlipidemia MIRLANDE Hepatic steatosis Normocytic anemia Vit D deficiency RA on Simponi/sulfasalazine Procedure History: Cholecystectomy Problem Notes None recorded. Procedures Surgical History Date Name Laterality Status Provider Name and Address Organization Details Recorded Time 11/26/19 25 Corticosteroid Injection completed Dillan Cantor DPM [address], [address], [place], [address], [facility] [facility] 11/27/2024 09:03:25 11/26/19 25 Strapping Foot & Ankle completed Dillan Cantor DPM [address], [address], [place], [address], [facility] [employer] [facility] 11/27/2024 09:03:31 08/08/20 24 Cataract Surgery completed JOANA Dixon [facility] [employer] [facility] 08/13/2024 14:50:08 12/16/19 20 Colonoscopy completed Coretta Weir RN [facility] [facility] 06/11/2024 15:50:19 08/19/20 19 cystoscopy completed Coretta Weir RN [facility] [facility] 06/11/2024 15:49:31 08/19/20 19 Lithotripsy completed Coretta Weir RN [facility] 06/11/2024 15:49:57 03/18/20 19 total replacement of hip completed Coretta Weir RN [facility] 06/11/2024 15:48:48 03/27/20 17 colonoscopy completed Coretta Weir RN [facility] 06/11/2024 15:47:09 08/16/20 15 Rotator cuff surgery completed Coretta Weir RN [facility] 06/11/2024 15:47:39 03/01/20 15 Upper gi endoscopy performed completed Coretta Weir RN [facility] 06/11/2024 15:46:50 01/10/20 12 Cholecystectomy completed Coretta Weir RN [facility] 06/11/2024 15:46:28 03/25/20 08 Carpal tunnel surgery completed Coretta Weir RN [facility] 06/11/2024 15:46:10 03/11/20 08 Carpal tunnel surgery completed Coretta Weir RN [facility] 06/11/2024 15:45:52 10/01/19 06 Hysterectomy completed Coretta Weir RN [facility] 06/11/2024 15:45:13 10/01/18 81 removal of normal pituitary gland completed Coretta Weir RN [facility] 06/11/2024 15:44:54 Imaging Results None recorded. Procedure Notes None recorded. Medical Equipment None Reported. Allergies No known drug allergies Medications Name Sig Start Date Stop Date Status Note LastModified by Organization Details LastModified Time celecoxib 200 mg capsule 06/11 completed Not Available Not Available Not Available cyclobenzap rine 10 mg tablet 06/11 completed Not Available Not Available Not Available atorvastati n 40 mg tablet TAKE 1 TABLET BY MOUTH EVERY DAY 2024 active Not Available Not Available Not Avai lable cetirizine 10 mg tablet TAKE 1 TABLET BY MOUTH DAILY active Not Available Not Available No t Available azithromyci n 250 mg tablet 05/12 completed Not Available Not Available Not Available ofloxacin 0.3 % eye drops 11/19 completed Not Available Not Available Not Available fluconazole 150 mg tablet 05/12 completed Not Available Not Available Not Available sumatriptan 100 mg tablet TAKE 1 TABLET BY MOUTH EVERY 2 HOURS NEEDED SOON HEADACHE IS COMING. NO MORE THAN 2 TABLETS IN 24 HOURS 06/11 completed Not Available Not Available Not Available hydrocodone 5 mg-acetamin ophen 325 mg tablet 06/11 completed Not Available Not Available Not Available meloxicam 15 mg tablet TK 1 T PO QD WF 05/12 completed Not Available Not Available Not Available lisinopril 20 mg tablet 05/12 completed Not Available Not Available Not Available sennosides 8.6 mg-docusate sodium 50 mg tablet 06/11 completed Not Available Not Available Not Available sulfasalazi ne 500 mg tablet,sahra yed release TAKE 3 TABLETS BY MOUTH TWICE DAILY active Not Available Not Available No t Available thiamine HCl (vitamin B1) 100 mg tablet Take 1 tablet every day by oral route for 90 days. 2024 active Not Available Not Available Not Avai lable topiramate 25 mg tablet 06/11 completed Not Available Not Available Not Available metronidazo le 500 mg tablet TK 1 T PO Q 8 H 05/12 completed Not Available Not Available Not Available azathioprin e 50 mg tablet 06/11 completed Not Available Not Available Not Available amlodipine 5 mg tablet TAKE 1 TABLET BY MOUTH EVERY DAY active Not Available Not Available No t Available ciprofloxac in 500 mg tablet 05/12 completed Not Available Not Available Not Available hydrocodone 10 mg-acetamin ophen 325 mg tablet Take 1 tablet every 4 hours by oral route. 06/11 completed Not Available Not Available Not Available omeprazole 40 mg capsule,del ayed release 05/12 completed Not Available Not Available Not Available triamcinolo ne acetonide 0.1 % topical cream 06/11 completed Not Available Not Available Not Available ketorolac 0.5 % eye drops 11/19 completed Not Available Not Available Not Available calcium 600 mg (as calcium carbonate 1,500 mg) tablet TAKE 1 TABLET BY MOUTH ONCE DAILY active Not Available Not Available No t Available alprazolam 0.25 mg tablet TAKE 1-2 TABLET BY MOUTH 30 MINUTES PRIOR TO INGECTION 11/25 completed Not Available Not Available Not Available prednisolon e acetate 1 % eye drops,suspe nsion 11/19 completed Not Available Not Available Not Available pravastatin 10 mg tablet TK 1 T PO ONCE A DAY 05/12 completed Not Available Not Available Not Available methotrexat e sodium 2.5 mg tablet TAKE 8 TABLETS BY MOUTH ONCE A WEEK 06/11 completed Not Available Not Available Not Available aspirin 325 mg tablet,sahra yed release 08/13 completed Not Available Not Available Not Available amlodipine 5 mg-benazepr il 10 mg capsule TAKE 1 CAPSULE BY MOUTH DAILY 06/11 completed Not Available Not Available Not Available meclizine 25 mg tablet 05/12 completed Not Available Not Available Not Available phenazopyri dine 100 mg tablet 06/11 completed Not Available Not Available Not Available cephalexin 500 mg capsule 05/12 completed Not Available Not Available Not Available pantoprazol e 40 mg tablet,sahra yed release 06/11 completed Not Available Not Available Not Available prednisone 50 mg tablet 05/12 completed Not Available Not Available Not Available amoxicillin 400 mg-domingo staley clavulanate 57 mg chewable tablet 05/12 completed Not Available Not Available Not Available betamethaso ne dipropionat e 0.05 % topical cream LOTTIE EXT AA BID PRN 05/12 completed Not Available Not Available Not Available gabapentin 300 mg capsule TAKE 3 CAPSULES BY MOUTH TWICE DAILY active Not Available Not Available No t Available omeprazole 20 mg capsule,del ayed release TAKE 1 CAPSULE BY MOUTH DAILY 30 MINUTES BEFORE BREAKFAST active Not Available Not Available No t Available diclofenac sodium 75 mg tablet,sahra yed release 06/11 completed Not Available Not Available Not Available folic acid 1 mg tablet Take 1 tablet every day by oral route for 90 days. 2024 active Not Available Not Available Not Avai lable hydrochloro thiazide 25 mg tablet TK 1 T PO QD 06/11 completed Not Available Not Available Not Available mupirocin 2 % topical ointment APPLY TOPICALLY TO THE AFFECTED AREA TWICE DAILY FOR 10 DAYS 01/28 completed Not Available Not Available Not Available ergocalcife rol (vitamin D2) 1,250 mcg (50,000 unit) capsule TK 1 C PO Q WEEK 11/19 completed Not Available Not Available Not Available hydroxychlo roquine 200 mg tablet 06/11 completed Not Available Not Available Not Available levofloxaci n 500 mg tablet TK 1 T PO Q 24 H 05/12 completed Not Available Not Available Not Available albuterol sulfate HFA 90 mcg/actuati on aerosol inhaler INHALE 2 PUFFS BY MOUTH EVERY 4 HOURS NEEDED FOR ASTHMA active Not Available Not Available No t Available metformin ER 500 mg tablet,exte nded release 24 hr 05/12 completed Not Available Not Available Not Available clotrimazol e 1 % topical cream 06/11 completed Not Available Not Available Not Available dicyclomine 10 mg capsule TAKE 2 CAPSULES BY MOUTH TWICE DAILY 06/11 completed Not Available Not Available Not Available tobramycin 0.3 %-dexametha sone 0.1 % eye drops,suspe nsion 06/11 completed Not Available Not Available Not Available neomycin 3.5 mg/g-polymy adele B 10,000 unit/g-dexa meth 0.1 % eye oint APPLY OINTMENT IN THE RIGHT EYE BID 06/11 completed Not Available Not Available Not Available Asprin Ec Low Dose 81 mg tablet,sahra yed release Take 1 tablet every day by oral route. 01/28 completed Not Available Not Available Not Available nitrofurant oin monohydrate /macrocryst als 100 mg capsule 06/11 completed Not Available Not Available Not Available duloxetine 30 mg capsule,del ayed release TK 1 C PO D active Not Available Not Available No t Available vitamin E 01/28 completed Not Available Not Available Not Available Fish Oil 06/11 completed Not Available Not Available Not Available biotin 06/11 completed Not Available Not Available Not Available Advair HFA 230 mcg-21 mcg/actuati on aerosol inhaler 01/08 completed Not Available Not Available Not Available hydrochloro thiazide 12.5 mg tablet TK 1 T PO QD FOR HTN 05/12 completed Not Available Not Available Not Available cholecalcif ashley (vitamin D3) 1,250 mcg (50,000 unit) capsule TAKE 1 CAPSULE BY MOUTH 1 TIME A WEEK 11/19 completed Not Available Not Available Not Available FeroSul 325 mg (65 mg iron) tablet TAKE 1 TABLET BY MOUTH EVERY OTHER DAY active Not Available Not Available No t Available Flector 1.3 % transdermal 12 hour patch 05/12 completed Not Available Not Available Not Available diclofenac 1 % topical gel 06/11 completed Not Available Not Available Not Available Simponi 50 mg/0.5 mL subcutaneou s syringe Inject 0.5 mL every 2 months by subcutane ous route. 02/11 completed RA Not Available Not Available Not Available Breo Ellipta 100 mcg-25 mcg/dose powder for inhalation INHALE 1 PUFF BY MOUTH DAILY FAST BREATH INHALE QUICKLY AND DEEPLY active Not Available Not Available No t Available Fluvirin 3605-4325 45 mcg (15 mcg x 3)/0.5 mL intramuscul ar suspension ADM 0.5ML UTD 06/11 completed Not Available Not Available Not Available Flucelvax Quad 60 mcg (15 mcg x 4)/0.5 mL intramuscul ar susp ADM 0.5ML IM UTD 06/11 completed Not Available Not Available Not Available Vitals Date Recorded Body height Body mass index (BMI) Body weight Oxygen saturation Oxygen saturation in Arterial blood by Pulse oximetry Body temperature Heart rate Provider Name and Address Organization Details Last Updated DateTime 5 162.56 cm 38.6 kg/m2 922182. 28 g 98 % 98 % 98.3 [degF] 81 /min JOANA Rea [facility] [employer] [facility] 5 15:44:51 Date Recorded Body height Body mass index (BMI) Body weight Body temperature Heart rate Oxygen saturation Oxygen saturation in Arterial blood by Pulse oximetry Systolic blood pressure Diastolic blood pressure Provider Name and Address Organization Details Last Updated DateTime 5 162.56 cm 39.8 kg/m2 137872. 43 g 95.8 [degF] 82 /min 97 % 97 % 142 mm[Hg] 80 mm[Hg] Lashonda Araujo MA [facility] [employer] [facility] 5 15:48:04 Date Recorded Body height Body mass index (BMI) Body weight Body temperature Heart rate Systolic blood pressure Diastolic blood pressure Provider Name and Address Organization Details Last Updated DateTime 5 162.56 cm 39.8 kg/m2 738098. 43 g 96.5 [degF] 76 /min 140 mm[Hg] 80 mm[Hg] Chyna Grewal MA [facility] [employer] [facility] 5 15:46:22 Date Recorded Body height Body mass index (BMI) Body weight Body temperature Heart rate Oxygen saturation Oxygen saturation in Arterial blood by Pulse oximetry Systolic blood pressure Diastolic blood pressure Provider Name and Address Organization Details Last Updated DateTime 5 162.56 cm 39.7 kg/m2 011505. 84 g 98.5 [degF] 65 /min 97 % 97 % 122 mm[Hg] 82 mm[Hg] Lashonda Araujo MA [facility] [employer] [facility] 5 10:24:20 Date Recorded Body height Body mass index (BMI) Body weight Body temperature Heart rate Oxygen saturation Oxygen saturation in Arterial blood by Pulse oximetry Systolic blood pressure Diastolic blood pressure Provider Name and Address Organization Details Last Updated DateTime 5 162.56 cm 39.7 kg/m2 094597. 84 g 97.7 [degF] 92 /min 98 % 98 % 142 mm[Hg] 80 mm[Hg] MATTEO [employer] [facility] 14:28:29 Social History Question Answer Notes LastModified by Organization Details LastModified Time Tobacco Smoking Status Never Smoker Not Available [facility] 11/29/2022 07:26:45 Do You Have An Advance Directive? Yes Information not available 06/11/2024 Is Blood Transfusion Acceptable In An Emergency? Yes [email or web address] Information not available 06/11/2024 What Is Your Level Of Caffeine Consumption? Heavy [email or web address] Information not available 06/11/2024 In The 14 Days Before Symptom Onset, Have You Had Close Contact With A Laboratory-conf irmed COVID-19 While That Case Was Ill? No Information not available 11/25/2024 In The 14 Days Before Symptom Onset, Have You Had Close Contact With A Person Who Is Under Investigation For COVID-19 While That Person Was Ill? No Information not available 11/25/2024 What Type Of Diet Are You Following? REGULAR Decreased Appetite [email or web address] Information not available 06/11/2024 What Is The Highest Grade Or Level Of School You Have Completed Or The Highest Degree You Have Received? [id number] Information not available 06/11/2024 Do You Have An Electrostatic Air Filter? No Information not available 11/25/2024 Have There Been Any Changes To Your Family Or Social Situation? Yes [facility] [employer], [email or web address] Information not available 06/11/2024 Do You Have A Humidifier? No [email or web address] Information not available 02/05/2025 Do You Use Insect Repellent Routinely? Yes [email or web address] Information not available 06/11/2024 Where Do You Live? SingleLevelHouse [email or web address] Information not available 06/11/2024 Do You Have A Medical Power Of Distribution Tech? Yes Camryn- Sister [email or web address] Information not available 06/11/2024 Do You Have Moisture Problems In Your Home? No Information not available 11/25/2024 What Was The Date Of Your Most Recent Tobacco Screening? 02/11/2025 Information not available 02/11/2025 How Many Children Do You Have? 0 Information not available 02/11/2025 Do You Have Any Pets? No [email or web address] Information not available 06/11/2024 What Is Your Relationship Status? [email or web address] Information not available 06/11/2024 Do You Use Your Seat Belt Or Car Seat Routinely? Yes Information not available 11/25/2024 Do You Have Smoke And Carbon Monoxide Detectors In Your Home? Yes [email or web address] Information not available 06/11/2024 Are You Passively Exposed To Smoke? No [email or web address] Information not available 06/11/2024 Are There Any Smokers In Your House? No [email or web address] Information not available 06/11/2024 Do You Use Sunscreen Routinely? No [email or web address] Information not available 06/11/2024 Have You Recently Traveled Abroad? No Information not available 11/25/2024 Have You Used IV Drugs? No Information not available 11/25/2024 Do You Have Any Dietary Restrictions? No Information not available 11/25/2024 Sex: Unknown Functional Status Question Answer Note LastModified by Organizat ion Details LastModified Time Do you use any illicit or recreational drugs? Yes has medical marijuana card Information not available 08/13/2024 Do you or have you ever used any other forms of tobacco or nicotine? No Information not available 08/13/2024 What is your level of alcohol consumption? Occasional beer/wine --on weekend [email or web address] Information not available 06/11/2024 Are you currently employed? No retired [email or web address] Information not available 06/11/2024 Have you been exposed to chemicals or toxins? No Not that aware of Information not available 11/25/2024 What is your exercise level? Moderate Information not available 11/25/2024 Mental Status Question Answer Note LastModified by Organization D etails LastModified Time Do you feel stressed (tense, restless, nervous, or anxious, or unable to sleep at night)? [id number] Information not available 11/25/2024 Family History Relationship Description Onset Age of this Age Resolved Age Notes LastModified by Organization Details LastModified Time Unspecified Relation Diabetes mellitus [email or web address] Not available 2023 15:34:17 Unspecified Relation Hypertensive disorder Not available 2023 15:34:30 Medical History Condition Response ARTHRITIS Y HEADACHES/MIGRAINES Y DIZZINESS Y URINARY/BLADDER/KIDNEY PROBLEMS Y BACK / NECK PROBLEMS Y HEARTBURN / REFLUX Y RADIATION / CHEMOTHERAPY Y HIGH CHOLESTEROL / HYPERLIPIDEMIA Y Gynecological History Statement/Question Response How many live births 0 Date of Last Colonoscopy Date of Last Mammogram Date of LMP Most Recent Bone Density Date of Last Pap Current Control Method Hysterectom y Obstetrics History GPAL:G 0 P 0 0 0 0 Type Value Multiple Births 0 Full Term 0 Induced 0 Spontaneous 0 Premature 0 Living 0 Ectopics 0 Total 0 Immunizations Vaccine Type Date Status Note Provider Nam e and Address Organization Details Recorded Time Influenza, MDCK, quadrivalent, preservative 9 completed Brunilda Mooney RMA null, [facility] [employer] [facility] [employer] 08/13/2024 15:06:08 COVID-19, mRNA, LNP-S, PF, 100 mcg/0.5mL dose or 50 mcg/0.25mL dose 1 completed Brunilda Mooney RMA null, [facility] [employer] [facility] 08/13/2024 15:06:08 COVID-19, mRNA, LNP-S, PF, 100 mcg/0.5mL dose or 50 mcg/0.25mL dose 1 completed Brunilda Mooney RMA null, [facility] [employer] [facility] 08/13/2024 15:06:08 COVID-19, mRNA, LNP-S, PF, 100 mcg/0.5mL dose or 50 mcg/0.25mL dose 1 completed Brunilda Mooney RMA null, [facility] [employer] [facility] 08/13/2024 15:06:08 Influenza, split virus, trivalent, preservative 5 completed Brunilda Mooney RMA null, [facility] [employer] [facility] 08/13/2024 15:06:08 Influenza, split virus, trivalent, preservative 4 completed Brunilda Vinicio, RMA null, [facility] 08/13/2024 15:06:08 Influenza, split virus, trivalent, PF 6 completed Brunilda Mooney, RMA null, [facility] 08/13/2024 15:06:08 Influenza, split virus, trivalent, PF 4 completed Brunilda Mooney RMA null, [facility] 08/13/2024 15:06:08 Hep B, adult 1 completed Brunilda Vinicio, RMA null, [facility] 08/13/2024 15:06:08 Hep B, adult 1 completed Brunilda Torresham RMA null, [facility] 08/13/2024 15:06:08 Hep B, adult 1 completed Brunilda Mooney RMA null, [facility] 08/13/2024 15:06:08 Influenza, split virus, quadrivalent, PF 0 completed Brunilda Torresham, RMA null, [facility] 08/13/2024 15:06:08 Influenza, split virus, quadrivalent, PF 1 completed Brunilda Mooney, RMA null, [facility] 08/13/2024 15:06:08 Influenza, split virus, quadrivalent, preservative 9 completed Brunilda Mooney RMA null, [facility] 08/13/2024 15:06:08 Influenza, split virus, trivalent, PF 4 completed Brunilda Mooney, RMA null, [facility] 07/23/2024 16:26:05 Past Encounters Encounter ID Performer Location Encounter Start Date Encounter Closed Date Diagnosis/Indication Diagnosis SNOMED-CT Code Diagnosis ICD10 Code Diagnosis Note [id number] [facility] Jeni Cano [address] [place] [address] 05/12/2021 00:00:00 05/13/2021 09:44:18 [id number] Christo forbes MD [facility] Internal Med George spivey [address] [facility] [address] , [place] [address] 06/11/2024 15:16:44 06/11/2024 16:35:24 Screening - NAD 477218124 Z13.9 C-scope: get this if not done Mammogram: Get thisPAP: Get thisDEXA: Get this Get yearly flu shotGet Tdap if not doneCan do shingrix vaccineGet COVID 19 vaccine and its boostersCa n do RSV vaccine RTC in 3 months, do labs Essential hypertension 70313023 I10 On amlodipine 5mg dailyGet labs Vitamin D deficiency 347 97785 E55.9 On vit dGet labs Gastroesop hageal reflux disease without esophagitis 965693457 K21.9 On omeprazole 20mg dailyGet EGD Asthma 601427913 J45.90 9 On BreoOn albuterolD oes well Rheumatoid arthritis 698 15348 M06.[address] Moreno s rheumatolo gist Neuropathy 656298340 G62 .9 On gabapentin Has seen Dr Vasquez in [place], [place], but wants to see another neurology, refer to Dr Marshall Serum jamie min B12 below reference range 975729082 R79.89 Bilateral cataracts 9572 2003 H26.9 [id number] [address]o for[address] MD [facility] [address] [place] [address] 08/13/2024 14:38:52 08/13/2024 15:29:42 Screening - NAD 710300575 Z13.9 C-scope: get this if not done Mammogram: 07/14/2024 : Negative PAP: Get this DEXA: Get this Get yearly flu shotGet Tdap if not doneCan do shingrix vaccineGet COVID 19 vaccine and its boostersCa n do RSV vaccine RTC in 3 months, do labs, ER if worse, she did verbalize her understand ing of the above 45 minutes spent with the patient, labs reviewed, cardiology and neurology note reviewed, labs provided and chart updated Essential hypertension 22034303 I10 Stress test 07/30/2024 : NegECHO: 08/06/2024 : EF 60%SLHV Dr Mishra 08/06/2024 On amlodipine 5mg dailyGet labs Vitamin D deficiency 347 52837 E55.9 On vit dGet labs Gastroesop hageal reflux disease without esophagitis 635088426 K21.9 On omeprazole 20mg dailyGet EGD Asthma 814351893 J45.90 9 On AdvairOn BreoOn albuterolD oes wellSee pulmonary Neuropathy 243978387 G62 .9 On gabapentin Has seen Dr Vasquez in [place], [place], but wants to see another neurology, refer to Dr Marshall OV 08/13/2024 :Dr Marshall 06/18/2024 , started on cymbaltaGe t EMG for the L UE to r/o CTS Rheumatoid arthritis 698 14013 M06.[address] Moreno s rheumatolo gist Serum jamie min B12 below reference range 078511377 R79.89 Bilateral cataracts 9572 2003 H26.9 Screening for malignant neoplasm of colon 808106938 Z12.11 Liver enzy mes level above reference range 951020950 R74.01 US liver 07/07/2024 See case, sees her GI [id number] Christo forbes MD [facility] [address] [place] [address] 11/19/2024 09:38:49 11/19/2024 10:34:47 Screening - NAD 208872794 Z13.9 C-scope: get this if not done Mammogram: 07/14/2024 : Negative PAP: Get this DEXA: Get this Get yearly flu shotGet Tdap if not doneCan do shingrix vaccineGet COVID 19 vaccine and its boostersCa n do RSV vaccine RTC in 2 months, do labs, ER if worse, she did verbalize her understand ing of the above Essential hypertension 16504181 I10 Stress test 07/30/2024 : NegECHO: 08/06/2024 : EF 60%SLHV Dr Mishra 08/06/2024 On amlodipine 5mg dailyGet labs Vitamin D deficiency 347 13298 E55.9 On vit dGet labs Gastroesop hageal reflux disease without esophagitis 725411074 K21.9 On omeprazole 20mg dailyGet EGD Asthma 389323959 J45.90 9 On AdvairOn BreoOn albuterolD oes wellSee pulmonary Neuropathy 989369171 G62 .9 On gabapentin Has seen Dr Vasquez in [place], [place], but wants to see another neurology, refer to Dr Marshall OV 08/13/2024 :Dr Marshall 06/18/2024 , started on cymbaltaGe t EMG for the L UE to r/o CTS OV 11/19/2024 :On duloxetine On gabapentin renewed as per her request but now should have her neurologis t give this to her, she understand s Rheumatoid arthritis 698 15179 M06.[address] Moreno s rheumatolo gist Serum jamie min B12 below reference range 861856430 R79.89 Bilateral cataracts 9572 2003 H26.9 09/17/2024 : Clara Benson OD s/p cataract surgery Screening for malignant neoplasm of colon 766620388 Z12.11 Liver enzy mes level above reference range 027173568 R74.01 US liver 07/07/2024 See case, sees her GI Anemia 884606827 D64.9 ENT 09/11/2024 , epistaxis Jose Zee ALMONTEGet labsReferr ed to hematology , get labs Pain in left foot 117959 7336 24474 M79.672 Small tender hard swelling noted on the L plantar 1st MTPWill refer to podiatry [id number] Nona Frederick NP [facility] [address] [address] 11/25/2024 15:05:46 11/25/2024 15:53:09 Asthma without status asthmaticus 10384770 J45.909 ACT on no maintenanc e inhaler: 15PFT orderLab work orderAsthm a Action plan discussedU se Albuterol only PRN-if using more discussed need for re-evaluat ionIn depth discussion about s/s that require evaluation Return in 2 months for testing-so judah if new or worsening of s/s Dyspnea on exertion 6084 5006 R06.09 Lab work todayACT-1 5Mmrc-1PFT for baselineAw are to use Albuterol inhaler as needed-ok to use when sobEncoura ge patient to remain activefoll ow-up once testing is complete-s ooner for any changes in breathing and increase use of inhaler Sleep apnea 58265657 G47 .30 G47.33 G47.34 patient has hx of nosebleeds and difficulty with pressure when she had CPAP prior-she notes she would like to wait to redo testing and CPAP until after she has seen hematology or nosebleeds improveESS -13 Hypersomnia 34491406 G47 .10 multifacto rial Body mass index 30+ - obesity 825980075 Z68.39 Encourage healthy diet and exercise to improve weightdisc ussed weight effect on sleep and sleep apnea [id number] Dillan Cantor DPM [facility] [address] [address] 11/26/2024 15:36:13 11/27/2024 10:51:24 [id number] Nona Frederick NP [facility] [address] [address] 01/08/2025 15:33:25 01/13/2025 09:03:40 Asthma without status asthmaticus 39603776 J45.909 ACT on no maintenanc e inhaler: 16PFT 12/17/24 nl FEV1/FVC, FEV1 1.43 L (73%), BD 20 mL = 1%, TLC 2.76 L (57%), RV 0.93 L (50%), DLCO 50%, DLCO/VA 127%Asthma Action plan discussedU se Albuterol only PRN-if using more discussed need for re-evaluat ionIn depth discussion about s/s that require evaluation Return in 2 months for testing-so judah if new or worsening of s/s Obstructiv e sleep apnea syndrome 30837310 G47.33 Sleep study order today-[facility] home sleep study 04/28/21 AHI = 10 -due weight gain and new health issues will do split nightDiscu ssed sleep hygeineAdv ised good sleep habits and patterns:- Set a goal for at least 7 to 8 hours of sleep time per day-Use the bed mainly for sleep and to go to bed only when tired. If unable to fall asleep after 30 minutes, patient should get out of bed but should not engage in any activity that requires sustained mental alertness. -Maintain a bedtime and wake-up time even on weekends or day off of work.-Avoi d excessive naps during the daytime. If a nap is necessary, limit to no more than 30 minutes.-M inimize enviroment al noise, bright lights, and extremties in bedroom temperatur es.-Avoid alcohol, caffeinate d beverages, and nicotine products for at least 6 hours prior to bedtime.-A void strenuous exercise and large meals for at least 4 hours prior to bedtime.-D iscussed reportable signs and symptoms of concernf/u after sleep study Body mass index 30+ - obesity 169815212 Z68.39 Encourage healthy diet and exercise to improve weightdisc ussed weight effect on sleep and sleep apnea Essential hypertension 25291913 I10 monitor bp-f/u with primary if remains elevated [id number] Sher Hare MD [facility] General Surgery [address] [place] [address], [place] [address] 01/13/2025 15:11:56 01/13/2025 16:45:09 Esophageal dysphagia 36687373 R13.19 Plan- EGD, cont ppi [id number] Nona Frederick NP [facility] Pulmonolo [place] [address] 02/05/2025 10:08:53 02/05/2025 12:03:38 Sleep apnea 60793486 G47.30 G47.33 G47.34 [facility] home sleep study 04/28/21 AHI = 10[facility] diagnostic sleep study 01/27/25 sleep onset = 9 minutes, REM onset = 76.5 minutes, AHI = 9, REM AHI = 34, PLMI = 0.0Titrati on sleep study order todayESS-1 5Discussed sleep hygeineAdv ised good sleep habits and patterns:- Set a goal for at least 7 to 8 hours of sleep time per day-Use the bed mainly for sleep and to go to bed only when tired. If unable to fall asleep after 30 minutes, patient should get out of bed but should not engage in any activity that requires sustained mental alertness. -Maintain a bedtime and wake-up time even on weekends or day off of work.-Avoi d excessive naps during the daytime. If a nap is necessary, limit to no more than 30 minutes.-M inimize enviroment al noise, bright lights, and extremitie s in bedroom temperatur es.-Avoid alcohol, caffeinate d beverages, and nicotine products for at least 6 hours prior to bedtime.-A void strenuous exercise and large meals for at least 4 hours prior to bedtime.-D iscussed reportable signs and symptoms of concern Body mass index 30+ - obesity 063575706 Z68.39 Encourage healthy diet and exercise to improve weightdisc ussed weight effect on sleep and sleep apnea [id number] Christo forbes MD [facility] [address] [place] [address] 02/11/2025 14:21:03 02/11/2025 14:59:51 Screening - NAD 562027272 Z13.9 C-scope: Has been done in 2019 at [facility] Mammogram: 07/14/2024 : Negative PAP: Get this DEXA: Get this Get yearly flu shotGet Tdap if not doneCan do shingrix vaccineGet COVID 19 vaccine and its boostersCa n do RSV vaccine RTC in 2 months, do labs, ER if worse, she did verbalize her understand ing of the above Essential hypertension 08272722 I10 Stress test 07/30/2024 : NegECHO: 08/06/2024 : EF 60%SLHV Dr Mishra 08/06/2024 On amlodipine 5mg dailyGet labs Vitamin D deficiency 347 81565 E55.9 On vit dGet labs Gastroesop hageal reflux disease without esophagitis 292517414 K21.9 On omeprazole 20mg dailyGet EGD referred again 02/11/2025 Asthma 261998845 J45.90 9 On AdvairOn BreoOn albuterolD oes wellSee pulmonary next apt 07/09/2025 Neuropathy 841068452 G62 .9 Dr Marshall 06/18/2024 , started on cymbaltaGe t EMG for the L UE to r/o CTS On duloxetine On gabapentin renewed as per her request but now should have her neurologis t give this to her, she understand s Dr Marshall 12/10/2024 , to get CT angio done Rheumatoid arthritis 698 92690 M06.9 [address]On sulfasalaz ine Dr Loza and Dr Aziza riojas rheumatolo gist Serum jamie min B12 below reference range 405988490 R79.89 Bilateral cataracts 9572 2003 H26.9 09/17/2024 : Clara Benson OD s/p cataract surgery Screening for malignant neoplasm of colon 013473518 Z12.11 Liver enzy mes level above reference range 711480603 R74.01 US liver 07/07/2024 See case, sees her [facility] Fernandez Anemia 327878502 D64.9 ENT 09/11/2024 , epistaxis Jose Koch MDGet labsReferr ed to hematology , get labs Pain in left foot 452862 2846 95804 M79.672 Small tender hard swelling noted on the L plantar [address]st [address] Cantor 11/26/2024 Alcohol dependence 02084 003 F10.20 GGT: 68H 02/05/2025 Does consume large cans of beer, advised to wean off and stop!Get on thiamine and folic acid Health Concerns Section Related Observation LastModified by Organization Detai ls LastModified Time None Recorded Concern Status LastModified by Organization Details LastModified Time None Recorded Advance Directives Directive Y: Payers Insurance Date Sequence Insurance Name Policy Number Policy Thompson Covered Member ID Thompson Member ID Guarantor Name 02/05/2025 2 [place] [facility] Little Mcnamaras [id number] Little E Torsten 11/25/2024 2 [facility]) [id number] Little E Torsten [id number] Little E Torsten 11/25/2024 1 [facility] ([facility]) [id number] Little E Torsten [id number] Little E Torsten 11/25/2024 1 [employer] [id number] Little E Torsten [id number] Little E Torsten 02/11/2025 1 [facility] (MEDICARE REPLACEMENT/ ADVANTAGE - HMO) [id number] Little E Torsten [id number] Little Sarmiento Notes Date Note Type Note Provider Name and Address Organization Details Recorded Time 5 text/html Pt RTC for c/o painful heel, recurrent pain, Lt, Worse in AM and after long OWB. Previously tx'ed as PFitis Lt. Dillan Cantor DPM [address] [facility], [place], [address], [employer] 11/27/2024 09:03:40 5 text/html AsthmaReported bypatient.Quality:well-co ntrolled Severity:no decrease in activities of daily living; improving Timing:infrequent Aggravating Factors:changes in weather; physical activity Alleviating Factors:short-acting beta agonist Associated Symptoms:no fever; no fatigue; no anorexia; no tachypnea; no retractions; no sleep disturbance;cough;dyspnea ;wheeze Prior Tests and Treatments:short-acting beta agonistNotes:non-smokerfo llow-up for lab work-unremarkable respiratory work-up and pft wnl (old PFT from 2019 did show restriction)she has not been taking her cetrizine due to not realizing it was otcObstructive Sleep ApneaReported bypatient.Severity:modera te Timing:chronic Duration:7years Context:inconsistent sleep routine; hypertension; sleep hours per night3 Aggravating Factors:fatigue; positioning; sleep disruption Alleviating Factors:elevating head of bed Associated Symptoms:no morning headache; no impaired work performance; no hyponasal speech;morning dry mouth;postnasal drip;dysphagia;awakening short of breath;night sweats;daytime sleepiness;suddenly falling asleep during the day;excess napping;nasal congestion;loud snoring;gasping for air;witnessed apnea;mouth breathing;hyperactivity;p oor concentration;amnesia;irr itability Prior Tests and Treatments:home sleep study; APAP; document manager evaluationNotes:follow-up -did see neurology and will be having a CT of her head-she notes she is ready to proceed with a new sleep study for her sleep apnea Nona Frederick NP [address] [facility], [place], [address], [employer] 01/08/2025 16:20:06 04/15/202 5 text/html 65c/o dysphagia solids for at least 4 months on ppi, no wtloss, no h/o EGD Sher Hare MD [address], [address], [place], [address], [address] [facility] [employer] 01/13/2025 16:05:42 5 text/html Patient is here today for follow-up for sleep study follow-up. She notes continued fatigue, no changes since last visit. Nona Frederick NP [address], [place], [address], [address] [facility] [employer] 02/05/2025 11:21:04 5 text/html OV 06/11/2024:Here to establish care Present Hx:RAAsthmaHTNGERD Hx ofmeningitispitutary tumor surgeryTAH/SOOBil CTRGB surgeryBi shoulder surgeryL THR Here to discuss above and get labs, she is doing well today, wants to establish care OV 08/13/2024: Here for her f/u apt, she is doing well today, she did do the labs and she did see Dr Mishra and her neurologist OV 11/19/2024: Here for her f/u apt, she feels well today, she does want her refill of gabapentin, she has also noted a corn in the L foot and wants to see a on air host OV 02/11/2025: Here for her f/u apt, she is doing well today, she did do the labs on 02/05/2025 Christo Patterson MD [address], [place], [address], [address] [facility] [employer] 02/11/2025 18:39:12 OBGyn Episode No OBEpisode recorded.
--- OUTSIDE RECORDS SUMMARY | 2025-03-17 08:12 | XMS_ITS ---
Author Organization [facility] Address [address] [place] [address] [address]. 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 [place] [address] 02/06/2024 Steve Sol Plan Of Treatment No Information Progress Notes * Little SARMIENTO EDOB:1959 (65 yo F)Acc No.[id number]:02/06/2024 Patient: Armando ROMAN Little Janet Provider: Shant Sol M.D. :1960 A ge:64 Y S ex:Female Date:02/06/2024 [facility] [address] Pcp:Chadwick Schwartz MD Subjective: * Chief Complaints: [...] on weekend. 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 * Medications: T aking Omeprazole 20 MG Capsule Delayed Release 1 capsule 30 minutes before morning meal Orally Twice a day , Taking Golimumab , Taking Albuterol , Taking azaTHIOprine , Taking amLODIPine Besylate , Taking Gabapentin , Taking OTC/Vitamins , Notes to Pharmacist: Vit D3, Calcium, ASA, Stam[place] 3, Folic Acid, Biotin, Vit E, Magnesium, [...] Electronic signature of Pasquale Sol MD on 03/17/2025 at 08:11 AM CDT Sign off status: Pending * Provider: Shant Sol M.D. Date: 0 02/06/2024 Generated for Macy jacome/Ernestine/Maryitting on: 0 03/17/2025 08:11 AM CDT
--- OUTSIDE RECORDS SUMMARY | 2025-03-17 08:12 | XMS_ITS ---
Author Organization [facility] Address [address] [place] [address] [place] [address] Care Team Providers Care Quarantine Inspector Name Role Phone MD ISABELLE, GRISEL Primary Care Provider U lori Whitleyamberphi Cristi Unavailable [phone] ALLERGIES No Known Allergies REASON FOR VISIT FOLLOW UP MEDICATIONS Medication SIG (Take, Route, Frequency, Duration) Notes Start Date End Date Status Cetirizine HCl 10 MG TAKE 1 TABLET BY [facility] EVERY DAY Oral for 30 Active amLODIPine [...] for 30 day(s) Active Cholecalciferol 1.25 MG (06759 UT) 1 capsule Orally Once a day [...] injection 07/10/2024 Active Vitamin D3 1.25 MG (15346 UT) 1 capsule Oral Once a day [...] a nonsmoker Section Notes: 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 She is with no children. She denies alcohol, tobacco, or illicit drug abuse. Encounters Encounter Location Date Provider Diagnosis [facility] [address] [place] [address] 08/19/2024 Cristi Brooks Radiculopathy, lumba r region M54.16 ; Sacroiliitis, not elsewhere classified M46.1 ; Spondylosis without myelopathy or radiculopathy, lumbar region M47.816 ; Spondylosis without myelopathy or radiculopathy, lumbosacral region M47.817 ; Radiculopathy, lumbosacral region M54.17 ; Fear of injections and transfusions F40.231 and termite exterminator (current) use of anticoagulants Z79.01 ASSESSMENTS Encounter [...] injections and transfusions (ICD-10 - F40.231) 08/19/2024 USP (current) use of anticoagulants (ICD-10 - Z79.01) [...] patient's typical axial low back pain. Silver's, Cayuga's and Gaenslen's are positive on the left. [...] and Follow-up: Follow-up Plan florence peres:: Yes [facility] Quality 2020: [facility] Documented:: Compliant
--- OUTSIDE RECORDS SUMMARY | 2025-03-17 08:12 | XMS_ITS | Encounter Summary ---
Author Organization [facility] Address [address] [place] [address] Care Team Providers Care Medical Imaging Technician Name Role Phone Christo Patterson MD Primary Care Provider Encounter Details Date Type Department Care Team (Late Contact Info) Description 03/13/2025 Orders Only [facility] Oncology and Hematology - Jorge [address] [facility] [address] [place] [address] Joselo Keller MD [address] [facility] [address] [place] [address] Social History Tobacco Use Types Packs/Day Years Used Date Smoking Tobacco: Never Smokeless Tobacco: Never Alcohol Use Standard Drinks/Week Comments Yes 0 [...] as of this encounter Plan of Treatment Upcoming Encounters Date Type Department Care Team (Late Contact Info) Description 03/26/2025 4:30 PM CDT Telephone Check Up [facility] Oncology and Hematology - Jorge [address] [facility] [address] [place] [phone] Joselo Keller MD [address] [facility] [address] [place] [address] documented as of this encounter Procedures Procedure Name Priority Date/Time Associated Diagnosis Comments COMPREHENSIVE METABOLIC PANEL Routine 03/12/2025 10:35 AM CDT COMPREHENSIVE METABOLIC PANEL Routine 03/12/2025 10:19 AM CDT CBC WITH AUTODIFFERENTIAL Routine 2024 10:05 AM CDT documented in this encounter Results * COMPREHENSIVE METABOLIC PANEL (03/12/2025 10:35 AM CDT) Blood us Joselo Keller MD CHEMISTRY ORDERABLES Final Resu lt * COMPREHENSIVE METABOLIC PANEL (03/12/2025 10:19 AM CDT) Blood us Joselo Keller MD CHEMISTRY ORDERABLES Final Resu lt * CBC WITH AUTODIFFERENTIAL (03/12/2025 10:05 AM CDT) Blood us Joselo Keller MD HEMATOLOGY ORDERABLES Final Res ult documented in this encounter Visit Diagnoses Not on filedocumented in this encounter Care Teams Medical Imaging Technician Relationship Specialty Start Date End Date Chritso Patterson MD [address] [place] [address] PCP - General Internal Medicine 08/25/24 documented as of this encounter
--- OUTSIDE RECORDS SUMMARY | 2025-03-17 08:13 | XMS_ITS | Patient Health Record ---
Author Organization [facility] Address [address] [place] [address] [place] [address] Care Team Providers Care Diesel Service Technician Name Role Phone MD ISABELLE, GRISEL Primary Care Provider U Cristi Vasquez Unavailable [phone] ALLERGIES No Known Allergies REASON FOR REFERRAL [...] 30 day(s) Active Vitamin D3 1.25 MG (47804 UT) 1 capsule Oral Once a day Active Breo Ellipta 100-25 MCG/ACT INHALE 1 PUF F BY MOUTH DAILY FAST BREATH INHALE QUICKLY AND DEEPLY Inhalation for 30 Active amLODIPine Besylate 5 MG 1 tablet Orally Once a day for 30 day(s) Active Cholecalciferol 1.25 MG (97225 UT) 1 capsule Orally Once a day [...] a nonsmoker Section Notes: 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 She is with no children. She denies alcohol, tobacco, or illicit drug abuse. 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 She is with no children. She denies alcohol, tobacco, or illicit drug abuse. 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 She is with no children. She denies alcohol, tobacco, or illicit drug abuse. 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 She is with no children. She denies alcohol, tobacco, or illicit drug abuse. 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 She is with no children. She denies alcohol, tobacco, or illicit drug abuse. 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 She is with no children. She denies alcohol, tobacco, or illicit drug abuse. 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 She is with no children. She denies alcohol, tobacco, or illicit drug abuse. 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 She is with no children. She denies alcohol, tobacco, or illicit drug abuse. 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 She is with no children. She denies alcohol, tobacco, or illicit drug abuse. 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 She is with no children. She denies alcohol, tobacco, or illicit drug abuse. 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 She is with no children. She denies alcohol, tobacco, or illicit drug abuse. 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 She is with no children. She denies alcohol, tobacco, or illicit drug abuse. 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 She is with no children. She denies alcohol, tobacco, or illicit drug abuse. 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 She is with no children. She denies alcohol, tobacco, or illicit drug abuse. 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 She is with no children. She denies alcohol, tobacco, or illicit drug abuse. 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 She is with no children. She denies alcohol, tobacco, or illicit drug abuse. 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 She is with no children. She denies alcohol, tobacco, or illicit drug abuse. 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 She is with no children. She denies alcohol, tobacco, or illicit drug abuse. 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 She is with no children. She denies alcohol, tobacco, or illicit drug abuse. 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 She is with no children. She denies alcohol, tobacco, or illicit drug abuse. 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 She is with no children. She denies alcohol, tobacco, or illicit drug abuse. 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 She is with no children. She denies alcohol, tobacco, or illicit drug abuse. 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 She is with no children. She denies alcohol, tobacco, or illicit drug abuse. 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 She is with no children. She denies alcohol, tobacco, or illicit drug abuse. 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 She is with no children. She denies alcohol, tobacco, or illicit drug abuse. 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 She is with no children. She denies alcohol, tobacco, or illicit drug abuse. 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 She is with no children. She denies alcohol, tobacco, or illicit drug abuse. 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 She is with no children. She denies alcohol, tobacco, or illicit drug abuse. 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 She is with no children. She denies alcohol, tobacco, or illicit drug abuse. 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 She is with no children. She denies alcohol, tobacco, or illicit drug abuse. 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 She is with no children. She denies alcohol, tobacco, or illicit drug abuse. 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 She is with no children. She denies alcohol, tobacco, or illicit drug abuse. 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 She is with no children. She denies alcohol, tobacco, or illicit drug abuse. 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) Active confirmed Fear of medical treatment (221733814) Problem Sacroiliitis, not elsewhere classified (M46.1) Active confirmed Solitary sacroiliitis (768949217) Problem Spondylosis without myelopathy or radiculopathy, lumbar region (M47.816) Active confirmed Lumbosacral spondylosis without myelopathy (97856727) Problem Spondylosis without myelopathy or radiculopathy, lumbosacral region (M47.817) Active confirmed Lumbosacral spondylosis without myelopathy (disorder) (95206395) Problem Intervertebral disc disorders with radiculopathy, 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) Active confirmed Lumbosacral radiculopathy (3516757) Problem Radiculopathy, lumbar region (M54.16) Active confirmed Lumbar radiculopathy (769183618) Problem Radiculopathy, lumbosacral region (M54.17) Active confirmed Lumbosacral radiculopathy (3206093) Problem Osseous stenosis of neural canal of lumbar region (M99.33) Active confirmed Spinal stenosis of lumbar region (15026448) Problem MCC (current) use of anticoagulants (Z79.01) Active confirmed Long-term current use of anticoagulant (577856074) VITAL SIGNS Heart Rate 74 /min 08/04/2024 Respiratory Rate 16 /min 08/04/2024 Blood pressure diastolic 82 mm Hg 08/04/2024 Height 5 ft 7 in in 08/04/2024 Blood pressure systolic 181 mm Hg 08/04/2024 Weight 225 lbs 08/04/2024 BMI 35.24 kg/m2 08/04/2024 Encounters Encounter Location Date Provider Diagnosis [facility] [address] [place] [address] 03/17/2024 Cristi Stynowick Radiculopathy, lumba r region M54.16 ; Spondylosis without myelopathy or radiculopathy, lumbar region M47.816 ; Sacroiliitis, not elsewhere classified M46.1 ; Spondylosis without myelopathy or radiculopathy, lumbosacral region M47.817 ; Radiculopathy, lumbosacral region M54.17 ; Fear of injections and transfusions F40.231 and medical terminologist (current) use of anticoagulants Z79.01 [facility] [address] [place] [address] 03/26/2024 Cristi Stynowick Radiculopathy, lumba r region M54.16 ; Spondylosis without myelopathy or radiculopathy, lumbar region M47.816 ; Sacroiliitis, not elsewhere classified M46.1 ; Spondylosis without myelopathy or radiculopathy, lumbosacral region M47.817 ; Radiculopathy, lumbosacral region M54.17 ; Fear of injections and transfusions F40.231 and MCC (current) use of anticoagulants Z79.01 [facility] [address] [place] [address] 04/23/2024 Cristi Stynowick Radiculopathy, lumba r region M54.16 ; Sacroiliitis, not elsewhere classified M46.1 ; Spondylosis without myelopathy or radiculopathy, lumbar region M47.816 ; Spondylosis without myelopathy or radiculopathy, lumbosacral region M47.817 ; Radiculopathy, lumbosacral region M54.17 ; Fear of injections and transfusions F40.231 and MCC (current) use of anticoagulants Z79.01 [facility] [address] [place] [address] 05/02/2024 Cristi Stynowick Sacroiliitis, not elsewhere classified M46.1 [facility] [address] [place] [address] 05/19/2024 Cristi Stynowick Radiculopathy, lumba r region M54.16 ; Sacroiliitis, not elsewhere classified M46.1 ; Spondylosis without myelopathy or radiculopathy, lumbar region M47.816 ; Spondylosis without myelopathy or radiculopathy, lumbosacral region M47.817 ; Radiculopathy, lumbosacral region M54.17 ; Fear of injections and transfusions F40.231 and medical terminologist (current) use of anticoagulants Z79.01 [facility] [address] [place] [address] 05/26/2024 Cristi Stynowick Radiculopathy, lumba r region M54.16 ; Radiculopathy, lumbosacral region M54.17 and Osseous stenosis of neural canal of lumbar region M99.33 [facility] [address] [place] [address] 06/10/2024 Cristi Stynowick Radiculopathy, lumba r region M54.16 ; Sacroiliitis, not elsewhere classified M46.1 ; Spondylosis without myelopathy or radiculopathy, lumbar region M47.816 ; Spondylosis without myelopathy or radiculopathy, lumbosacral region M47.817 ; Radiculopathy, lumbosacral region M54.17 ; Fear of injections and transfusions F40.231 and MCC (current) use of anticoagulants Z79.01 [facility] [address] [place] [address] 07/10/2024 Cristi Stynowick Radiculopathy, lumba r region M54.16 ; Sacroiliitis, not elsewhere classified M46.1 ; Spondylosis without myelopathy or radiculopathy, lumbar region M47.816 ; Spondylosis without myelopathy or radiculopathy, lumbosacral region M47.817 ; Radiculopathy, lumbosacral region M54.17 ; Fear of injections and transfusions F40.231 and medical terminologist (current) use of anticoagulants Z79.01 [facility] [address] [place] [address] 08/04/2024 Cristi Brooks Sacroiliitis, not elsewhere classified M46.1 [facility] [address] [place] [address] 08/19/2024 Cristi Sttariowick Radiculopathy, lumba r region M54.16 ; Sacroiliitis, not elsewhere classified M46.1 ; Spondylosis without myelopathy or radiculopathy, lumbar region M47.816 ; Spondylosis without myelopathy or radiculopathy, lumbosacral region M47.817 ; Radiculopathy, lumbosacral region M54.17 ; Fear of injections and transfusions F40.231 and medical terminologist (current) use of anticoagulants Z79.01 ASSESSMENTS Encounter [...] they would need to come with a corporate driver after taking this medication due to the risk of impairment. 06/10/2024 Fear of injections and transfusions (ICD-10 - F40.231) 04/23/2024 Fear of injections and transfusions (ICD-10 - F40.231) The patient was given written instructions explaining the above and was informed that they would need to come with a corporate driver after taking this medication due to the risk of impairment. 07/10/2024 Fear of injections and transfusions (ICD-10 - F40.231) The patient was given written instructions explaining the above and was informed that they would need to come with a corporate driver after taking this medication due to the risk of impairment. 08/19/2024 Radiculopathy, lumbosacral region (ICD-10 - M54.17) 07/10/2024 MCC (current) use of anticoagulants (ICD-10 - Z79.01) 08/19/2024 Fear of injections and transfusions (ICD-10 - F40.231) 06/10/2024 medical terminologist (current) use of anticoagulants (ICD-10 - Z79.01) 05/19/2024 MCC (current) use of anticoagulants (ICD-10 - Z79.01) The patient was instructed to discontinue aspirin for 6 days prior to the procedure. I made the patient aware that she will be at an increased risk for a thromboembolic event during this time and she is willing to accept this risk. The patient was instructed to notify her primary care physician and/or interpersonal communications professor to obtain clearance prior to discontinuing this medication. 04/23/2024 MCC (current) use of anticoagulants (ICD-10 - Z79.01) 03/26/2024 medical terminologist (current) use of anticoagulants (ICD-10 - Z79.01) 03/17/2024 Fear of injections and transfusions (ICD-10 - F40.231) 03/17/2024 medical terminologist (current) use of anticoagulants (ICD-10 - Z79.01) 08/19/2024 medical terminologist (current) use of anticoagulants (ICD-10 - Z79.01) [...] Insured Coverage Start Date Coverage End Date [facility] [address] [place] [address] [id number] TEETEE SON Self - patient is the insured Medicaid [place] [address] [address] [place] [address] [id number] TEETEE SON Self - patient is the insured 4 MEDICAL (GENERAL) HISTORY Medical History History ICD Code Hypertension GERD Vertigo Anemia Sleep apnea Surgical History Surgery Date(Month/Year) Bilateral rotator cuff repair 2006 Cholecystectomy 2012 Left shoulder rotator cuff repair 2014 Right shoulder rotator cuff repair 016 Total left hip arthroplasty 03/18/2019
--- OUTSIDE RECORDS SUMMARY | 2025-03-17 08:13 | XMS_ITS | Clinical Summary ---
Author Organization [facility] Address [address] [place] [address] Care Team Providers Care Party Plan Sales Unit Advisor Name Role Phone Artie Barron MD Primary Care Provider [phone] Source Comments [facility],non-owned Affiliates and Associated Physician Practices is amultiple site organization consisting of ambulatory clinics and hospital sitesin [place], [place], [place] and [place]. This disclosure is being madepursuant to the Care Everywhere program and may not contain all information available regarding this patient. 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
--- NOTE | 2025-04-08 22:15 | WPDSLEEPSTUD ---
Sleep Study Date of Study: 03/17/25 Ordering Provider: Otoniel,Nona FRAGOSO Interpreting Physician: Oly Pierre MD Sleep Study Type: CPAP Titration Height: 1.63 m Weight: 104.326 kg Body Mass Index: 39.4 Neck Circumference (inches): 14.5 [place]: 11 Reason for Sleep Study Obstructive sleep apnea, hypersomnolence, has been on CPAP, presents for a CPAP titration after diagnostic polysomnogram. * 01/27/2025. [facility], diagnostic polysomnogram showed mild obstructive sleep apnea, AHI is 9, REM AHI 34 with oxygen desaturation, may underestimate severity as the patient had absence of supine sleep. Sleep History Little Sarmiento is a 65-year-old woman with excessive daytime sleepiness. She has difficulty getting to sleep and wakes up throughout the night. She has says that she can stay awake for 2 or 3 days without having sleep. She enjoys reading at night and watching television, she often finds something to do to keep her from getting rest. When she goes to bed she cannot sleep stay in the bed any more than 4-6 hours. She tried using CPAP years ago but there were problems with how it functioned, she described having a lot of air coming out of the machine. She did not feel like she had any resolution to the problems with her CPAP machine. She did not feel like CPAP worked out for her back then so she quit using it. She frequently awakens from sleep short of breath. She constantly wakes at night with heartburn, belching or coughing.??She never snores, never snores loudly enough that others complain. She occasionally has trouble sleeping when she has a cold. She occasionally wakes up gasping for breath during the night. She always has breathing problems at night reported to her by others. She occasionally sweats excessively at night. She occasionally notices her heart pounding or beating irregularly during the night. She occasionally falls asleep during the day. She occasionally falls asleep involuntarily, however never falls asleep while driving. She occasionally experiences loss of muscle tone with strong emotion. She occasionally feels paralyzed on waking or falling asleep. She rarely experiences vivid dreams upon waking or falling asleep. She always feels afraid of going to sleep. She never has nightmares. She occasionally recalls her dreams. She occasionally has thoughts racing through her mind. She constantly feels sad or depressed. She constantly feels anxiety. She occasionally notices parts of her body jerk. She rarely kicks during the night. She constantly feels crawling or aching feelings in her legs. She constantly feels leg pain at night. She rarely has morning jaw pain, and rarely grinds her teeth at night. She constantly feels bothered by pain during the day, is constantly awakened by pain during the night. She constantly wakes up feeling stiff in the morning, constantly wakes feeling sore or achy in the morning. She always awakens with pain in her neck, spine, or joints. Normal bedtime is between 3:00 a.m. and 4:00 a.m., taking a long time to fall asleep, waking 1-2 times during the night for bathroom visit or just for no apparent reason. She may stay awake for the rest of the night. Her wake time and get out of bedtime depends on how much sleep she had. She keeps the same schedule on weekends. She does not describe taking naps during the day but if she has a short nap lasting 10-15 minute she may feel refreshed afterwards. She reports getting an average of 4 hours of sleep at night and not catching up on sleep during the day. Habits:??Tobacco: Never smoker Caffeine: 6 caffeinated beverages per day Alcohol: 3 cans of beer on the weekends Recreational substances: none PMFSH Past Medical History Medical History (Updated 04/21/25 @ 11:56 by Oly Pierre MD) Obstructive sleep apnea Anemia UTI (urinary tract infection) Renal and ureteric calculus Yeast vaginitis Chronic depression Surgical History Surgical History History of rotator cuff surgery right in 2016 left in 2015 History of left hip replacement 2019 History of colonoscopy 2016 2019 History of endoscopy 2015 History of laparoscopic cholecystectomy 2012 History of bilateral carpal tunnel release both in 2007 History of hysterectomy total 2006 Family History Family History Father Family history of diabetes mellitus in first degree relative Diabetes mellitus Family history of cardiovascular disease Family history of Alzheimer's disease Family history of congestive heart failure Family history of heart disease in male family member before age 55 Hypertension Family history of elevated blood lipids Family history of coronary artery disease Sibling Diabetes mellitus Family history of cardiovascular disease Hypertension Family history of malignant neoplasm of cervix Family history of malignant neoplasm of ovary Mother Hypertension Family history of cardiovascular disease Family history of malignant neoplasm of cervix Family history of glaucoma Grandparent Diabetes mellitus Family history of cardiovascular disease, Onset Age: 82 Other Cerebrovascular accident Family history of arthritis Family history of gout Family history of malignant neoplasm Social History Social History Smoking status: Never smoker Alcohol intake: current Drinks per week: 6 Alcohol use details: Beer Substance use: never Substance use type: does not use Living arrangements: with family Occupation/Education: occupation 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 Spiritual care concerns: No Medications Home Medications ?Medication ?Instructions ?Recorded ?Confirmed ?Type calcium carbonate (Calcium 600) 600 mg PO DAILY 08/01/19 03/25/25 History albuterol sulfate 90 mcg/actuation 2 puff inhalation Q4H PRN 08/14/19 03/17/25 History aerosol inhaler (ProAir HFA) shortness of breath or wheezing aspirin 81 mg tablet,delayed 81 mg PO DAILY 08/14/19 03/25/25 History release (Adult Low Dose Aspirin) fluticasone propionate 230 2 puff inhalation Q12H PRN 08/14/19 03/17/25 History mcg-salmeterol 21 mcg/actuation shortness of breath HFA inhaler (Advair HFA) omeprazole 20 mg capsule,delayed 20 mg PO DAILY 08/14/19 03/25/25 History release pravastatin 10 mg tablet 10 mg PO DAILY 08/14/19 03/25/25 History biotin 800 mcg tablet 800 mcg PO DAILY 02/04/20 03/25/25 History omega-3 900 mg-dha 360 mg-epa 455 1 cap PO DAILY 02/04/20 03/25/25 History mg-fish oil 1,000 mg capsule (Fish Oil) amlodipine 5 mg-benazepril 10 mg 1 cap PO DAILY #30 caps 10/20/20 03/25/25 Rx capsule cholecalciferol (vitamin D3) 1,250 See Rx Instructions .Route 11/08/20 03/25/25 Rx mcg (50,000 unit) capsule .COMPLEX #4 caps atorvastatin 40 mg tablet 40 mg PO DAILY 03/17/25 03/25/25 History duloxetine 30 mg capsule,delayed 30 mg PO DAILY 03/17/25 03/25/25 History release ferrous sulfate 325 mg (65 mg 325 mg PO DAILY 03/17/25 03/25/25 History iron) tablet (FeroSul) gabapentin 300 mg capsule 300 mg PO Q12H 03/17/25 03/25/25 History sulfasalazine 500 mg 1 g PO Q12H 03/17/25 03/25/25 History tablet,delayed release Sleep Procedure A full CPAP polysomnogram using the Imagry multi-channel system recorded the standard physiologic parameters including EEG, EOG, submentalis EMG, anterior tibialis EMG, EKG, body position, nasal and oral airflow using nasal pressure sensor and thermistor. Respiratory parameters of chest and abdominal movements were recorded with Respiratory Inductance Plethysmography belts. Oxygen saturation was recorded by pulse oximetry. Video monitoring was also performed. Sleep stages, periodic limb movements, and EEG arousals were scored in 30 second epochs according to the criteria of the AASM Scoring Manual. The Apnea-Hypopnea Index was calculated using CMS guidelines for definition of hypopnea while scoring respiratory events. The patient was started on CPAP using a small RespirTX[employer]s DreamWear under the nose nasal mask, was titrated initially CPAP 5 cm, 7 cm, 9 cm with 11 cm as a comparison pressure. On CPAP 11 cm, the patient spent 17.5 minutes in bed, 6 minutes awake, 11.5 minutes in non-REM, no time in REM. Sleep efficiency was 66.7%. The residual apnea-hypopnea index was 0. Lowest saturation was 89%. She tolerated CPAP 9 as well, 71.5 minutes in bed, 19 minutes awake, 52.5 minutes in non-REM, no time in REM. Sleep efficiency was 73.4% with a residual apnea-hypopnea index of 1.1. The lowest saturation was 89%. She had no REM at CPAP 9 cm. She had REM at CPAP 7 however had lower desaturation to 81%. The patient had supine REM for over half the night. Sleep was very fragmented for the last half of the night. I am recommending CPAP 9 cm of water pressure as her optimal pressure. Sleep Architecture The total recording time was 416.1 minutes. The total sleep time was 336.5 minutes. Sleep latency was 12.1 minutes. REM latency was 93.5 minutes. Sleep efficiency was 80.9%. The patient had 52 awakenings for an awakening index of 9.3. Wake after Sleep Onset time was 67.0 minutes. The patient spent 36.0 minutes, 10.7% of total sleep time in Stage N1. The patient spent 262.5 minutes, 78.0% in Stage N2. The patient spent 0.5 minutes, 0.1% in Stage N3. The patient spent 37.5 minutes, 11.1% in Stage REM. Respiratory Analysis The patient had 18 hypopneas, no obstructive apneas, no mixed apneas, and 1 central apnea for an overall Apnea Hypopnea Index of 3.4 events per hour. The REM Apnea Hypopnea Index was 19.2. The NREM Apnea Hypopnea Index was 1.4. The patient had a Central Apnea Hypopnea Index of 0.2. There were no Respiratory Effort Related Arousals. The Respiratory Disturbance Index is 5.7 events per hour. There was no evidence of Layo-Shay Respirations. Arousals There were 51 total arousals for an arousal index of 9.1. There were 43 spontaneous arousals for an index of 7.7. There were 6 arousals due to respiratory events for an index of 1.1. There were no arousals due to periodic limb movements. There were 2 arousals due to isolated limb movements for an index of 0.4. Periodic Limb Movements The patient had 16 isolated limb movements with an index of 2.9. The patient had no periodic limb movements. Patient had a total of 16 limb movements with a total limb movement index of 2.9. Oximetry Data The patient had an average oxygen saturation of 94.7% in sleep with a minimum oxygen saturation of 81% and a maximum oxygen saturation of 100%. The patient had 22 oxygen desaturations that were 4% or greater resulting in an Oxygen Desaturation Index of 3.9. The patient spent 8.5 minutes, 2% of total sleep time with an oxygen saturation below 88%. Snoring Profile Snoring was not noted during the titration. Cardiac Profile The EKG showed normal sinus rhythm. The patient had an average pulse rate of 76.1 bpm with a minimum pulse rate of 65 bpm and a maximum pulse rate of 88 bpm. No arrhythmias noted. EEG Profile Unremarkable, no evidence of seizures. Assessment and Plan Assessment and Plan (1) Obstructive sleep apnea: Code(s): G47.33 - Obstructive sleep apnea (adult) (pediatric) Status: Acute Assessment and Plan: This full night CPAP titration on 03/17/2025 shows an optimal pressure of CPAP 9 cm using a small Respironics DreamWear under the nose nasal mask and heated humidity. At CPAP 9 cm, she spent 71.5 minutes in bed, 19 minutes awake, 52.5 minutes in non-REM, no time in REM. Sleep efficiency was 73.4% with a residual apnea-hypopnea index of 1.1. The lowest saturation was 89%. She had no REM at CPAP 9 cm. She had REM at CPAP 7 however had lower desaturation to 81%. The patient had supine REM for over half the night. Sleep was very fragmented for the last half of the night. The patient should be prescribed this ResMed equipment as well as tubing, filters and reservoir. This should be used with all episodes of sleep. Compliance should be reviewed within 31-90 days of starting therapy for usage greater than 4 hours per night greater than 70% of the nights. The patient should be asked about symptoms such as excessive daytime sleepiness, quality of sleep, decreased nocturia, increased mental functioning such as memory, mood, and concentration. BMI is 39.5. Weight management is advised. Clinical data suggests that weight loss of 10% can reduce the severity of respiratory events and snoring and improve AHI by as much as 25%. Data The data obtained during this sleep study is adequate for interpretation. Certification This sleep study has been reviewed by a board certified sleep medicine physician.
[2025-04-22 10:26] VITALS: BMI 39.4
== END 2025-03-18 06:25 | disposition home or self-care (01) ==
LOC: ANHCSM 08:06
PROVIDERS: PCP Internal Medicine; Visit Provider Nurse Practitioner
DX: G47.30 Sleep apnea, unspecified (principal); G47.33 Obstructive sleep apnea (adult) (pediatric)
CPT/HCPCS: 95811

== ENCOUNTER 2025-03-25 00:35 | Day surgery (SDC) | payer MEDICARE, MEDICAID, SELFPAY ==
[2025-03-17 13:36] VITALS: BMI 39.5
[2025-03-25 09:32] VITALS: BP 148/74; PULSE 85; RESP 19; TEMP 36.4; O2SAT 100
--- NOTE | 2025-03-25 09:39 | SUR.PREOP ---
Patient wishes to suspend DNR for this elective EGD/colonoscopy. Code status form signed at bedside with patient. Patient will be full resuscitation for this procedure.
--- NOTE | 2025-03-25 09:40 | WPDANESEPPF ---
Anes - Initial Pre Proc Eval Procedure: Operation Date: 03/25/25 10:30 Proposed Procedures p Esophagogastroduodenoscopy - John Julien MD s Screening Colonoscopy - John Julien MD Date/Time: 03/25/25 09:40 Surgeon: John Julien MD Pre Op Diagnosis: GERD, screening Patient Data Age: 65 Gender: F Height: 1.63 m Weight: 104.1 kg Last Vital Signs Temp 97.6 F 03/25/25 09:32 Pulse 85 03/25/25 09:32 Resp 19 03/25/25 09:32 BP 148/74 H 03/25/25 09:32 Pulse Ox 100 03/25/25 09:32 O2 Del Method Room Air 03/25/25 09:32 Allergies Allergy/AdvReac Type Severity Reaction Status Date / Time No Known Allergies Allergy Unknown Verified 03/25/25 09:30 Home Medications ?Medication ?Instructions ?Recorded ?Confirmed ?Type calcium carbonate (Calcium 600) 600 mg PO DAILY 08/01/19 03/25/25 History albuterol sulfate 90 mcg/actuation 2 puff inhalation Q4H PRN 08/14/19 03/17/25 History aerosol inhaler (ProAir HFA) shortness of breath or wheezing aspirin 81 mg tablet,delayed 81 mg PO DAILY 08/14/19 03/25/25 History release (Adult Low Dose Aspirin) fluticasone propionate 230 2 puff inhalation Q12H PRN 08/14/19 03/17/25 History mcg-salmeterol 21 mcg/actuation shortness of breath HFA inhaler (Advair HFA) omeprazole 20 mg capsule,delayed 20 mg PO DAILY 08/14/19 03/25/25 History release pravastatin 10 mg tablet 10 mg PO DAILY 08/14/19 03/25/25 History biotin 800 mcg tablet 800 mcg PO DAILY 02/04/20 03/25/25 History omega-3 900 mg-dha 360 mg-epa 455 1 cap PO DAILY 02/04/20 03/25/25 History mg-fish oil 1,000 mg capsule (Fish Oil) amlodipine 5 mg-benazepril 10 mg 1 cap PO DAILY #30 caps 10/20/20 03/25/25 Rx capsule cholecalciferol (vitamin D3) 1,250 See Rx Instructions .Route 11/08/20 03/25/25 Rx mcg (50,000 unit) capsule .COMPLEX #4 caps atorvastatin 40 mg tablet 40 mg PO DAILY 03/17/25 03/25/25 History duloxetine 30 mg capsule,delayed 30 mg PO DAILY 03/17/25 03/25/25 History release ferrous sulfate 325 mg (65 mg 325 mg PO DAILY 03/17/25 03/25/25 History iron) tablet (FeroSul) gabapentin 300 mg capsule 300 mg PO Q12H 03/17/25 03/25/25 History sulfasalazine 500 mg 1 g PO Q12H 03/17/25 03/25/25 History tablet,delayed release Patient hx anesthesia problems: none Family hx anesthesia problems: none Results Review: All pre-operative results and documents have been reviewed as part of the pre-operative evaluation. [facility] Past Medical History Medical History Anemia UTI (urinary tract infection) Renal and ureteric calculus Yeast vaginitis Chronic depression Surgical History Surgical History History of rotator cuff surgery right in 2016 left in 2014 History of left hip replacement 2019 History of colonoscopy 2016 2019 History of endoscopy 2014 History of laparoscopic cholecystectomy 2012 History of bilateral carpal tunnel release both in 2007 History of hysterectomy total 2006 Family History Family History Father Family history of diabetes mellitus in first degree relative Diabetes mellitus Family history of cardiovascular disease Family history of Alzheimer's disease Family history of congestive heart failure Family history of heart disease in male family member before age 55 Hypertension Family history of elevated blood lipids Family history of coronary artery disease Sibling Diabetes mellitus Family history of cardiovascular disease Hypertension Family history of malignant neoplasm of cervix Family history of malignant neoplasm of ovary Mother Hypertension Family history of cardiovascular disease Family history of malignant neoplasm of cervix Family history of glaucoma Grandparent Diabetes mellitus Family history of cardiovascular disease, Onset Age: 82 Other Cerebrovascular accident Family history of arthritis Family history of gout Family history of malignant neoplasm Social History Social History Smoking status: Never smoker Alcohol intake: current Alcohol use details: Beer Substance use: never Substance use type: does not use Living arrangements: with family Occupation/Education: occupation 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 ) Neurological: alert and oriented Last oral intake: >/= 8 hours ASA classification: III Emergent: no Anesthetic plan: proceed Anesthesia type and monitoring: general GIVS and standard monitoring Results Review: All pre-operative results and documents have been reviewed as part of the pre-operative evaluation. HTN, Hyperlipidemia, BMI 39, GERD, pt had recent sleep study and pos for JORGE but not able to tolerate CPAP. Informed Consent: The patient's anesthetic plan and its attendant risks and benefits were discussed with the patient/family/POA. Questions were solicited and answers provided to the satisfaction of the patient/family/POA.
[2025-03-25] MEDS: LACTATED RINGERS 1,000 ML 150 ML IV CONT (09:48)
[2025-03-25] MEDS: SIMETHICONE ORAL SUSPENSION 20 MG/0.3 ML 30 ML BOTTLE 1.8 ML PO (09:49)
--- NOTE | 2025-03-25 10:30 | PM.IMHP ---
H&P: HPI History of Present Illness Date/Time: 03/25/25 10:30 Chief Complaint: GERD-history of colon polyps Narrative: this patient has been suffering from GERD for several years, and is currently taking omeprazole 20 mg once a day, but despite this, she has almost daily episodes of heartburn despite being careful with diet. In addition, 2 years ago she had a colonoscopy in [place] and was told to return in 2 years, since they apparently found large polyps. Review of Systems Review of Systems: All systems reviewed & are unremarkable except as noted in HPI and below PMFSH Past Medical History Medical History Anemia UTI (urinary tract infection) Renal and ureteric calculus Yeast vaginitis Chronic depression Surgical History Surgical History History of rotator cuff surgery right in 2016 left in 2014 History of left hip replacement 2019 History of colonoscopy 2016 2019 History of endoscopy 2014 History of laparoscopic cholecystectomy 2011 History of bilateral carpal tunnel release both in 2007 History of hysterectomy total 2006 Family History Family History Father Family history of diabetes mellitus in first degree relative Diabetes mellitus Family history of cardiovascular disease Family history of Alzheimer's disease Family history of congestive heart failure Family history of heart disease in male family member before age 55 Hypertension Family history of elevated blood lipids Family history of coronary artery disease Sibling Diabetes mellitus Family history of cardiovascular disease Hypertension Family history of malignant neoplasm of cervix Family history of malignant neoplasm of ovary Mother Hypertension Family history of cardiovascular disease Family history of malignant neoplasm of cervix Family history of glaucoma Grandparent Diabetes mellitus Family history of cardiovascular disease, Onset Age: 82 Other Cerebrovascular accident Family history of arthritis Family history of gout Family history of malignant neoplasm Social History Social History Smoking status: Never smoker Alcohol intake: current Alcohol use details: Beer Substance use: never Substance use type: does not use Living arrangements: with family Occupation/Education: occupation 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 Spiritual care concerns: No Meds Home Medications and Allergies Home Medications ?Medication ?Instructions ?Recorded ?Confirmed ?Type calcium carbonate (Calcium 600) 600 mg PO DAILY 08/01/19 03/25/25 History albuterol sulfate 90 mcg/actuation 2 puff inhalation Q4H PRN 08/14/19 03/17/25 History aerosol inhaler (ProAir HFA) shortness of breath or wheezing aspirin 81 mg tablet,delayed 81 mg PO DAILY 08/14/19 03/25/25 History release (Adult Low Dose Aspirin) fluticasone propionate 230 2 puff inhalation Q12H PRN 08/14/19 03/17/25 History mcg-salmeterol 21 mcg/actuation shortness of breath HFA inhaler (Advair HFA) omeprazole 20 mg capsule,delayed 20 mg PO DAILY 08/14/19 03/25/25 History release pravastatin 10 mg tablet 10 mg PO DAILY 08/14/19 03/25/25 History biotin 800 mcg tablet 800 mcg PO DAILY 02/04/20 03/25/25 History omega-3 900 mg-dha 360 mg-epa 455 1 cap PO DAILY 02/04/20 03/25/25 History mg-fish oil 1,000 mg capsule (Fish Oil) amlodipine 5 mg-benazepril 10 mg 1 cap PO DAILY #30 caps 10/20/20 03/25/25 Rx capsule cholecalciferol (vitamin D3) 1,250 See Rx Instructions .Route 11/08/20 03/25/25 Rx mcg (50,000 unit) capsule .COMPLEX #4 caps atorvastatin 40 mg tablet 40 mg PO DAILY 03/17/25 03/25/25 History duloxetine 30 mg capsule,delayed 30 mg PO DAILY 03/17/25 03/25/25 History release ferrous sulfate 325 mg (65 mg 325 mg PO DAILY 03/17/25 03/25/25 History iron) tablet (FeroSul) gabapentin 300 mg capsule 300 mg PO Q12H 03/17/25 03/25/25 History sulfasalazine 500 mg 1 g PO Q12H 03/17/25 03/25/25 History tablet,delayed release Allergies Allergy/AdvReac Type Severity Reaction Status Date / Time No Known Allergies Allergy Unknown Verified 03/25/25 09:30 Vital Signs Vital Signs - 24 hr 03/25/25 09:32 Temperature 97.6 F Pulse Rate 85 Respiratory Rate 19 Blood Pressure 148/74 H Pulse Oximetry 100 Oxygen Delivery Room Air Exam Const: General: cooperative and healthy appearing Resp: Effort & Inspection: normal respiratory effort and able to speak in complete sentences Auscultation: clear to auscultation bilaterally Cardio: Rate: regular rate Rhythm: regular rhythm GI: Inspection: normal to inspection GI Palp: No No hepatosplenomegaly present Auscultation: normal bowel sounds Rectal Exam: deferred Skin: General skin exam: normal color Psych: Appearance: grossly normal Mental Status: mental status grossly normal Assessment and Plan Assessment and plan (1) Personal history of colonic polyps: Code(s): Z86.010 - Personal history of colon polyps Status: Acute Assessment and Plan: The patient is deemed a good candidate for the procedure. Consent signed. Will proceed. (2) Gastro-esophageal reflux disease without esophagitis: Code(s): K21.9 - Gastro-esophageal reflux disease without esophagitis Status: Acute
[2025-03-25] MEDS: BENZOCAINE (*SP) 60 ML SPRAY CAN (HURRICAINE) 1 SPRAY MUCOUS MEM (10:32)
--- NOTE | 2025-03-25 10:43 | S_PTH ---
PATIENT: Little Sarmiento LOC: [facility]#:[id number] AGE/SX: 65/F ROOM: RE03/25/[address]: John Julien MD : 1960 BED: DIS: 03/25/2025 SPEC #: [id number] RECD: 03/25/25 13:18 STATUS: NEGRITO REClaude #: [id number] KATHARINA: 03/25/25 10:[address]: John Julien DEPT: [facility] Surgical RECD BY: Svetlana Chambers ENTERED: 03/25/25 13:18 SP TYPE: Surgical OTHR DR: Christo PattersonMD Tissues: A - Gastric Biopsy B - Gastric Biopsy Procedures: Hematoxylin and Eosin Stain Gross and Microscopic Level 4
--- NOTE | 2025-03-25 10:44 | SUR.OPER ---
EGD ended 1037 and colonoscopy started 1043
[2025-03-25 10:57] VITALS: BP 132/79; PULSE 78; RESP 15; O2SAT 100
[2025-03-25 11:07] VITALS: BP 131/80; PULSE 75; RESP 18; O2SAT 99
[2025-03-25 11:17] VITALS: BP 141/82; PULSE 78; RESP 20; O2SAT 99
== END 2025-03-25 11:29 | disposition home or self-care (01) ==
PROVIDERS: PCP Internal Medicine; Referring Provider Internal Medicine; Visit Provider Internal Medicine Gastroenterology
PROC: 0DJ08ZZ Inspection of Upper Intestinal Tract, Via Natural or Artificial Opening Endoscopic (ICD-10-PCS; CPT 43239; principal; 2025-03-25 10:30)
PROC: 0DJD8ZZ Inspection of Lower Intestinal Tract, Via Natural or Artificial Opening Endoscopic (ICD-10-PCS; CPT 45378; 2025-03-25 10:30)
DX: Z12.11 Encounter for screening for malignant neoplasm of colon (principal); K57.30 Diverticulosis of large intestine without perforation or abscess without bleeding; K21.9 Gastro-esophageal reflux disease without esophagitis; K29.50 Unspecified chronic gastritis without bleeding; I10 Essential (primary) hypertension; E78.5 Hyperlipidemia, unspecified; D64.9 Anemia, unspecified; G47.33 Obstructive sleep apnea (adult) (pediatric); F32.A Depression, unspecified; Z79.51 Long term (current) use of inhaled steroids; Z79.82 Long term (current) use of aspirin; Z98.890 Other specified postprocedural states; Z90.49 Acquired absence of other specified parts of digestive tract; Z86.0100 Personal history of colon polyps, unspecified; Z87.442 Personal history of urinary calculi; Z80.49 Family history of malignant neoplasm of other genital organs; Z80.41 Family history of malignant neoplasm of ovary; Z82.49 Family history of ischemic heart disease and other diseases of the circulatory system
CPT/HCPCS: 43239; G0105; 88305; J2003; J2704; J7120

== ENCOUNTER 2025-07-30 12:56 | Outpatient (CLI) | payer MEDICARE, MEDICAID, SELFPAY ==
--- OUTSIDE RECORDS SUMMARY | 2024-02-08 03:00 | XMS_ITS ---
Author Organization [facility] Address [address] [place] [address] [address] [place] [address] Care Team Providers Care Waiter/Waitress Head Name Role Phone Chadwick Schwartz MD Primary Care Provider UnavailSteve Vieira Unavailable [phone] Any Bui Unavailable [phone] REASON FOR VISIT Annual f/u Encounters Encounter Location Date Provider Diagnosis [facility], [address] [place] [address] 02/08/2024 Any Bui Plan Of Treatment No Information Progress Notes * Little SARMIENTO EDOB:1959 (65 yo F)Acc No.[id number]:02/08/2024 Patient: Armando ROMAN Little Janet Provider: MAXIM Culver :1960 A ge:64 Y S ex:Female Date:02/08/2024 Address:[facility] [address] [place], [place] [id number] Pcp:Chadwick Schwartz MD Subjective: * Chief Complaints: * 1 . Annual f/u. * Medical History: Objective: * Vitals: Assessment: Plan: * Treatment: * * Electronic signature of MAXIM Thurston on 07/30/2025 at 01:35 PM CDT Sign off status: Pending * Provider: MAXIM Culver Date: 0 02/08/2024 Generated for Printi ng/Ernestine/Reji on: 1 01:35 PM CDT
--- OUTSIDE RECORDS SUMMARY | 2024-03-17 06:45 | XMS_ITS ---
Author Organization [facility] Address [address] [place] [address] [place] [address] Care Team Providers Care Construction Electrician Name Role Phone MD ISABELLE, GRISEL Primary Care Provider U Cristi Vasquez Unavailable [phone] ALLERGIES No Known Allergies REASON FOR VISIT FOLLOW UP MEDICATIONS Medication SIG (Take, Route, Frequency, Duration) Notes Start Date End Date Status Fish Oil 1000 MG 1 capsule Orally Onc e a day for 30 day(s) Active Biotin 800 MCG 1 tablet Orally Once a day for 30 day(s) Active Calcium Carbonate 1500 (600 Ca) MG 1 tablet with food Orally Twice a day for 30 day(s) Active Omeprazole 20 MG 1 capsule 30 minutes before morning meal Orally Once a day Active azaTHIOprine 50 MG as directed Orally Active amLODIPine Besylate 5 MG 1 tablet Orally Once a day for 30 day(s) Active Vitamin E 400 UNIT 1 tablet Orally Once a day for 30 day(s) Active Magnesium 250 MG 1 tablet with a meal Orally Once a day for 30 day(s) Active Cholecalciferol 1.25 MG (33654 UT) 1 capsule Orally Once a day Active Folic Acid 1 MG 1 tablet Orally Once a day for 30 day(s) Active Hydroxychloroquine Sulfate 200 MG as directed Oral Active Simponi 50 MG/0.5ML as directed Subcutaneous Active Xanax 0.25 MG 1-2 tablets Orally 3 0 minutes prior to injection 02/08/2024 Active sulfaSALAzine 500 MG 1 tablet Oral Once a day Active Albuterol Sulfate HFA 108 (9 0 Base) MCG/ACT 1 puff as needed Inhalation every 4 hrs Active Breo Ellipta 100-25 MCG/ACT INHALE 1 PUF F BY MOUTH DAILY FAST BREATH INHALE QUICKLY AND DEEPLY Inhalation for 30 Active Cetirizine HCl 10 MG TAKE 1 TABLET BY NC UT EVERY DAY Oral for 30 Active Vitamin D3 1.25 MG (27549 UT) 1 capsule Oral Once a day Active Aspirin 81 81 MG 1 tablet Orally Once a day for 30 day(s) Active Neurontin 300 MG 1 capsule Orally Onc e a day Active amLODIPine Besy-Benazepril HCl 5-10 MG as directed Orally Active Encounters Encounter Location Date Provider Diagnosis [facility] [address] [facility] [place] [address] 03/17/2024 Cristi Brooks Radiculopathy, lumba r region M54.16 ; Spondylosis without myelopathy or radiculopathy, lumbar region M47.816 ; Sacroiliitis, not elsewhere classified M46.1 ; Spondylosis without myelopathy or radiculopathy, lumbosacral region M47.817 ; Radiculopathy, lumbosacral region M54.17 ; Fear of injections and transfusions F40.231 and director long term care (current) use of anticoagulants Z79.01 ASSESSMENTS Encounter Date Diagnosis Assessment Notes Treatment Notes Treatment Clinical Notes Section Notes 03/17/2024 Radiculopathy, lumbar region (ICD-10 - M54.16) 03/17/2024 Spondylosis without myelopathy or radiculopathy, lumbar region (ICD-10 - M47.816) 03/17/2024 Sacroiliitis, not elsewhere classified (ICD-10 - M46.1) 03/17/2024 Spondylosis without myelopathy or radiculopathy, lumbosacral region (ICD-10 - M47.817) 03/17/2024 Radiculopathy, lumbosacral region (ICD-10 - M54.17) 03/17/2024 Fear of injections and transfusions (ICD-10 - F40.231) 03/17/2024 group home (current) use of anticoagulants (ICD-10 - Z79.01) PLAN OF TREATMENT No Information Progress Notes * Examination Category Sub-Category Detail Notes Category Not es Examination/ Pre-Anesthesia Assessment General: The patient is alert and oriented X 3 in moderate distress secondary to pain HEENT: Normocephalic, atrau matic. PERRL. The oropharynx is clear Neck: There is full range of motion of the cervical spine Heart: Regular rate and rhy thm Chest: Clear to auscultatio n bilaterally Abdomen: Soft and benign Musculoskeletal and Extremities: There i s tenderness to palpation over the bilateral L2-3 through L5-S1 facet joints. Extension and lateral rotation of the lumbar spine reproduces the patient's typical axial low back pain. Silver's, [place]'s and [place]'s are positive on the left. There is tenderness palpation over the left sacroiliac joint and greater trochanter. There is tenderness to palpation over the bilateral lumbar paraspinal muscles and palpable myofascial trigger points throughout. There is weakness and atrophy of the bilateral lumbar paraspinal muscles Neurological: There is positive st raight leg raising bilaterally for reproduction of pain down the L4 and L5 dermatomes at 45 degrees Skin: Clean, dry and intac t Psychiatric: Mood and affect are normal History and Physical Notes * HPI (History of Present Illness) Category Sub-Category Detail Notes Category Not es Pain Management Radiographic Imaging L2-L3 Bilat eral facet arthropathy. L3-L4 anterolisthesis of L3 on L4. Superimposed disc bulge with marginal spur formation eccentric to the left neural foramen. Thickened ligamentum flavum and bilateral facet arthropathy. No spinal canal stenosis. Right greater than left lateral recess narrowing. Mild left and no significant right neural foraminal narrowing. L4-L5 anterior listhesis of L4 on L5. Superimposed disc bulge with marginal spur formation. Thickened ligamentum flavum and moderate to advanced facet arthritic pain. No significant spinal canal stenosis. Lateral recess narrowing on both sides. Mild left and moderate right neural foraminal narrowing. Disc/marginal spurring and facet arthritic contacting the exiting right L4 nerve root. L5-S1 disc bulge marginal spur formation. Central disc protrusion. Bilateral facet orthopedic contacting the descending S1 nerve roots. Mild spinal canal stenosis. Mild left and moderate right neural foraminal narrowing Assessment and Follow-up: Follow-up Plan documeny larisa:: Yes MIPS Quality 2020: MIPS Documented:: Compliant
--- OUTSIDE RECORDS SUMMARY | 2024-03-26 09:30 | XMS_ITS ---
Author Organization [facility] Address [address] [place] [address] [place] [address] Care Team Providers Care Oracle Fusion Middleware Architect Name Role Phone MD ISABELLE, GRISEL Primary Care Provider U Cristi Vasquez Unavailable [phone] ALLERGIES No Known Allergies REASON FOR VISIT Follow Up, Right > Left Low Back Pain, Right Lower Extremity Pain MEDICATIONS Medication SIG (Take, Route, Frequency, Duration) Notes Start Date End Date Status amLODIPine Besylate 5 MG 1 tablet Orally Once a day for 30 day(s) Active Magnesium 250 MG 1 tablet with a meal Orally Once a day for 30 day(s) Active Simponi 50 MG/0.5ML as directed Subcutaneous Active Cholecalciferol 1.25 MG (78135 UT) 1 capsule Orally Once a day Active Folic Acid 1 MG 1 tablet Orally Once a day for 30 day(s) Active Albuterol Sulfate HFA 108 (9 0 Base) MCG/ACT 1 puff as needed Inhalation every 4 hrs Active Xanax 0.25 MG 1-2 tablets Orally 3 0 minutes prior to injection 02/08/2024 Active Vitamin D3 1.25 MG (95051 UT) 1 capsule Oral Once a day Active sulfaSALAzine 500 MG 1 tablet Oral Once a day Active Hydroxychloroquine Sulfate 200 MG as directed Oral Active Aspirin 81 81 MG 1 tablet Orally Once a day for 30 day(s) Active amLODIPine Besy-Benazepril HCl 5-10 MG as directed Orally Active Breo Ellipta 100-25 MCG/ACT INHALE 1 PUF F BY MOUTH DAILY FAST BREATH INHALE QUICKLY AND DEEPLY Inhalation for 30 Active Cetirizine HCl 10 MG TAKE 1 TABLET BY [facility] EVERY DAY Oral for 30 Active Neurontin 300 MG 1 capsule Orally Onc e a day Active azaTHIOprine 50 MG as directed Orally Active Biotin 800 MCG 1 tablet Orally Once a day for 30 day(s) Active Omeprazole 20 MG 1 capsule 30 minutes before morning meal Orally Once a day Active Calcium Carbonate 1500 (600 Ca) MG 1 tablet with food Orally Twice a day for 30 day(s) Active Fish Oil 1000 MG 1 capsule Orally Onc e a day for 30 day(s) Active Vitamin E 400 UNIT 1 tablet Orally Once a day for 30 day(s) Active VITAL SIGNS Blood pressure systolic 155 mm Hg 03/26/20 Blood pressure diastolic 82 mm Hg 024 Heart Rate 80 /min 03/26/2024 Respiratory Rate 18 /min 03/26/2024 Height 5 ft 7 in in 03/26/2024 Weight 225 lbs 03/26/2024 BMI 35.24 kg/m2 03/26/2024 Encounters Encounter Location Date Provider Diagnosis [facility] [address] [place] [phone] 03/26/2024 Cristi Brooks Radiculopathy, lumba r region M54.16 ; Spondylosis without myelopathy or radiculopathy, lumbar region M47.816 ; Sacroiliitis, not elsewhere classified M46.1 ; Spondylosis without myelopathy or radiculopathy, lumbosacral region M47.817 ; Radiculopathy, lumbosacral region M54.17 ; 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 She currently denies a need for any injections or interventions at this time. She would like to return to the office in 1 month for follow-up and reevaluation of her pain at that time. 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 Brooks. I have discussed and reviewed all of the pertinent history, physical examination findings and diagnostic imaging results with him. As a result of our discussion, Dr. Brooks has determined the above assessment and directed the treatment plan. This note was dictated using voice recognition software and therefore inadvertent errors may have occurred. This note was dictated by HAYDEN Brewster PLAN OF TREATMENT Treatment Notes Assessment Notes Spondylosis without myelopat hy or radiculopathy, lumbar region Patient recently underwent bilateral L3- 5 RFA done on 02/18/24 and reports an ongoing 90% reduction of her axial low back pain since this procedure. She currently denies a need for any injections or interventions at this time. She would like to return to the office in 1 month for follow-up and reevaluation of her pain at that time. Other The above-named lee ent was evaluated in conjunction with Dr. Brooks. I have discussed and reviewed all of the pertinent history, physical examination findings and diagnostic imaging results with him. As a result of our discussion, Dr. Brooks has determined the above assessment and directed the treatment plan. This note was dictated using voice recognition software and therefore inadvertent errors may have occurred. This note was dictated by HAYDEN Brewster Next Appt Details Follow Up: 4 Weeks OPV, Reas on: Progress Notes * Examination Category Sub-Category Detail [...] patient's typical axial low back pain. Silver's, [place]'s and Gaenslen's are positive on the left. [...] foraminal narrowing Assessment and Follow-up: Follow-up Plan documen larisa:: Yes MIPS Quality 2020: MIPS Documented:: Compliant
--- OUTSIDE RECORDS SUMMARY | 2024-04-23 06:45 | XMS_ITS ---
Author Organization [facility] Address [address] [place] [address] [place] [address] Care Team Providers Care Sign Language Instructor Name Role Phone MD ISABELLE, GRISEL Primary Care Provider U Cristi Vasquez Unavailable [phone] ALLERGIES No Known Allergies REASON FOR VISIT Follow Up, Right > Left Low Back Pain, Left Lower Extremity Pain MEDICATIONS Medication SIG (Take, Route, Frequency, Duration) Notes Start Date End Date Status Magnesium 250 MG 1 tablet with a meal Orally Once a day for 30 day(s) Active Folic Acid 1 MG 1 tablet Orally Once a day for 30 day(s) Active Albuterol Sulfate HFA 108 (9 0 Base) MCG/ACT 1 puff as needed Inhalation every 4 hrs Active Simponi 50 MG/0.5ML as directed Subcutaneous Active Cholecalciferol 1.25 MG (88609 UT) 1 capsule Orally Once a day Active sulfaSALAzine 500 MG 1 tablet Oral Once a day Active Xanax 0.25 MG 1-2 tablets Orally 3 0 minutes prior to injection 02/08/2024 Active Vitamin D3 1.25 MG (17271 UT) 1 capsule Oral Once a day Active Xanax 0.25 MG 1-2 tablets Orally 3 0 minutes prior to injection 04/23/2024 Active Hydroxychloroquine Sulfate 200 MG as directed Oral Active Aspirin 81 81 MG 1 tablet Orally Once a day for 30 day(s) Active Neurontin 300 MG 1 capsule Orally Onc e a day Active amLODIPine Besy-Benazepril HCl 5-10 MG as directed Orally Active Cetirizine HCl 10 MG TAKE 1 TABLET BY MO [facility] EVERY DAY Oral for 30 Active Breo Ellipta 100-25 MCG/ACT INHALE 1 PUF F BY MOUTH DAILY FAST BREATH INHALE QUICKLY AND DEEPLY Inhalation for 30 Active Calcium Carbonate 1500 (600 Ca) MG 1 tablet with food Orally Twice a day for 30 day(s) Active Biotin 800 MCG 1 tablet Orally Once a day for 30 day(s) Active azaTHIOprine 50 MG as directed Orally Active Omeprazole 20 MG 1 capsule 30 minutes before morning meal Orally Once a day Active Fish Oil 1000 MG 1 capsule Orally Onc e a day for 30 day(s) Active Vitamin E 400 UNIT 1 tablet Orally Once a day for 30 day(s) Active amLODIPine Besylate 5 MG 1 tablet Orally Once a day for 30 day(s) Active VITAL SIGNS Blood pressure systolic 157 mm Hg 04/23/20 Blood pressure diastolic 79 mm Hg 024 Heart Rate 79 /min 04/23/2024 Respiratory Rate 18 /min 04/23/2024 Height 5 ft 7 in in 04/23/2024 Weight 225 lbs 04/23/2024 BMI 35.24 kg/m2 04/23/2024 Encounters Encounter Location Date Provider Diagnosis [facility] [address] [place] [phone] 04/23/2024 Cristi Brooks Radiculopathy, lumba r region M54.16 ; Sacroiliitis, not elsewhere classified M46.1 ; Spondylosis without myelopathy or radiculopathy, lumbar region M47.816 ; Spondylosis without myelopathy or radiculopathy, lumbosacral region M47.817 ; Radiculopathy, lumbosacral region M54.17 ; Fear of injections and transfusions F40.231 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 The risks of this procedure including pain, bleeding, infection, insomnia, hyperglycemia, hair loss, muscle atrophy, skin depigmentation, weight gain, fluid retention, adrenal suppression, immunosuppressio n, osteoporosis resulting in fractures, avascular necrosis of the hip, cataracts, bleeding gastric ulcer, worsening pain and failure to relieve pain were discussed and the patient is agreeable to proceeding at this time. 04/23/2024 Spondylosis without myelopathy or radiculopathy, lumbar region (ICD-10 - M47.816) 04/23/2024 Spondylosis without myelopathy or radiculopathy, lumbosacral region (ICD-10 - M47.817) 04/23/2024 Radiculopathy, lumbosacral region (ICD-10 - M54.17) 04/23/2024 Fear of injections and transfusions (ICD-10 - F40.231) The patient was given written instructions explaining the above and was informed that they would need to come with a home delivery driver after taking this medication due to the risk of impairment. 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 The risks of this procedure including pain, bleeding, infection, insomnia, hyperglycemia, hair loss, muscle atrophy, skin depigmentation, weight gain, fluid retention, adrenal suppression, immunosuppression, osteoporosis resulting in fractures, avascular necrosis of the hip, cataracts, bleeding gastric ulcer, worsening pain and failure to relieve pain were discussed and the patient is agreeable to proceeding at this time. Fear of injections and transfusions The patient was given written instructions explaining the above and was informed that they would need to come with a home delivery driver after taking this medication due to the risk of impairment. Other The above-named lee ent was evaluated [...] HAYDEN Brewster Next Appt Details Follow Up: bilateral SI join t steroid injection, Reason: Progress Notes * Examination Category Sub-Category Detail [...] patient's typical axial low back pain. Silver's, [place]'s and Gaenslen's are positive on the left. [...]
--- OUTSIDE RECORDS SUMMARY | 2024-05-02 04:45 | XMS_ITS ---
Author Organization [facility] Address [address] [place] [address] [place] [address] Care Team Providers Care Egg Factory Worker Name Role Phone MD ISABELLE, GRISEL Primary Care Provider U lori Whitleyrosemarie Cristi Unavailable [phone] REASON FOR VISIT Right = Left Low Back Pain, Right = Left Lower Extremity Pain MEDICATIONS Medication SIG (Take, Route, Frequency, Duration) Notes Start Date End Date Status Neurontin 300 MG 1 capsule Orally Onc e a day Active Aspirin 81 81 MG 1 tablet Orally Once a day for 30 day(s) Active Cetirizine HCl 10 MG TAKE 1 TABLET BY [facility] EVERY DAY Oral for 30 Active amLODIPine Besy-Benazepril HCl 5-10 MG as directed Orally Active Omeprazole 20 [...] for 30 day(s) Active Cholecalciferol 1.25 MG (96689 UT) 1 capsule Orally Once a day Active Folic Acid 1 MG 1 tablet Orally Once a day for 30 day(s) Active Magnesium 250 MG 1 tablet with a meal Orally Once a day for 30 day(s) Active amLODIPine Besylate 5 MG 1 tablet Orally Once a day for 30 day(s) Active Simponi 50 MG/0.5ML as directed Subcutaneous Active sulfaSALAzine 500 MG 1 tablet Oral Once a day Active Hydroxychloroquine Sulfate 200 MG as directed Oral Active Albuterol Sulfate HFA 108 (9 0 Base) MCG/ACT 1 puff as needed Inhalation every 4 hrs Active Xanax 0.25 MG 1-2 tablets Orally 3 0 minutes prior to injection 04/23/2024 Active Xanax 0.25 MG 1-2 tablets Orally 3 0 minutes prior to injection 02/08/2024 Active Vitamin D3 1.25 MG (18047 UT) 1 capsule Oral Once a day Active Breo Ellipta 100-25 MCG/ACT INHALE 1 PUF F BY MOUTH DAILY FAST BREATH INHALE QUICKLY AND DEEPLY Inhalation for 30 Active SOCIAL HISTORY Tobacco Use: Social History Observation Description Date Details (start date - stop date) Never Smoker NA - NA Sex Assigned At : Social History Observation Description Sex Assigned At Unknown Tobacco Use/Smoking Question Answer Notes Are you a nonsmoker Section Notes: 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 She is with no children. She denies alcohol, tobacco, or illicit drug abuse. VITAL SIGNS Blood pressure systolic 147 mm Hg 05/02/20 24 Blood pressure diastolic 82 mm Hg 024 Heart Rate 70 /min 05/02/2024 Respiratory Rate 18 /min 05/02/2024 Height 5 ft 7 in in 05/02/2024 Weight 225 lbs 05/02/2024 BMI 35.24 kg/m2 05/02/2024 Encounters Encounter Location Date Provider Diagnosis [facility] [address] [place] [phone] 05/02/2024 Cristi Brooks Sacroiliitis, not elsewhere classified M46.1 ASSESSMENTS Encounter Date Diagnosis Assessment Notes Treatment Notes Treatment Clinical Notes Section Notes 05/02/2024 Sacroiliitis, not elsewhere classified (ICD-10 - M46.1) PLAN OF TREATMENT Next Appt Details Follow Up: HAS F/U SCHEDULED FOR 05/19/24, Reason: Procedure Notes * Category Sub-Category Detail Notes Sacroiliac Joint Injection w ith Arthrogram under Fluoroscopy Location Bilateral Anesthesia Local without IV sed ation Operative Technique After the risks, ranjan efits, alternative treatments and potential complications related to the procedure were discussed and informed consent was obtained, the patient was placed in the prone position on the fluoroscopy table. Standard ASA monitors were applied. The lower back and buttocks were prepped and draped in the usual sterile fashion with chlorhexidine 2%/IPA 70%. The left, followed by the right, sacroiliac joint was identified under live x-ray. An AP view was obtained superimposing the inferior aspect of the anterior and posterior sacroiliac joint. A 23 gauge 3.5 inch spinal needle was inserted under fluoroscopic guidance towards the inferior aspect of the sacroiliac joint until periosteum was contacted. The subcutaneous structures were anesthetized with 3 mL of 1% Preservative-Free lidocaine during needle placement. The needle tip was advanced into the inferior most aspect of the sacroiliac joint. A lateral view was taken to ensure correct placement within the sacroiliac joint. An AP view was taken and after negative aspiration for blood, air and CSF, 2 mL of Omnipaque 240 contrast dye was injected into each joint under live fluoroscopy for an arthrogram demonstrating normal cephalad spread within the sacroiliac joint (except in cases of contrast allergy). No intravascular or perineural spread noted. There were no abnormalities in articular contour noted on the arthrogram. A solution of 10 mg of Preservative-Free Dexamethasone (10 mg/mL), plus 2 mL of 0.25% PF bupivacaine was mixed and after negative aspiration 1.5 mL of this solution was slowly injected into each (left followed by right) joint space. The needle was removed, the skin was cleaned and band-aids were placed over the puncture site. The patient tolerated the procedure well, was able to ambulate without difficulty and was monitored for 20 minutes. The patient remained hemodynamically and neurologically stable. No apparent complications were observed. Postoperative instructions were reviewed with the patient. The patient was then discharged home in good condition with a dray driver. X-ray time: 8 seconds Progress Notes * Examination Category Sub-Category Detail [...] patient's typical axial low back pain. Silver's, [place]'s and Gaenslen's are positive on the left. [...] Plan documen larisa:: Yes MIPS Quality 2020: [facility] Documented:: Compliant
--- OUTSIDE RECORDS SUMMARY | 2024-05-19 04:45 | XMS_ITS ---
Author Organization [facility] Address [address] [place] [address] [place] [address] Care Team Providers Care City Planning Teacher Name Role Phone MD ISABELLE, GRISEL Primary Care Provider U Cristi Vasquez Unavailable [phone] ALLERGIES No Known Allergies REASON FOR VISIT Follow Up, Left > Right Low Back Pain, Left Lower Extremity Pain MEDICATIONS Medication SIG (Take, Route, Frequency, Duration) Notes Start Date End Date Status Xanax 0.25 MG 1-2 tablets Orally 3 0 minutes prior to injection 04/23/2024 Active sulfaSALAzine 500 MG 1 tablet Oral Once a day Active Albuterol Sulfate HFA 108 (9 0 Base) MCG/ACT 1 puff as needed Inhalation every 4 hrs Active Xanax 0.25 MG 1-2 tablets Orally 3 0 minutes prior to injection 05/19/2024 Active Hydroxychloroquine Sulfate 200 MG as directed Oral Active Vitamin D3 1.25 MG (98830 UT) 1 capsule Oral Once a day Active Breo Ellipta 100-25 MCG/ACT INHALE 1 PUF F BY MOUTH DAILY FAST BREATH INHALE QUICKLY AND DEEPLY Inhalation for 30 Active Cetirizine HCl 10 MG TAKE 1 TABLET BY MO [facility] EVERY DAY Oral for 30 Active Neurontin 300 MG 1 capsule Orally Onc e a day Active azaTHIOprine 50 MG as directed Orally Active Biotin 800 MCG 1 tablet Orally Once a day for 30 day(s) Active Aspirin 81 81 MG 1 tablet [...] for 30 day(s) Active Cholecalciferol 1.25 MG (20996 UT) 1 capsule Orally Once a day Active Folic Acid 1 MG 1 tablet Orally Once a day for 30 day(s) Active Magnesium 250 MG 1 tablet with a meal Orally Once a day for 30 day(s) Active Simponi 50 MG/0.5ML as directed Subcutaneous Active VITAL SIGNS Blood pressure systolic 159 mm Hg 05/19/20 24 Blood pressure diastolic 88 mm Hg 024 Heart Rate 78 /min 05/19/2024 Respiratory Rate 18 /min 05/19/2024 Height 5 ft 7 in in 05/19/2024 Weight 225 lbs 05/19/2024 BMI 35.24 kg/m2 05/19/2024 Encounters Encounter Location Date Provider Diagnosis [facility] [address] [place] [phone] 05/19/2024 Cristi Brooks Radiculopathy, lumba r region M54.16 ; Sacroiliitis, not elsewhere classified M46.1 ; Spondylosis without myelopathy or radiculopathy, lumbar region M47.816 ; Spondylosis without myelopathy or radiculopathy, lumbosacral region M47.817 ; Radiculopathy, lumbosacral region M54.17 ; Fear of injections and transfusions F40.231 and 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 The risks of this procedure including pain, bleeding, infection, spinal headache, persistent spinal fluid leak, epidural hematoma, nerve damage, spinal cord injury, paralysis, total spinal anesthesia resulting in cardiopulmonary arrest/, respiratory distress requiring intubation, insomnia, hyperglycemia, hair loss, muscle atrophy, skin depigmentation, weight gain, fluid retention, adrenal suppression, immunosuppression, osteoporosis resulting in fractures, avascular necrosis of the hip, cataracts, bleeding gastric ulcer, worsening pain and failure to relieve pain were discussed and the patient is agreeable to proceeding at this time. 05/19/2024 Sacroiliitis, not elsewhere classified (ICD-10 - M46.1) 05/19/2024 Spondylosis without myelopathy or radiculopathy, lumbar region (ICD-10 - M47.816) 05/19/2024 Spondylosis without myelopathy or radiculopathy, lumbosacral region (ICD-10 - M47.817) 05/19/2024 Radiculopathy, lumbosacral region (ICD-10 - M54.17) 05/19/2024 Fear of injections and transfusions (ICD-10 - F40.231) The patient was given written instructions explaining the above and was informed that they would need to come with a jeep driver after taking this medication due to the risk of impairment. 05/19/2024 longterm (current) use of anticoagulants (ICD-10 - Z79.01) The patient was instructed to discontinue aspirin for 6 days prior to the procedure. I made the patient aware that she will be at an increased risk for a thromboembolic event during this time and she is willing to accept this risk. The patient was instructed to notify her primary care physician and/or bench shear operator to obtain clearance prior to discontinuing this medication. 05/19/2024 Other The above-named patient was evaluated in [...] Orally 3 0 minutes prior to injection 05/19/2024 Treatment Notes Assessment Notes Radiculopathy, lumbar region Schedule a left L4-5 and L5-S1 transforaminal epidural steroid injection. The risks of this procedure including pain, bleeding, infection, spinal headache, persistent spinal fluid leak, epidural hematoma, nerve damage, spinal cord injury, paralysis, total spinal anesthesia resulting in cardiopulmonary arrest/, respiratory distress requiring intubation, insomnia, hyperglycemia, hair loss, muscle atrophy, skin [...] they would need to come with a jeep driver after taking this medication due to the risk of impairment. longterm (current) use of anticoagulant s The patient was instructed to discontinue aspirin for 6 days prior to the procedure. I made the patient aware that she will be at an increased risk for a thromboembolic event during this time and she is willing to accept this risk. The patient was instructed to notify her primary care physician and/or bench shear operator to obtain clearance prior to discontinuing this medication. Other The above-named lee ent was evaluated [...] HAYDEN Brewster Next Appt Details Follow Up: left L4-5 and L5- S1 TFE, Reason: Progress Notes * Examination Category Sub-Category [...] patient's typical axial low back pain. Silver's, [place]'s and Gaenslen's are positive on the left. [...]
--- OUTSIDE RECORDS SUMMARY | 2024-05-26 03:45 | XMS_ITS ---
Author Organization [facility] Address [address] [place] [address] [place] [address] Care Team Providers Care Continuous Weld Pipe Mill Supervisor Name Role Phone MD ISABELLE, GRISEL Primary Care Provider U lori Whitleyamberphi Cristi Unavailable [phone] REASON FOR VISIT Left Low Back Pain MEDICATIONS Medication SIG (Take, Route, Frequency, Duration) Notes Start Date End Date Status Hydroxychloroquine Sulfate 200 MG as directed Oral Active Vitamin D3 1.25 MG (04052 UT) 1 capsule Oral Once a day Active Xanax 0.25 MG 1-2 tablets Orally 3 0 minutes prior to injection Active Xanax 0.25 MG 1-2 tablets Orally 3 0 minutes prior to injection 04/23/2024 Active sulfaSALAzine 500 MG 1 tablet Oral Once a day Active Breo Ellipta 100-25 MCG/ACT INHALE 1 PUF F BY MOUTH DAILY FAST BREATH INHALE QUICKLY AND DEEPLY Inhalation for 30 Active Cetirizine HCl 10 MG TAKE 1 TABLET BY MO UT EVERY DAY Oral for 30 Active Neurontin 300 MG 1 capsule Orally Onc e a day Active Aspirin 81 81 MG 1 tablet Orally Once a day for 30 day(s) Active amLODIPine Besy-Benazepril HCl 5-10 MG as directed Orally Active Fish Oil 1000 MG 1 capsule Orally Onc e a day for 30 day(s) Active Omeprazole 20 MG 1 capsule 30 minutes before morning meal Orally Once a day Active azaTHIOprine 50 MG as directed Orally Active Biotin 800 MCG 1 tablet Orally Once a day for 30 day(s) Active Calcium Carbonate 1500 (600 Ca) MG 1 tablet with food Orally Twice a day for 30 day(s) Active Vitamin E 400 UNIT 1 tablet Orally Once a day for 30 day(s) Active amLODIPine Besylate 5 MG 1 tablet Orally Once a day for 30 day(s) Active Cholecalciferol 1.25 MG (64201 UT) 1 capsule Orally Once a day Active Folic Acid 1 MG 1 tablet Orally Once a day for 30 day(s) Active Magnesium 250 MG 1 tablet with a meal Orally Once a day for 30 day(s) Active Simponi 50 MG/0.5ML as directed Subcutaneous Active Albuterol Sulfate HFA 108 (9 0 Base) MCG/ACT 1 puff as needed Inhalation every 4 hrs Active VITAL SIGNS Blood pressure systolic 141 mm Hg 05/26/20 24 Blood pressure diastolic 70 mm Hg 024 Heart Rate 89 /min 05/26/2024 Respiratory Rate 18 /min 05/26/2024 Height 5 ft 7 in in 05/26/2024 Weight 225 lbs 05/26/2024 BMI 35.24 kg/m2 05/26/2024 Post procedure rjosey=GK=273 /74,P=84, R=16. Discharged home per ambulatory, in no acute distress. Encounters Encounter Location Date Provider Diagnosis [facility] [address] [place] [phone] 05/26/2024 Cristi Brooks Radiculopathy, lumbar region M54.16 ; Radiculopathy, lumbosacral region M54.17 and Osseous stenosis of neural canal of lumbar region M99.33 ASSESSMENTS Encounter Date Diagnosis Assessment Notes Treatment Notes Treatment Clinical Notes Section Notes 05/26/2024 Radiculopathy, lumbar region (ICD-10 - M54.16) 05/26/2024 Radiculopathy, lumbosacral region (ICD-10 - M54.17) 05/26/2024 Osseous stenosis of neural canal of lumbar region (ICD-10 - M99.33) 05/26/2024 Other PLAN OF TREATMENT Next Appt Details Follow Up: 2 Weeks OPV, Reas on: Procedure Notes * Category Sub-Category Detail Notes Transforaminal Epidural Steroid Injection Locati on Left Levels L4-5, L5-S1 Anesthesia Local without IV sed ation Operative Technique After the risks, ranjan efits, alternative treatment options and potential complications related to the procedure were discussed, informed consent was obtained. The specific risks of this procedure including pain, bleeding, [...] is agreeable to proceeding at this time. The patient was placed in the prone position on the fluoroscopy table and standard ASA monitors were applied. The back was prepped and draped in the usual sterile fashion with chlorhexidine 2%/IPA 70%. The c-arm was obliqued and tilted to identify the above selected levels. The left L4-5 + L5-S1 neural foramina were identified and a 23 gauge 3.5 inch spinal needle was inserted under fluoroscopic guidance towards the junction of the inferior endplate and superior articular process until the superior articular process was contacted at both levels. A lateral view was taken and the needle tip was advanced into the posterior aspect of the neuroforamen. The subcutaneous structures were anesthetized with 3 mL of 1% Preservative-Free lidocaine during needle placement. An AP view was taken and after negative aspiration for blood, air or CSF, 4 mLs (2 mLs at each level) of Omnipaque 240 contrast dye was injected under live fluoroscopy for an epidurogram showing good spread within the epidural space and along the selected nerve root. No intravascular or intrathecal spread was noted. A solution of 10 mg of Preservative-Free Dexamethasone (10 mg/mL), plus 3 mL of 0.25% Preservative-Free bupivacaine was mixed and after negative aspiration 2 mL of this solution was slowly injected into the epidural space at each level. The needles were removed, the skin was cleaned and band-aids were placed over the puncture sites. The patient tolerated the procedure well, was able to ambulate without difficulty and was monitored for 20 minutes. The patient remained hemodynamically and neurologically stable. No apparent complications were observed. Postoperative instructions were reviewed with the patient. The patient was then discharged home in good condition with a sales driver. X-ray time: 13 seconds Progress Notes * Examination Category Sub-Category [...] patient's typical axial low back pain. Silver's, [place]'s and Gaenslen's are positive on the left. [...]
--- OUTSIDE RECORDS SUMMARY | 2024-06-10 04:45 | XMS_ITS ---
Author Organization [facility] Address [address] [place] [address] [place] [address] Care Team Providers Care Systems Testing Laboratory Technician Name Role Phone MD ISABELLE, GRISEL Primary Care Provider U Cristi Vasquez Unavailable [phone] ALLERGIES No Known Allergies REASON FOR VISIT Follow Up, Left > Right Low Back Pain, Left Lower Extremity Pain MEDICATIONS Medication SIG (Take, Route, Frequency, Duration) Notes Start Date End Date Status sulfaSALAzine 500 MG 1 tablet Oral Once a day Active Hydroxychloroquine Sulfate 200 MG as directed Oral Active Vitamin D3 1.25 MG (31451 UT) 1 capsule Oral Once a day [...] azaTHIOprine 50 MG as directed Orally Active Calcium Carbonate 1500 (600 Ca) MG 1 tablet with food Orally Twice a day for 30 day(s) Active Fish Oil 1000 MG 1 capsule Orally Onc e a day for 30 day(s) Active Vitamin E 400 UNIT 1 tablet Orally Once a day for 30 day(s) Active amLODIPine Besylate 5 MG 1 tablet Orally Once a day for 30 day(s) Active Biotin 800 MCG 1 tablet Orally Once a day for 30 day(s) Active Cholecalciferol 1.25 MG (53930 UT) 1 capsule Orally Once a day [...] 3 0 minutes prior to injection Active VITAL SIGNS Blood pressure systolic 172 mm Hg 06/10/20 24 Blood pressure diastolic 89 mm Hg 024 Heart Rate 72 /min 06/10/2024 Respiratory Rate 18 /min 06/10/2024 Height 5 ft 7 in in 06/10/2024 Weight 225 lbs 06/10/2024 BMI 35.24 kg/m2 06/10/2024 Encounters Encounter Location Date Provider Diagnosis [facility] [address] [place] [address] 06/10/2024 Cristi Brooks Radiculopathy, lumba r region M54.16 ; Sacroiliitis, not elsewhere classified M46.1 ; Spondylosis without myelopathy or radiculopathy, lumbar region M47.816 ; Spondylosis without myelopathy or radiculopathy, lumbosacral region M47.817 ; Radiculopathy, lumbosacral region M54.17 ; 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 She would like to return to the office in 1 month for follow-up and reevaluation of her pain at that time. 06/10/2024 Sacroiliitis, not elsewhere classified (ICD-10 - M46.1) 06/10/2024 Spondylosis without myelopathy or radiculopathy, lumbar region (ICD-10 - M47.816) 06/10/2024 Spondylosis without myelopathy or radiculopathy, lumbosacral region (ICD-10 - M47.817) 06/10/2024 Radiculopathy, lumbosacral region (ICD-10 - M54.17) 06/10/2024 Fear of injections and transfusions (ICD-10 - F40.231) 06/10/2024 salvage determiner (current) use of anticoagulants (ICD-10 - Z79.01) 06/10/2024 Other The above-named patient was evaluated in [...] PLAN OF TREATMENT Treatment Notes Assessment Notes Radiculopathy, lumbar region Patient rec ently underwent left L4-5 & L5-S1 TFE done on 05/26/24 and reports a 1 week 90% reduction of her low back and lower extremity pain since this procedure.She currently denies a need for any injections [...] typical axial low back pain. Silver's, [place]'s and Gaenslen's are positive on the left. [...]
--- OUTSIDE RECORDS SUMMARY | 2024-07-10 04:30 | XMS_ITS ---
Author Organization [facility] Address [address] [place] [address] [place] [address] Care Team Providers Care Grid Maker Name Role Phone MD ISABELLE, GRISEL Primary Care Provider U Cristi Vasquez Unavailable [phone] ALLERGIES No Known Allergies REASON FOR VISIT Follow Up, Left > Right Low Back Pain, Left Lower Extremity Pain MEDICATIONS Medication SIG (Take, Route, Frequency, Duration) Notes Start Date End Date Status sulfaSALAzine 500 MG 1 tablet Oral Once a day Active Hydroxychloroquine Sulfate 200 MG as directed Oral Active Vitamin D3 1.25 MG (99169 UT) 1 capsule Oral Once a day Active Breo Ellipta 100-25 MCG/ACT INHALE 1 PUF F BY MOUTH DAILY FAST BREATH INHALE QUICKLY AND DEEPLY Inhalation for 30 Active Xanax 0.25 MG 1-2 tablets Orally 3 0 minutes prior to injection Active Xanax 0.25 MG 1-2 tablets Orally 3 0 minutes prior to injection 07/10/2024 Active amLODIPine Besy-Benazepril HCl 5-10 MG as directed Orally Active Aspirin 81 81 MG 1 tablet Orally Once a day for 30 day(s) Active Cetirizine HCl 10 MG TAKE 1 TABLET BY ND UT EVERY DAY Oral for 30 Active Neurontin 300 MG 1 capsule Orally Onc e a day Active Calcium Carbonate 1500 (600 [...] for 30 day(s) Active Cholecalciferol 1.25 MG (36829 UT) 1 capsule Orally Once a day [...] Subcutaneous Active VITAL SIGNS Blood pressure systolic 177 mm Hg 07/10/20 24 Blood pressure diastolic 91 mm Hg 024 Heart Rate 69 /min 07/10/2024 Respiratory Rate 18 /min 07/10/2024 Height 5 ft 7 in in 07/10/2024 Weight 225 lbs 07/10/2024 BMI 35.24 kg/m2 07/10/2024 Encounters Encounter Location Date Provider Diagnosis [facility] [address] [place] [phone] 07/10/2024 Cristi Brooks Radiculopathy, lumba r region M54.16 ; Sacroiliitis, not elsewhere classified M46.1 ; Spondylosis without myelopathy or radiculopathy, lumbar region M47.816 ; Spondylosis without myelopathy or radiculopathy, lumbosacral region M47.817 ; Radiculopathy, lumbosacral region M54.17 ; 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 07/10/2024 Spondylosis without myelopathy or radiculopathy, lumbar region (ICD-10 - M47.816) 07/10/2024 Spondylosis without myelopathy or radiculopathy, lumbosacral region (ICD-10 - M47.817) 07/10/2024 Radiculopathy, lumbosacral region (ICD-10 - M54.17) 07/10/2024 Fear of injections and transfusions (ICD-10 - F40.231) The patient was given written instructions explaining the above and was informed that they would need to come with a hazmat cdl driver after taking this medication due to the risk of impairment. 07/10/2024 skilled nursing (current) use of anticoagulants (ICD-10 - Z79.01) PLAN OF TREATMENT Medication Medication Name Sig Start Date Stop Date Notes Xanax 0.25 MG 1-2 tablets Orally 3 0 minutes prior to injection 07/10/2024 Treatment Notes Assessment Notes Sacroiliitis, not elsewhere [...] they would need to come with a hazmat cdl driver after taking this medication due to the risk of impairment. Next Appt Details Follow Up: bilateral SI [...] patient's typical axial low back pain. Silver's, [place]'s and Gaenslen's are positive on the left. [...] and Follow-up: Follow-up Plan documen larisa:: Yes [facility] Quality 2020: MIPS Documented:: Compliant
--- OUTSIDE RECORDS SUMMARY | 2024-08-04 04:00 | XMS_ITS ---
Author Organization [facility] Address [address] [place] [address] [place] [address] Care Team Providers Care Yard Driver Name Role Phone MD ISABELLE, GRISEL Primary Care Provider U Cristi Vasquez Unavailable [phone] REASON FOR VISIT Left > Right Low Back Pain, Right = Left Lower Extremity Pain MEDICATIONS Medication SIG (Take, Route, Frequency, Duration) Notes Start Date End Date Status Hydroxychloroquine Sulfate 200 MG as directed Oral Active Vitamin D3 1.25 MG (43107 UT) 1 capsule Oral Once a day Active Xanax 0.25 MG 1-2 tablets Orally 3 0 minutes prior to injection 07/10/2024 Active Xanax 0.25 MG 1-2 tablets Orally 3 0 minutes prior to injection Active sulfaSALAzine 500 MG 1 tablet Oral Once a day Active Breo Ellipta 100-25 MCG/ACT INHALE 1 PUF F BY MOUTH DAILY FAST BREATH INHALE QUICKLY AND DEEPLY Inhalation for 30 Active Cetirizine HCl 10 MG TAKE 1 TABLET BY [facility] EVERY DAY Oral for [...] for 30 day(s) Active Cholecalciferol 1.25 MG (49569 UT) 1 capsule Orally Once a day [...] hrs Active VITAL SIGNS Blood pressure systolic 181 mm Hg 08/04/20 24 Blood pressure diastolic 82 mm Hg 024 Heart Rate 74 /min 08/04/2024 Respiratory Rate 16 /min 08/04/2024 Height 5 ft 7 in in 08/04/2024 Weight 225 lbs 08/04/2024 BMI 35.24 kg/m2 08/04/2024 Encounters Encounter Location Date Provider Diagnosis [facility] [address] [place] [phone] 08/04/2024 Cristi Cecilia Sacroiliitis, not elsewhere classified M46.1 ASSESSMENTS Encounter Date Diagnosis Assessment Notes Treatment Notes Treatment Clinical Notes Section Notes 08/04/2024 Sacroiliitis, not elsewhere classified (ICD-10 - M46.1) PLAN OF TREATMENT Next Appt Details Follow Up: HAS FU ON 4 SCHEDULED, Reason: Procedure Notes * Category Sub-Category Detail [...] difficulty and was monitored for 20 minutes. Patient reports a 90% reduction in typical pain immediately postprocedure. The patient remained hemodynamically and neurologically stable. No apparent complications were observed. Postoperative instructions were reviewed with the patient. The patient was then discharged home in good condition with a straddle bug driver. X-ray time: 17 seconds Progress Notes * Examination Category Sub-Category [...] patient's typical axial low back pain. Silver's, [place]'s and Gaenslen's are positive on the left. [...]
--- OUTSIDE RECORDS SUMMARY | 2024-08-19 08:45 | XMS_ITS ---
Author Organization [facility] Address [address] [place] [address] [place] [address] Care Team Providers Care Role Player Name Role Phone MD ISABELLE, GRISEL Primary Care Provider U lori Whitleyamberphi Cristi Unavailable [phone] ALLERGIES No Known Allergies REASON FOR VISIT FOLLOW UP MEDICATIONS Medication SIG (Take, Route, Frequency, Duration) Notes Start Date End Date Status Cetirizine HCl 10 MG TAKE [address] [facility] EVERY DAY Oral for 30 Active amLODIPine Besy-Benazepril HCl 5-10 MG as directed Orally Active Omeprazole 20 MG 1 capsule 30 minutes before morning meal Orally Once a day Active Neurontin 300 MG 1 capsule Orally Onc e a day Active Aspirin 81 81 MG 1 tablet Orally Once a day for 30 day(s) Active Calcium Carbonate 1500 (600 Ca) MG 1 tablet with food Orally Twice a day for 30 day(s) Active Fish Oil 1000 MG 1 capsule Orally Onc e a day for 30 day(s) Active azaTHIOprine 50 MG as directed Orally Active Biotin 800 MCG 1 tablet Orally Once a day for 30 day(s) Active Vitamin E 400 UNIT 1 tablet Orally Once a day for 30 day(s) Active amLODIPine Besylate 5 MG 1 tablet Orally Once a day for 30 day(s) Active Cholecalciferol 1.25 MG (47411 UT) 1 capsule Orally Once a day Active Simponi 50 MG/0.5ML as directed Subcutaneous Active Folic Acid 1 MG 1 tablet Orally Once a day for 30 day(s) Active Magnesium 250 MG 1 tablet with a meal Orally Once a day for 30 day(s) Active Albuterol Sulfate HFA 108 (9 0 Base) MCG/ACT 1 puff as needed Inhalation every 4 hrs Active sulfaSALAzine 500 MG 1 tablet Oral Once a day Active Hydroxychloroquine Sulfate 200 MG as directed Oral Active Xanax 0.25 MG 1-2 tablets Orally 3 0 minutes prior to injection 07/10/2024 Active Vitamin D3 1.25 MG (14763 UT) 1 capsule Oral Once a day [...] a nonsmoker Section Notes: 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 She is with no children. She denies alcohol, tobacco, or illicit drug abuse. 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 and [facility] (current) use of anticoagulants Z79.01 ASSESSMENTS Encounter Date Diagnosis Assessment Notes Treatment Notes Treatment Clinical Notes Section Notes 08/19/2024 Radiculopathy, lumbar region (ICD-10 - M54.16) 08/19/2024 Sacroiliitis, not elsewhere classified (ICD-10 - M46.1) 08/19/2024 Spondylosis without myelopathy or radiculopathy, lumbar region (ICD-10 - M47.816) 08/19/2024 Spondylosis without myelopathy or radiculopathy, lumbosacral region (ICD-10 - M47.817) 08/19/2024 Radiculopathy, lumbosacral region (ICD-10 - M54.17) 08/19/2024 Fear of injections and transfusions (ICD-10 - F40.231) 08/19/2024 [facility] (current) use of anticoagulants (ICD-10 - Z79.01) [...] patient's typical axial low back pain. Silver's, [place]'s and [place]'s are positive on the left. [...] foraminal narrowing Assessment and Follow-up: Follow-up Plan florence peres:: Yes [facility] Quality 2020: [facility] Documented:: Compliant
--- OUTSIDE RECORDS SUMMARY | 2025-07-30 13:00 | XMS_ITS | Encounter Summary ---
Author Organization [facility] Virgen [facility] Address [address] [place] [address] Care Team Providers Care Draw Furnace Tender Name Role Phone Christo Patterson MD Primary Care Provider Encounter Details Date Type Department Care Team (Late st Contact Info) Description 07/30/2025 1:00 PM CDT Office Visit [facility] Oncology and Hematology - [place] [address] [facility] [address] [place] [address] Joselo Keller MD [address] [facility] [address] [place] [address] Arrived Social History Tobacco Use Types Packs/Day Years [...] Sign Reading Time Taken Comments Blood Pressure 160/77 07/30/2025 1:20 PM CDT Pulse 80 07/30/2025 1:17 PM CDT Temperature 36.3 C (97.3 F) 07/30/2025 1:17 PM CDT Respiratory Rate 15 07/30/2025 1:17 PM CDT Oxygen Saturation 97% 07/30/2025 1:17 PM CDT Inhaled Oxygen Concentration - - Weight 107.6 kg (237 lb 3.2 oz) 07/30/2025 1:17 PM CDT Height - - Body Mass Index 40.72 03/12/2025 2:54 PM CDT documented in this encounter Plan of Treatment Not on file documented as of this encounter Visit Diagnoses Not on filedocumented in this encounter Care Teams Draw Furnace Tender Relationship Specialty Start Date End Date Christo Patterson MD [address] [id number] PCP - General Internal Medicine 08/25/24 documented as of this encounter
[2025-07-30 13:11] LABS: Hematocrit 36.8 % (37.0-47.0); Hemoglobin 11.5 g/dL (12.0-15.0); Mean Corpuscular HGB Conc 31.3 g/dl (32-36); Mean Corpuscular Hemoglobin 26.3 pg (26-34); Mean Corpuscular Volume 84.0 fl (80-100); Platelet Count Result 259 k/mm3 (150-375); Red Blood Count 4.38 M/mm3 (4.2-5.4); White Blood Count 5.6 K/mm3 (4.5-10.0)
[2025-07-30 13:15] LABS: Blood Urea Nitrogen 7 mg/dL (8-26); Carbon Dioxide 30 mmol/L (22-30); Chloride 99 mmol/L (98-109); Estimated Glomerular Filt Rate > 60; Glucose 171 mg/dL (70-105); Ionized Calcium (POC) 1.20 mmol/L (1.11-1.31); Potassium 3.9 mmol/L (3.5-4.9); Sodium 139 mmol/L (138-146)
--- OUTSIDE RECORDS SUMMARY | 2025-07-30 13:35 | XMS_ITS ---
Author Organization [facility] [place] [address] Address [address] [place] [address] Care Team Providers Care Yard Driver Name Role Phone Gal Decker MD Unavailable Jennifer Angel Unavailable Ethan Graves MD Unavailable [phone] Clem Ramos MD Unavailable [phone] Wilber Patterson MD Primary Care Provide r Active Problems Problem Noted Date Diagnosed Date Tenosynovitis, de Quervain 07/08/2025 Assessment & Plan (07/08/2025 12:09 PM CDT): Primary complaints since last visit has been chronic pain over the radial aspect of the right wrist. Positive Temo. Suspicious for de Quervain tenosynovitis. Recommended thumb spica splint. Will monitor her response to Kenalog IM injection. If symptoms persist, would consider referral to hand Orthopedics for injection, which was discussed today. Syncope and collapse 10/02/2024 Polyarthritis 08/26/2024 Acute [...] 07/13/2022 Assessment & Plan (09/07/2022 11:38 AM TRAVELING CRANE OPERATOR): Continues to have chronic left lower [...] degree. Assessment & Plan (12/02/2021 11:01 AM TRAVELING CRANE OPERATOR): At today's visit, describes pain in [...] previous colonoscopy. Fibromyalgia 12/02/2021 Assessment & Plan (07/08/2025 12:08 PM CDT): Continue to suspect that several factors are contributing to her chronic pain complaints, including degenerative arthritis, spondyloarthritis, small fiber neuropathy, fibromyalgia. Is currently on gabapentin 600 mg b.i.d. Encourage routine exercise, including [employer] today. Could still consider switching gabapentin to Lyrica. Will monitor her response to Kenalog IM injection given today and consider switching gabapentin to Lyrica depending on her response. On Cymbalta 30 mg daily. Encourage routine exercise, including [employer]. Previous dizziness on higher gabapentin doses. Assessment & Plan (05/06/2025 12:23 PM CDT): Continue to suspect that several factors are contributing to her chronic pain complaints, including degenerative arthritis, spondyloarthritis, small fiber neuropathy, fibromyalgia. Is currently on gabapentin 600 mg b.i.d. Encourage routine exercise, including [employer] today. Could still consider switching gabapentin to Lyrica. On Cymbalta 30 mg daily. Encourage routine exercise, including [employer]. Previous dizziness on higher gabapentin doses. Assessment & Plan (03/05/2025 9:34 AM CDT): [...] doses. Assessment & Plan (09/05/2024 4:09 PM TRAVELING CRANE OPERATOR): Continue to suspect that several factors [...] exacerbate. Assessment & Plan (11/30/2023 1:41 PM TRAVELING CRANE OPERATOR): Continue to suspect that several factors [...] time. Assessment & Plan (10/02/2023 4:10 PM TRAVELING CRANE OPERATOR): Continue to suspect that several factors are contributing to her chronic pain complaints, including degenerative arthritis, spondyloarthritis, small fiber neuropathy, fibromyalgia. Is currently on gabapentin 200 mg b.i.d. dizziness improve with reducing the dose. Encourage routine exercise, including [employer] today. Could consider switching gabapentin to Lyrica and or addition of Cymbalta Assessment & Plan (08/20/2023 2:07 PM TRAVELING CRANE OPERATOR): Continue to suspect that several factors [...] today. Assessment & Plan (12/07/2022 12:48 PM TRAVELING CRANE OPERATOR): Do suspect that several factors are [...] today. Assessment & Plan (09/07/2022 11:37 AM TRAVELING CRANE OPERATOR): Stable from last visit. Do suspect [...] bid Assessment & Plan (12/02/2021 12:37 PM TRAVELING CRANE OPERATOR): Has rather diffuse pain complaints, including [...] Small fiber neuropathy 09/19/2021 Assessment & Plan (07/08/2025 12:09 PM CDT): Follows with Dr. Decker, neuromuscular. Suspect that this is contributing to her numbness and tingling in the bilateral hands. 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 Continue gabapentin 600 mg b.i.d.. She had previously intolerable side effects at higher doses. Will need to be cautious with further increased. Could consider switching gabapentin to Lyrica in the future. Assessment & Plan (05/06/2025 12:22 PM CDT): Follows with Dr. Decker, neuromuscular. Suspect that this is contributing to her numbness and tingling in the bilateral hands. 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 Since last visit, gabapentin has been increased to 600 mg b.i.d. and has tolerated this well. She had previously intolerable side effects at higher doses. Will need to be cautious with further increased. Assessment & Plan (03/05/2025 9:33 AM CDT): Follows with venkata Barkley. Suspect that [...] discussed. Assessment & Plan (09/05/2024 4:07 PM TRAVELING CRANE OPERATOR): Follows with Dr. Decker neuromuscular. Suspect [...] (05/08/2024 12:25 PM CDT): Follows with Dr. Decker neuromuscular. [...] Plan (04/11/2024 12:38 PM CDT): Follows with venktaa Barkley. Suspect that this is contributing to her numbness and tingling in the bilateral hands. 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 Reduced gabapentin from 300 mg b.i.d. to 200 mg b.i.d. with previous improvement in her dizziness symptoms. Assessment & Plan (01/11/2024 1:45 PM CDT): Follows with venkata Barkley. Suspect [...] gabapentin. Assessment & Plan (11/30/2023 1:42 PM TRAVELING CRANE OPERATOR): Follows with venkata Barkley. Suspect that [...] symptoms. Assessment & Plan (10/02/2023 4:10 PM TRAVELING CRANE OPERATOR): Follows with venkata Barkley. Suspect that [...] symptoms. Assessment & Plan (08/20/2023 2:06 PM TRAVELING CRANE OPERATOR): Follows with venkata Barkley. Suspect that [...] Barkley. Assessment & Plan (12/07/2022 12:51 PM TRAVELING CRANE OPERATOR): Follows with venkata Barkley. On nahed 200 mg bid. Reduced dose from 300 mg b.i.d. due to side effects. Assessment & Plan (09/07/2022 11:37 AM TRAVELING CRANE OPERATOR): Follows with venkata Barkley. On nahed [...] of high-risk medication 09/09/2021 Assessment & Plan (07/08/2025 12:08 PM CDT): Negative QuantiFERON 07/2021 Negative hepatitis panel 11/2020 Assessment & Plan (05/06/2025 12:22 PM CDT): Negative QuantiFERON 07/2021 Negative hepatitis panel 11/2020 Assessment & Plan (03/05/2025 9:34 AM CDT): Negative QuantiFERON 07/2021 Negative hepatitis panel 11/2020 Will check few additional labs for pcp Assessment & Plan (06/05/2024 2:41 PM CDT): Negative QuantiFERON 07/2021 Negative hepatitis panel 11/2020 Assessment & Plan (04/11/2024 12:38 PM CDT): Negative QuantiFERON 07/2021 Negative hepatitis panel 11/2020 Assessment & Plan (10/02/2023 4:10 PM TRAVELING CRANE OPERATOR): Negative QuantiFERON 07/2021 Negative hepatitis panel 11/2020 Assessment & Plan (08/20/2023 2:06 PM TRAVELING CRANE OPERATOR): Negative QuantiFERON 07/2021 Negative hepatitis panel 11/2020 Assessment & Plan (07/05/2023 2:58 PM CDT): Negative QuantiFERON 07/2021 Negative hepatitis panel 11/2020 Assessment & Plan (03/08/2023 1:40 PM CDT): Negative QuantiFERON 07/2021 Negative hepatitis panel 11/2020 Assessment & Plan (12/07/2022 12:48 PM TRAVELING CRANE OPERATOR): Negative QuantiFERON 07/2021 Negative hepatitis panel 11/2020 Assessment & Plan (09/07/2022 11:36 AM TRAVELING CRANE OPERATOR): Negative QuantiFERON 07/2021 Negative hepatitis panel [...] 11/2020 Assessment & Plan (12/02/2021 10:58 AM TRAVELING CRANE OPERATOR): Negative QuantiFERON 07/2021 Negative hepatitis panel 11/2020 Assessment & Plan (10/21/2021 9:41 AM TRAVELING CRANE OPERATOR): Negative QuantiFERON 07/2021 Negative hepatitis panel 11/2020 Assessment & Plan (09/09/2021 11:24 AM TRAVELING CRANE OPERATOR): Negative QuantiFERON 07/2021 Negative hepatitis panel [...] fiber neuropathy. Continue to follow with Dr. Decker neuro. Was started on magnesium this week. Assessment & Plan (12/02/2021 12:34 PM TRAVELING CRANE OPERATOR): Negative myositis. Most recent labs 07/2021 revealed CK of 636 and aldolase WNL. Strength testing 5/5 UE/LE on exam. Suspect that her weakness is likely coming from her chronic lower back pain. With that said, given her persistent CK elevations, she has been evaluated by venkata Barkley. EMG per Dr. Goncalves was negative. She notes she did have skin biopsy displaying evidence for small fiber neuropathy. Assessment & Plan (10/21/2021 9:44 AM TRAVELING CRANE OPERATOR): Negative myositis. Most recent labs 07/2021 revealed CK of 636 and aldolase WNL. Strength testing 5/5 UE/LE on exam. Suspect that her weakness is likely coming from her chronic lower back pain. With that said, given her persistent CK elevations, she has been evaluated by venkata Barkley. EMG per Dr. Goncalves was negative. She notes she did have skin biopsy displaying evidence for small fiber neuropathy. Assessment & Plan (09/09/2021 11:22 AM TRAVELING CRANE OPERATOR): Negative myositis. Most recent labs 03/09/2021 [...] her report. Continue to follow with Dr. Decker, neuromuscular. Recommended discussion with neuromuscular about reducing [...] Neurology. Assessment & Plan (12/07/2022 12:50 PM TRAVELING CRANE OPERATOR): Continues to note intermittent numbness and tingling in the right hand. No benefit with wrist bracing at night. She has had prior bilateral carpal tunnel release surgery. Had recent EMG that was unrevealing. Had skin biopsy that was consistent with small fiber neuropathy, per her report. Recommended cock-up wrist splint and follow-up with Neurology. Assessment & Plan (10/21/2021 9:44 AM TRAVELING CRANE OPERATOR): Continues to note intermittent numbness and tingling in the right hand. No benefit with wrist bracing at night. She has had prior bilateral carpal tunnel release surgery. Had recent EMG that was unrevealing. Had skin biopsy that was consistent with small fiber neuropathy, per her report. Assessment & Plan (09/09/2021 11:23 AM TRAVELING CRANE OPERATOR): Continues to note intermittent numbness and [...] pulmonology Assessment & Plan (10/02/2023 4:10 PM TRAVELING CRANE OPERATOR): TTE 2023: Left ventricular ejection fraction [...] pulmonology Assessment & Plan (08/20/2023 2:06 PM TRAVELING CRANE OPERATOR): TTE 2023: Left ventricular ejection fraction [...] again. Assessment & Plan (12/07/2022 12:51 PM TRAVELING CRANE OPERATOR): History of asthma. Given worsened shortness of breath, obtain chest x-ray, PFT, TTE. Consider pulmonary evaluation, if symptoms persist. Assessment & Plan (01/20/2021 12:58 PM CDT): History of asthma. Recommended follow-up with blood donor unit assistant. Osteoarthritis of multiple joints 12/16/2020 Assessment & Plan (07/08/2025 12:07 PM CDT): Hx of OA that is contributing to her chronic pain complaints. Have recommended OTC Voltaren gel applied to the affected knees p.r.n.. She has previously completed physical therapy for the knees. Received ultrasound-guided left knee intra- articular steroid injection on 11/2023 with significant benefit. Do suspect that osteoarthritis contributing to some of her chronic residual pain complaints. He is now following with knee Orthopedics and received a Monovisc injection 2 weeks ago without benefit. Assessment & Plan (05/06/2025 12:21 PM CDT): Hx of OA that is contributing to her chronic pain complaints. Have recommended OTC Voltaren gel applied to the affected knees p.r.n.. She has previously completed physical therapy for the knees. Received ultrasound-guided left knee intra- articular steroid injection on 11/2023 with significant benefit. Do suspect that osteoarthritis contributing to some of her chronic residual pain complaints. Is scheduled to undergo evaluation with Orthopedics later this month regarding her knee complaints. Assessment & Plan (03/05/2025 9:32 AM CDT): [...] complaints. Assessment & Plan (09/05/2024 4:08 PM TRAVELING CRANE OPERATOR): Hx of OA that is contributing [...] 11/2023. Assessment & Plan (11/30/2023 1:41 PM TRAVELING CRANE OPERATOR): Hx of OA that is contributing [...] time. Assessment & Plan (10/02/2023 4:11 PM TRAVELING CRANE OPERATOR): Hx of OA that is contributing to her chronic pain complaints. Have recommended OTC Voltaren gel applied to the affected knees p.r.n. Assessment & Plan (08/20/2023 2:05 PM TRAVELING CRANE OPERATOR): Hx of OA that is contributing [...] p.r.n. Assessment & Plan (12/07/2022 12:47 PM TRAVELING CRANE OPERATOR): Hx of OA that is contributing to her chronic pain complaints. Have recommended OTC Voltaren gel applied to the affected knees p.r.n. Assessment & Plan (09/07/2022 11:36 AM TRAVELING CRANE OPERATOR): Hx of OA that is contributing [...] complaints. Assessment & Plan (12/02/2021 10:57 AM TRAVELING CRANE OPERATOR): Do suspect that osteoarthritis is contributing to her chronic pain complaints, which is most notable in her lower back. Assessment & Plan (10/21/2021 9:41 AM TRAVELING CRANE OPERATOR): Do suspect that osteoarthritis is contributing to her chronic pain complaints. Previously noted that she was scheduled to see Podiatry to discuss feet complaints further. Assessment & Plan (09/09/2021 11:19 AM TRAVELING CRANE OPERATOR): Do suspect that osteoarthritis is contributing [...] left replacement. positive CLAUDIO. Negative dsDNA, negative Shannon/BRICK EXTRUDER OPERATOR, negative chromatin, negative CCP Avise 12/10/2020: Positive [...] sicca symptoms, as well. Assessment & Plan (07/08/2025 12:06 PM CDT): CDAI 31.5 (previous 29). Unfortunately, Little continues to do poorly since last visit. She continues to note chronic arthralgias, which is most notable in the bilateral hands/wrists (R>L) and left knee, as discussed above. She does feel that symptoms have improved significantly since beginning Simponi Aria infusions, although does rate her pain at a 9-10/10 today. Denies prolonged a.m. stiffness. Does have scattered swollen joints on exam today. Her most recent right hand/wrist ultrasound 03/1024 did display Doppler activity in effusions with persistent erosive change in the 2nd MCP joint, which was suggestive of active inflammation. She does have a difficult clinical picture, as there are numerous contributing factors to her chronic pain, including spondyloarthritis fibromyalgia, osteoarthritis, and small fiber neuropathy. Due to burden of disease, will administer kenalog 100 mg IM injection, in office, today. Patient was advised of the potential side effects of the medication, including but not limited to increased blood sugar, weight gain, avascular necrosis, glaucoma, cataracts, and/or osteoporosis. We would like to monitor her response to Kenalog IM injection. Otherwise, will continue Sulfasalazine 1500 mg b.i.d. hand Simponi Aria infusions. If LFTs improved, could consider leflunomide, which has been previously discussed. Routine labs today. Follow-up 4 weeks. Sooner if needed. Assessment & Plan (05/06/2025 12:21 PM CDT): CDAI 29. Since last visit, Little has resume Simponi Aria x1 infusion and tolerated this well. While off the medication, she did notesignificant increased arthralgias for which is most notable [...] 2nd MCP joints suggestive of active inflammation. Denies major benefit since receiving Simponi Aria infusion, although would like to allow this more time to take effect. Will resume Simponi Aria infusions at this time. Otherwise, will continue sulfasalazine 1500 mg b.i.d.. Could consider addition of leflunomide, if symptoms persist at next visit. Previously had concerns given prior elevated LFTs, although these have normalized. Routine labs today. Follow-up 2 months. Sooner if needed. Assessment & Plan (03/05/2025 9:30 AM CDT): [...] needed. Assessment & Plan (09/05/2024 4:06 PM TRAVELING CRANE OPERATOR): CDAI 18. Overall, joint symptoms have remained stable and improved from last visit, although does continue to have chronic discomfort and reduced print binding and finishing worker strength in the bilateral hands. She also [...] visit. Assessment & Plan (11/30/2023 1:40 PM TRAVELING CRANE OPERATOR): CDAI 23. After last visit, Little [...] needed. Assessment & Plan (10/02/2023 4:12 PM TRAVELING CRANE OPERATOR): CDAI 14. After last visit, Little [...] Graves. Assessment & Plan (08/20/2023 2:05 PM TRAVELING CRANE OPERATOR): CDAI 17. At today's visit, she [...] needed. Assessment & Plan (12/07/2022 12:47 PM TRAVELING CRANE OPERATOR): CDAI 17. Since last visit, has [...] needed. Assessment & Plan (09/07/2022 11:35 AM TRAVELING CRANE OPERATOR): CDAI 11. Since last visit, has [...] azathioprine 50mg BID. Continue Simponi Aria IV [id number]. Routine labs today. Follow-up 4 weeks. Sooner [...] Crisostomo. Assessment & Plan (12/02/2021 12:38 PM TRAVELING CRANE OPERATOR): Ultrasound right foot/ankle 06/29/2021: 5th MTP [...] the bilateral hands and feet with reduced print binding and finishing worker strength. Synovitis does persist on exam. Would like to allow the simponi aria more time to take effect. Will continue methotrexate 20 mg weekly, FA 1 mg daily, Simponi Aria infusions. Recommend otc tylenol. Routine labs today. Follow-up 4 weeks. Sooner if needed. Assessment & Plan (10/21/2021 9:41 AM TRAVELING CRANE OPERATOR): Ultrasound right foot/ankle 06/29/2021: 5th MTP [...] needed. Assessment & Plan (09/09/2021 11:18 AM TRAVELING CRANE OPERATOR): Ultrasound right foot/ankle 06/29/2021: 5th MTP [...] has persistent peripheral joint complaints with reduced print binding and finishing worker strength. Synovitis does persist on exam. Did [...] Has persistent peripheral joint complaints with reduced print binding and finishing worker strength. Some synovitis persist on exam. Again [...] Crisostomo. Assessment & Plan (12/02/2020 2:08 PM TRAVELING CRANE OPERATOR): 60 yoF with recent pos claudio [...] 07/21/2019 Assessment & Plan (09/05/2024 4:08 PM TRAVELING CRANE OPERATOR): ENT had apparently noted muscle nasal [...] (02/03/2019): Added automatically from request for surgery [id number] Obstructive sleep apnea syndrome 09/09/2018 Joint pain, [...] exercises. Assessment & Plan (12/02/2021 10:59 AM TRAVELING CRANE OPERATOR): L-spine x-ray 05/18/2021: Moderate to severe [...] exercises. Assessment & Plan (10/21/2021 9:42 AM TRAVELING CRANE OPERATOR): L-spine x-ray 05/18/2021: Moderate to severe [...] exercises. Assessment & Plan (09/09/2021 11:23 AM TRAVELING CRANE OPERATOR): L-spine x-ray 05/18/2021: Moderate to severe [...]
--- OUTSIDE RECORDS SUMMARY | 2025-07-30 13:35 | XMS_ITS | Patient Health Record ---
Author Organization [employer] Address [address] [facility] [address] [place] [address] Care Team Providers Care Device Processing Engineer Name Role Phone Chadwick Schwartz MD Primary Care Provider Steve Chavez Unavailable [phone] Allergies No Known Allergies Reason For Referral No Information Medications Medication SIG (Take, Route, Frequency, Duration) Notes Start Date End Date Status Albuterol Active sulfaSALAzine Active Omeprazole 20 MG 1 capsule 30 minutes before morning meal Orally daily; Duration: 90 days 01/02/2022 Active Golimumab Active OTC/Vitamins Vit D3, Calcium, ASA, [place] 3, Folic Acid, Biotin, Vit E, Magnesium Active amLODIPine Besylate Active Gabapentin Active Social History Tobacco Use: Social History Observation Description Date Details (start date - stop date) Never Smoker NA - NA Tobacco Use/Smoking Question Answer Notes Are you a nonsmoker Section Notes: 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, 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 Problem Gastroesophageal reflux disease (186376187) GERD (gastroesophage al reflux disease) (K21.9) Active confirmed Problem Family History of Cancer of Colon (Situation) (424690530) Family history of colon cancer (Z80.0) Active confirmed This is in patient's father. Problem History of polyp of colon (situation) (664295649) History of colon polyps (Z86.010) Active confirmed Last colonoscopy in 11/2019 revealed diverticulosis and hemorrhoids. It recommended to repeat in 2024. Patient lacks alarm symptoms. Problem Diverticular disease of colon (499289902) Diverticulosis (K57.90) Active confirmed She was found to have sigmoid diverticulosis on her last colonoscopy. She is asymptomatic with negative exam findings today. She continues to use Metamucil. Problem Hemorrhage of colon due to diverticulosis (735558370930968) Diverticulosis large intestine w/o perforation or abscess w/bleeding (K57.31) Active confirmed Problem Nonalcoholic fatty liver disease (2173453891) Nonalcoholic fatty liver disease (K76.0) Active confirmed Found on ultrasound in 11/2021. Liver enzymes mildly elevated. Discussed diet, exercise and weight loss. Problem Helicobacter pylori gastrointestinal tract infection (779137232) H. pylori infection (A04.8) Active confirmed Patient was found to be H. pylori positive on labs. She was treated with Biaxin, amoxicillin and pantoprazole with a mild improvement. We discussed continuing omeprazole at a higher dose. We will check for eradication Problem Malabsorption (69021045) Malabsorption (K90.9) Active confirmed Problem Constipation alternates with diarrhea (354978007) Alternating constipation and diarrhea (R19.8) Active confirmed Problem Esophageal dysphagia (84782197) Esophageal dysphagia (R13.19) Active confirmed She reports [...] esophagitis, esophageal motility disorder, achalasia, and others. Plan Of Treatment Pending Test Test Name Order Date Upper Endoscopy 10/03/2022 Colonoscopy 11/21/2019 Insurance Providers Payer Name Payer Address Payer Phone Subscriber Number Group Number Insured Name Patient Relationship to Insured Coverage Start Date Coverage End Date [employer] Access PPO E2 [address] [place] [address] [id number] Little Sarmiento Self - patient is the [...] left 03/2019 Hysterectomy 05/2006 Pituitary tumor removed 1980 Bilateral Rotator Cuff Carpal tunnel release x2 Hospitalization History Reason Date(Month/Year) Pituitary Tumor 1987 Meningitis 1970 Nose bleed Stomach pain Shortness of breath
--- OUTSIDE RECORDS SUMMARY | 2025-07-30 13:35 | XMS_ITS | Clinical Summary ---
Author Organization [facility] [address] Address [address] [place] [address] Care Team Providers Care Professor Sculpture Name Role Phone Gal Decker MD Unavailable Jennifer Angel Unavailable [phone] Ethan Graves MD Unavailable [phone] Clem Ramos MD Unavailable [phone] Wilber Patterson MD Primary Care Provide r Allergies No known active allergies Medications calcium carbonate (CALCIUM 600) 1,500 mg (600 mg of elemental calcium) tabletIndicat ions:Hypocalc emia Prevention,Os teoporosis Take 1 tablet (1,500 mg total) by mouth daily 30 tablet 3 03/12/20 19 Active cholecalcifer ol (VITAMIN D-3) 50,000 unit capsule TK 1 C PO ONCE WEEKLY 10/02/19 20 Active aspirin (Aspirin Low Dose) 81 mg enteric coated tablet Take 1 tablet (81 mg total) by mouth daily Active omega-3 fatty acids-fish oil 300-1,000 mg capsule Take 950 mg by mouth daily Active biotin 800 mcg tablet Take 1 tablet by mouth daily Active vitamin E (vitamin E) 200 unit capsule Take 2 capsules (400 Units total) by mouth daily Active acidophilus-p ectin, citrus 100 million cell-10 mg capsule Take 1 capsule by mouth daily Active folic acid (FOLVITE) 1 mg tablet TAKE 1 TABLET(1 MG) BY MOUTH DAILY 30 tablet 11 05/22/20 22 Active cetirizine (ZyrTEC) 10 mg tablet Take 1 tablet (10 mg total) by mouth daily Active fluticasone furoate-vilan teroL (Breo Ellipta) 100-25 mcg/dose diskus inhaler INHALE 1 PUFF BY MOUTH DAILY FAST BREATH INHALE QUICKLY AND DEEPLY Inhalation for 30 06/12/20 23 Active amLODIPine (NORVASC) 5 mg tablet Take 2 tablets (10 mg total) by mouth daily Active albuterol HFA (PROVENTIL HFA,VENTOLIN HFA,PROAIR HFA) 90 mcg/actuation inhaler 09/05/20 23 Active atorvastatin (LIPITOR) 40 mg tablet Take 1 tablet (40 mg total) by mouth daily 06/27/20 24 Active magnesium oxide (MAG-OX) 250 mg (150.8 mg elemental) tablet mg, tablet(s), 0 05/09/20 23 Active ferrous sulfate 325 mg (65 mg of elemental iron) tabletIndicat ions:Iron Deficiency Anemia Take 1 tablet (325 mg total) by mouth every other day 90 tablet 10/06/19 25 Active gabapentin (NEURONTIN) 300 mg capsule Take 2 capsules (600 mg total) by mouth 2 (two) times a day 120 capsule 04/13/[address] (CYMBALTA) 60 mg capsuleIndica tions:Neuropa thic Pain Take 1 capsule (60 mg total) by mouth daily 30 capsule 04/13/20 25 Active hydroxychloro quine (PLAQUENIL) 200 mg tablet Take 1 tablet (200 mg total) by mouth daily Active methotrexate, PF, 7.5 mg/0.15 mL auto-injector Inject 7.5 mg under the skin every 7 days Active azaTHIOprine (IMURAN) 50 mg tablet Take 1 tablet (50 mg total) by mouth daily Active golimumab (SIMPONI ARIA) 12.5 mg/mL solutionIndic ations:Rheuma toid Arthritis Infuse 2 mg/kg IV Active sulfaSALAzine EN (AZULFIDINE EN) 500 mg EC tablet TAKE 3 TABLETS BY MOUTH TWICE DAILY 180 tablet 07/08/20 25 Active vonoprazan (Voquezna) 10 mg tablet Take 10 mg by mouth daily Active omeprazole (PriLOSEC) 20 mg capsule take 1 capsule by oral route every day 30 minutes to 1 hour before a meal 0 0 01/25/20 16 025 Discontinued golimumab (Simponi) 50 mg/0.5 mL syringe Inject 0.5 mL every 2 months by subcutaneous route. 025 Discontinued sulfaSALAzine EN (AZULFIDINE EN) 500 mg EC tablet TAKE 3 TABLETS BY MOUTH TWICE DAILY 180 tablet 03/05/20 25 025 Discontinued(R joel) Hospital, Clinic, or Other Facility Administered Medication Ordered Dose Route Frequency Start Date End Date Status triamcinolone (KENALOG) 40 mg/mL injection 100 mgIndications:Spondyloarthr itis 100 mg IM Once 07/08/2025 07/08/2025 Ended Active Problems Problem Noted Date Diagnosed Date [...] 07/13/2022 Assessment & Plan (09/07/2022 11:38 AM TRACK LAYING EQUIPMENT OPERATOR): Continues to have chronic left lower [...] degree. Assessment & Plan (12/02/2021 11:01 AM TRACK LAYING EQUIPMENT OPERATOR): At today's visit, describes pain in [...] doses. Assessment & Plan (09/05/2024 4:09 PM TRACK LAYING EQUIPMENT OPERATOR): Continue to suspect that several factors [...] exacerbate. Assessment & Plan (11/30/2023 1:41 PM TRACK LAYING EQUIPMENT OPERATOR): Continue to suspect that several factors [...] time. Assessment & Plan (10/02/2023 4:10 PM TRACK LAYING EQUIPMENT OPERATOR): Continue to suspect that several factors are contributing to her chronic pain complaints, including degenerative arthritis, spondyloarthritis, small fiber neuropathy, fibromyalgia. Is currently on gabapentin 200 mg b.i.d. dizziness improve with reducing the dose. Encourage routine exercise, including [employer] today. Could consider switching gabapentin to Lyrica and or addition of Cymbalta Assessment & Plan (08/20/2023 2:07 PM TRACK LAYING EQUIPMENT OPERATOR): Continue to suspect that several factors [...] today. Assessment & Plan (12/07/2022 12:48 PM TRACK LAYING EQUIPMENT OPERATOR): Do suspect that several factors are [...] today. Assessment & Plan (09/07/2022 11:37 AM TRACK LAYING EQUIPMENT OPERATOR): Stable from last visit. Do suspect [...] as possible fibromyalgia. She did see Dr. Decker, neuro, this Sunday and he did increased nahed to 300 mg bid Assessment & Plan (12/02/2021 12:37 PM TRACK LAYING EQUIPMENT OPERATOR): Has rather diffuse pain complaints, including [...] (05/06/2025 12:22 PM CDT): Follows with Dr. Decker neuromuscular. [...] (03/05/2025 9:33 AM CDT): Follows with Dr. Decker neuromuscular. Suspect [...] discussed. Assessment & Plan (09/05/2024 4:07 PM TRACK LAYING EQUIPMENT OPERATOR): Follows with venkata Barkley. Suspect that [...] Plan (06/05/2024 2:41 PM CDT): Follows with Dr. Decker neuromuscular. [...] (04/11/2024 12:38 PM CDT): Follows with Dr. Decker neuromuscular. [...] gabapentin. Assessment & Plan (11/30/2023 1:42 PM TRACK LAYING EQUIPMENT OPERATOR): Follows with Dr. Decker neuromuscular. Suspect [...] symptoms. Assessment & Plan (10/02/2023 4:10 PM TRACK LAYING EQUIPMENT OPERATOR): Follows with Dr. Decker neuromuscular. Suspect [...] symptoms. Assessment & Plan (08/20/2023 2:06 PM TRACK LAYING EQUIPMENT OPERATOR): Follows with Dr. Decker neuromuscular. Suspect [...] Barkley. Assessment & Plan (12/07/2022 12:51 PM TRACK LAYING EQUIPMENT OPERATOR): Follows with venkata Barkley. On nahed 200 mg bid. Reduced dose from 300 mg b.i.d. due to side effects. Assessment & Plan (09/07/2022 11:37 AM TRACK LAYING EQUIPMENT OPERATOR): Follows with venkata Barkley. On nahed [...] 11/2020 Assessment & Plan (10/02/2023 4:10 PM TRACK LAYING EQUIPMENT OPERATOR): Negative QuantiFERON 07/2021 Negative hepatitis panel 11/2020 Assessment & Plan (08/20/2023 2:06 PM TRACK LAYING EQUIPMENT OPERATOR): Negative QuantiFERON 07/2021 Negative hepatitis panel 11/2020 Assessment & Plan (07/05/2023 2:58 PM CDT): Negative QuantiFERON 07/2021 Negative hepatitis panel 11/2020 Assessment & Plan (03/08/2023 1:40 PM CDT): Negative QuantiFERON 07/2021 Negative hepatitis panel 11/2020 Assessment & Plan (12/07/2022 12:48 PM TRACK LAYING EQUIPMENT OPERATOR): Negative QuantiFERON 07/2021 Negative hepatitis panel 11/2020 Assessment & Plan (09/07/2022 11:36 AM TRACK LAYING EQUIPMENT OPERATOR): Negative QuantiFERON 07/2021 Negative hepatitis panel [...] 11/2020 Assessment & Plan (12/02/2021 10:58 AM TRACK LAYING EQUIPMENT OPERATOR): Negative QuantiFERON 07/2021 Negative hepatitis panel 11/2020 Assessment & Plan (10/21/2021 9:41 AM TRACK LAYING EQUIPMENT OPERATOR): Negative QuantiFERON 07/2021 Negative hepatitis panel 11/2020 Assessment & Plan (09/09/2021 11:24 AM TRACK LAYING EQUIPMENT OPERATOR): Negative QuantiFERON 07/2021 Negative hepatitis panel [...] week. Assessment & Plan (12/02/2021 12:34 PM TRACK LAYING EQUIPMENT OPERATOR): Negative myositis. Most recent labs 07/2021 [...] neuropathy. Assessment & Plan (10/21/2021 9:44 AM TRACK LAYING EQUIPMENT OPERATOR): Negative myositis. Most recent labs 07/2021 [...] neuropathy. Assessment & Plan (09/09/2021 11:22 AM TRACK LAYING EQUIPMENT OPERATOR): Negative myositis. Most recent labs 03/09/2021 [...] Neurology. Assessment & Plan (12/07/2022 12:50 PM TRACK LAYING EQUIPMENT OPERATOR): Continues to note intermittent numbness and tingling in the right hand. No benefit with wrist bracing at night. She has had prior bilateral carpal tunnel release surgery. Had recent EMG that was unrevealing. Had skin biopsy that was consistent with small fiber neuropathy, per her report. Recommended cock-up wrist splint and follow-up with Neurology. Assessment & Plan (10/21/2021 9:44 AM TRACK LAYING EQUIPMENT OPERATOR): Continues to note intermittent numbness and tingling in the right hand. No benefit with wrist bracing at night. She has had prior bilateral carpal tunnel release surgery. Had recent EMG that was unrevealing. Had skin biopsy that was consistent with small fiber neuropathy, per her report. Assessment & Plan (09/09/2021 11:23 AM TRACK LAYING EQUIPMENT OPERATOR): Continues to note intermittent numbness and [...] pulmonology Assessment & Plan (10/02/2023 4:10 PM TRACK LAYING EQUIPMENT OPERATOR): TTE 2023: Left ventricular ejection fraction [...] pulmonology Assessment & Plan (08/20/2023 2:06 PM TRACK LAYING EQUIPMENT OPERATOR): TTE 2023: Left ventricular ejection fraction [...] again. Assessment & Plan (12/07/2022 12:51 PM TRACK LAYING EQUIPMENT OPERATOR): History of asthma. Given worsened shortness of breath, obtain chest x-ray, PFT, TTE. Consider pulmonary evaluation, if symptoms persist. Assessment & Plan (01/20/2021 12:58 PM CDT): History of asthma. Recommended follow-up with crusher setter. Osteoarthritis of multiple joints 12/16/2020 Assessment & [...] complaints. Assessment & Plan (09/05/2024 4:08 PM TRACK LAYING EQUIPMENT OPERATOR): Hx of OA that is contributing [...] 11/2023. Assessment & Plan (11/30/2023 1:41 PM TRACK LAYING EQUIPMENT OPERATOR): Hx of OA that is contributing [...] time. Assessment & Plan (10/02/2023 4:11 PM TRACK LAYING EQUIPMENT OPERATOR): Hx of OA that is contributing to her chronic pain complaints. Have recommended OTC Voltaren gel applied to the affected knees p.r.n. Assessment & Plan (08/20/2023 2:05 PM TRACK LAYING EQUIPMENT OPERATOR): Hx of OA that is contributing [...] p.r.n. Assessment & Plan (12/07/2022 12:47 PM TRACK LAYING EQUIPMENT OPERATOR): Hx of OA that is contributing to her chronic pain complaints. Have recommended OTC Voltaren gel applied to the affected knees p.r.n. Assessment & Plan (09/07/2022 11:36 AM TRACK LAYING EQUIPMENT OPERATOR): Hx of OA that is contributing [...] complaints. Assessment & Plan (12/02/2021 10:57 AM TRACK LAYING EQUIPMENT OPERATOR): Do suspect that osteoarthritis is contributing to her chronic pain complaints, which is most notable in her lower back. Assessment & Plan (10/21/2021 9:41 AM TRACK LAYING EQUIPMENT OPERATOR): Do suspect that osteoarthritis is contributing to her chronic pain complaints. Previously noted that she was scheduled to see Podiatry to discuss feet complaints further. Assessment & Plan (09/09/2021 11:19 AM TRACK LAYING EQUIPMENT OPERATOR): Do suspect that osteoarthritis is contributing [...] left replacement. positive CLAUDIO. Negative dsDNA, negative Shannon/NEUROLOGY HOSPITALIST, negative chromatin, negative CCP Avise 12/10/2020: Positive [...] needed. Assessment & Plan (09/05/2024 4:06 PM TRACK LAYING EQUIPMENT OPERATOR): CDAI 18. Overall, joint symptoms have remained stable and improved from last visit, although does continue to have chronic discomfort and reduced muck miner blasting strength in the bilateral hands. She also [...] visit. Assessment & Plan (11/30/2023 1:40 PM TRACK LAYING EQUIPMENT OPERATOR): CDAI 23. After last visit, Little [...] needed. Assessment & Plan (10/02/2023 4:12 PM TRACK LAYING EQUIPMENT OPERATOR): CDAI 14. After last visit, Little [...] Graves. Assessment & Plan (08/20/2023 2:05 PM TRACK LAYING EQUIPMENT OPERATOR): CDAI 17. At today's visit, she [...] needed. Assessment & Plan (12/07/2022 12:47 PM TRACK LAYING EQUIPMENT OPERATOR): CDAI 17. Since last visit, has [...] needed. Assessment & Plan (09/07/2022 11:35 AM TRACK LAYING EQUIPMENT OPERATOR): CDAI 11. Since last visit, has [...] azathioprine 50mg BID. Continue Simponi Aria IV [id number]. Routine labs today. Follow-up 4 weeks. Sooner [...] Crisostomo. Assessment & Plan (12/02/2021 12:38 PM TRACK LAYING EQUIPMENT OPERATOR): Ultrasound right foot/ankle 06/29/2021: 5th MTP [...] the bilateral hands and feet with reduced muck miner blasting strength. Synovitis does persist on exam. Would like to allow the simponi aria more time to take effect. Will continue methotrexate 20 mg weekly, FA 1 mg daily, Simponi Aria infusions. Recommend otc tylenol. Routine labs today. Follow-up 4 weeks. Sooner if needed. Assessment & Plan (10/21/2021 9:41 AM TRACK LAYING EQUIPMENT OPERATOR): Ultrasound right foot/ankle 06/29/2021: 5th MTP [...] needed. Assessment & Plan (09/09/2021 11:18 AM TRACK LAYING EQUIPMENT OPERATOR): Ultrasound right foot/ankle 06/29/2021: 5th MTP [...] has persistent peripheral joint complaints with reduced muck miner blasting strength. Synovitis does persist on exam. Did [...] Has persistent peripheral joint complaints with reduced muck miner blasting strength. Some synovitis persist on exam. Again [...] Crisostomo. Assessment & Plan (12/02/2020 2:08 PM TRACK LAYING EQUIPMENT OPERATOR): 60 yoF with recent pos claudio [...] 07/21/2019 Assessment & Plan (09/05/2024 4:08 PM TRACK LAYING EQUIPMENT OPERATOR): ENT had apparently noted muscle nasal [...] (02/03/2019): Added automatically from request for surgery [id number] Obstructive sleep apnea syndrome 09/09/2018 Joint pain, [...] exercises. Assessment & Plan (12/02/2021 10:59 AM TRACK LAYING EQUIPMENT OPERATOR): L-spine x-ray 05/18/2021: Moderate to severe [...] exercises. Assessment & Plan (10/21/2021 9:42 AM TRACK LAYING EQUIPMENT OPERATOR): L-spine x-ray 05/18/2021: Moderate to severe [...] exercises. Assessment & Plan (09/09/2021 11:23 AM TRACK LAYING EQUIPMENT OPERATOR): L-spine x-ray 05/18/2021: Moderate to severe [...] Encounters Date Type Department Care Team Description 07/15/2025 9:20 AM CDT - 07/15/2025 11:59 PM CDT Hospital Encounter [facility] [address] [place] [address] Screening mammogram, encounter for Discharge Disposition: Discharge to home or self care 07/09/2025 1:47 PM CDT - 07/09/2025 11:59 PM CDT Hospital Encounter [facility] [address] [place] [address] Asymptomatic menopausal state Discharge Disposition: Discharge to home or self care 07/09/2025 Results Follow-Up [facility] [address] [place] [phone] John Zabala PA Erythrocyte sedimentation rate, CRP (acute phase), Comprehensive metabolic panel, CBC with auto differential 07/08/2025 11:45 AM CDT Office Visit [facility] [address] [place] [address] John Zabala PA Spondyloarthritis (Primary Dx); Osteoarthritis of multiple joints, unspecified osteoarthritis type; Fibromyalgia; Small fiber neuropathy; Tenosynovitis, de Quervain; Long-term use of high-risk medication 07/03/2025 5:23 PM CDT - 07/03/2025 11:59 PM CDT Hospital Encounter [facility] [address] [place] [address] Other specified abnormal findings of blood chemistry; Fatty (change of) liver, not elsewhere classified Discharge Disposition: Discharge to home or self care 06/25/2025 3:00 PM CDT Procedure visit [facility] [address] [place] [address] [address] [place] [phone] John Spicer MD Chronic pain of left knee (Primary Dx) 05/28/2025 11:02 AM CDT - 05/28/2025 11:59 PM CDT Hospital Encounter [facility] [address] [place] [id number] Chronic pain of left knee Discharge Disposition: Discharge to home or self care 05/28/2025 11:00 AM CDT Office Visit [facility] [address] [place] [address] [address] [place] [phone] John Spicer MD Chronic pain of left knee (Primary Dx) 05/20/2025 Results Follow-Up [facility] [address] [place] [address] John Zabala PA Erythrocyte sedimentation rate, CRP (acute phase), Comprehensive metabolic panel, CBC with auto differential 05/18/2025 Telephone [facility] [address] [place] [address] [address] [place] [address] Ab Cortez Si, MD Referral to Neurosurgery (denied) 05/06/2025 11:15 AM CDT Office Visit [facility] [address] [place] [address] John Zabala PA Spondyloarthritis (Primary Dx); Osteoarthritis of multiple joints, unspecified osteoarthritis type; Fibromyalgia; Small fiber neuropathy; Long-term use of high-risk medication from Last 3 Months Immunizations Immunization Administration Dates Next Due Hep B Vaccine 03/27/2001,11/27/2000,10/30/2000 Influenza, Quadrivalent, Beverley l Culture-based MDCK, Antibiotic Free, Intramuscular 07/17/2019 Influenza, Quadrivalent, Spl it, Preservative Free, Intramuscular 07/20/2021,07/11/2020,07/10/2020 Influenza, Trivalent, IM (MDV) 06/16/2016,2014,07/15/2014 Influenza, Trivalent, Preser vative Free, Intramuscular 07/04/2016,08/31/2014 PPD TEST 06/16/2016,06/09/2015,07/15/2014 Surgical History Surgery Date Site/Laterality Comments HYSTERECTOMY Total Hysterectomy - (Added by TW Conv) CT TRNSRAL SKULL BSE/BR STEM /CORD BX/DCOMPR/EXC LES Transsphenoidal Tumor Removal - (Added by TW Conv) CT CHOLECYSTECTOMY Cholecystectomy - (Added by TW Conv) [...] Depression Hx Other Medical Gastric Reflux; Comments: [facility] 03/24/2014 - Hx Other Medical Back Pain; Comm ents: [facility] 03/24/2014 - Hx Other Medical Diabetes, gesta tional 2009; Comments: [facility] 03/24/2014 - Hx Other Medical Poor Circulatio n; Comments: [facility] 03/24/2014 - Hx Other Medical Hysterectomy 20 06; Comments: [facility] 03/24/2014 - Hx Other Medical Gall Bladder; C omments: [facility] 03/24/2014 - Hx Other Medical Brain tumer 198 6; Comments: [facility] 03/24/2014 - Hx Other Medical Left leg cut me ningitus; Comments: [facility] 03/24/2014 - Personal history of other en [...] arthritis - (Added by TW Conv) Hypertension Brother 3 Family history of hypertension - (Added by TW Conv) Gout Brother 4 Family history of gout - (Added by TW Conv) Diabetes Brother 5 Family history of diabetes mellitus - (Added by TW Conv) Stroke Brother 6 Family history of cerebrovascular accident (CVA) - (Added by TW Conv) Arthritis Father Family history of arthritis - (Added by TW Conv) Diabetes Father Family history of diabetes mellitus - (Added by TW Conv) Gout Father Family history of gout - (Added by TW Conv) Heart disease Father Family history of cardiac disorder - (Added by TW Conv) Heart failure Father Family history of congestive heart failure - (Added by TW Conv) Hypertension Father Family history of hypertension - (Added by TW Conv) Ovarian cancer Father Ovarian cance r - (Added by TW Conv) Arthritis Mother Family history of arthritis - (Added by TW Conv) Cancer Mother Family history of malignant neoplasm - (Added by TW Conv) Diabetes Mother Family history of diabetes mellitus - (Added by TW Conv) Heart failure Mother Family history of congestive heart failure - (Added by TW Conv) Hypertension Mother Family history of hypertension - (Added by TW Conv) Ovarian cancer Mother Ovarian cance r - (Added by TW Conv) Diabetes Other 1 Family history of [...] disorder - (Added by TW Conv) Arthritis Other 9 Family history of [...] diabetes mellitus - (Added by TW Conv) Breast cancer Sister 7 Cancer Sister 7 Family history of malignant [...] on file Legal Sex Female 12:27 AM TRACK LAYING EQUIPMENT OPERATOR Gender Identity Not on file Sexual Orientation Not on file Obstetrics History Para Term AB IAB SAB Ectopic Multiple Livin g Live Births 2 0 Date Outcome GA Total Labor Labor/2nd/3rd Weight Sex Type Anes PTL Melissa A1 A5 Name Clin Last Filed Vital Signs Vital Sign Reading Time Taken Comments Blood Pressure 142/74 07/08/2025 11:22 AM CDT Pulse 99 07/08/2025 11:22 AM CDT Temperature 36.3 C (97.3 F) 10/04/2024 12:40 PM TRACK LAYING EQUIPMENT OPERATOR Respiratory Rate 16 10/04/2024 12:4 0 PM TRACK LAYING EQUIPMENT OPERATOR Oxygen Saturation 99% 07/08/2025 11: 22 AM CDT Inhaled Oxygen Concentration - - Weight 106.6 kg (235 lb 0.2 oz) 07/15/2025 9:30 AM CDT Height 162.6 cm (5' 4.02) 07/15/2025 9:30 AM CD T Body Mass Index 40.32 07/15/2025 9:30 AM CDT Plan of Treatment Health Maintenance Due Date Last Done Comments Albumin Creatinine Ratio, Urine 1962 Colon Cancer Screening-Colonoscopy 1962 Depression Screening 1962 Hepatitis C Screening 1962 Dilated Eye Exam 1962 Foot Exam 1962 Regular Well Visit/Exam 18-64 01/10/1980 Zoster Vaccine (1 of 2) 1981 Pneumococcal vaccine <65 (2 of 2 - PCV) 11/10/2009 11/10/2008 Hemoglobin A1C 01/18/2022 07/20/2021, 02/18/2019 Covid-19 Vaccine (2024-2 6 season) 2025 08/05/2021, 11/30/2020, 11/02/2020 Influenza Vaccine (#1) 2025 4, 07/20/2021, 07/11/2020, Additional history exists Lipid Panel 03/05/2026 03/05/2025, 07/02, 03/18/2019 eGFR 07/08/2026 07/08/2025, 05/01, 03/05/2025, Additional history exists Breast Cancer Screening-Mammogram 07/15/2026 025, 12/19/2012 DTaP/Tdap/Td Vaccine (3 - Td or Tdap) 09/17/2027 09/17/2017, 11/10/2008 Medical Devices Implanted Type Area Real Estate Sales Agent Device Identifier Shelf Expiration Date Model / Serial / Lot [employer] [id number] [place] 6.5mm 40mm Acetabular Cancellous Screw Bone Sterile - [id number] Implanted:Qty: 1 on 03/18/2019 by Lavelle Jacobson MD at [facility] Left: Hip [employer] [id number] / / [employer] [id number] [place] 52mm Sector Hip Shell Acetabular Gription Sterile Latex Free - [id number] Implanted:Qty: 1 on 03/18/2019 by Lavelle Jacobson MD at [facility] Left: Hip [employer] [id number] / / [employer] [id number] [place] 52mm 36mm Hip Neutral Liner Acetabular Altrx Sterile Latex Free - [id number] Implanted:Qty: 1 on 03/18/2019 by Lavelle Jacobson MD at [facility] Left: Hip [employer] [id number] / / [employer] [id number] Actis 105mm Collar Hip 5 High Offset Stem Femoral - [id number] Implanted:Qty: 1 on 03/18/2019 by Lavelle Jacobson MD at [facility] Left: Hip [employer] [id number] / / [employer] [id number] Articul/S[place] 36mm Cementless Hip +1.5mm 09/13 [place] Femoral Latex Free - [id number] Implanted:Qty: 1 on 03/18/2019 by Lavelle Jacobson MD at [facility] Left: Hip [employer] 11/26/2023 [id number] / / Procedures Procedure Name Priority Date/Time Associated Diagnosis Comments SCREENING MAMMOGRAM BILATERAL W BARON Schedule Routine, Read Routine (OP Routine) 07/15/2025 9:50 AM CDT Screening mammogram, encounter for DEXA AXIAL SKELETON BONE DENSITY 1 OR MORE SITES Schedule Routine, Read Routine (OP Routine) 07/09/2025 2:06 PM CDT Asymptomatic menopausal state CBC WITH AUTO DIFFERENTIAL Routine 07/08/2025 12:05 PM CDT Spondyloarthritis Long-term use of high-risk medication COMPREHENSIVE METABOLIC PANEL Routine 07/08/2025 12:05 PM CDT Spondyloarthritis Long-term use of high-risk medication CRP (ACUTE PHASE) Routine 07/08/2025 12: 05 PM CDT Spondyloarthritis Long-term use of high-risk medication ERYTHROCYTE SEDIMENTATION RATE Routine 07/08/2025 12:05 PM CDT Spondyloarthritis Long-term use of high-risk medication US ABDOMEN LIMITED Schedule Routine, Read Routine (OP Routine) 07/03/2025 6:00 PM CDT Other specified abnormal findings of blood chemistry Fatty (change of) liver, not elsewhere classified XR KNEE LEFT 3 VIEWS Schedule Routine, Read Routine (OP Routine) 05/28/2025 11:09 AM CDT Chronic pain of left knee CBC WITH AUTO DIFFERENTIAL Routine 05/19/2025 1:26 PM CDT Spondyloarthritis Long-term use of high-risk medication COMPREHENSIVE METABOLIC PANEL Routine 05/19/2025 1:26 PM CDT Spondyloarthritis Long-term use of high-risk medication CRP (ACUTE PHASE) Routine 05/19/2025 1:2 6 PM CDT Spondyloarthritis Long-term use of high-risk medication ERYTHROCYTE SEDIMENTATION RATE Routine 05/19/2025 1:26 PM CDT Spondyloarthritis Long-term use of high-risk medication LIPID PANEL Routine 03/05/2025 9:43 AM CDT HEMOGLOBIN A1C Routine 07/20/2021 7:47 AM CDT from Last 3 Months or Most Recently Relevant to Health Maintenance Results * Screening Mammogram Bilateral W Baron (07/15/2025 9:50 AM CDT) Anatomical Region Laterality Modality Breast Bilateral Mammography Impressions 07/17/2025 8:00 PM CDT Left 1) Clip: Left breast clip. No evidence of malignancy. Right No evidence of malignancy. OVERALL BI-RADS FINAL ASSESSMENT: 1 - Negative RECOMMENDATION: Recommend bilateral annual screening mammography. Narrative 07/17/2025 8:00 PM CDT EXAMINATION: Screening Mammogram Bilateral W Baron: 07/15/2025 COMPARISON: Relevant prior studies available at the time of interpretation were reviewed, including the most recent mammogram on: 07/14/2024. TECHNIQUE: Mammography was performed with 2D and 3D digital breast tomosynthesis (DBT) images. CAD was utilized. BREAST PARENCHYMAL COMPOSITION: There are scattered areas of fibroglandular density. FINDINGS: Left 1) Clip: There is a biopsy clip seen in the left breast. There is no suspicious mass, calcification, or architectural distortion. Right There is no suspicious mass, calcification, or architectural distortion. 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 CLINICAL INFORMATION: Current height: 64 inches Maximum height: 64 inches Weight: 235 pounds Risk factors: Rheumatoid arthritis, postmenopausal, asthma or emphysema COMPARISON: None available FINDINGS: AP LUMBAR SPINE L1-L4: Total BMD is 1.388 g/cm2 T-score is 3.1 Right HIP: Total BMD is 1.013 g/cm2 T-score is 0.6 Femoral neck BMD is 0.901 g/cm2 T-score is 0.5 FRAX: FRAX not reported due to T-scores of hip, femoral neck and/or spine being at or above -1.0 (Normal). IMPRESSION: 1. Normal bone mass. REFERENCE: Bone mineral density: T-Score: Normal (T-score above or = -1.0) Low bone mass (T-score between -1.0 and -2.5) replaces the previously used term osteopenia Osteoporosis (T-score = or below -2.5) Z-Score: Within the expected range for age (Z-score above -2.0) Below the expected range for age (Z-score is -2.0 or below) Please see below follow up recommendations. Medical evaluation for secondary causes of low bone mineral density may be appropriate. FRAX is a World Health Organization validated fracture risk assessment tool that calculates a person's 10 year probability of a major osteoporosis related fracture and hip fracture. According to the National Osteoporosis Foundation guidelines, postmenopausal women and men age 50 or older with low bone mass and a 10 year probability of a major osteoporosis related fracture = or greater than 20% or a 10 year probability of a hip fracture = or greater than 3% should be considered for pharmacological treatment for the prevention of osteoporosis. For further information, including treatment recommendations, please refer to the 2019 ISCD Official Positions (http://www.iscd.org) and the NOF's Clinician's Guide to Prevention and Treatment of Osteoporosis (http://www.nof.org/professionals/clinical-guidelines) THIS IS AN ELECTRONICALLY VERIFIED FINAL REPORT 07/09/2025 7:09 PM - Electronically signed by John Rubin M.D. 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 CLINICAL INFORMATION: Current height: 64 inches Maximum height: 64 inches Weight: 235 pounds Risk factors: Rheumatoid arthritis, postmenopausal, asthma or emphysema COMPARISON: None available FINDINGS: AP LUMBAR SPINE L1-L4: Total BMD is 1.388 g/cm2 T-score is 3.1 Right HIP: Total BMD is 1.013 g/cm2 T-score is 0.6 Femoral neck BMD is 0.901 g/cm2 T-score is 0.5 FRAX: FRAX not reported due to T-scores of hip, femoral neck and/or spine beingat or above -1.0 (Normal). IMPRESSION: 1. Normal bone mass. REFERENCE: Bone mineral density: T-Score: Normal (T-score above or = -1.0) Low bone mass (T-score between -1.0 and -2.5) replaces thepreviously used term osteopenia Osteoporosis (T-score = or below -2.5) Z-Score: Within the expected range for age (Z-score above -2.0) Below the expected range for age (Z-score is -2.0 or below) Please see below follow up recommendations. Medical evaluation forsecondary causes of low bone mineral density may be appropriate. FRAX is a World Health Organization validated fracture risk assessmenttool that calculates a person's 10 year probability of a major osteoporosisrelated fracture and hip fracture. According to the National OsteoporosisFoundation guidelines, postmenopausal women and men age 50 or older with low bonemass and a 10 year probability of a major osteoporosis related fracture = or greater than 20% or a 10 year probability of a hip fracture = or greaterthan 3% should be considered for pharmacological treatment for the preventionof osteoporosis. For further information, including treatment recommendations, please referto the 2019 ISCD Official Positions (http://www.iscd.org) and the NOF's Clinician's Guide to Prevention and Treatment of Osteoporosis (http://www.nof.org/professionals/clinical-guidelines) THIS IS AN ELECTRONICALLY VERIFIED FINAL REPORT 07/09/2025 7:09 PM - Electronically signed by John Rubin M.D. MF: [id number] Report ID: [id number] Reading Location: [place] [address] Wilber Patterson MD IMG DXA PROCEDURES Fi nal Result * (ABNORMAL) CBC with auto differential (07/08/2025 12:05 PM CDT) [facility] WBC 5.4 3.8 - 10.8 Thousand/u L [facility] RBC, POC 4.48 3.80 - 5.10 Million/uL [facility] Hgb 11.9 11.7 - 15.5 g/dL [facility] Hct 37.9 35.0 - 45.0 % [facility] MCV 84.6 80.0 - 100.0 fL [facility] MCH 26.6(L) 27.0 - 33.0 pg [facility] MCHC 31.4(L) 32.0 - 36.0 g/dL [facility] Comment: For adults, a slight decrease in the calculated MCHC value (in the range of 30 to 32 g/dL) is most likely not clinically significant; however, it should be interpreted with caution in correlation with other red cell parameters and the patient's clinical condition. Rdw 15.8(H) 11.0 - 15.0 % [facility] Platelets 285 140 - 400 Thousand/u L [facility] MPV 10.0 7.5 - 12.5 fL [facility] Neutrophils, abs 2,500 1,500 - 7,800 cells/uL [facility] Lymphocytes, abs 2,198 850 - 3,900 cells/uL [facility] Monocyte abs 535 200 - 950 cells/uL [facility] Eosinophils, abs 130 15 - 500 cells/uL [facility] Basophils, abs 38 0 - 200 cells/uL [facility] Neutrophils 46.3 % [facility] Lymphocyte pct 40.7 % [facility] Monocytes 9.9 % [facility] Eosinophils 2.4 % [facility] Basophils 0.7 % [facility] Blood 07/08/2025 12:0 5 PM CDT 07/08/2025 12:05 PM CDT John GONZALEZ LAB BLOOD ORDERABLES Fi nal Result Performing Organization Address [facility] Co de Phone Number [facility] [address] [place] [address] * (ABNORMAL) Erythrocyte sedimentation rate (07/08/2025 12:05 PM CDT) [facility] Erythrocyte sedimentation rate 34(H) < OR = 30 mm/h [facility] Blood 07/08/2025 12:0 5 PM CDT 07/08/2025 12:05 PM CDT John GONZALEZ LAB BLOOD ORDERABLES Fi nal Result Performing Organization Address City/[facility]/ZIP Co de Phone Number [facility]ST [facility] [address] [place] [address] * CRP (acute phase) (07/08/2025 12:05 PM CDT) Pathologist [facility] C-RP <3.0 <8.0 mg/L [facility] Blood 07/08/2025 12:0 5 PM CDT 07/08/2025 12:05 PM CDT John GONZALEZ LAB BLOOD ORDERABLES Fi nal Result [facility] [address] [place] [phone] * (ABNORMAL) Comprehensive metabolic panel (07/08/2025 12:05 PM CDT) Glucose 179(H) 65 - 99 mg/dL [facility] Comment: Fasting reference interval For someone without known diabetes, a glucose value >125 mg/dL indicates that they may have diabetes and this should be confirmed with a follow-up test. BUN 10 7 - 25 mg/dL [facility] Creatinine 0.92 0.50 - 1.05 mg/dL [facility] eGFR 70 > OR = 60 mL/min/1.7 3m2 [facility] BUN/creat ratio SEE NOTE: 6 - 22 (calc) [facility] Comment: Not Reported: BUN and Creatinine are within reference range. Sodium 140 135 - 146 mmol/L [facility] Potassium, pl 3.9 3.5 - 5.3 mmol/L [facility] Chloride 100 98 - 110 mmol/L [facility] CO2 32 20 - 32 mmol/L [facility] Calcium 9.5 8.6 - 10.4 mg/dL [facility] Protein, sr 7.3 6.1 - 8.1 g/dL [facility] Albumin 4.2 3.6 - 5.1 g/dL [facility] GLOBULIN 3.1 1.9 - 3.7 g/dL (calc) [facility] Alb/glob ratio 1.4 1.0 - 2.5 (calc) [facility] Bilirubin, total 0.5 0.2 - 1.2 mg/dL [facility] Alk phos 97 37 - 153 U/L [facility] AST 40(H) 10 - 35 U/L [facility] ALT (SGPT) 36(H) 6 - 29 U/L [facility] Blood 07/08/2025 12:0 5 PM CDT 07/08/2025 12:05 PM CDT John GONZALEZ LAB BLOOD ORDERABLES Fi nal Result [facility] [address] [place] [phone] * US Abdomen Limited (07/03/2025 6:00 PM CDT) Anatomical Region Laterality Modality Abdomen N/A Ultrasound 07/05/2025 12:4 4 AM CDT Narrative 07/05/2025 12:49 AM CDT EXAM DESCRIPTION: US ABDOMEN LIMITED REASON FOR STUDY: Abnormally elevated liver enzymes for 2 months. TECHNIQUE: Ultrasound of the right upper quadrant of the abdomen was performed with grayscale and color doppler. COMPARISON: None FINDINGS: PANCREAS: Visualized portions of the pancreas are within normal limits. Portions of the pancreatic body and tail are obscured due to bowel gas. LIVER: The liver demonstrates an increase in echotexture with attenuation of the ultrasound beam characteristic of fatty infiltration. No cystic or solid mass lesions were seen within the liver. The liver measures 18.6 cm in greatest diameter. GALLBLADDER: Gallbladder surgically absent. BILIARY: There is no intrahepatic or extrahepatic biliary ductal dilatation. Common bile duct measures 5 mm in diameter. RIGHT KIDNEY: Normal size. Normal echogenicity. No solid mass or cyst. No hydronephrosis. Measures 9.2 cm in length. OTHER: No other significant findings. IMPRESSION: No acute abnormality. THIS IS AN ELECTRONICALLY VERIFIED FINAL REPORT 07/05/2025 12:49 AM - Electronically signed by Chadwick Harry M.D. KT T: Report ID: [id number] Reading Location: [id number] Procedure Note Chadwick Harry MD - 07/05/2025 EXAM DESCRIPTION: US ABDOMEN LIMITED REASON FOR STUDY: Abnormally elevated liver enzymes for 2 months. TECHNIQUE: Ultrasound of the right upper quadrant of the abdomen wasperformed with grayscale and color doppler. COMPARISON: None FINDINGS: PANCREAS: Visualized portions of the pancreas are withinnormal limits. Portions of the pancreatic body and tail are obscured due to bowel gas. LIVER: The liver demonstrates an increase in echotexture withattenuation of the ultrasound beam characteristic of fatty infiltration. No cystic orsolid mass lesions were seen within the liver. The liver measures 18.6 cm in greatest diameter. GALLBLADDER: Gallbladder surgically absent. BILIARY: There is no intrahepatic or extrahepatic biliary ductaldilatation. Common bile duct measures 5 mm in diameter. RIGHT KIDNEY: Normal size. Normal echogenicity. No solid mass or cyst.No hydronephrosis. Measures 9.2 cm in length. OTHER: No other significant findings. IMPRESSION: No acute abnormality. THIS IS AN ELECTRONICALLY VERIFIED FINAL REPORT 07/05/2025 12:49 AM - Electronically signed by Chadwick Harry M.D. KT T: Report ID: [id number] Reading Location: [place] [address] us Shauna Chamberlain NP IMG US PROCEDURES Final Resul t * XR Knee Left 3 Views (05/28/2025 11:09 AM CDT) Anatomical Region Laterality Modality Lower Extremities, Knee Left Computed Radiography Impressions 05/28/2025 12:45 PM CDT 1. Evidence of advanced degenerative changes about the left knee. Narrative 05/28/2025 12:45 PM CDT EXAM DESCRIPTION: XR Knee Left 3 Views REASON FOR STUDY: Chronic pain of left knee COMPARISON: None FINDINGS: That has no evidence of fracture, dislocation or tumor. There is evidence of [id number] degenerative changes of the medial compartment as well as advanced degenerative changes patellofemoral joint compartment. There is no evidence of loose body. us John Spicer MD IMG XR PROCEDURES Final Result * (ABNORMAL) CBC with auto differential (05/19/2025 1:26 PM CDT) WBC 4.9 3.8 - 10.8 Thousand/u L [facility] RBC, POC 4.21 3.80 - 5.10 Million/uL [facility] Hgb 11.0(L) 11.7 - 15.5 g/dL [facility] Hct 35.6 35.0 - 45.0 % [facility] MCV 84.6 80.0 - 100.0 fL [facility] MCH 26.1(L) 27.0 - 33.0 pg [facility] MCHC 30.9(L) 32.0 - 36.0 g/dL [facility] Comment: For adults, a slight decrease in the calculated MCHC value (in the range of 30 to 32 g/dL) is most likely not clinically significant; however, it should be interpreted with caution in correlation with other red cell parameters and the patient's clinical condition. Rdw 15.0 11.0 - 15.0 % [facility] Platelets 250 140 - 400 Thousand/u L [facility] MPV 9.3 7.5 - 12.5 fL [facility] Neutrophils, abs 1,950 1,500 - 7,800 cells/uL [facility] Lymphocytes, abs 2,386 850 - 3,900 cells/uL [facility] Monocyte abs 412 200 - 950 cells/uL [facility] Eosinophils, abs 123 15 - 500 cells/uL [facility] Basophils, abs 29 0 - 200 cells/uL [facility] Neutrophils 39.8 % [facility] Lymphocyte pct 48.7 % [facility] Monocytes 8.4 % [facility] Eosinophils 2.5 % [facility] Basophils 0.6 % [facility] Blood 05/19/2025 1:26 PM CDT 05/19/2025 1:26 PM CDT us John GONZALEZ LAB BLOOD ORDERABLES Fi nal Result [facility] [address] [place] [phone] * (ABNORMAL) Erythrocyte sedimentation rate (05/19/2025 1:26 PM CDT) Pathologist [facility] Erythrocyte sedimentation rate 31(H) < OR = 30 mm/h [facility] Blood 05/19/2025 1:26 PM CDT 05/19/2025 1:26 PM CDT John GONZALEZ LAB BLOOD ORDERABLES Fi nal Result Performing Organization Address [facility]/ZIP Co de Phone Number QUEST [facility] [address] [place] [address] * CRP (acute phase) (05/19/2025 1:26 PM CDT) [facility] C-RP <3.0 <8.0 mg/L [facility] Blood 05/19/2025 1:26 PM CDT 05/19/2025 1:26 PM CDT John GONZALEZ LAB BLOOD ORDERABLES Fi nal Result Performing Organization Address [facility] de Phone Number [facility]ST [facility] [address] [place] [address] * (ABNORMAL) Comprehensive metabolic panel (05/19/2025 1:26 PM CDT) [facility] Glucose 174(H) 65 - 99 mg/dL [facility] Comment: Fasting reference interval For someone without known diabetes, a glucose value >125 mg/dL indicates that they may have diabetes and this should be confirmed with a follow-up test. BUN 10 7 - 25 mg/dL [facility] Creatinine 0.94 0.50 - 1.05 mg/dL [facility] eGFR 68 > OR = 60 mL/min/1.7 3m2 [facility] BUN/creat ratio SEE NOTE: 6 - 22 (calc) [facility] Comment: Not Reported: BUN and Creatinine are within reference range. Sodium 140 135 - 146 mmol/L [facility] Potassium, pl 3.9 3.5 - 5.3 mmol/L [facility] Chloride 103 98 - 110 mmol/L [facility] CO2 30 20 - 32 mmol/L [facility] Calcium 9.2 8.6 - 10.4 mg/dL [facility] Protein, sr 6.9 6.1 - 8.1 g/dL [facility] Albumin 4.1 3.6 - 5.1 g/dL [facility] GLOBULIN 2.8 1.9 - 3.7 g/dL (calc) [facility] Alb/glob ratio 1.5 1.0 - 2.5 (calc) [facility] Bilirubin, total 0.7 0.2 - 1.2 mg/dL [facility] Alk phos 89 37 - 153 U/L [facility] AST 41(H) 10 - 35 U/L [facility] ALT (SGPT) 34(H) 6 - 29 U/L [facility] Blood 05/19/2025 1:26 PM CDT 05/19/2025 1:26 PM CDT us John GONZALEZ LAB BLOOD ORDERABLES nal Result [facility] [address] [place] [address] * Lipid panel (03/05/2025 9:43 AM CDT) Pathologist [facility] Cholesterol 137 <200 mg/dL [facility] [...] LDL-C. Librado ROTH et al. THIAGO. 2013;310(19): 3207-1104 (http://education.MedAptus.Appscio/faq/OWK386) Chol/HDL ratio 2.5 <5.0 (calc) [facility] [...] Fi nal Result Performing Organization Address City/[facility] Co de Phone Number [facility] [address] [place] [address] * (ABNORMAL) Hemoglobin A1c (07/20/2021 7:47 AM CDT) Hgb A1C 6.4(H) 4.0 - 5.6 % [facility] Estimated Average Glucose 137 mg/dL [facility] Comment: The ADA recommends reporting an estimated Average Glucose (eAG) with all Hemoglobin A1c results using the equation derived from a study of 507 normal and diabetic adults. Minority populations were underrepresented and children were not included. (Diabetes Care 31:0084-6179, 2008). The eAG is not equivalent to a fasting glucose. Blood 07/20/2021 7:47 AM CDT 07/20/2021 7:50 AM CDT Zoltan Wick MD LAB BLOOD ORDERABLES F inal Result [facility] [address] [address] [place] [address] from Last 3 Months or Most Recently Relevant to Health Maintenance Insurance [facility] MEDICARE [facility] Address: [address] [address] [place] [address] [facility] MEDICARE [facility] Address: [address] [address] [place] [address] Advance Directives For more information, please contact: [phone] * Full Code (Latest Code Status on File) Date Activated Date Inactivated Comments 10/02/2024 6:05 PM 10/04/2024 9:43 PM * Full Code Date Activated Date Inactivated Comments 07/20/2021 3:57 AM 07/20/2021 4:57 PM * Full Code Date Activated Date Inactivated Comments 03/18/2019 3:50 PM 03/19/2019 8:30 PM Care Teams Professor Sculpture Relationship Specialty Start Date End Date Wilber Patetrson MD [address] [facility] [address] [address] [place] [address] PCP - General Internal Medicine 06/16/24 Gal Decker MD [address] [place] [address] Referring Physician Neurology 03/23/21 Jennifer Angel PA [address] [place] [address] Physician Bookmaker'S Clerk Physician Bookmaker'S Clerk 03/01/22 Ethan Graves MD [address] [place] [address] Consulting Physician Rheumatology 08/31/23 Clem Ramos MD [address] [place] [address] Referring Physician General Surgery 09/12/23
--- OUTSIDE RECORDS SUMMARY | 2025-07-30 13:35 | XMS_ITS | Clinical Summary ---
Author Organization 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 Not on file Not [...] - Risk 60-74 years 1-dose series) 2022 Influenza Immunization (#1) 06/01/202507/02, 07/11/2020, 07/10/2020, Additional history exists SARS-COV-2 Immunization ( season) 2025 08/05/2021, 11/30/2020, 11/02/2020 Colonoscopy 03/27/2027 03/27/2017 Colorectal Cancer Screening 03/27/2027 [...] patient's age to complete this topic Insurance [employer] [place] Care Teams Javascript Programmer Relationship Specialty Start Date End Date Christo Patterson MD [address] [place], [place] [id number] PCP - General Internal Medicine 07/30/24 Adryan Martinez DO Gastroenterology 12/08/15
--- OUTSIDE RECORDS SUMMARY | 2025-07-30 13:35 | XMS_ITS | Clinical Summary ---
Author Organization [facility] Address [address] [place] [address] Phone Care Team Providers Care Equipment Superintendent Name Role Phone Christo Patterson MD Primary Care Provider Allergies No known active allergies Medications aspirin (ECOTRIN EC) 81 mg Tablet, Delayed Release (E.C.) Take 81 mg by mouth daily. Active amLODIPine-ranjan azepril (LOTREL) 5-10 mg capsule Take 1 Capsule by mouth daily. Active albuterol sulfate HFA 90 mcg/actuation aerosol inhaler INHALE 2 PUFFS BY MOUTH EVERY 4 HOURS NEEDED FOR ASTHMA 04/19/20 22 Active atorvastatin (LIPITOR) 40 mg tablet Take 1 Tablet by mouth daily. Active DULoxetine (CYMBALTA) 30 mg Capsule, Delayed Release(E.C.) Take 30 mg by mouth daily. 06/18/20 24 Active calcium as CARBONATE (CALTRATE) 1,500 mg (600 mg elemental) Tablet Take 1 Tablet by mouth daily. Active cetirizine (ZyrTEC) 10 mg tablet Take 10 mg by mouth daily. Active cholecalcifero l 1,250 mcg (50,000 unit) Capsule Take 50,000 [...] 300 mg by mouth 2 times daily. 05/09/20 23 Active golimumab (Simponi) 50 mg/0.5 mL injection Inject 0.5 mL every 2 months by subcutaneous route. Active magnesium OXIDE 250 mg magnesium Tablet Take 500 mg by mouth. 05/09/20 Active sulfaSALAzine (AZULFIDINE EN-TAB) 500 mg Tablet, Delayed Release (E.C.) Take 500 mg by mouth. Active vitamin E, dl, acetate, 90 mg (200 unit) Capsule Take 400 Units by mouth daily. Active omega-3 fatty acids-fish oil 300-1,000 mg Capsule Take 950 mg by mouth daily. Active fluticasone furoate-vilant Taylor (BREO ELLIPTA) 100-25 mcg/dose Disk with Device INHALE 1 PUFF BY MOUTH DAILY FAST BREATH INHALE QUICKLY AND DEEPLY 06/12/20 23 Active pyridoxine (VITAMIN B6) 100 mg Tablet Take 50 mg by mouth daily. Active pantoprazole (PROTONIX) 20 mg Tablet, Delayed Release (E.C.) Take 20 mg by mouth daily. Active omeprazole (PriLOSEC) 20 mg Capsule, Delayed Release(E.C.) Take 20 mg by mouth daily. 03/17/20 22 025 Discontinu ed(Alterna te therapy prescribed ) Active Problems Problem Noted Date Diagnosed Date Gastroesophageal reflux disease without esophagi tis 08/26/2024 Polyarthritis 08/26/2024 Acute posterior epistaxis 08/25/2024 Acute blood loss anemia 08/25/2024 Benign hypertension 08/25/2024 Hypercholesterolemia 08/25/2024 Mild intermittent asthma without complication Encounters Date Type Department Care Team Description 07/30/2025 1:00 PM CDT Office Visit [facility] H[facility]ology - [address] [place] [id number] Joselo Keller MD Arrived 07/29/2025 Orders Only Initial Department [address] [facility] [address] [place]: [place] [address] Provider, Historical 06/16/2025 External Device Data STL ABSTRACTION Provider, Abstract 06/16/2025 External Device Data [place] ABSTRACTION Provider, Abstract 06/09/2025 External Device Data [place] ABSTRACTION Provider, Abstract 05/19/2025 External Device Data [place] ABSTRACTION Provider, Abstract 05/12/2025 External Device Data [place] ABSTRACTION Provider, Abstract from Last 3 Months Family History Medical [...] 3.2 oz) 07/30/2025 1:17 PM CDT Height 162.6 cm (5' 4) 03/12/2025 2:54 PM CDT Body Mass Index 40.72 03/12/2025 2:54 PM CDT Plan of Treatment Health Maintenance Due Date Last Done Comments DIABETES ANNUAL FOOT EXAM 01/10/1980 DIABETES ANNUAL RETINAL EXAM 01/10/1980 DIABETES MICROALBUMIN ANNUAL SCREEN 01/10/1980 LDL CHOLESTEROL ANNUAL 01/10/1980 DTAP/TDAP/TD VACCINES (1 - Tdap) 1981 FIT-DNA Q 3 years 2007 FIT/FOBT Q 1 year 2007 Flex Sig/CT Colonography Q 5 years 2007 RSV VACCINE (60+ or ) (1 - Risk 50-74 years 1-dose series) 01/10/2012 ZOSTER VACCINE (1 of 2) 01/10/2012 DIABETES HBA1C Q 6 MONTHS 01/18/2022 07/20/2021 [place] ([place]) Preventative Visit/Annual Wellness Visit 10/01/2024 INFLUENZA VACCINE (#1) 2025 4, 07/20/2021, 07/11/2020, Additional history exists COVID-19 Vaccine ( - 2024-2 6 season) 2025 08/05/2021, 11/30/2020, 11/02/2020 BREAST CANCER SCREENING 07/15/2026 07/15/20, 07/15/2025, 12/19/2012 COLORECTAL SCREENING 03/27/2027 03/27/2017 Colorectal Cancer Screening 03/27/2027 Procedures Procedure Name Priority Date/Time Associated Diagnosis Comments FERRITIN Routine 07/29/2025 11:58 AM CDT IRON, TIBC, AND PERCENT SATURATION Routine 07/29/2025 11:58 AM CDT BASIC METABOLIC PANEL Routine 07/29/2025 11:58 AM CDT CBC WITH DIFFERENTIAL Routine 07/29/2025 11:58 AM CDT from Last 3 Months Results * (ABNORMAL) IRON, TIBC, AND PERCENT SATURATION (07/29/2025 11:58 AM CDT) IRON 37(L) 45 - 160 mcg/dL [facility] TIBC 376 250 - 450 mcg/dL (calc) [facility] IRON % SATURATION 10(L) 16 - 45 % (calc) [facility] Comment: FASTING:YES FASTING: YES Test Performed at: [facility] [address] [place] [address] Corbin Chen MD 07/29/2025 11:5 8 AM CDT 07/29/2025 11:59 AM CDT Joselo Keller MD CHEMISTRY ORDERABLES Final Resu lt [facility] [phone] [facility] [address] [place] [address] * CBC WITH DIFFERENTIAL (07/29/2025 11:58 AM CDT) WBC TNP [facility] Comment: TEST NOT PERFORMED No lavender-top tube received. FASTING:YES FASTING: YES Test Performed at: [facility] [address] [place] [address] Corbin Chen 07/29/2025 11:5 8 AM CDT 07/29/2025 11:59 AM CDT Joselo Keller MD HEMATOLOGY ORDERABLES Final Res ult Performing Organization Address City/[facility]/ZIP Code Phone Number [facility] [phone] [place] [address] [place] [address] * FERRITIN (07/29/2025 11:58 AM CDT) FERRITIN 42 16 - 288 ng/mL [facility] Comment: FASTING:YES FASTING: YES Test Performed at: [facility] [address] [place] [address] Corbin Chen MD 07/29/2025 11:5 8 AM CDT 07/29/2025 11:59 AM CDT Joselo Keller MD CHEMISTRY ORDERABLES Final Resu lt [facility] [phone] [facility] [address] [place] [address] * (ABNORMAL) BASIC METABOLIC PANEL (07/29/2025 11:58 AM CDT) GLUCOSE 105(H) 65 - 99 mg/dL [facility] Joseph Comment: Fasting reference interval For someone without known diabetes, a glucose value between 100 and 125 mg/dL is consistent with prediabetes and should be confirmed with a follow-up test. BUN 9 7 - 25 mg/dL [facility] CREATININE 0.87 0.50 - 1.05 mg/dL [facility] GFR 75 > OR = 60 mL/min/1. 73m2 [facility] BUN/CREAT RATIO SEE NOTE: 6 - 22 (calc) [facility] Comment: Not Reported: BUN and Creatinine are within reference range. SODIUM 140 135 - 146 mmol/L [facility] POTASSIUM 4.1 3.5 - 5.3 mmol/L [facility] CHLORIDE 101 98 - 110 mmol/L [facility] CO2 33(H) 20 - 32 mmol/L [facility] CALCIUM 9.1 8.6 - 10.4 mg/dL [facility] Comment: Test Performed at: [facility] [address] [place] [address] Corbin Chen 07/29/2025 11:5 8 AM CDT 07/29/2025 11:59 AM CDT Joselo Keller MD CHEMISTRY ORDERABLES Final Resu lt [facility] [phone] [facility] [address] [place] [address] from Last 3 Months Insurance [place] [facility] [id number] Advance Directives For more information, please contact: [phone] * Full Code (Latest Code Status on File) Date Activated Date Inactivated Comments 08/25/2024 2:00 AM 08/27/2024 7:33 PM Care Teams Equipment Superintendent Relationship Specialty Start Date End Date Christo Patterson MD [address] [place] [id number] PCP - General Internal Medicine 08/25/24
--- OUTSIDE RECORDS SUMMARY | 2025-07-30 13:37 | XMS_ITS | Patient Health Record ---
Author Organization [facility] Address [address] [place] [address] [place] [address] Care Team Providers Care Manager Float Name Role Phone MD ISABELLE, GRISEL Primary Care Provider U Cristi Vasquez Unavailable [phone] ALLERGIES No Known Allergies REASON FOR REFERRAL [...] 30 day(s) Active Vitamin D3 1.25 MG (11250 UT) 1 capsule Oral Once a day Active Breo Ellipta 100-25 MCG/ACT INHALE 1 PUF F BY MOUTH DAILY FAST BREATH INHALE QUICKLY AND DEEPLY Inhalation for 30 Active amLODIPine Besylate 5 MG 1 tablet Orally Once a day for 30 day(s) Active Cholecalciferol 1.25 MG (41112 UT) 1 capsule Orally Once a day [...] a nonsmoker Section Notes: 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 She is with no children. She denies alcohol, tobacco, or illicit drug abuse. 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 She is with no children. She denies alcohol, tobacco, or illicit drug abuse. 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 She is with no children. She denies alcohol, tobacco, or illicit drug abuse. 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 She is with no children. She denies alcohol, tobacco, or illicit drug abuse. 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 She is with no children. She denies alcohol, tobacco, or illicit drug abuse. 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 She is with no children. She denies alcohol, tobacco, or illicit drug abuse. 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 She is with no children. She denies alcohol, tobacco, or illicit drug abuse. 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 She is with no children. She denies alcohol, tobacco, or illicit drug abuse. 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 She is with no children. She denies alcohol, tobacco, or illicit drug abuse. 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 She is with no children. She denies alcohol, tobacco, or illicit drug abuse. 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 She is with no children. She denies alcohol, tobacco, or illicit drug abuse. 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 She is with no children. She denies alcohol, tobacco, or illicit drug abuse. 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 She is with no children. She denies alcohol, tobacco, or illicit drug abuse. 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 She is with no children. She denies alcohol, tobacco, or illicit drug abuse. 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 She is with no children. She denies alcohol, tobacco, or illicit drug abuse. 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 She is with no children. She denies alcohol, tobacco, or illicit drug abuse. 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 She is with no children. She denies alcohol, tobacco, or illicit drug abuse. 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 She is with no children. She denies alcohol, tobacco, or illicit drug abuse. 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 She is with no children. She denies alcohol, tobacco, or illicit drug abuse. 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 She is with no children. She denies alcohol, tobacco, or illicit drug abuse. 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 She is with no children. She denies alcohol, tobacco, or illicit drug abuse. 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 She is with no children. She denies alcohol, tobacco, or illicit drug abuse. 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 She is with no children. She denies alcohol, tobacco, or illicit drug abuse. 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 She is with no children. She denies alcohol, tobacco, or illicit drug abuse. 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 She is with no children. She denies alcohol, tobacco, or illicit drug abuse. 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 She is with no children. She denies alcohol, tobacco, or illicit drug abuse. 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 She is with no children. She denies alcohol, tobacco, or illicit drug abuse. 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 She is with no children. She denies alcohol, tobacco, or illicit drug abuse. 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 She is with no children. She denies alcohol, tobacco, or illicit drug abuse. 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 She is with no children. She denies alcohol, tobacco, or illicit drug abuse. 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 She is with no children. She denies alcohol, tobacco, or illicit drug abuse. 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 She is with no children. She denies alcohol, tobacco, or illicit drug abuse. 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 She is with no children. She denies alcohol, tobacco, or illicit drug abuse. 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) Active confirmed Fear of medical treatment (012812503) Problem Sacroiliitis, not elsewhere classified (M46.1) Active confirmed Solitary sacroiliitis (502378159) Problem Spondylosis without myelopathy or radiculopathy, lumbar region (M47.816) Active confirmed Lumbosacral spondylosis without myelopathy (16862103) Problem Spondylosis without myelopathy or radiculopathy, lumbosacral region (M47.817) Active confirmed Lumbosacral spondylosis without myelopathy (disorder) (60017058) Problem Intervertebral disc disorders with radiculopathy, 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) Active confirmed Lumbosacral radiculopathy (4332530) Problem Radiculopathy, lumbar region (M54.16) Active confirmed Lumbar radiculopathy (305759155) Problem Radiculopathy, lumbosacral region (M54.17) Active confirmed Lumbosacral radiculopathy (5603985) Problem Osseous stenosis of neural canal of lumbar region (M99.33) Active confirmed Spinal stenosis of lumbar region (61233466) Problem termination clerk (current) use of anticoagulants (Z79.01) Active confirmed Long-term current use of anticoagulant (787652912) VITAL SIGNS Heart Rate 74 /min 08/04/2024 Respiratory Rate 16 /min 08/04/2024 Blood pressure diastolic 82 mm Hg 08/04/2024 Height 5 ft 7 in in 08/04/2024 Blood pressure systolic 181 mm Hg 08/04/2024 Weight 225 lbs 08/04/2024 BMI 35.24 kg/m2 08/04/2024 Encounters Encounter Location Date Provider Diagnosis [facility] [address] [facility] [place] [address] 08/04/2024 Cristi Sttariowick Sacroiliitis, not elsewhere classified M46.1 [facility] [address] [facility] [place] [address] 08/19/2024 Cristi Sttariowick Radiculopathy, lumba r region M54.16 ; Sacroiliitis, not elsewhere classified M46.1 ; Spondylosis without myelopathy or radiculopathy, lumbar region M47.816 ; Spondylosis without myelopathy or radiculopathy, lumbosacral region M47.817 ; Radiculopathy, lumbosacral region M54.17 ; Fear of injections and transfusions F40.231 and termination clerk (current) use of anticoagulants Z79.01 ASSESSMENTS Encounter Date Diagnosis Assessment Notes Treatment Notes Treatment Clinical Notes Section Notes 08/19/2024 Radiculopathy, lumbar region (ICD-10 - M54.16) 08/04/2024 Sacroiliitis, not elsewhere classified (ICD-10 - M46.1) 08/19/2024 Sacroiliitis, not elsewhere classified (ICD-10 - M46.1) 08/19/2024 Spondylosis without myelopathy or radiculopathy, lumbar region (ICD-10 - M47.816) 08/19/2024 Spondylosis without myelopathy or radiculopathy, lumbosacral region (ICD-10 - M47.817) 08/19/2024 Radiculopathy, lumbosacral region (ICD-10 - M54.17) 08/19/2024 Fear of injections and transfusions (ICD-10 - F40.231) 08/19/2024 termination clerk (current) use of anticoagulants (ICD-10 - Z79.01) PLAN OF TREATMENT No Information Insurance Providers Payer Name Payer Address Payer Phone Subscriber Number Group Number Insured Name Patient Relationship to Insured Coverage Start Date Coverage End Date [facility] [address] [place] [address] [id number] TEETEE SON Self - patient is the insured Medicaid [place] [address] [address] [place] [address] [id number] TEETEE SON Self - patient is the insured 4 MEDICAL (GENERAL) HISTORY Medical History History ICD Code Hypertension GERD Vertigo Anemia Sleep apnea Surgical History Surgery Date(Month/Year) Bilateral rotator cuff repair 2005 Cholecystectomy 2012 Left shoulder rotator cuff repair 2014 Right shoulder rotator cuff repair 016 Total left hip arthroplasty 03/18/2019
--- OUTSIDE RECORDS SUMMARY | 2025-07-30 13:37 | XMS_ITS | Encounter Summary ---
Author Organization [facility] Address [address] [facility] Attn: Epic Prelude ADT [place] [address] Care Team Providers Care Fish Hatchery Laborer Name Role Phone Christo Patterson MD Primary Care Provider Encounter Details Date Type Department Care Team (Late st Contact Info) Description 07/29/2025 Orders Only Initial Department [address] [place]: [place] [address] Provider, Historical Social History Tobacco Use Types Packs/Day Years [...] on file documented as of this encounter Procedures Procedure Name Priority Date/Time Associated Diagnosis Comments IRON, TIBC, AND PERCENT SATURATION Routine 07/29/2025 11:58 AM CDT CBC WITH DIFFERENTIAL Routine 07/29/2025 11:58 AM CDT FERRITIN Routine 07/29/2025 11:58 AM CDT BASIC METABOLIC PANEL Routine 07/29/2025 11:58 AM CDT documented in this encounter Results * FERRITIN (07/29/2025 11:58 AM CDT) FERRITIN 42 16 - 288 ng/mL [facility] Comment: FASTING:YES FASTING: YES Test Performed at: [facility] [place] [address] Corbin Chen MD 07/29/2025 11:5 8 AM CDT 07/29/2025 11:59 AM CDT Joselo Keller MD CHEMISTRY ORDERABLES Final Resu lt Performing Organization Address [facility] Co de Phone Number [facility] [phone] [facility] [address] [place] [address] * (ABNORMAL) IRON, TIBC, AND PERCENT SATURATION (07/29/2025 11:58 AM CDT) IRON 37(L) 45 - 160 mcg/dL [facility] TIBC 376 250 - 450 mcg/dL (calc) [facility] IRON % SATURATION 10(L) 16 - 45 % (calc) [facility] Comment: FASTING:YES FASTING: YES Test Performed at: [facility] [place] [address] Corbin Chen MD 07/29/2025 11:5 8 AM CDT 07/29/2025 11:59 AM CDT Joselo Keller MD CHEMISTRY ORDERABLES Final Resu lt Performing Organization Address City/[facility]/ZIP Co de Phone Number [facility] [phone] [facility] [place] [address] * (ABNORMAL) BASIC METABOLIC PANEL (07/29/2025 11:58 AM CDT) GLUCOSE 105(H) 65 - 99 mg/dL [facility] Comment: Fasting reference interval For someone without known diabetes, a glucose value between 100 and 125 mg/dL is consistent with prediabetes and should be confirmed with a follow-up test. BUN 9 7 - 25 mg/dL [facility] CREATININE 0.87 0.50 - 1.05 mg/dL [facility] GFR 75 > OR = 60 mL/min/1. 73m2 [facility] BUN/CREAT RATIO SEE NOTE: 6 - 22 (calc) [facility] Comment: Not Reported: BUN and Creatinine are within reference range. SODIUM 140 135 - 146 mmol/L [facility] POTASSIUM 4.1 3.5 - 5.3 mmol/L [facility] CHLORIDE 101 98 - 110 mmol/L [facility] CO2 33(H) 20 - 32 mmol/L [facility] CALCIUM 9.1 8.6 - 10.4 mg/dL [facility] Comment: Test Performed at: [facility] [place] [address] [address] [place] [address] Corbin Huff Vo 07/29/2025 11:5 8 AM CDT 07/29/2025 11:59 AM CDT us Joselo Keller MD CHEMISTRY ORDERABLES Final Resu lt [facility] [phone] [facility] [place] [address] [address] [place] [address] * CBC WITH DIFFERENTIAL (07/29/2025 11:58 AM CDT) Pathologist [facility] WBC TNP [facility] Comment: TEST NOT PERFORMED No lavender-top tube received. FASTING:YES FASTING: YES Test Performed at: [facility] [place] [address] [address] [place] [address] Corbin Huff Vo 07/29/2025 11:5 8 AM CDT 07/29/2025 11:59 AM CDT us Joselo Keller MD HEMATOLOGY ORDERABLES Final Res ult [facility] [phone] [facility] [place] [id number] [place] [address] documented in this encounter Visit Diagnoses Not on filedocumented in this encounter Care Teams Fish Hatchery Laborer Relationship Specialty Start Date End Date Christo Patterson MD [address] [place] [address] PCP - General Internal Medicine 08/25/24 documented as of this encounter
--- OUTSIDE RECORDS SUMMARY | 2025-07-30 13:37 | XMS_ITS | Clinical Summary ---
Author Organization [facility] Address [address] [place] [address] Care Team Providers Care Muffler Hand Name Role Phone Christo Patterson MD Primary Care Provider Medications aspirin EC 81 MG tablet Take 1 tablet (81 mg total) by mouth daily. Active atorvastatin (LIPITOR) 40 MG tablet Take 1 tablet (40 mg total) by mouth daily. 4 Active Biotin 800 MCG Tab Take 1 tablet by mouth daily. Active calcium carbonate (OS-AVTAR) 1500 (600 Ca) MG tablet Take 600 mg by mouth daily. Active BREO ELLIPTA 100-25 MCG/ACT inhaler INHALE 1 PUFF BY MOUTH DAILY FAST BREATH INHALE QUICKLY AND DEEPLY Inhalation for 30 Active albuterol sulfate HFA 108 (90 Base) MCG/ACT inhaler albuterol sulfate 90 mcg/actuation HFA aerosol inhaler Active folic acid (FOLVITE) 1 MG tablet Take 1 tablet every day by oral route for 90 days. 5 Active gabapentin (NEURONTIN) 300 MG capsule Take 3 capsules (900 mg total) by mouth 2 (two) times daily. 5 Active Golimumab (SIMPONI) 50 MG/0.5ML Inject 0.5 mL every 2 months by subcutaneous route. Active magnesium 250 MG tablet Take 2 tablets (500 mg total) by mouth daily. Active fish oil (OMEGA-3 FATTY ACID) 1000 MG Cap capsule 1 capsule (1,000 mg total) daily. Active sulfaSALAzine EC (AZULFIDINE EN) 500 MG tablet Take 3 tablets (1,500 mg total) by mouth 2 (two) times daily. 5 Active omeprazole (PRILOSEC) 20 MG capsule omeprazole 20 mg capsule,delayed release(DR/EC) Active vitamin E (E200) 90 MG (200 UNIT) capsule Take 2 capsules (400 Units total) by mouth daily. Active amLODIPine (NORVASC) 10 MG tablet Take 1 tablet (10 mg total) by mouth daily. 90 tablet 3 Active DULoxetine (CYMBALTA) 60 MG capsule Take 1 capsule (60 mg total) by mouth daily. Active vitamin B-6 (VITAMIN B-6) 50 MG tablet Take 1 tablet (50 mg total) by mouth daily. Active Active Problems Problem Noted Date Diagnosed Date Acute chest pain 05/04/2025 Elevation of levels of liver transaminase levels 02/11/2025 Abnormal electrocardiogram 07/16/2024 Essential hypertension 06/10/2024 Fibromyalgia 12/02/2021 Gastroesophageal reflux disease without esophagi tis 07/13/2020 Hypercholesterolemia 03/07/2019 Obstructive sleep apnea syndrome 09/09/2018 Encounters Date Type Department Care Team Description 05/04/2025 9:15 AM CDT Office Visit [facility] [address] [place] [id number] Jae Ponce MD Chest Pain (2mo follow up); Breathing Problem; Hypertension; Lipids 05/04/2025 Travel from Last 3 Months Family History Medical History Relation Comments No Known Problems Brother 1 No Known Problems Brother 2 No Known Problems Mother No Known Problems Paternal Grandmother No Known Problems Sister 1 No Known Problems Sister 2 No Known Problems Sister 3 No Known Problems Sister 4 Relation Status Comments Brother 1 Alive Brother 2 Alive Mother Alive Paternal Grandmother Sister 1 Alive Sister 2 Alive Sister 3 Alive Sister 4 Alive Social History Tobacco Use Types Packs/Day Years Used Date Smoking Tobacco: Never Passive Smoke Exposure: Never Smokeless Tobacco: Never Tobacco Cessation:Counseling Given: Not Answered Alcohol Use Standard Drinks/Week Comments Yes 7 (1 standard drink = 0.6 oz pur e alcohol) Comments Unknown Sex and Gender Information Value Date Recorded Sex Assigned at Not on file Legal Sex Female 7:24 PM CDT Gender Identity Not on file Sexual Orientation Not on file Last Filed Vital Signs Vital Sign Reading Time Taken Comments Blood Pressure 140/76 05/04/2025 9:39 AM CDT Pulse 75 05/04/2025 9:04 AM CDT Temperature - - Respiratory Rate - - Oxygen Saturation 97% 05/04/2025 9:04 AM CDT Inhaled Oxygen Concentration - - Weight 105.7 kg (233 lb) 05/04/2025 9:04 AM CDT Height 162.6 cm (5' 4) 05/04/2025 9:04 AM CDT Body Mass Index 39.99 05/04/2025 9:04 AM CDT Plan of Treatment Health Maintenance Due Date Last Done Comments Colorectal Cancer Screening Colonoscopy (10 Years) 1962 Annual Physical 1965 Hepatitis C 01/10/1980 DTaP, Tdap and Td Vaccines (1 - Tdap) 1981 Pneumococcal Vaccine: 50+ Years (1 of 1 - PCV) 01/10/2012 Zoster Vaccines (1 of 2) 01/10/2012 Mammogram Screening 12/19/2014 12/19/2012 COVID-19 Vaccine ( season) 2025 08/05/2021, 11/30/2020, 11/02/2020 Influenza Adult (#1) 2025 07/23/2024, 07/20/2021, 07/11/2020, Additional history exists RSV Immunization or 60+ Years (1 - 1-dose 75+ series) 2037 Hepatitis A Vaccines Aged Out No long er eligible based on patient's age to complete this topic Meningococcal B Vaccine Aged Out No l onger eligible based on patient's age to complete this topic Meningococcal Vaccine Aged Out No manju levi eligible based on patient's age to complete this topic RSV Immunizations Under 20 Months Aged Out No longer eligible based on patient's age to complete this topic Insurance [employer] MEDICARE Care Teams Muffler Hand Relationship Specialty Start Date End Date Christo Patterson MD PCP - General INTERNAL MEDICINE 11/24/24
--- OUTSIDE RECORDS SUMMARY | 2025-07-30 13:37 | XMS_ITS | Data Portability ---
Author Organization [place] - [facility] [employer], Main Office Address [address] [place] [address] Care Team Providers Care Center Mgr Name Role Phone ISH ARAIZA Mold Stamper RADHA SCHNEIDER Composite Science Teacher [phone] EDUARDO MADERA Erp Technical Lead [phone] BENNIE CASTANO Pain Management [phone] ELISSA VASQUEZ Neurologist LARRY MISHRA Collision Repair Technician Assessment Encounter Date Assessment Date Assessment LastModified by Organization Details LastModified Time 02/05/2025 02/05/2025 Time spent with patient included: [...] panel Neg [email or web address] Not available 02/11/2025 14:36:24 04/27/2025 04/27/2025 Time spent with patient included: preparing to see patient by reviewing tests, obtaining and reviewing history, medical examination and evaluation, counseling and educating the patient, ordering medications and tests, documenting clinical information in EHR, independently interpreting results and communicating results to the patient for a total of 28 minutes. Not available 04/27/2025 12:03:19 06/17/2025 06/17/2025 06/17/2024: Chol 222, LDL 143 Gluc 110, AST/ALT 45/32 09/08/2024: H/H 9.0/29.1 Gluc 126 02/05/2025: HGB 10.9 Gluc 103 GGT 68 Hep panel Neg 06/15/2025: WBC 3.7,HGB 10.8 Gluc 114 AST/ALT 47/41 45 minutes spent with the patient from 2.30pm till 3.15pm Labs reviewed and referrals provided [email or web address] Not available 06/17/2025 16:13:59 07/22/2025 07/22/2025 Time spent with patient included: preparing to see patient by reviewing tests, obtaining and reviewing history, medical examination and evaluation, counseling and educating the patient, ordering medications and tests, documenting clinical information in EHR, independently interpreting results and communicating results to the patient for a total of 28 minutes. Not available 07/22/2025 12:03:54 Plan of Treatment Reminders Order Date Submit Date Provider Last Modified By Organization Details Last Modified Time Details Appointments Follow Up 15 2024 02:00P M Christo ferrer MD Not available Not available Not available Any 30 2025 10:30A M Nona Frederick NP Not available Not available Not available Lab vitamin D, 25-hydrox y, total, serum 2024 025 [employer] [facility], [address], [address], [place], [address], 06/17/2025 16:12:34 CMP, serum or plasma 2024 025 [employer] [facility], [address], [address], [place], [address], 06/17/2025 16:12:36 lipid panel, serum 2024 025 [employer] [facility], [address], [address], [place], [address], 06/17/2025 16:12:35 CBC w/ auto diff 2024 025 [facility], [address], [address], [place], [address], 07/09/2025 11:19:54 TSH, serum or plasma 2024 025 [facility], [address], [address], [place], [address], 06/17/2025 16:12:35 vitamin B12 + folate, serum or blood 2024 025 [facility], [address], [address], [place], [address], 06/17/2025 16:12:33 vitamin D, 25-hydrox y, total, serum 2024 025 [facility], [address], [address], [place], [address], 06/16/2025 06:27:19 CMP, serum or plasma 2024 025 [facility], [address], [address], [place], [address], 03/12/2025 19:22:08 lipid panel, serum 2024 025 [facility], [address], [address], [place], [address], 06/16/2025 06:27:17 CBC w/ auto diff 2024 025 [facility], [address], [address], [place], [address], 03/12/2025 18:15:58 TSH, serum or plasma 2024 025 [facility], [address], [address], [place], [address], 06/16/2025 06:27:20 vitamin B12 + folate, serum or blood 2024 025 [employer] [facility], [address], [address], [place], [address], 03/13/2025 05:33:40 Referral pulmonolo gist referral - Please call patient to schedule an appointme nt. Thank you. 2024 025 [email or web address] Cash Brasher MD, [address] [facility], [place], [address], 06/18/2025 11:34:48 cardiolog ist referral - Please call patient to schedule an appointme nt. Thank you. 2024 025 GENESIS Mishra MD, [address] [facility], [address], [place], [address], 06/18/2025 12:35:23 gastroent erologist referral - Please call patient to schedule an appointme nt. Thank you. 2024 025 GENESIS raymundo MD, [address], [address], [place], [address], 06/18/2025 13:20:42 rheumatol ogist referral - Please call patient to schedule an appointme nt. Thank you. 2024 025 GENESIS Araiza MD, [address] [facility], [address], , [address], 06/18/2025 12:05:28 hematolog ist referral - Please call patient to schedule an appointme nt. Thank you. 2024 025 JOEL Keller MD, [address], [place], [address], 03/30/2025 14:27:13 pulmonolo gist referral - Please call patient to schedule an appointme nt. Thank you. 2024 025 [email or web address] Cash Brasher MD, [address] [facility], [place], [address], 05/13/2025 09:42:27 cardiolog ist referral - Please call patient to schedule an appointme nt. Thank you. 2024 025 [email or web address] Larry Mishra MD, [address] [facility], [address], [place], [address], 05/13/2025 09:44:42 gastroent erologist referral - Please call patient to schedule an appointme nt. Thank you. 2024 025 nuno raymundo MD, [address], [address], [place], [address], 06/16/2025 10:06:[address] referral - Please call patient to schedule an appointme nt. Thank you. 2024 025 JOEL Marshall MD, [address] [facility], [address], [place], [address], 04/13/2025 10:46:27 rheumatol ogist referral - Please call patient to schedule an appointme nt. Thank you. 2024 025 [email or web address] Ish Araiza MD, [address] [facility], [address], [place], [address], 05/13/2025 09:43:42 Procedures colonosco py screening (PROC) - Please call patient to schedule an appointme nt. Thank you. 2024 025 GENESIS raymundo MD, [address], [address], [place], [address], 06/18/2025 13:15:26 colonosco py screening (PROC) - Please call patient to schedule an appointme nt. Thank you. 2024 025 [email or web address] Miguel raymundo MD, [address], [address], [place], [address], 06/16/2025 12:12:56 upper endoscopy procedure (EGD) (PROC) - Please call patient to schedule an appointme nt. Thank you. 2024 025 [email or web address] Sher Hare MD, [address] [facility], [address], [place], [address], 05/13/2025 08:45:55 Surgeries None recorded. Imaging DEXA, axial skeleton - Please call patient to schedule. 2024 025 [facility], [address], [place], [address], 07/09/2025 20:13:55 polysomno gram, titration study - Please call patient to schedule. 2024 025 [facility] ([facility]), [address] [place], [address], 03/09/2025 17:44:17 Medication Orders Airsupra 90 mcg-80 mcg/actua tion HFA aerosol inhaler 2024 0[address] [facility] [id number], [address], [place], [id number], 07/22/2025 12:17:07 thiamine HCl (vitamin B1) 100 mg tablet 2024 025 [facility] [facility] [employer] [facility] [employer] [facility], [address], [place], [id number], 06/17/2025 16:12:39 folic acid 1 mg tablet 2024 025 [facility] [facility] [employer] [id number], [address], [place], [id number], 06/17/2025 16:12:37 Voquezna 10 mg tablet 2024 025 [facility] [address] [place] [address] [address], [address], [place], [address], 06/17/2025 16:12:24 thiamine HCl (vitamin B1) 100 mg tablet 2024 025 [id number], [address], [place], [id number], 02/11/2025 15:01:46 folic acid 1 mg tablet 2024 025 [id number], [address], [place], [id number], 02/11/2025 15:01:46 Patient TargetsNo targets recorded. Patient InstructionsNo instructions recorded. Reason for Referral Collision Repair Technician Referral for Es sential hypertension Please call patient to schedule an appointment. Thank you. Referring Physician: Christo Patterson, Internal Medicine, Encounter Date: 02/11/2025 Composite Science Teacher Referral for A sthma Please call patient to schedule an appointment. Thank you. Referring Physician: Christo Patterson, Internal Medicine, Encounter Date: 02/11/2025 Mold Stamper Referral for Rheumatoid arthritis Please call patient to schedule an appointment. Thank you. Referring Physician: Christo Patterson, Internal Medicine, Encounter Date: 02/11/2025 Please call patient to sched ule an appointment. Thank you. Referring Physician: Christo Patterson Internal Medicine, Encounter Date: 02/11/2025 Neurologist Referral for Bran ropathy Please call patient to schedule an appointment. Thank you. Referring Physician: Christo Patterson Internal Medicine, Encounter Date: 02/11/2025 Erp Technical Lead Referral for Liver enzymes level above reference range Please call patient to schedule an appointment. Thank you. Referring Physician: Christo Patterson, Internal Medicine, Encounter Date: 02/11/2025 Collision Repair Technician Referral for Es sential hypertension Please call patient to schedule an appointment. Thank you. Referring Physician: Christo Patterson, Internal Medicine, Encounter Date: 06/17/2025 Composite Science Teacher Referral for A sthma Please call patient to schedule an appointment. Thank you. Referring Physician: Christo Patterson, Internal Medicine, Encounter Date: 06/17/2025 Mold Stamper Referral for Rheumatoid arthritis Please call patient to schedule an appointment. Thank you. Referring Physician: Christo Patterson Internal Medicine, Encounter Date: 06/17/2025 Erp Technical Lead Referral for Liver enzymes level above reference range Please call patient to schedule an appointment. Thank you. Referring Physician: Christo Patterson Internal Medicine, Encounter Date: 06/17/2025 Results Created Date Observation Date Name Description Value Unit Range Abnormal Flag Note LastModifiedBy Organization Detail LastModifiedTime 01/09/20 25 02/09/2022 XR, chest , 2 [...] or older No observ ation record ed. [email or web address] [facility] [address] [place], [address], 02/03/2025 10:45:22 04/22/20 25 03/17/2025 CPAP titra tion study * No observ ation record ed. [address], [place], [address], 04/27/2025 15:10:44 04/27/20 25 03/17/2025 polys omnog kaiden, titra tion study No observ ation record ed. [facility] ([facility]) [address] [facility], [place], [address], 04/27/2025 19:34:58 07/09/2007/09/2025 DEXA, axial skele ton No observ ation record ed. [facility] [address] [place], [address], 07/09/2025 20:13:55 07/17/2007/15/2025 imagi ng/di agnos tic resul t No observ ation record ed. [facility] [address] [facility] [address], [place], [address], 07/17/2025 21:02:34 Result Notes None recorded. Problems Name Problem SNOMED Code Status Onset Date Resolution Date Notes Provider Name and Address Organization Details Recorded Time Body mass index 30+ - obesity 521620948 Active 2017 Cash Brasher MD [address], [address], [place], [address], [facility] 13:22:08 Obstructive sleep apnea syndrome 50734432 Active 2017 Cash Brasher MD [address], [address], [place], [address], [facility] 13:22:32 Essential hypertensio n 35770145 Active 2023 Cash Brasher MD [address], [address], [place], [address], [facility] 13:22:10 Vitamin D deficiency 42333328 Active 2023 Cash Brasher MD [address], [address], [place], [address], [facility] 13:22:40 Gastroesoph ageal reflux disease without esophagitis 873655341 Active 2023 Cash Brasher MD [address], [address], [place], [address], [place] [facility] 13:22:12 Rheumatoid arthritis 33704248 Active 2023 Cash Brasher MD [address], [address], [place], [address], [place] [facility] 13:22:38 Neuropathy 946375621 Active 2023 Cash Brasher MD [address], [address], [place], [address], [place] [facility] 13:22:26 Bilateral cataracts 12271458 Active 2023 Cash Brasher MD [address], [address], [place], [address], [place] [facility] 13:22:05 Hyperlipide amado 70964345 Active 2023 Christo ferrer MD [address], [address], [place], [address], [place] [facility] 16:05:17 Anemia 852176190 Active 2024 Cash Brasher MD [address], [address], [place], [address], [place] [facility] 13:22:03 Obstructive sleep apnea of adult 1681037670932 Active 2024 Cash Brasher MD [address], [address], [place], [address], [place] [facility] 12:59:49 Liver enzymes level above reference range 393131772 Active 2024 Christo ferrer MD [address], [address], [place], [address], [place] [facility] 5 14:01:30 Serum vitamin B12 below reference range 298632641 Active 2024 Christo ferrer MD [address], [address], [place], [address], [facility] 14:01:30 Alcohol dependence 29566231 Active 2024 Christo ferrer MD [address], [address], [place], [address], [facility] 14:59:49 Asthma 121409080 Active 2024 Christo ferrer MD [address], [address], [place], [address], [facility] 15:37:42 Pain in left foot 8772506674196 07 Active 2024 Christo ferrer MD [address], [address], [place], [address], [facility] 15:37:42 Dyspnea on exertion 34262772 Active 2024 Nona Frederick NP [address], [address], [place], [address], [facility] 11:52:54 Asthma without status asthmaticus 00519223 Active 2024 Nona Frederick NP [address], [address], [place], [address], [facility] 5 11:52:54 Sleep apnea 11833645 Active 2024 Nona Frederick NP [address], [address], [place], [address], [facility] 11:53:15 Hypersomnia 34719220 Active 2024 Nona Frederick NP [address], [address], [place], [address], [facility] 11:52:54 Notes:[facility] home sleep study 04/28/21 AHI = 10 [facility] diagnostic sleep study 01/27/25 sleep onset = [...] Corticosteroid Injection completed Dillan Cantor DPM [address], [address], [place], [address], [employer] 11/27/2024 09:03:25 11/26/19 25 Strapping Foot & Ankle completed Dillan Cantor DPM [address], [address], [place], [address], [employer] 11/27/2024 09:03:31 08/08/20 24 Cataract Surgery completed JOANA Dixon [place] [employer] 08/13/2024 14:50:08 12/16/19 20 Colonoscopy completed Coretta Weir RN [facility] [employer] 06/11/2024 15:50:19 08/19/20 19 cystoscopy completed Coretta Weir RN [place] [employer] 06/11/2024 15:49:31 08/19/20 19 Lithotripsy completed Coretta Weir RN [facility] [employer] [facility] 06/11/2024 15:49:57 03/18/20 19 total replacement of hip completed Coretta Weir RN [facility] [employer] 06/11/2024 15:48:48 03/27/20 17 colonoscopy completed Coretta Weir RN [facility] 06/11/2024 15:47:09 08/16/20 15 Rotator cuff surgery completed Coretta Weir RN [facility] 06/11/2024 15:47:39 03/01/20 15 Upper gi endoscopy performed completed Coretta Weir RN [facility] 06/11/2024 15:46:50 01/10/20 12 Cholecystectomy completed Coretta Weir RN [facility] 06/11/2024 15:46:28 03/25/20 08 Carpal tunnel surgery completed Coretta Weir RN [facility] 06/11/2024 15:46:10 03/11/20 08 Carpal tunnel surgery completed Coretta Weir RN [facility] 06/11/2024 15:45:52 10/01/19 06 Hysterectomy completed Coretta Weir RN [facility] 06/11/2024 15:45:13 10/01/18 81 removal of normal pituitary gland completed Coretta Weir RN [facility] 06/11/2024 15:44:54 Imaging Results None recorded. Procedure [...] Not Available Not Available No t Available cetirizine 10 mg tablet TAKE 1 TABLET BY MOUTH DAILY 06/17 completed Not Available Not Available Not Available azithromyci n 250 mg tablet 05/12 [...] TAKE 1 TABLET BY MOUTH EVERY DAY 06/17 completed Not Available Not Available Not Available ciprofloxac in 500 mg tablet 05/12 [...] Not Available Not Available Not Available amlodipine 10 mg tablet Take 1 tablet every day by oral route. active Not Available Not Available No t Available cephalexin 500 mg capsule 05/12 completed Not Available Not Available Not Available pantoprazol e 40 mg tablet,sahra yed release 06/11 completed Not Available Not Available Not Available prednisone 50 mg tablet 05/12 completed Not Available Not Available Not Available amoxicillin 400 mg-potassiu m clavulanate 57 mg chewable tablet 05/12 completed [...] BY MOUTH DAILY 30 MINUTES BEFORE BREAKFAST 06/17 completed Not Available Not Available Not Available diclofenac sodium 75 mg tablet,sahra yed [...] DAILY FAST BREATH INHALE QUICKLY AND DEEPLY 06/17 completed Not Available Not Available Not Available Fluvirin 0668-8762 45 mcg (15 mcg x 3)/0.5 mL intramuscul ar suspension ADM 0.5ML UTD 06/11 completed Not Available Not Available Not Available Flucelvax Quad 60 mcg (15 mcg x 4)/0.5 mL intramuscul ar susp ADM 0.5ML IM UTD 06/11 completed Not Available Not Available Not Available Airsupra 90 mcg-80 mcg/actuati on HFA aerosol inhaler Inhale 2 inhalatio ns every 6 hours by inhalatio n route as needed. 2024 active Not Available Not Available Not Avai lable Voquezna 10 mg tablet Take 1 tablet every day by oral route as needed for 90 days. 2024 active Not Available Not Available Not Avai lable Vitals Date Recorded Body height Body mass index (BMI) Body weight Body temperature Heart rate Oxygen saturation Oxygen saturation in Arterial blood by Pulse oximetry Systolic And Diastolic Provider Name and Address Organization Details Last Updated DateTime 5 162.56 cm 39.7 kg/m2 049001. 84 g 98.5 [degF] 65 /min 97 % 97 % 122/82 mm[Hg] Lashonda Araujo [place] [facility] 5 10:24:20 Date Recorded Body height Body mass index (BMI) Body weight Body temperature Heart rate Oxygen saturation Oxygen saturation in Arterial blood by Pulse oximetry Pain severity - 0-10 verbal numeric rating [Score] - Reported Systolic And Diastolic Provider Name and Address Organization Details Last Updated DateTime 5 162.56 cm 39.7 kg/m2 484027. 84 g 97.7 [degF] 92 /min 98 % 98 % 0 142/80 mm[Hg] Aishwarya Ruiz MA [facility] [employer] [facility] 5 14:28:29 Date Recorded Body height Body mass index (BMI) Body weight Heart rate Oxygen saturation Oxygen saturation in Arterial blood by Pulse oximetry Body temperature Systolic And Diastolic Provider Name and Address Organization Details Last Updated DateTime 5 162.56 cm 39.8 kg/m2 841913. 43 g 86 /min 97 % 97 % 98.3 [degF] 138/78 mm[Hg] Lashonda Araujo MA [facility] [employer] [facility] 5 11:27:17 Date Recorded Body height Body mass index (BMI) Body weight Body temperature Heart rate Oxygen saturation Oxygen saturation in Arterial blood by Pulse oximetry Pain severity - 0-10 verbal numeric rating [Score] - Reported Systolic And Diastolic Provider Name and Address Organization Details Last Updated DateTime 5 162.56 cm 40.9 kg/m2 943831. 98 g 97.2 [degF] 87 /min 98 % 98 % 4 156/80 mm[Hg] Aishwarya Ruiz MA [facility] [employer] [facility] 5 15:24:10 Date Recorded Body height Body temperature Heart rate Oxygen saturation Oxygen saturation in Arterial blood by Pulse oximetry Systolic And Diastolic Provider Name and Address Organization Details Last Updated DateTime 5 162.56 cm 99.4 [degF] 84 /min 98 % 98 % 160/78 mm[Hg] Sharifa Mukherjee CNA [facility] [employer] [facility] 5 11:45:50 Social History Question Answer Notes LastModified by Organization Details LastModified Time Tobacco Smoking Status Never Smoker Not Available [facility] 11/29/2022 07:26:45 Do You Have An Advance Directive? Yes [email or web address] Information not available 06/11/2024 Is Blood Transfusion Acceptable In An Emergency? Yes [email or web address] Information not available 06/11/2024 What Is Your Level Of Caffeine Consumption? Heavy [email or web address] Information not available 06/11/2024 In The 14 Days Before Symptom Onset, Have You Had Close Contact With A Laboratory-conf ania HYLTONID-19 While That Case Was Ill? No bob Information not available 11/25/2024 In The 14 Days Before Symptom Onset, Have You Had Close Contact With A Person Who Is Under Investigation For COVID-19 While That Person Was Ill? No Information not available 11/25/2024 What Type Of Diet Are You Following? REGULAR Decreased Appetite Information not available 06/11/2024 What Is The Highest Grade Or Level Of School You Have Completed Or The Highest Degree You Have Received? [id number] Information not available 06/11/2024 Do You Have An Electrostatic Air Filter? No Information not available 11/25/2024 Have There Been Any Changes To Your Family Or Social Situation? Yes Mothers Health, [email or web address] Information not available 06/11/2024 Do You Have A Humidifier? No Information not available 02/05/2025 Do You Use Insect Repellent Routinely? Yes [email or web address] Information not available 06/11/2024 Where Do You Live? SingleLevelHouse [email or web address] Information not available 06/11/2024 Do You Have A Medical Power Of Package Reinspector? Yes Camryn- Sister [email or web address] Information not available 06/11/2024 Do You Have Moisture Problems In Your Home? No Information not available 11/25/2024 What Was The Date Of Your Most Recent Tobacco Screening? 06/17/2025 Information not available 06/17/2025 How Many Children Do You Have? 0 Information not available 02/11/2025 Do You Have Any Pets? No [email or web address] Information not available 06/11/2024 What Is Your Relationship Status? [email or web address] Information not available 06/11/2024 Do You Use Your Seat Belt Or Car Seat Routinely? Yes Information not available 11/25/2024 Do You Have Smoke And Carbon Monoxide Detectors In Your Home? Yes [email or web address] Information not available 06/11/2024 Are You Passively Exposed To Smoke? No [email or web address] Information not available 06/11/2024 Are There Any Smokers In Your House? No Information not available 06/11/2024 Do You Use Sunscreen Routinely? No [email or web address] Information not available 06/11/2024 Have You Recently Traveled Abroad? No Information not available 11/25/2024 Have You Used IV Drugs? No Information not available 11/25/2024 Do You Have Any Dietary Restrictions? No Information not available 11/25/2024 Sex: Unknown Functional Status Question Answer Note LastModified by Organizat ion Details LastModified Time Do you use any illicit or recreational drugs? No has medical marijuana card [email or web address] Information not available 07/22/2025 Do you or have you ever used any other forms of tobacco or nicotine? No [email or web address] Information not available 08/13/2024 What is your level of alcohol consumption? Occasional beer/wine --on weekend [email or web address] Information not available 06/11/2024 Are you currently employed? No retired [email or web address] Information not available 06/11/2024 Have you been exposed to chemicals or toxins? Not that aware of Information not available 04/27/2025 What is your exercise level? Moderate Information not available 11/25/2024 Mental Status Question Answer Note LastModified by Organization D etails LastModified Time Do you feel stressed (tense, restless, nervous, or anxious, or unable to sleep at night)? [id number] Information not available 11/25/2024 Family History Relationship Description Onset Age of this Age Resolved Age Notes LastModified by Organization Details LastModified Time Unspecified Relation Diabetes mellitus [email or web address] Not available 2023 15:34:17 Unspecified Relation Hypertensive disorder Not available 2023 15:34:30 Mother Malignant neoplasm of oral cavity [email or web address] Not available 11:42:05 Medical History Condition Response ARTHRITIS Y HEADACHES/MIGRAINES [...] preservative 9 completed Brunilda Mooney RMA null, [facility] 08/13/2024 15:06:08 COVID-19, mRNA, LNP-S, PF, 100 mcg/0.5mL dose or 50 mcg/0.25mL dose 1 completed Brunilda Torresham, RMA null, [facility] 08/13/2024 15:06:08 COVID-19, mRNA, LNP-S, PF, 100 mcg/0.5mL dose or 50 mcg/0.25mL dose 1 completed Brunilda Torresham, RMA null, [facility] 08/13/2024 15:06:08 COVID-19, mRNA, LNP-S, PF, 100 mcg/0.5mL dose or 50 mcg/0.25mL dose 1 completed Brunilda Mooney RMA null, [facility] 08/13/2024 15:06:08 Influenza, split virus, trivalent, preservative 5 completed Brunilda Torresham, RMA null, [facility] 08/13/2024 15:06:08 Influenza, split virus, trivalent, preservative 4 completed Brunilda [place], RMA null, [facility] 08/13/2024 15:06:08 Influenza, split virus, trivalent, PF 6 completed Brunilda Mooney RMA null, [facility] 08/13/2024 15:06:08 Influenza, split virus, trivalent, PF 4 completed Brunilda Torresham RMA null, [facility] 08/13/2024 15:06:08 Hep B, adult 1 completed Brunilda Mooney RMA null, [facility] 08/13/2024 15:06:08 Hep B, adult 1 completed Brunilda Mooney RMA null, [facility] 08/13/2024 15:06:08 Hep B, adult 1 completed Brunilda Vinicio, RMA null, [place] [facility] 08/13/2024 15:06:08 Influenza, split virus, quadrivalent, PF 0 completed Brunilda Vinicio, RMA null, [facility] 08/13/2024 15:06:08 Influenza, split virus, quadrivalent, PF 1 completed Brunilda Mooney, RMA null, [facility] 08/13/2024 15:06:08 Influenza, split virus, quadrivalent, preservative 9 completed Brunilda Vinicio, RMA null, [facility] 08/13/2024 15:06:08 Influenza, split virus, trivalent, PF 4 completed Brunilda Mooney, RMA null, [facility] 07/23/2024 16:26:05 Past Encounters Encounter ID Performer Location Encounter Start Date Encounter Closed Date Diagnosis/Indication Diagnosis SNOMED-CT Code Diagnosis ICD10 Code Diagnosis IMO Codes Diagnosis Note [id number] S_[place] ic_[place] [facility] Podiatry [place] [address] [facility] [address] [place] [address] 05/12/2021 00:00:00 05/13/2021 09:44:18 [id number] Christo forbes MD [facility] Internal Med Eduardo joe [address] [facility] , [address] [address] 06/11/2024 15:16:44 06/11/2024 16:35:24 Screening - NAD 983096256 Z13.9 C-scope: get this if not done Mammogram: Get thisPAP: Get thisDEXA: Get this Get yearly flu shotGet Tdap if not doneCan do shingrix vaccineGet COVID 19 vaccine and its boostersCa n do RSV vaccine RTC in 3 months, do labs Essential hypertension 81072969 I10 On amlodipine 5mg dailyGet labs Vitamin D deficiency 347 83201 E55.9 On vit dGet labs Gastroesop hageal reflux disease without esophagitis 734554829 K21.9 On omeprazole 20mg dailyGet EGD Asthma 964734040 J45.90 9 On BreoOn albuterolD oes well Rheumatoid arthritis 698 48430 M06.[address] Josh riojas rheumatolo gist Neuropathy 245851695 G62 .9 On gabapentin Has seen Dr Vasquez in [place], [place], but wants to see another neurology, refer to Dr Marshall Serum jamie min B12 below reference range 146143147 R79.89 Bilateral cataracts 9572 2003 H26.9 [id number] Christo forbes MD S_G Primary Care [facility] [address] [facility] [address] [place] [address] 08/13/2024 14:38:52 08/13/2024 15:29:42 Screening - NAD 293726305 Z13.9 C-scope: get this if not done [...] labs provided and chart updated Essential hypertension 26599857 I10 Stress test 07/30/2024 : NegECHO: 08/06/2024 : EF 60%SLHV Dr Mishra 08/06/2024 On amlodipine 5mg dailyGet labs Vitamin D deficiency 347 71609 E55.9 On vit dGet labs Gastroesop hageal reflux disease without esophagitis 810093056 K21.9 On omeprazole 20mg dailyGet EGD Asthma 415762910 J45.90 9 On AdvairOn BreoOn albuterolD oes wellSee pulmonary Neuropathy 989973766 G62 .9 On gabapentin Has seen Dr Vasquez in [place], but wants to see another neurology, refer to Dr Marshall OV 08/13/2024 :Dr Marshall 06/18/2024 , started on cymbaltaGe t EMG for the L UE to r/o CTS Rheumatoid arthritis 698 09932 M06.[address]On sulf[address] Josh riojas rheumatolo gist Serum jamie min B12 below reference range 356636137 R79.89 Bilateral cataracts 9572 2003 H26.9 Screening for malignant neoplasm of colon 257056316 Z12.11 Liver enzy mes level above reference range 744112868 R74.01 US liver 07/07/2024 See case, sees her GI [id number] Christo forbes MD [facility] Primary Care Gaby cosby [address] [facility] [address] [place] [address] 11/19/2024 09:38:49 11/19/2024 10:34:47 Screening - NAD 256092532 Z13.9 C-scope: get this if not done Mammogram: 07/14/2024 : Negative PAP: Get this DEXA: Get this Get yearly flu shotGet Tdap if not doneCan do shingrix vaccineGet COVID 19 vaccine and its boostersCa n do RSV vaccine RTC in 2 months, do labs, ER if worse, she did verbalize her understand ing of the above Essential hypertension 15062283 I10 Stress test 07/30/2024 : NegECHO: 08/06/2024 : EF 60%SLHV Dr Mishra 08/06/2024 On amlodipine 5mg dailyGet labs Vitamin D deficiency 347 88957 E55.9 On vit dGet labs Gastroesop hageal reflux disease without esophagitis 386933267 K21.9 On omeprazole 20mg dailyGet EGD Asthma 294938815 J45.90 9 On AdvairOn BreoOn albuterolD oes wellSee pulmonary Neuropathy 062166411 G62 .9 On gabapentin Has seen Dr Vasquez in [place], [place], but wants to see another neurology, refer to Dr Marshall OV 08/13/2024 :Dr Marshall 06/18/2024 , started on cymbaltaGe t EMG for the L UE to r/o CTS OV 11/19/2024 :On duloxetine On gabapentin renewed as per her request but now should have her neurologis t give this to her, she understand s Rheumatoid arthritis 698 23687 M06.[address]On sulf[address] Moreno s rheumatolo gist Serum jamie min B12 below reference range 876526900 R79.89 Bilateral cataracts 9572 2003 H26.9 09/17/2024 : Clara Benson OD s/p cataract surgery Screening for malignant neoplasm of colon 623984930 Z12.11 Liver enzy mes level above reference range 317454637 R74.01 US liver 07/07/2024 See case, sees her GI Anemia 398892539 D64.9 ENT 09/11/2024 , epistaxis Jose Zee ALMONTEGet labsReferr ed to hematology , get labs Pain in left foot 331144 9947 59163 M79.672 Small tender hard swelling noted on the L plantar 1st MTPWill refer to podiatry [id number] Nona Frederick NP [facility] Pulmonolo gy [place] [address] [place] [address] 11/25/2024 15:05:46 11/25/2024 15:53:09 Asthma without status asthmaticus 86335319 J45.909 ACT on no maintenanc e inhaler: [...] and increase use of inhaler Sleep apnea 03562274 G47 .30 G47.33 G47.34 patient has hx of nosebleeds and difficulty with pressure when she had CPAP prior-she notes she would like to wait to redo testing and CPAP until after she has seen hematology or nosebleeds improveESS -13 Hypersomnia 14967909 G47 .10 multifacto rial Body mass index 30+ - obesity 682116216 Z68.39 Encourage healthy diet and exercise to improve weightdisc ussed weight effect on sleep and sleep apnea [id number] Dillan Cantor DPM [facility] Podiatry [facility] [address] [address] 11/26/2024 15:36:13 11/27/2024 10:51:24 [id number] Nona Frederick NP S_[facility]G Pulmonolo gy [place] [address] [facility] [address] [place] [address] 01/08/2025 15:33:25 01/13/2025 09:03:40 Asthma without status asthmaticus 90749820 J45.909 ACT on no maintenanc e inhaler: [...] of s/s Obstructiv e sleep apnea syndrome 51660801 G47.33 Sleep study order today-[facility] home sleep study 04/28/21 AHI = 10 [...] study Body mass index 30+ - obesity 607425584 Z68.39 Encourage healthy diet and exercise to improve weightdisc ussed weight effect on sleep and sleep apnea Essential hypertension 88815644 I10 monitor bp-f/u with primary if remains elevated [id number] Sher Hare MD [facility] General Surgery [address] [facility] [place] [address] 01/13/2025 15:11:56 01/13/2025 16:45:09 Esophageal dysphagia 30925922 R13.19 Plan- EGD, cont ppi [id number] Nona Frederick NP [facility] Pulmonolo gy [place] [address] [facility], [facility] [address] [place] [address] 02/05/2025 10:08:53 02/05/2025 12:03:38 Sleep apnea 09072776 G47.30 G47.33 G47.34 [id number] [facility] home sleep study 04/28/21 AHI = 10[facility] diagnostic sleep study 01/27/25 sleep onset = [...] concern Body mass index 30+ - obesity 729416658 Z68.39 294595 Encourage healthy diet and exercise to improve weightdisc ussed weight effect on sleep and sleep apnea [id number] Christo forbes MD [facility] Primary Care Gaby joe [address] [facility] [address] [place] [address] 02/11/2025 14:21:03 02/11/2025 14:59:51 Screening - NAD 681750938 Z13.9 C-scope: Has been done [place] [address] [facility] Mammogram: 07/14/2024 : Negative PAP: Get this DEXA: Get this Get yearly flu shotGet Tdap if not doneCan do shingrix vaccineGet COVID 19 vaccine and its boostersCa n do RSV vaccine RTC in 2 months, do labs, ER if worse, she did verbalize her understand ing of the above Essential hypertension 73730322 I10 Stress test 07/30/2024 : NegECHO: 08/06/2024 : EF 60%SLHV Dr Mishra 08/06/2024 On amlodipine 5mg dailyGet labs Vitamin D deficiency 347 81188 E55.9 On vit dGet labs Gastroesop hageal reflux disease without esophagitis 669927201 K21.9 On omeprazole 20mg dailyGet EGD referred again 02/11/2025 Asthma 942595193 J45.90 9 On AdvairOn BreoOn albuterolD oes wellSee pulmonary next apt 07/09/2025 Neuropathy 663389069 G62 .9 Dr Marshall 06/18/2024 , started on cymbaltaGe t EMG for the L UE to r/o CTS On duloxetine On gabapentin renewed as per her request but now should have her neurologis t give this to her, she understand s Dr Marshall 12/10/2024 , to get CT angio done Rheumatoid arthritis 698 77871 M06.9 On simponiOn sulfasalaz ine Dr Loza and Dr Aziza riojas rheumatolo gist Serum jamie min B12 below reference range 335152058 R79.89 Bilateral cataracts 9572 2003 H26.9 09/17/2024 : Clara Benson OD s/p cataract surgery Screening for malignant neoplasm of colon 484809315 Z12.11 Liver enzy mes level above reference range 964241181 R74.01 US liver 07/07/2024 See case, sees her GIReferred Dr Fernandez Anemia 135455989 D64.9 ENT 09/11/2024 , epistaxis Jose Srinet MDGet labsReferr ed to hematology , get labs Pain in left foot 105107 3565 22255 M79.672 Small tender hard swelling noted on the L plantar [address]st M[address] Cantor 11/26/2024 Alcohol dependence 78109 003 F10.20 4340332 GGT: 68H 02/05/2025 Does consume large cans of beer, advised to wean off and stop!Get on thiamine and folic acid [id number] Nona Frederick NP S_G Pulmonolo gy [place] [address] [facility] [address] [place] [address] 04/27/2025 11:09:05 05/04/2025 16:54:12 Sleep apnea 47895052 G47.30 [id number] [facility] home sleep study 04/28/21 AHI = 10[facility] diagnostic sleep study 01/27/25 sleep onset = 9 minutes, REM onset = 76.5 minutes, AHI = 9, REM AHI = 34, PLMI = 0.0Titrati on sleep study-AHI 9. O2 sat decrease to 80%: CPAP 9 cm H2O with small respironic s dreamwear maskESS-7D iscussed sleep hygeineAdv ised good sleep habits and [...] concern Body mass index 30+ - obesity 039200546 Z68.39 381261 Encourage healthy diet and exercise to improve weightdisc ussed weight effect on sleep and sleep apnea [id number] Christo forbes MD [facility] Primary Care [place] [address] [facility] [address] [place] [address] 06/17/2025 15:17:41 06/17/2025 16:18:10 Screening - NAD 755819742 Z13.9 C-scope: Has been done [place] [address] [facility] Mammogram: 07/14/2024 : NegativeNe xt on 07/17/2025 at [facility] [place] PAP: Get this DEXA: Get this Get yearly flu shotGet Tdap if not doneCan do shingrix vaccineGet COVID 19 vaccine and its boostersCa n do RSV vaccine RTC in 3 months, do labs, ER if worse, she did verbalize her understand ing of the above Essential hypertension 24213220 I10 Stress test 07/30/2024 : NegECHO: 08/06/2024 : EF 60%SLHV Dr Mishra 08/06/2024 Next apt is with Dr Mishra 08/07/2025 On amlodipine 5mg dailyGet labs Vitamin D deficiency 347 98283 E55.9 On vit dGet labs Gastroesop hageal reflux disease without esophagitis 695013947 K21.9 On omeprazole 20mg daily, not helping at this timeGet VoqenzaEGD Dr Julien 03/25/2025 : Gastritis Asthma 161333902 J45.90 9 On AdvairOn BreoOn albuterolD oes wellSee pulmonary next apt 07/09/2025 Neuropathy 542095062 G62 .9 Dr Marshall 06/18/2024 , started on cymbaltaGe t EMG for the L UE to r/o CTS On duloxetine On gabapentin renewed as per her request but now should have her neurologis t give this to her, she understand s Dr Marshall 12/10/2024 , to get CT angio done Dr Marshall 04/13/2025 , duloxetine 60mg bid now, and f/u in one year Rheumatoid arthritis 698 51325 M06.9 On simponiOn sulfasalaz ine Dr Loza and Dr Aziza riojas rheumatolo gist Serum jamie min B12 below reference range 265802721 R79.89 Bilateral cataracts 9572 2004 H26.9 09/17/2024 : Clara Benson OD s/p cataract surgery Screening for malignant neoplasm of colon 165833129 Z12.11 Liver enzy mes level above reference range 575952465 R74.01 US liver 07/07/2024 See case, sees her GIReferred Dr Fernandez Anemia 713581437 D64.9 ENT 09/11/2024 , epistaxis Jose Koch MDGet labsReferr ed to hematology , get labs Pain in left foot 320287 0133 91943 M79.672 Small tender hard swelling noted on the L plantar [address]st M[address] Cantor 11/26/2024 Alcohol dependence 90217 003 F10.20 3454387 GGT: 68H 02/05/2025 Does consume large cans of beer, advised to wean off and stop!On thiamine and folic acid Postmenopausal state 764 04051 Z78.0 636417 Hyperlipidemia 96749256 E78.5 30926675 [id number] Cash Brasher MD [facility] Pulmonolo [address] [address] 07/22/2025 11:31:14 07/22/2025 13:33:23 Asthma without status asthmaticus 29723063 J45.909 ACT on no maintenanc e inhaler: 20PFT 12/17/24 nl FEV1/FVC, FEV1 1.43 L (73%), BD 20 mL = 1%, TLC 2.76 L (57%), RV 0.93 L (50%), DLCO 50%, DLCO/VA 127%declin ed RAST-rest of testing negative findingsAs thma Action plan discussedU se Albuterol only PRN-if using more discussed need for re-evaluat ionIn depth discussion about s/s that require evaluation Return in 4 months for testing-so judah if new or worsening of s/s Hypersomnia 82110469 G47 .10 multifacto rial Body mass index 30+ - obesity 276890665 Z68.39 Encourage healthy diet and exercise to improve weightdisc ussed weight effect on sleep and sleep apnea Sleep apnea 75591727 G47 .30 48953225 [facility] home sleep study 04/28/21 AHI = 10[facility] diagnostic sleep study 04/29/25 sleep onset = 9 minutes, REM onset = 76.5 minutes, AHI = 9, REM AHI = 34, PLMI = 0.0Titrati on sleep study-AHI 9. O2 sat decrease to 80%: CPAP 9 cm H2O with small respironic s dreamwear maskPatien t has Resmed 05/07/2025Do wnload shows 62% compliance with use of greater than 4 hoursPAP is set at 9 cm Z4FMubt/sl eep study while on PAP reviewedAH I was well corrected at 2.0ESS-11C ontinue 100% compliance with all sleepFollo w with Primary for labsDiscus sed sleep hygeineAdv ised good sleep habits and [...] that requires sustained mental alertness. -Maintain a regular bedtime and wake-up time even on weekends [...] bedtime.-D iscussed reportable signs and symptoms of concernRec vinnie new machine at 7 year daria, plans to repeat home sleep study as needed with changes in condition. F/u 4 months-she has a lot going on with her mom in hospice- e does well when she uses it Body mass index 40+ - severely obese 875452694 Z68.41 386220 Encourage healthy diet and exercise to improve weightdisc ussed weight effect on sleep and sleep apnea Health Concerns Section Related Observation LastModified by Organization Detai ls LastModified Time None Recorded Concern Status LastModified by Organization Details LastModified Time None Recorded Advance Directives Directive Y: Payers Insurance Date Sequence Insurance Name Policy Number Policy Thompson Covered Member ID Thompson Member ID Guarantor Name 07/22/2025 2 [place] [employer] [employer] Little E Torsten [id number] Little E Torsten 11/25/2024 2 [facility] [id number] Little E Torsten [id number] Little E Torsten 06/08/2025 2 [facility] [id number] Little E Torsten [id number] Little E Torsten 11/25/2024 1 [employer] [id number] Little E Torsten [id number] Little E Torsten 07/22/2025 1 [facility] (MEDICARE REPLACEMENT/ ADVANTAGE - HMO) [id number] Little E Torsten [id number] Little E Torsten Notes Date Note Type Note Provider Name and Address Organization Details Recorded Time 5 text/html Patient is here today for follow-up for sleep study follow-up. She notes continued fatigue, no changes since last visit. Nona Frederick NP [address], [address], [place], [address], [employer] 02/05/2025 11:21:04 5 text/html OV 06/11/2024:Here to [...] L foot and wants to see a delivery associate OV 02/11/2025: Here for her f/u apt, she is doing well today, she did do the labs on 02/05/2025 Christo Patterson MD [address], [place], [address], [employer] 02/11/2025 18:39:12 5 text/html She is here today for follow-up for titration sleep study. She notes no new complaints or issues. Nona Frederick NP [address], [facility] [address], [place], [address], [facility] [employer] [facility] 04/27/2025 12:03:46 5 text/html OV 06/11/2024:Here to establish care [...] L foot and wants to see a delivery associate OV 02/11/2025: Here for her f/u apt, she is doing well today, she did do the labs on 02/05/2025 OV 06/17/2025: Here for her f/u apt, she feels well today Christo Patterson MD [address], [facility] [address], [place], [address], [facility] [employer] [facility] [employer] [facility] 06/17/2025 18:38:30 5 text/html AsthmaReported by PatientHPIFor associated symptoms, patient reportscough,dyspnea, andwheezebut reportsno fever,no fatigue,no anorexia,no tachypnea,no retractions, andno sleep disturbance. For quality, patient reportswell-controlled. For severity, patient reportsno decrease in activities of daily livingandimproving. For timing, patient reportsinfrequent. For aggravating factors, patient reportschanges in weatherandphysical activity. For alleviating factors, patient reportsshort-acting beta agonist. For prior tests and treatments, patient reportsshort-acting beta agonist.non-smokerfollow- up for lab work-unremarkable respiratory work-up and pft wnl (old PFT from 2019 did show restriction) CPAP F/UReported by PatientHPIFor cpap, patient reportsno problems with cpap,mask does not leak,no trouble with sleep initiation,no problems with sleep maintenance,does not remove cpap mask during the night,does not wake up in the middle of the night with dry mouth,no snoring through the mask,no aerophagia,no abdominal discomfort,no skin irritation,no ear pain,no ear pressure,no nasal congestion,sleep related symptoms have markedly improved,wakes up rested,no excessive daytime sleepiness,no headache,no memory loss, andpatient is using cpap and estimates 5 hours of pap use nightly..her mom is currently on hospice-has not taken machine with her Nona Frederick NP [address] [facility], [facility] [address], [place], [address], [place] [facility] [employer] 07/22/2025 12:19:39 OBGyn Episode No OBEpisode recorded.
--- OUTSIDE RECORDS SUMMARY | 2025-07-30 13:38 | XMS_ITS | Encounter Summary ---
Author Organization [facility] Address [address] [place] [address] Phone Care Team Providers Care Shot Man Name Role Phone Gal Decker MD Unavailable Jennifer Angel Unavailable [phone] Ethan Graves MD Unavailable [phone] Clem Ramos MD Unavailable [phone] Wilber Patterson MD Primary Care Provide r Encounter Details Date Type Department Care Team (Latest Contact Info) Description 07/09/2025 Results Follow-Up [facility] [address] [place] [address] John Zabala PA [address] [place] [address] Erythrocyte sedimentation rate, CRP (acute phase), Comprehensive metabolic panel, CBC with auto differential Social History Tobacco Use Types Packs/Day Years [...] on file 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 Gender Identity Not on file Sexual Orientation Not on file documented as of this encounter Plan of Treatment Not on file documented as of this encounter Visit Diagnoses Not on filedocumented in this encounter Care Teams Shot Man Relationship Specialty Start Date End Date Wilber Patterson MD [address] [place], [place] [id number] PCP - General Internal Medicine 06/16/24 Gal Decker MD [address] [address] [place] [address] Referring Physician Neurology 03/23/21 Jennifer Angel PA [address] [place] [address] Physician Maple Sugar Maker Physician Maple Sugar Maker 03/01/22 Ethan Graves MD [address] [place] [address] Consulting Physician Rheumatology 08/31/23 Clem Ramos MD [address] [place] [address] Referring Physician General Surgery 09/12/23 documented as of this encounter
--- OUTSIDE RECORDS SUMMARY | 2025-07-30 13:38 | XMS_ITS | Clinical Summary ---
Author Organization [facility] Address [address] [place] [address] Care Team Providers Care Ed Transporter Name Role Phone Artie Barron MD Primary Care Provider [phone] Source Comments [facility],non-owned Affiliates and Associated Physician Practices is amultiple site organization consisting of ambulatory clinics and hospital sitesin [place], [place], [place] and [place]. This disclosure is being madepursuant to the Care Everywhere program and may not contain all information available regarding this patient. 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 file Not on file Not [...] - Moderna risk series) 12/28/2020 11/30/2020, 11/02/2020 SCREENING FOR DIABETES 08/29/2021 Respiratory Syncytial Virus (RSV) Vaccine Pt: or over 60 yrs (1 - Risk 60-74 years 1-dose series) 2022 DEPRESSION SCREENING 10/01/2024 INFLUENZA VACCINE (#1) 2025 , 07/11/2020, 07/10/2020, Additional history exists HEPATITIS B VACCINE Aged [...] to complete this topic Insurance [employer] [facility] MANAGED MEDICARE ADV MEDICAID [place] SELF PAY NO INSURANCE Member Subscriber Plan / Payer (Ef fective for All Dates) Name:Little Sarmiento Member ID:Not on file Relation to Subscriber:Not on file Name:LITTLE SARMIENTO Subscriber ID:Not on file (Home) Address: [address] [address] Payer ID:Not on file Group ID:Not on file Type:Self Pay Address: [place], [place] Care Teams Ed Transporter Relationship Specialty Start Date End Date Artie Barron MD [address] [place] [address] PCP - General Family Medicine 09/14/21
== END 2025-07-30 12:57 | disposition home or self-care (01) ==
LOC: ANHLAB 12:57
PROVIDERS: PCP Internal Medicine; Visit Provider Internal Medicine Hematology & Oncology
DX: D64.9 Anemia, unspecified (principal)
CPT/HCPCS: 36415; 80047; 85027